=== PATIENT | male | born 1955 | race Hispanic/Latino ===

== ENCOUNTER 2018-09-21 14:53 | Inpatient (IN) | payer OTHER ==
[~2018-09-21] VITALS: Ht 162.6 cm; Wt 63.7 kg
--- OUTSIDE RECORDS SUMMARY | 2018-09-21 14:56 | XMS REPORT | Clinical Summary ---
Author Author YOLANDA [facility] Organization [facility] Address Unknown Phone Unavailable Care Team Providers Care Privacy Analyst Name Role Phone Yuri Olvera Unavailable Unavailable Magnus Devorah Unavailable ShwethaEdwin PCP Allergies Not on File Medications Not on file Active Problems Not on file Encounters Care Team Description Date Type Specialty Khushbu Perez Appointment (Called patient's to leave message regarding scheduling 's day one renal txp eval appt. Gave her available Burmese days in September and October. She stated she will talk to her and call back tomorrow to schedule.) 09/03/2018 Telephone Transplant Khushbu Perez Appointment (Called patient ot schedule day one renal txp eval appt. No answer. Left detailed voicemail message and call back number in Burmese. ) 09/03/2018 Telephone Transplant Khushbu Perez 09/03/2018 Abstract Transplant after 09/20/2017 Social History Date Tobacco Use Types Packs/Day Years Used Never Smoker Sex Assigned at Date Recorded Not on file Industry Job Start Date Occupation Not on file Not on file Not on file Travel End Travel History Travel Start No recent travel history available. Last Filed Vital Signs Time Taken Vital Sign Reading - Blood Pressure - - Pulse - - Temperature - - Respiratory Rate - - Oxygen Saturation - - Inhaled Oxygen - Concentration 09/03/2018 11:38 AM CDT Weight 64.9 kg (143 lb) 09/03/2018 11:38 AM CDT Height 165.1 cm (5' 5") 09/03/2018 11:38 AM CDT Body Mass Index 23.8 Plan of Treatment Care Team Description Date Type Specialty Anemia of renal disease (Primary Dx); Pre-transplant evaluation for chronic kidney disease; Hypertensive renal disease; Nonspecific findings on examination of urine 09/30/2018 Office Visit Transplant 09/30/2018 Orders Only Transplant Hepatology Results Not on fileafter 09/20/2017 Insurance Payer Benefit Subscriber ID Type Phone Address Plan / Group [facility] xxxxxxxxx HMO/POS CARE POS SELECT CHOICE
--- OUTSIDE RECORDS SUMMARY | 2018-09-21 14:57 | XMS REPORT | Continuity of Care Document ---
Author Author [employer] Address Unknown Phone Unavailable Care Team Providers Care Permastone Installer Name Role Phone [employer] Information [place] Unavailable Unavailable Problems Problem Status Onset Date Classification Date Reported Comments Source Sepsis, unspecified organism 03/22/2018 09/14/2018 [facility] Acute dyspnea 02/08/2018 09/14/2018 [facility] COUGH AND CHEST PAIN Active 02/08/2018 [facility] ACUTE DYSPNEA Active 02/08/2018 [facility] CHEST PAIN Active 03/20/2017 [facility] SYNCOPE Active 11/22/2015 [facility] SYNCOPE, BRADYCARDIA, CHF Active 11/22/2015 [facility] Diabetes Active Problem 09/14/2018 [facility] Hyperlipemia Resolved Problem 09/14/2018 [facility] Hypertension Resolved Problem 09/14/2018 [facility] Acute respiratory failure with hypoxia 09/14/2018 [facility] Acute kidney failure with tubular necrosis 09/14/2018 [facility] Acute respiratory failure with hypercapnia 09/14/2018 [facility] Pneumonia due to Methicillin susceptible Staphylococcus aureus 09/14/2018 [facility] Myocardial infarction type 2 09/14/2018 [facility] Chronic kidney disease, stage 4 09/14/2018 [facility] Hyperosmolality and hypernatremia 09/14/2018 [facility] Chronic obstructive pulmonary disease with exacerbation 09/14/2018 [facility] Chronic obstructive pulmonary disease with acute lower respiratory infection 09/14/2018 [facility] Hypo-osmolality and hyponatremia 09/14/2018 [facility] Chronic pulmonary edema 09/14/2018 [facility] Shock, unspecified 09/14/2018 [facility] Hyperkalemia 09/14/2018 [facility] Hypertensive chronic kidney disease with stage 1 through stage 4 chronic kidney disease, or unspecified chronic kidney disease 09/14/2018 [facility] Atherosclerotic heart disease of [place] coronary artery without angina pectoris 09/14/2018 [facility] Hyperlipidemia, unspecified 09/14/2018 [facility] Type 2 diabetes mellitus with diabetic chronic kidney disease 09/14/2018 [facility] Nutritional anemia, unspecified 09/14/2018 [facility] shelter use of insulin 09/14/2018 [facility] Type 2 diabetes mellitus with hyperglycemia 09/14/2018 [facility] Hypermagnesemia 09/14/2018 [facility] Obesity, unspecified 09/14/2018 [facility] Body mass index 27.0-27.9, adult 09/14/2018 [facility] Ventricular premature depolarization 09/14/2018 [facility] Cyst of kidney, acquired 09/14/2018 [facility] Dysphagia, unspecified 09/14/2018 [facility] Procedure and treatment not carried out, unspecified reason 09/14/2018 [facility] intermodal dispatcher use of antithrombotics/antiplatelets 09/14/2018 [facility] shelter use of aspirin 09/14/2018 [facility] SYNCOPE AND COLLAPSE Active [facility] DYSPNEA, UNSPECIFIED Active [facility] CHEST PAIN, UNSPECIFIED Active [facility] Medications Medication Details Route Status Patient Instructions Ordering Provider Order Date Source Blood Glucose Test Strips 1 box, TOP, Before Breakfast, # 60 box, 0 Refill(s) Inactive 02/25/2018 [facility] Blood Glucose Test Strips 1 box, TOP, Before Breakfast, # 60 box, 0 Refill(s) Inactive 02/25/2018 [facility] [employer] Blood Glucose Meter 1 ea, MISC, ONCE, Last HBA1c: Insulin Dep:Y High freq tests for: Poor control Certified Medically Necessary:, # 1 ea, Insulin dependent, Does not use insulin pump, Last DM eval date 02/25/18, 0 Refill(s) Inactive 02/25/2018 [facility] [employer] Blood Glucose Meter 1 ea, MISC, ONCE, Last HBA1c: Insulin Dep:Y High freq tests for: Poor control Certified Medically Necessary:, # 1 ea, Insulin dependent, Does not use insulin pump, Last DM eval date 02/25/18, 0 Refill(s) Inactive 02/25/2018 [facility] Insulin Syringes U 30 31 ga (ultra fine) 1 syr, INJ, Daily, # 60 syr, 1 Refill(s) No Longer Active 02/25/2018 [facility] [employer] Blood Glucose Meter 1 ea, MISC, ONCE, Last HBA1c: Insulin Dep:Y High freq tests for: Poor control Certified Medically Necessary:, # 1 ea, Insulin dependent, Does not use insulin pump, Last DM eval date 02/25/18, 0 Refill(s) Inactive 02/25/2018 [facility] [employer] Blood Glucose Meter 1 ea, MISC, ONCE, Last HBA1c: Insulin Dep:Y High freq tests for: Poor control Certified Medically Necessary:, # 1 ea, Insulin dependent, Does not use insulin pump, Last DM eval date 02/25/18, 0 Refill(s) Inactive 02/25/2018 [facility] Insulin Syringes U 30 31 ga (ultra fine) 1 syr, INJ, Daily, # 60 syr, 1 Refill(s) Inactive 02/25/2018 [facility] [employer] Blood Glucose Meter 1 ea, MISC, ONCE, Last HBA1c: Insulin Dep:Y High freq tests for: Poor control Certified Medically Necessary:, # 1 ea, Insulin dependent, Does not use insulin pump, Last DM eval date 02/25/18, 0 Refill(s), other Inactive 02/25/2018 [facility] Insulin Syringes U 30 31 ga (ultra fine) 1 syr, INJ, Daily, # 60 syr, 1 Refill(s), other Inactive 02/25/2018 [facility] atorvastatin 40 mg oral tablet 20 mg=0.5 tab, PO, Bedtime, # 60 tab, 3 Refill(s) No Longer Active 02/25/2018 [facility] Aspirin 81 MG Enteric Coated Tablet 81 mg=1 tab, PO, Daily, # 60 tab, 3 Refill(s) No Longer Active 02/25/2018 [facility] NIFEdipine 60 mg oral tablet, extended release 60 mg=1 tab, PO, Daily, # 90 tab, 3 Refill(s) No Longer Active 02/25/2018 [facility] Insulin Glargine 100 UNT/ML Injectable Solution 26 unit, SUB-Q, Daily, # 10 mL, 0 Refill(s) No Longer Active 02/25/2018 [facility] melatonin 3 mg oral tablet 6 mg=2 tab, PO, Bedtime, X 14 day, # 28 tab, 0 Refill(s) No Longer Active 02/25/2018 [facility] clopidogrel 75 mg oral tablet 75 mg=1 tab, PO, Daily, # 30 tab, 0 Refill(s) No Longer Active 02/25/2018 [facility] carvedilol 6.25 mg oral tablet 6.25 mg=1 tab, PO, Q12H, # 60 tab, 0 Refill(s) No Longer Active 02/25/2018 [facility] Sodium Chloride 0.9% (titrate) 250 mL 250 mL, Rate: To prime line and flush remaining blood products., Dosing Weight 74.6, kg, Route: IV, Total Volume: 250, Priority: Routine, Start Date: 02/25/18 4:38:00 [employer] OWNED SALES MANAGER, Duration: 30 day, Stop date: 03/27/18 4:37:00 [employer] OWNED SALES MANAGER, Replace Every: 24 hr Inactive 02/25/2018 [facility] Insulin Lispro 6 unit, 0.06 mL, Route: SUB-Q, Drug form: SOLN, TID-Before Meals, Dosing Weight 74.6, kg, PRN Blood Glucose Results, Start date: 02/25/18 2:10:00 [employer] OWNED SALES MANAGER, Duration: 30 day, Stop date: 03/27/18 2:09:00 CSTNotes: (Same as: Humalog ) Roll in palms of hands gently; Do not shake `vigorously. "Single Patient Use Only " WASTE: F/P - Black; E - Municipal Trash Bin Stable for 28 days at room temperature. Expires in days from Date Inactive 02/25/2018 [facility] Glucagon 1 mg, Route: IM, Drug form: PDR/INJ, PRN, Dosing Weight 74.6, kg, PRN Blood Glucose Results, Start date: 02/25/18 2:10:00 [employer] OWNED SALES MANAGER, Duration: 30 day, Stop date: 03/27/18 2:09:00 [employer] OWNED SALES MANAGER Inactive 02/25/2018 [facility] Dextrose 50% Syringe 12.5 gm, 25 mL, Route: IVP, Drug Form: INJ, Dosing Weight 74.6, kg, PRN, PRN Blood Glucose Results, Start date: 02/25/18 2:10:00 [employer] OWNED SALES MANAGER, Duration: 30 day, Stop date: 03/27/18 2:09:00 PRE OWNED SALES MANAGER Inactive 02/25/2018 [facility] insulin glargine 26 unit, 0.26 mL, Route: SUB-Q, Drug form: SOLN, Daily, Start date: 02/24/18 8:00:00 [employer] OWNED SALES MANAGER, Duration: 30 day, Stop date: 03/25/18 8:00:00 CSTNotes: Same as: Lantus) Do not hold insulin without contacti ng prescriber WASTE: F/P - Black; E - Municipal Trash Bin No Longer Active 02/24/2018 [facility] Potassium Chloride 1.33 MEQ/ML Oral Solution 40 mEq, 30 mL, Route: PO, Drug form: LIQ, ONCE, Dosing Weight 74.6, kg, Start date: 02/23/18 15:16:00 PRE OWNED SALES MANAGER, Stop date: 02/23/18 15:16:00 CSTNotes: (Same as: Potassium Chloride) Inactive 02/23/2018 [facility] Amlodipine 5 mg, Route: PO, Drug form: TAB, Daily, Dosing Weight 74.6, kg, Start date: 02/23/18 9:00:00 PRE OWNED SALES MANAGER, Duration: 30 day, Stop date: 03/24/18 9:00:00 PRE OWNED SALES MANAGER No Longer Active 02/23/2018 [facility] insulin glargine 26 unit, 0.26 mL, Route: SUB-Q, Drug form: SOLN, Q12H, Start date: 02/23/18 0:00:00 PRE OWNED SALES MANAGER, Duration: 30 day, Stop date: 03/24/18 12:00:00 CSTNotes: Same as: Lantus) Do not hold insulin without contacting prescriber WASTE: F/P - Black; E - Municipal Trash Bin Inactive 02/23/2018 [facility] Insulin Glargine 100 UNT/ML Injectable Solution 10 unit, Route: SUB-Q, Bedtime, Dosing Weight 74.6, kg, Start date: 02/22/18 21:00:00 PRE OWNED SALES MANAGER, Duration: 30 day, Stop date: 03/23/18 21:00:00 PRE OWNED SALES MANAGER Inactive 02/23/2018 [facility] Glycopyrrolate 1 mg, 5 mL, Route: NG, Drug form: SOLN, BID, Dosing Weight 74.6, kg, Start date: 02/22/18 13:00:00 PRE OWNED SALES MANAGER, Duration: 30 day, Stop date: 03/24/18 9:00:00 CSTNotes: (Same as: Cuvposa) No Longer Active 02/22/2018 [facility] Amlodipine 10 mg, 1 tab, Route: NG, Drug form: TAB, Daily, Dosing Weight 74.6, kg, Start date: 02/22/18 10:50:00 PRE OWNED SALES MANAGER, Duration: 30 day, Stop date: 03/24/18 9:00:00 CSTNotes: (Same as: Norvasc) No Longer Active 02/22/2018 [facility] Glycopyrrolate 1 mg, 5 mL, Route: NG, Drug form: SOLN, BID, Dosing Weight 74.6, kg, Start date: 02/22/18 10:48:00 PRE OWNED SALES MANAGER, Duration: 30 day, Stop date: 03/24/18 9:00:00 CSTNotes: (Same as: Cuvposa) Inactive 02/22/2018 [facility] Lasix 20 mg, 1 tab, Route: PO, Drug form: TAB, Daily, Dosing Weight 74.6, kg, Start date: 02/22/18 9:00:00 [employer] OWNED SALES MANAGER, Duration: 30 day, Stop date: 03/23/18 9:00:00 CSTNotes: (Same as: Lasix) May cause GI upset. Give with food or milk. No Longer Active 02/22/2018 [facility] heparin sodium, porcine 2500 UNT/ML Injectable Solution 5,000 unit, 1 mL, Route: SUB-Q, Drug form: INJ, Q8H, Dosing Weight 74.6, kg, Start date: 02/21/18 16:00:00 PRE OWNED SALES MANAGER, Duration: 30 day, Stop date: 03/23/18 8:00:00 CSTNotes: porcine heparin No Longer Active 02/21/2018 [facility] Reglan 10 mg, 2 mL, Route: IVP, Drug form: INJ, ONCE, Dosing Weight 74.6, kg, Start date: 02/21/18 11:43:00 PRE OWNED SALES MANAGER, Stop date: 02/21/18 11:43:00 CSTNotes: (Same as: Reglan) Inactive 02/21/2018 [facility] NIFEdipine 60 mg oral tablet, extended release 60 mg, 1 tab, Route: PO, Drug form: ERTAB, Daily, Dosing Weight 74.6, kg, Start date: 02/21/18 9:00:00 PRE OWNED SALES MANAGER, Duration: 30 day, Stop date: 03/22/18 9:00:00 PRE OWNED SALES MANAGER, ..Notes: (Same as: Adalat CC, Procardia XL) Give on empty stomach. Take 1 hour before or 2 hours after meal; "Avoid grapefruit and grapefruit juice". Do not crush No Longer Active 02/21/2018 [facility] Coreg 6.25 mg, 1 tab, Route: PO, Drug form: TAB, Q12H, Dosing Weight 74.6, kg, Start date: 02/20/18 9:00:00 PRE OWNED SALES MANAGER, Duration: 30 day, Stop date: 03/21/18 21:00:00 CSTNotes: Give with food. (Same As: Coreg) No Longer Active 02/20/2018 [facility] Melatonin 6 mg, 2 tab, Route: PO, Drug form: TAB, Bedtime, Dosing Weight 74.6, kg, Start date: 02/19/18 21:00:00 PRE OWNED SALES MANAGER, Duration: 30 day, Stop date: 03/20/18 21:00:00 CSTNotes: (Same as: Melatonin) No Longer Active 02/20/2018 [facility] insulin, isophane 22 unit, 0.22 mL, Route: SUB-Q, Drug form: INJ, Q8H, Dosing Weight 74.6, kg, Start date: 02/19/18 16:00:00 PRE OWNED SALES MANAGER, Stop date: 02/22/18 18:00:00 CSTNotes: Roll in palms of hands gently; Do not shake vigorously. (Same as: Humulin N) Do not hold insulin without contacting prescriber WASTE: F/P - Black; E - Municipal Trash Bin Stable for 28 days at room temperature Expires in days from Date No Longer Active 02/19/2018 [facility] Reglan 10 mg, Route: IV, ONCE, Dosing Weight 74.6, kg, Start date: 02/19/18 13:39:00 PRE OWNED SALES MANAGER, Stop date: 02/19/18 13:39:00 PRE OWNED SALES MANAGER Inactive 02/19/2018 [facility] Furosemide 40 MG Oral Tablet [Lasix] 40 mg, 1 tab, Route: PO, Drug form: TAB, BID Diuretic, Dosing Weight 74.6, kg, Start date: 02/19/18 9:00:00 PRE OWNED SALES MANAGER, Duration: 30 day, Stop date: 03/21/18 6:00:00 PRE OWNED SALES MANAGER No Longer Active 02/19/2018 [facility] Potassium Chloride 1.33 MEQ/ML Oral Solution 20 mEq, 15 mL, Route: NG, Drug form: LIQ, ONCE, Dosing Weight 74.6, kg, Start date: 02/18/18 18:00:00 PRE OWNED SALES MANAGER, Stop date: 02/18/18 18:00:00 CSTNotes: (Same as: Potassium Chloride) Inactive 02/19/2018 [facility] Potassium Chloride 1.33 MEQ/ML Oral Solution 40 mEq, 30 mL, Route: PO, Drug form: LIQ, ONCE, Dosing Weight 74.6, kg, Start date: 02/18/18 11:02:00 PRE OWNED SALES MANAGER, Stop date: 02/18/18 11:02:00 CSTNotes: (Same as: Potassium Chloride) Inactive 02/18/2018 [facility] Lasix 40 mg, Route: IV, Daily, Dosing Weight 74.6, kg, Start date: 02/18/18 9:00:00 PRE OWNED SALES MANAGER, Duration: 30 day, Stop date: 03/19/18 9:00:00 PRE OWNED SALES MANAGER Inactive 02/18/2018 [facility] Lasix 40 mg, 4 mL, Route: IV, Drug form: INJ, ONCE, Dosing Weight 74.6, kg, Start date: 02/18/18 8:53:00 PRE OWNED SALES MANAGER, Stop date: 02/18/18 8:53:00 CSTNotes: (Same as: Lasix) MEDICATION WASTE Product Size: 40 mg Product Wasted: _0__ mg Inactive 02/18/2018 [facility] Potassium Chloride 40 mEq, 30 mL, Route: NJ, Drug form: LIQ, ONCE, Dosing Weight 74.6, kg, PRN Abnormal Lab Result, Electrolyte replacement, Start date: 02/18/18 1:20:00 CSTNotes: (Same as: Potassium Chloride) Inactive 02/18/2018 [facility] pantoprazole 40 mg, 1 pkt, Route: PO, Drug form: GRAN/REC, Daily, Dosing Weight 74.6, kg, PRN Hiccups, Start date: 02/17/18 21:35:00 PRE OWNED SALES MANAGER, Duration: 30 day, Stop date: 03/19/18 21:34:00 CSTNotes: Same as: Protonix Mix in 5 mL apple juice or applesauce for oral & 10mL apple juice for NG tube No Longer Active 02/18/2018 [facility] insulin, isophane 20 unit, 0.2 mL, Route: SUB-Q, Drug form: INJ, Q12H, Dosing Weight 74.6, kg, Start date: 02/17/18 21:00:00 PRE OWNED SALES MANAGER, Duration: 30 day, Stop date: 03/19/18 9:00:00 CSTNotes: Roll in palms of hands gently; Do not shake vigorously. (Same as: Humulin N) Do not hold insulin without contacting prescriber WASTE: F/P - Black; E - Municipal Trash Bin Stable for 28 days at room temperature Expires in days from Date No Longer Active 02/18/2018 [facility] Lasix 20 mg, 2 mL, Route: IVP, Drug form: INJ, ONCE, Dosing Weight 74.6, kg, Start date: 02/17/18 18:30:00 PRE OWNED SALES MANAGER, Stop date: 02/17/18 18:30:00 PRE OWNED SALES MANAGER Inactive 02/18/2018 [facility] Lasix 40 mg, 4 mL, Route: IVP, Drug form: INJ, ONCE, Dosing Weight 74.6, kg, Start date: 02/17/18 9:07:00 PRE OWNED SALES MANAGER, Stop date: 02/17/18 9:07:00 CSTNotes: (Same as: Lasix) MEDICATION WASTE Product Size: 40 mg Product Wasted: ___ mg Inactive 02/17/2018 [facility] Lasix 40 mg, 4 mL, Route: IVP, Drug form: INJ, ONCE, Dosing Weight 74.6, kg, Start date: 02/16/18 12:15:00 PRE OWNED SALES MANAGER, Stop date: 02/16/18 12:15:00 CSTNotes: (Same as: Lasix) MEDICATION WASTE Product Size: 40 mg Product Wasted: ___ mg Inactive 02/16/2018 [facility] D5W 1,000 mL 1,000 mL, Rate: 125 ml/hr, Infuse over: 8 hr, Route: IV, Dosing Weight 74.6 kg, Total Volume: 1,000, Start date: 02/15/18 15:24:00 PRE OWNED SALES MANAGER, Duration: 30 day, Stop date: 03/17/18 15:23:00 PRE OWNED SALES MANAGER, 1.87, m2 No Longer Active 02/15/2018 [facility] Calcium Carbonate 500 MG Chewable Tablet 1,000 mg, Route: PO, PRN, Dosing Weight 74.6, kg, PRN Abnormal Lab Result, FOR ICU USE ONLY, Start date: 02/15/18 5:24:00 PRE OWNED SALES MANAGER, Duration: 30 day, Stop date: 03/17/18 5:23:00 PRE OWNED SALES MANAGER Inactive 02/15/2018 [facility] potassium phosphate-sodium phosphate 250 mg-280 mg-160 mg oral powder for reconstitution 2 pkt, Route: PO, Dosing Weight 74.6, kg, PRN, PRN Abnormal Lab Result, FOR ICU USE ONLY, Start date: 02/15/18 5:24:00 PRE OWNED SALES MANAGER, Duration: 30 day, Stop date: 03/17/18 5:23:00 PRE OWNED SALES MANAGER Inactive 02/15/2018 [facility] Magnesium Oxide 800 mg, Route: PO, PRN, Dosing Weight 74.6, kg, PRN Abnormal Lab Result, FOR ICU USE ONLY, Start date: 02/15/18 5:24:00 PRE OWNED SALES MANAGER, Duration: 30 day, Stop date: 03/17/18 5:23:00 PRE OWNED SALES MANAGER Inactive 02/15/2018 [facility] Magnesium Sulfate 2 gm, Route: IVPB, PRN, Dosing Weight 74.6, kg, PRN Abnormal Lab Result, Start date: 02/15/18 5:24:00 PRE OWNED SALES MANAGER, Duration: 30 day, Stop date: 03/17/18 5:23:00 PRE OWNED SALES MANAGER, FOR ICU USE ONLY Inactive 02/15/2018 [facility] Calcium Gluconate 1 gm, Route: IVPB, PRN, Dosing Weight 74.6, kg, PRN Abnormal Lab Result, Start date: 02/15/18 5:24:00 PRE OWNED SALES MANAGER, Duration: 30 day, Stop date: 03/17/18 5:23:00 PRE OWNED SALES MANAGER, FOR ICU USE ONLY Inactive 02/15/2018 [facility] Potassium Chloride 20 mEq, Route: IVPB, PRN, Dosing Weight 74.6, kg, PRN Abnormal Lab Result, Via central line, Start date: 02/15/18 5:24:00 PRE OWNED SALES MANAGER, Duration: 30 day, Stop date: 03/17/18 5:23:00 PRE OWNED SALES MANAGER, FOR ICU USE ONLY Inactive 02/15/2018 [facility] sodium phosphate 15 mmol, Route: IVPB, PRN, Dosing Weight 74.6, kg, PRN Abnormal Lab Result, Start date: 02/15/18 5:24:00 PRE OWNED SALES MANAGER, Duration: 30 day, Stop date: 03/17/18 5:23:00 PRE OWNED SALES MANAGER, FOR ICU USE ONLY Inactive 02/15/2018 [facility] potassium phosphate 15 mmol, Route: IVPB, PRN, Dosing Weight 74.6, kg, PRN Abnormal Lab Result, Start date: 02/15/18 5:24:00 PRE OWNED SALES MANAGER, Duration: 30 day, Stop date: 03/17/18 5:23:00 PRE OWNED SALES MANAGER, FOR ICU USE ONLY Inactive 02/15/2018 [facility] Potassium Chloride 40 mEq, 30 mL, Route: NG, Drug form: LIQ, ONCE, Dosing Weight 74.6, kg, Start date: 02/14/18 22:52:00 PRE OWNED SALES MANAGER, Stop date: 02/14/18 22:52:00 CSTNotes: (Same as: Potassium Chloride) No Longer Active 02/15/2018 [facility] insulin, isophane 10 unit, 0.1 mL, Route: SUB-Q, Drug form: INJ, Q12H, Dosing Weight 74.6, kg, Start date: 02/14/18 21:00:00 PRE OWNED SALES MANAGER, Duration: 30 day, Stop date: 03/16/18 9:00:00 CSTNotes: Roll in palms of hands gently; Do not shake vigorously. (Same as: Humulin N) Do not hold insulin without contacting prescriber WASTE: F/P - Black; E - Municipal Trash Bin Stable for 28 days at room temperature Expires in days from Date No Longer Active 02/15/2018 [facility] Atropine 0.5 mg, Route: IVP, ONCE, Dosing Weight 74.6, kg, Start date: 02/14/18 15:00:00 PRE OWNED SALES MANAGER, Stop date: 02/14/18 15:00:00 PRE OWNED SALES MANAGER Inactive 02/14/2018 [facility] Aminophylline 75 mg, Route: IV, ONCE, Dosing Weight 74.6, kg, Start date: 02/14/18 15:00:00 PRE OWNED SALES MANAGER, Stop date: 02/14/18 15:00:00 PRE OWNED SALES MANAGER Inactive 02/14/2018 [facility] Lasix 40 mg, 4 mL, Route: IV, Drug form: INJ, ONCE, Dosing Weight 74.6, kg, Priority: NOW, Start date: 02/14/18 10:06:00 PRE OWNED SALES MANAGER, Stop date: 02/14/18 10:06:00 CSTNotes: (Same as: Lasix) MEDICATION WASTE Product Size: 40 mg Product Wasted: __0_ mg Inactive 02/14/2018 [facility] insulin, isophane 10 unit, 0.1 mL, Route: SUB-Q, Drug form: INJ, BID, Dosing Weight 74.6, kg, Start date: 02/14/18 9:00:00 PRE OWNED SALES MANAGER, Duration: 30 day, Stop date: 03/15/18 17:00:00 CSTNotes: Roll in palms of hands gently; Do not shake vigorously. (Same as: Humulin N) Do not hold insulin without contacting prescriber WASTE: F/P - Black; E - Municipal Trash Bin Stable for 28 days at room temperature Expires in days from Date Inactive 02/14/2018 [facility] Insulin regular 6 unit, 0.06 mL, Route: SUB-Q, Drug form: SOLN, Sliding Scale, Dosing Weight 74.6, kg, PRN Blood Glucose Results, Start date: 02/14/18 6:38:00 PRE OWNED SALES MANAGER, Duration: 30 day, Stop date: 03/16/18 6:37:00 CSTNo alex: (Same as: Humulin R) Roll in palms of hands gently; Do not shake vigorously. "single patient use only" (Restricted to patients requiring a dose > 60 units) WASTE: F/P - Black; E - Municipal Trash Bin Stable for 28 days at room temperature Expires in days from Date No Longer Active 02/14/2018 [facility] Glucagon 1 mg, Route: IM, Drug form: PDR/INJ, PRN, Dosing Weight 74.6, kg, PRN Blood Glucose Results, Start date: 02/14/18 6:38:00 [employer] OWNED SALES MANAGER, Duration: 30 day, Stop date: 03/16/18 6:37:00 PRE OWNED SALES MANAGER No Longer Active 02/14/2018 [facility] Dextrose 50% Syringe 25 gm, 50 mL, Route: IVP, Drug Form: INJ, Dosing Weight 74.6, kg, PRN, PRN Blood Glucose Results, Start date: 02/14/18 6:38:00 PRE OWNED SALES MANAGER, Duration: 30 day, Stop date: 03/16/18 6:37:00 PRE OWNED SALES MANAGER No Longer Active 02/14/2018 [facility] Dextrose 5% in Water IV 500 mL 500 mL, Rate: 250 ml/hr, Infuse over: 2 hr, Route: IV, Dosing Weight 74.6 kg, Total Volume: 500, Start date: 02/14/18 6:34:00 [employer] OWNED SALES MANAGER, Duration: 1 doses or times, Stop date: 02/14/18 8:33:00 [employer] OWNED SALES MANAGER, 1.87, m2 Inactive 02/14/2018 [facility] Potassium Chloride 1.33 MEQ/ML Oral Solution 40 mEq, 30 mL, Route: PO, Drug form: LIQ, ONCE, Dosing Weight 74.6, kg, Start date: 02/14/18 6:33:00 PRE OWNED SALES MANAGER, Stop date: 02/14/18 6:33:00 CSTNotes: (Same as: Potassium Chloride) Inactive 02/14/2018 [facility] carvedilol 12.5 mg, 1 tab, Route: PO, Drug form: TAB, ONCE, Dosing Weight 74.6, kg, Start date: 02/13/18 21:44:00 PRE OWNED SALES MANAGER, Stop date: 02/13/18 21:44:00 CSTNotes: Give with food. (Same As: Coreg) Inactive 02/14/2018 [facility] Coreg 25 mg, 1 tab, Route: PO, Drug form: TAB, Q12H, Dosing Weight 74.6, kg, Start date: 02/13/18 21:00:00 PRE OWNED SALES MANAGER, Stop date: 03/13/18 9:00:00 CSTNotes: Give with food. (Same As: Coreg) No Longer Active 02/14/2018 [facility] insulin, isophane 20 unit, 0.2 mL, Route: SUB-Q, Drug form: INJ, Q8H, Dosing Weight 74.6, kg, Start date: 02/13/18 16:00:00 PRE OWNED SALES MANAGER, Duration: 30 day, Stop date: 03/15/18 8:00:00 CSTNotes: Roll in palms of hands gently; Do not shake vigorously. (Same as: Humulin N) Do not hold insulin without contacting prescriber WASTE: F/P - Black; E - Municipal Trash Bin Stable for 28 days at room temperature Expires in days from Date No Longer Active 02/13/2018 [facility] heparin 5,000 unit, 1 mL, Route: SUB-Q, Drug form: INJ, Q8H, Dosing Weight 74.6, kg, Start date: 02/13/18 16:00:00 PRE OWNED SALES MANAGER, Duration: 7 day, Stop date: 02/20/18 8:00:00 CSTNotes: porcine heparin No Longer Active 02/13/2018 [facility] Insulin regular 3 unit, 0.03 mL, Route: SUB-Q, Drug form: SOLN, Sliding Scale, Dosing Weight 74.6, kg, PRN Blood Glucose Results, Start date: 02/13/18 15:16:00 PRE OWNED SALES MANAGER, Duration: 30 day, Stop date: 03/15/18 15:15:00 PRE OWNED SALES MANAGER Notes: (Same as: Humulin R) Roll in palms of hands gently; Do not shake vigorously. "single patient use only" (Restricted to patients requiring a dose > 60 units) WASTE: F/P - Black; E - Municipal Trash Bin Stable for 28 days at room temperature Expires in days from Date No Longer Active 02/13/2018 [facility] Dextrose 50% Syringe 12.5 gm, 25 mL, Route: IVP, Drug Form: INJ, Dosing Weight 74.6, kg, PRN, PRN Blood Glucose Results, Start date: 02/13/18 15:16:00 PRE OWNED SALES MANAGER, Duration: 30 day, Stop date: 03/15/18 15:15:00 PRE OWNED SALES MANAGER No Longer Active 02/13/2018 [facility] Glucagon 1 mg, Route: IM, Drug form: PDR/INJ, PRN, Dosing Weight 74.6, kg, PRN Blood Glucose Results, Start date: 02/13/18 15:16:00 PRE OWNED SALES MANAGER, Duration: 30 day, Stop date: 03/15/18 15:15:00 PRE OWNED SALES MANAGER No Longer Active 02/13/2018 [facility] Insulin regular 2 unit, Route: SUB-Q, Sliding Scale, Dosing Weight 74.6, kg, PRN Blood Glucose Results, Start date: 02/13/18 15:15:00 PRE OWNED SALES MANAGER, Duration: 30 day, Stop date: 03/15/18 15:14:00 PRE OWNED SALES MANAGER Inactive 02/13/2018 [facility] Dextrose 50% Syringe 25 mL, Route: IVP, Dosing Weight 74.6, kg, PRN, PRN Blood Glucose Results, Start date: 02/13/18 15:15:00 PRE OWNED SALES MANAGER, Duration: 30 day, Stop date: 03/15/18 15:14:00 PRE OWNED SALES MANAGER Inactive 02/13/2018 [facility] Glucagon 1 mg, Route: IM, PRN, Dosing Weight 74.6, kg, PRN Blood Glucose Results, Start date: 02/13/18 15:15:00 PRE OWNED SALES MANAGER, Duration: 30 day, Stop date: 03/15/18 15:14:00 PRE OWNED SALES MANAGER Inactive 02/13/2018 [facility] Insulin regular 4 unit, 0.04 mL, Route: SUB-Q, Drug form: SOLN, TID-Before Meals, Dosing Weight 74.6, kg, PRN Blood Glucose Results, Start date: 02/13/18 14:01:00 PRE OWNED SALES MANAGER, Duration: 30 day, Stop date: 03/15/18 14:00:00 CSTNotes: (Same as: Humulin R) Roll in palms of hands gently; Do not shake vigorously. "single patient use only" (Restricted to patients requiring a dose > 60 units) WASTE: F/P - Black; E - Municipal Trash Bin Stable for 28 days at room temperature Expires in days from Date Inactive 02/13/2018 [facility] Glucagon 1 mg, Route: IM, Drug form: PDR/INJ, PRN, Dosing Weight 74.6, kg, PRN Blood Glucose Results, Start date: 02/13/18 14:01:00 PRE OWNED SALES MANAGER, Duration: 30 day, Stop date: 03/15/18 14:00:00 PRE OWNED SALES MANAGER Inactive 02/13/2018 [facility] Dextrose 50% Syringe 25 gm, 50 mL, Route: IVP, Drug Form: INJ, Dosing Weight 74.6, kg, PRN, PRN Blood Glucose Results, Start date: 02/13/18 14:01:00 PRE OWNED SALES MANAGER, Duration: 30 day, Stop date: 03/15/18 14:00:00 PRE OWNED SALES MANAGER Inactive 02/13/2018 [facility] ceFAZolin 1 gm, Route: IVP, Drug form: PDR/INJ, [id number], Dosing Weight 74.6, kg, Start date: 02/13/18 13:24:00 PRE OWNED SALES MANAGER, Duration: 3 doses or times, Stop date: 02/14/18 13:24:00 PRE OWNED SALES MANAGER, ABX Indication: PneumoniaNotes: (Same As: Jordi Perry) MEDICATION WASTE Product Size: 1000 mg Product Wasted: _0__ mg No Longer Active 02/13/2018 [facility] Coreg 12.5 mg, 1 tab, Route: PO, Drug form: TAB, ONCE, Dosing Weight 74.6, kg, Start date: 02/13/18 9:44:00 PRE OWNED SALES MANAGER, Stop date: 02/13/18 9:44:00 PRE OWNED SALES MANAGER Inactive 02/13/2018 [facility] Coreg 12.5 mg, Route: PO, Drug form: TAB, ONCE, Dosing Weight 74.6, kg, Start date: 02/13/18 9:42:00 PRE OWNED SALES MANAGER, Stop date: 02/13/18 9:42:00 PRE OWNED SALES MANAGER Inactive 02/13/2018 [facility] Coreg 25 mg, Route: PO, Drug form: TAB, Q12H, Dosing Weight 74.6, kg, Start date: 02/13/18 9:00:00 PRE OWNED SALES MANAGER, Stop date: 03/13/18 9:00:00 PRE OWNED SALES MANAGER Inactive 02/13/2018 [facility] Potassium Chloride 1.33 MEQ/ML Oral Solution 10 mEq, 7.5 mL, Route: PO, Drug form: LIQ, ONCE, Dosing Weight 74.6, kg, Start date: 02/13/18 6:27:00 PRE OWNED SALES MANAGER, Stop date: 02/13/18 6:27:00 CSTNotes: (Same as: Potassium Chloride) Inactive 02/13/2018 [facility] Potassium Chloride 20 mEq, 1 tab, Route: PO, Drug form: ERTAB, ONCE, Dosing Weight 74.6, kg, Start date: 02/13/18 6:16:00 PRE OWNED SALES MANAGER, Stop date: 02/13/18 6:16:00 CSTNotes: (Same as: K-Dur 20) "Do Not Crush" For patients unable to swallow tablet, dissolve in one half glass of water. Allow about 2 minutes for the tablets to disintegrate. Stir before giving to prepare slurry and administer. Please exclude Patients with feeding tube less than 14 U[place] (Dobhoff, J-tube etc) and pediatric and patients. With food and full glass of water Inactive 02/13/2018 [facility] insulin, isophane 30 unit, 0.3 mL, Route: SUB-Q, Drug form: INJ, Q8H, Dosing Weight 74.6, kg, Start date: 02/12/18 16:00:00 PRE OWNED SALES MANAGER, Duration: 30 day, Stop date: 03/14/18 8:00:00 CSTNotes: Roll in palms of hands gently; Do not shake vigorously. (Same as: Humulin N) Do not hold insulin without contacting prescriber WASTE: F/P - Black; E - Municipal Trash Bin Stable for 28 days at room temperature Expires in days from Date No Longer Active 02/12/2018 [facility] Bisacodyl 10 mg, 1 supp, Route: MO, Drug form: SUPP, Daily, Dosing Weight 74.6, kg, PRN Constipation, Start date: 02/12/18 15:28:00 PRE OWNED SALES MANAGER, Duration: 30 day, Stop date: 03/14/18 15:27:00 CSTNotes: (Same As: Dulcolax, Bisco-Lax) No Longer Active 02/12/2018 [facility] clopidogrel 75 mg, 1 tab, Route: PO, Drug form: TAB, Daily, Dosing Weight 74.6, kg, Start date: 02/12/18 12:00:00 PRE OWNED SALES MANAGER, Duration: 30 day, Stop date: 03/14/18 9:00:00 CSTNotes: (Same As: Plavix) No Longer Active 02/12/2018 [facility] Bisacodyl 10 mg, 1 supp, Route: MO, Drug form: SUPP, ONCE, Dosing Weight 74.6, kg, Start date: 02/12/18 11:35:00 PRE OWNED SALES MANAGER, Stop date: 02/12/18 11:35:00 CSTNotes: (Same As: Dulcolax, Bisco-Lax) Inactive 02/12/2018 [facility] Coreg 6.25 mg, 1 tab, Route: PO, Drug form: TAB, Q12H, Dosing Weight 74.6, kg, Start date: 02/12/18 10:59:00 PRE OWNED SALES MANAGER, Stop date: 03/13/18 10:49:00 CSTNotes: Give with food. (Same As: Coreg) No Longer Active 02/12/2018 [facility] Amlodipine 10 mg, 1 tab, Route: PO, Drug form: TAB, Daily, Dosing Weight 74.6, kg, Start date: 02/12/18 9:00:00 PRE OWNED SALES MANAGER, Duration: 30 day, Stop date: 03/13/18 9:00:00 CSTNotes: (Same as: Norvasc) No Longer Active 02/12/2018 [facility] Hydralazine Hydrochloride 50 MG Oral Tablet 100 mg, 2 tab, Route: PO, Drug form: TAB, Q8H, Dosing Weight 74.6, kg, Priority: Routine, Start date: 02/12/18 8:00:00 PRE OWNED SALES MANAGER, Duration: 30 day, Stop date: 03/14/18 0:00:00 CSTNotes: (Same as: Apresoline) May interfere w/enteral feedings Take With Food No Longer Active 02/12/2018 [facility] Hydralazine Hydrochloride 50 MG Oral Tablet 50 mg, 1 tab, Route: PO, Drug form: TAB, Q6H, Dosing Weight 74.6, kg, Priority: Routine, Start date: 02/12/18 0:00:00 PRE OWNED SALES MANAGER, Duration: 30 day, Stop date: 03/13/18 18:00:00 CSTNotes: (Same as: Apresoline) May interfere with enteral feedings. Take with food. Inactive 02/12/2018 [facility] Hydralazine 10 mg, 0.5 mL, Route: IV, Drug form: INJ, ONCE, Dosing Weight 74.6, kg, PRN Elevated BP, Start date: 02/11/18 23:51:00 PRE OWNED SALES MANAGER, If systolic BP >180 or diastolic blood pressure >110Notes: (Same as: Apresoline) Push over 5 minutes No Longer Active 02/12/2018 [facility] Labetalol 10 mg, 2 mL, Route: IV, Drug form: INJ, ONCE, Dosing Weight 74.6, kg, Start date: 02/11/18 23:47:00 PRE OWNED SALES MANAGER, Stop date: 02/11/18 23:47:00 PRE OWNED SALES MANAGER No Longer Active 02/12/2018 [facility] Hydralazine 10 mg, 0.5 mL, Route: IV, Drug form: INJ, ONCE, Dosing Weight 74.6, kg, Start date: 02/11/18 21:09:00 PRE OWNED SALES MANAGER, Stop date: 02/11/18 21:09:00 CSTNotes: (Same as: Apresoline) Push over 5 minutes. Inactive 02/12/2018 [facility] Amlodipine 5 mg, 1 tab, Route: PO, Drug form: TAB, ONCE, Dosing Weight 74.6, kg, Priority: STAT, Start date: 02/11/18 20:53:00 PRE OWNED SALES MANAGER, Stop date: 02/11/18 20:53:00 CSTNotes: (Same as: Norvasc) Inactive 02/12/2018 [facility] Hydralazine 50 mg, Route: IV, ONCE, Dosing Weight 74.6, kg, Start date: 02/11/18 20:48:00 PRE OWNED SALES MANAGER, Stop date: 02/11/18 20:48:00 PRE OWNED SALES MANAGER Inactive 02/12/2018 [facility] Hydralazine 25 mg, 1 tab, Route: PO, Drug form: TAB, ONCE, Dosing Weight 74.6, kg, Start date: 02/11/18 17:00:00 PRE OWNED SALES MANAGER, Stop date: 02/11/18 17:00:00 PRE OWNED SALES MANAGER Inactive 02/11/2018 [facility] Cefazolin 1 gm, Route: IVP, Drug form: PDR/INJ, [id number], Dosing Weight 74.6, kg, Start date: 02/11/18 13:00:00 PRE OWNED SALES MANAGER, Duration: 3 doses or times, Stop date: 02/14/18 13:00:00 PRE OWNED SALES MANAGER, ABX Indication: PneumoniaNotes: (Same As: Jordi Perry) MEDICATION WASTE Product Size: 1000 mg Product Wasted: _0__ mg No Longer Active 02/11/2018 [facility] insulin, isophane 24 unit, 0.24 mL, Route: SUB-Q, Drug form: INJ, Q8Hnow, Dosing Weight 74.6, kg, Start date: 02/11/18 5:00:00 PRE OWNED SALES MANAGER, Duration: 30 day, Stop date: 03/12/18 21:00:00 CSTNotes: Roll in palms of hands gently; Do not shake vigorously. (Same as: Humulin N) Do not hold insulin without contacting prescriber WASTE: F/P - Black; E - Municipal Trash Bin Stable for 28 days at room temperature Expires in days from Date No Longer Active 02/11/2018 [facility] Insulin Glargine 100 UNT/ML Injectable Solution 7 unit, Route: SUB-Q, Bedtime, Dosing Weight 74.6, kg, Start date: 02/10/18 21:00:00 PRE OWNED SALES MANAGER, Duration: 30 day, Stop date: 03/11/18 21:00:00 PRE OWNED SALES MANAGER No Longer Active 02/11/2018 [facility] Tamiflu 75 mg, 1 cap, Route: PO, Drug form: CAP, [id number], Dosing Weight 75, kg, CrCl > 60 ml/min, Start date: 02/10/18 21:00:00 PRE OWNED SALES MANAGER, Duration: 5 day, Stop date: 02/14/18 21:00:00 CSTNotes: Take with food. Same as: Tamiflu) Inactive 02/11/2018 [facility] Famotidine 20 MG Oral Tablet [Pepcid] 20 mg, 1 tab, Route: PO, Drug form: TAB, Q12H, Dosing Weight 74.6, kg, Start date: 02/10/18 21:00:00 PRE OWNED SALES MANAGER, Duration: 30 day, Stop date: 03/12/18 9:00:00 CSTNotes: (Same as: Pepcid) No Longer Active 02/11/2018 [facility] sennosides, FPC 17.6 mg, 10 mL, Route: NG, Drug Form: SYRP, Dosing Weight 74.6, kg, Q12H, Start date: 02/10/18 21:00:00 PRE OWNED SALES MANAGER, Duration: 30 day, Stop date: 03/12/18 9:00:00 CSTNotes: (Same as: Senokot) No Longer Active 02/11/2018 [facility] Docusate 100 mg, 10 mL, Route: NG, Drug form: LIQ, Q12H, Dosing Weight 74.6, kg, Start date: 02/10/18 21:00:00 PRE OWNED SALES MANAGER, Duration: 30 day, Stop date: 03/12/18 9:00:00 CSTNotes: (Same as: Colace) No Longer Active 02/11/2018 [facility] heparin additive 25,000 unit [12 unit/kg/hr] + Premix Diluent Sodium Chloride 0.45% 500 mL 500 mL, Rate: 16.02 ml/hr, Infuse over: 31.2 hr, Route: IV, Dosing Weight 66.74 kg, Total Volume: 500 mL, Start date: 02/10/18 16:57:00 PRE OWNED SALES MANAGER, Duration: 30 day, Stop date: 03/12/18 16:56:00 PRE OWNED SALES MANAGER, 1.76, [id number]: Total Concentration=50 unit/ ml Total ntgqqb=786 ml Send Med Request 2 hours prior to next bag No Longer Active 02/10/2018 [facility] Heparin 60 unit/kg Bolus (Heparin Dosing Weight) Route: IVP, PRN, 4,000 unit, 4 mL, Drug form: INJ, PRN, Heparin Protocol, Start date: 02/10/18 16:57:00 PRE OWNED SALES MANAGER Stop date: 03/12/18 16:56:00 PRE OWNED SALES MANAGER, 30 day No Longer Active 02/10/2018 [facility] Heparin 30 unit/kg Bolus (Heparin Dosing Weight) Route: IVP, PRN, 2,000 unit, 2 mL, Drug form: INJ, PRN, Heparin Protocol, Start date: 02/10/18 16:57:00 PRE OWNED SALES MANAGER Stop date: 03/12/18 16:56:00 PRE OWNED SALES MANAGER, 30 day No Longer Active 02/10/2018 [facility] Heparin - one time bolus for ACS 4,000 unit, 4 mL, Route: IVP, Drug form: INJ, ONCE, Dosing Weight 74.6, kg, Priority: STAT, Start date: 02/10/18 16:56:00 PRE OWNED SALES MANAGER, Stop date: 02/10/18 16:56:00 PRE OWNED SALES MANAGER Inactive 02/10/2018 [facility] insulin, isophane 20 unit, 0.2 mL, Route: SUB-Q, Drug form: INJ, Q8Hnow, Dosing Weight 74.6, kg, Start date: 02/10/18 13:00:00 PRE OWNED SALES MANAGER, Duration: 30 day, Stop date: 03/12/18 5:00:00 CSTNotes: Roll in palms of hands gently; Do not shake vigorously. (Same as: Humulin N) Do not hold insulin without contacting prescriber WASTE: F/P - Black; E - Municipal Trash Bin Stable for 28 days at room temperature Expires in days from Date No Longer Active 02/10/2018 [facility] Insulin regular 12 unit, 0.12 mL, Route: SUB-Q, Drug form: SOLN, PRN, Dosing Weight 74.6, kg, PRN Abnormal Lab Result, Start date: 02/10/18 12:52:00 PRE OWNED SALES MANAGER, Duration: 30 day, Stop date: 03/12/18 12:51:00 PRE OWNED SALES MANAGER, For FSBG >=200 mg/dLNotes: (Same as: Humulin R) Roll in palms of hands gently; Do not shake vigorously. "single patient use only" (Restricted to patients requiring a dose > 60 units) WASTE: F/P - Black; E - Municipal Trash Bin Stable for 28 days at room temperature Expires in days from Date No Longer Active 02/10/2018 [facility] Dextrose 50% Syringe 12.5 gm, 25 mL, Route: IVP, Drug Form: INJ, Dosing Weight 74.6, kg, PRN, PRN Abnormal Lab Result, Start date: 02/10/18 12:52:00 PRE OWNED SALES MANAGER, Duration: 30 day, Stop date: 03/12/18 12:51:00 PRE OWNED SALES MANAGER, For FSBG 40 mg /dL - 60 mg/dL No Longer Active 02/10/2018 [facility] Dexmedetomidine 400 microgram, Rate: Titrate, Start Dose: 0.2 microgram/kg/hr, Titration: 0.1 microgram/kg/hr every 30 min, Goal(s): RASS -1, Max Dose: 1.5 microgram/kg/hr, Route: IV, Dosing Weight 74.6 kg, Total Volum e: 100, Start date: 02/10/18 5:39:00 PRE OWNED SALES MANAGER, Duratio...Notes: Use the following cdm for [id number]. No Longer Active 02/10/2018 [facility] propofol 10 mg/mL (Titrate.) IV 1,000 mg 1,000 mg, 100 mL, Rate: Titrate, Start Dose: 5 microgram/kg/min, Titration: 5 microgram/kg/min every 15 min, Goal(s): RASS -2, Max Dose: 50 microgram/kg/min, Route: IV, Dosing Weight 74.6 kg, Total Volume: 100, Start date: 02/10/18 5:34:00 PRE OWNED SALES MANAGER, Durati...Notes: If Diprivan - change bottle & tubing every 12 hr Per state nursing law propofol can only be given by a nurse if patient is intubated or pam ng intubated (unless the nurse is a PROCESS LEAD). Same as: Dawsonriankit Inactive 02/10/2018 [facility] Insulin regular 100 unit + 99 mL, Rate: Start Insulin Drip, Dosing Weight 74.6, kg, Route: IVPB, Total Volume: 100, Start Date: 02/10/18 4:34:00 PRE OWNED SALES MANAGER, Duration: 30 day, Stop date: 03/12/18 4:33:00 PRE OWNED SALES MANAGER, Replace Every: 24 hrNotes: Final Concentration 1unit/1ml WASTE: F/P - Black; E - Municipal Trash Bin Inactive 02/10/2018 [facility] Dextrose 50% Syringe 12.5 gm, 25 mL, Route: IVP, Drug Form: INJ, Dosing Weight 74.6, kg, PRN, PRN Blood Glucose Results, Start date: 02/10/18 4:34:00 PRE OWNED SALES MANAGER, Duration: 30 day, Stop date: 03/12/18 4:33:00 PRE OWNED SALES MANAGER Inactive 02/10/2018 [facility] Insulin Glargine 100 UNT/ML Injectable Solution 7 unit, 0.07 mL, Route: SUB-Q, Drug form: SOLN, Bedtime, Dosing Weight 74.6, kg, Priority: NOW, Start date: 02/10/18 3:15:00 PRE OWNED SALES MANAGER, Duration: 30 day, Stop date: 03/11/18 21:00:00 CSTNotes: (Same as: Lantus) Do not hold insulin without contacting prescriber WASTE: F/P - Black; E - Municipal Trash Bin "single patient use only" Inactive 02/10/2018 [facility] Insulin regular 4 unit, 0.04 mL, Route: SUB-Q, Drug form: SOLN, ONCE, Dosing Weight 74.6, kg, Start date: 02/10/18 1:57:00 PRE OWNED SALES MANAGER, Stop date: 02/10/18 1:57:00 CSTNotes: (Same as: Humulin R) Roll in palms of hands gently; Do not shake vigorously. "single patient use only" (Restricted to patients requiring a dose > 60 units) WASTE: F/P - Black; E - Municipal Trash Bin Stable for 28 days at room temperature Expires in days from Date Inactive 02/10/2018 [facility] Insulin regular 6 unit, 0.06 mL, Route: SUB-Q, Drug form: SOLN, Sliding Scale, Dosing Weight 74.6, kg, PRN Blood Glucose Results, Start date: 02/10/18 1:49:00 PRE OWNED SALES MANAGER, Duration: 30 day, Stop date: 03/12/18 1:48:00 CSTNo alex: (Same as: Humulin R) Roll in palms of hands gently; Do not shake vigorously. "single patient use only" (Restricted to patients requiring a dose > 60 units) WASTE: F/P - Black; E - Municipal Trash Bin Stable for 28 days at room temperature Expires in days from Date Inactive 02/10/2018 [facility] Dextrose 50% Syringe 12.5 gm, 25 mL, Route: IVP, Drug Form: INJ, Dosing Weight 74.6, kg, PRN, PRN Blood Glucose Results, Start date: 02/10/18 1:49:00 PRE OWNED SALES MANAGER, Duration: 30 day, Stop date: 03/12/18 1:48:00 PRE OWNED SALES MANAGER Inactive 02/10/2018 [facility] Glucagon 1 mg, Route: IM, Drug form: PDR/INJ, PRN, Dosing Weight 74.6, kg, PRN Blood Glucose Results, Start date: 02/10/18 1:49:00 PRE OWNED SALES MANAGER, Duration: 30 day, Stop date: 03/12/18 1:48:00 PRE OWNED SALES MANAGER Inactive 02/10/2018 [facility] Melatonin 6 mg, 2 tab, Route: PO, Drug form: TAB, Bedtime, Dosing Weight 74.6, kg, Start date: 02/09/18 21:00:00 PRE OWNED SALES MANAGER, Duration: 30 day, Stop date: 03/10/18 21:00:00 CSTNotes: (Same as: Melatonin) No Longer Active 02/10/2018 [facility] Hydralazine 20 mg, 1 mL, Route: IVP, Drug form: INJ, Q48H, Dosing Weight 74.6, kg, Start date: 02/09/18 19:00:00 PRE OWNED SALES MANAGER, Duration: 1 day, Stop date: 02/09/18 19:00:00 CSTNotes: (Same as: Apresoline) Push over 5 minutes Inactive 02/10/2018 [facility] Vancomycin 1,000 mg, Route: IVPB, Drug form: INJ, [id number], Dosing Weight 74.6, kg, Start date: 02/09/18 19:00:00 PRE OWNED SALES MANAGER, Duration: 7 day, Stop date: 02/15/18 19:00:00 PRE OWNED SALES MANAGER, ABX Indication: PneumoniaNotes: TIME CRITICAL MEDICATION (Same As: Vancocin) Infusion rate 2001 mg: infuse over 2.5 hours For adult patients only: Round to nearest 250 mg per Medical Staff approval MEDICATION WASTE Product Size: 1000 mg Product Wasted: 0 mg No Longer Active 02/10/2018 [facility] Hydralazine 75 mg, 3 tab, Route: PO, Drug form: TAB, Q6H, Dosing Weight 74.6, kg, Start date: 02/09/18 18:00:00 PRE OWNED SALES MANAGER, Duration: 30 day, Stop date: 03/11/18 12:00:00 PRE OWNED SALES MANAGER No Longer Active 02/10/2018 [facility] Insulin regular 10 unit, 0.1 mL, Route: SUB-Q, Drug form: SOLN, Sliding Scale, Dosing Weight 74.6, kg, PRN Blood Glucose Results, Start date: 02/09/18 16:01:00 PRE OWNED SALES MANAGER, Duration: 30 day, Stop date: 03/11/18 16:00:00 PRE OWNED SALES MANAGER Notes: (Same as: Humulin R) Roll in palms of hands gently; Do not shake vigorously. "single patient use only" (Restricted to patients requiring a dose > 60 units) WASTE: F/P - Black; E - Municipal Trash Bin Stable for 28 days at room temperature Expires in days from Date No Longer Active 02/09/2018 [facility] [place] Dextrose 50% Syringe 25 gm, 50 mL, Route: IVP, Drug Form: INJ, Dosing Weight 74.6, kg, PRN, PRN Blood Glucose Results, Start date: 02/09/18 16:01:00 [employer] OWNED SALES MANAGER, Duration: 30 day, Stop date: 03/11/18 16:00:00 PRE OWNED SALES MANAGER No Longer Active 02/09/2018 [facility] Glucagon 1 mg, Route: IM, Drug form: PDR/INJ, PRN, Dosing Weight 74.6, kg, PRN Blood Glucose Results, Start date: 02/09/18 16:01:00 PRE OWNED SALES MANAGER, Duration: 30 day, Stop date: 03/11/18 16:00:00 PRE OWNED SALES MANAGER No Longer Active 02/09/2018 [facility] heparin sodium, porcine 2500 UNT/ML Injectable Solution 5,000 unit, 1 mL, Route: SUB-Q, Drug form: INJ, Q8H, Dosing Weight 74.6, kg, Start date: 02/09/18 16:00:00 PRE OWNED SALES MANAGER, Duration: 30 day, Stop date: 03/11/18 8:00:00 CSTNotes: porcine heparin No Longer Active 02/09/2018 [facility] Amlodipine 5 mg, 1 tab, Route: PO, Drug form: TAB, Daily, Dosing Weight 74.6, kg, Priority: NOW, Start date: 02/09/18 13:49:00 PRE OWNED SALES MANAGER, Duration: 30 day, Stop date: 03/11/18 9:00:00 CSTNotes: (Same as: Norvasc) No Longer Active 02/09/2018 [facility] Tylenol 650 mg, 2 tab, Route: PO, Drug form: TAB, Q6H, Dosing Weight 74.6, kg, PRN For Temp > 100.4 F, Start date: 02/09/18 12:23:00 PRE OWNED SALES MANAGER, Duration: 30 day, Stop date: 03/11/18 12:22:00 CSTNotes: Do not exceed 4 gm/day. (Same as: Tylenol) No Longer Active 02/09/2018 [facility] pantoprazole 40 mg, Route: IVP, Drug form: INJ, Daily, Dosing Weight 75, kg, Start date: 02/09/18 9:00:00 PRE OWNED SALES MANAGER, Duration: 30 day, Stop date: 03/10/18 9:00:00 CSTNotes: For IV push reconstitute with 10 ml 0.9% sodium chloride and push over 2 minutes. (Same as: Protonix) No Longer Active 02/09/2018 [facility] Docusate Sodium 50 MG / sennosides, FPC 8.6 MG Oral Tablet 1 tab, Route: PO, Drug Form: TAB, Dosing Weight 74.6, kg, BID, Start date: 02/09/18 9:00:00 PRE OWNED SALES MANAGER, Duration: 30 day, Stop date: 03/10/18 17:00:00 CSTNotes: (Same as Senokot-S) Equiv. to Lisa-Colace. No Longer Active 02/09/2018 [facility] Aspirin 81 mg, 1 tab, Route: NG, Drug form: CHEWTAB, Daily, Dosing Weight 74.6, kg, Start date: 02/09/18 9:00:00 PRE OWNED SALES MANAGER, Duration: 30 day, Stop date: 03/10/18 9:00:00 CSTNotes: Take with food. No Longer Active 02/09/2018 [facility] Aspirin 81 MG Enteric Coated Tablet 81 mg, 1 tab, Route: PO, Drug form: ECTAB, Daily, Dosing Weight 74.6, kg, Start date: 02/09/18 9:00:00 PRE OWNED SALES MANAGER, Duration: 30 day, Stop date: 03/10/18 9:00:00 CSTNotes: Do not crush or chew. (Same As: Ecotrin) Inactive 02/09/2018 [facility] Calcium Chloride 0.0014 MEQ/ML / Potassium Chloride 0.004 MEQ/ML / Sodium Chloride 0.103 MEQ/ML / Sodium Lactate 0.028 MEQ/ML Injectable Solution 2,000 mL, 1,000 ml/hr, Infuse Over: 2 hr, Route: IV, 2,000, Drug form: INJ, ONCE, Priority: STAT, Dosing Weight 74.6 kg, Start date: 02/09/18 8:00:00 PRE OWNED SALES MANAGER, Stop date: 02/09/18 8:00:00 PRE OWNED SALES MANAGER Inactive 02/09/2018 [facility] Calcium Gluconate 1,000 mg, 10 mL, Route: IVPB, ONCE, Dosing Weight 74.6, kg, Start date: 02/09/18 1:57:00 PRE OWNED SALES MANAGER, Stop date: 02/09/18 1:57:00 CSTNotes: WASTE: F/P - Sink; E - Municipal Trash Bin Inactive 02/09/2018 [facility] Dextrose 50% Syringe 25 gm, 50 mL, Route: IVP, Drug Form: INJ, Dosing Weight 74.6, kg, ONCE, Start date: 02/09/18 1:51:00 PRE OWNED SALES MANAGER, Stop date: 02/09/18 1:51:00 PRE OWNED SALES MANAGER Inactive 02/09/2018 [facility] Insulin regular 10 unit, 0.1 mL, Route: IV, Drug form: SOLN, ONCE, Dosing Weight 74.6, kg, Start date: 02/09/18 1:51:00 PRE OWNED SALES MANAGER, Stop date: 02/09/18 1:51:00 CSTNotes: (Same as: Humulin R) Roll in palms of hands gently; Do not shake vigorously. "single patient use only" (Restricted to patients requiring a dose > 60 units) WASTE: F/P - Black; E - Municipal Trash Bin Stable for 28 days at room temperature Expires in days from Date Inactive 02/09/2018 [facility] Lasix 60 mg, 6 mL, Route: IV, Drug form: INJ, ONCE, Dosing Weight 74.6, kg, Start date: 02/09/18 1:24:00 PRE OWNED SALES MANAGER, Stop date: 02/09/18 1:24:00 CSTNotes: (Same as: Lasix) MEDICATION WASTE Product Size: 40 mg Product Wasted: ___ mg Inactive 02/09/2018 [facility] Lasix 20 mg, 2 mL, Route: IVP, Drug form: INJ, ONCE, Dosing Weight 74.6, kg, Start date: 02/09/18 0:15:00 PRE OWNED SALES MANAGER, Stop date: 02/09/18 0:15:00 CSTNotes: (Same as: Lasix) Inactive 02/09/2018 [facility] Versed 1 mg, 1 mL, Route: IV, Drug form: INJ, ONCE, Dosing Weight 74.6, kg, Start date: 02/09/18 0:13:00 PRE OWNED SALES MANAGER, Stop date: 02/09/18 0:13:00 CSTNotes: (Same as: Versed) MEDICATION WASTE Product Size: 2 mg Product Wasted: ___ mg Inactive 02/09/2018 [facility] ocular lubricant 1 appl, Route: BOTH EYES, Q6H, Drug form: OINT, Start date: 02/09/18 0:00:00 PRE OWNED SALES MANAGER, Duration: 30 day, Stop date: 03/10/18 18:00:00 CSTNotes: (Same as: Lacri-Lube, Puralube, Duratears Naturale, Artifici al Tears, and Tears Again ) No Longer Active 02/09/2018 [facility] Ketamine 100 mg, 100 mL, Rate: Titrate, Start Dose: 0.2 mg/kg/hr, Titration: DO NOT TITRATE, Goal(s): Rass -1, Max Dose: 0.25 mg/kg/hr, Route: IV, Dosing Weight 74.6 kg, Total Volume: 100 For Analgesia, Start date: 02/08/18 23:38:00 PRE OWNED SALES MANAGER, Duration: 30 day, Stop...Notes: Total Concentration=1mg/ml Total [id number] Infusion Rate=Begin Infusion at an initial rate of 0.1mg/kg/hr to a Maximum Rate of 0.25mg/kg/hr Please place a Med Request 2 hours before the next dose is needed. No Longer Active 02/09/2018 [facility] Insulin regular 1 unit, 0.01 mL, Route: SUB-Q, Drug form: SOLN, Sliding Scale, Dosing Weight 74.6, kg, PRN Blood Glucose Results, Start date: 02/08/18 21:34:00 PRE OWNED SALES MANAGER, Duration: 30 day, Stop date: 03/10/18 21:33:00 PRE OWNED SALES MANAGER Notes: (Same as: Humulin R) Roll in palms of hands gently; Do not shake vigorously. "single patient use only" (Restricted to patients requiring a dose > 60 units) WASTE: F/P - Black; E - Municipal Trash Bin Stable for 28 days at room temperature Expires in days from Date No Longer Active 02/09/2018 [facility] Glucagon 1 mg, Route: IM, Drug form: PDR/INJ, PRN, Dosing Weight 74.6, kg, PRN Blood Glucose Results, Start date: 02/08/18 21:34:00 PRE OWNED SALES MANAGER, Duration: 30 day, Stop date: 03/10/18 21:33:00 PRE OWNED SALES MANAGER No Longer Active 02/09/2018 [facility] Dextrose 50% Syringe 25 gm, 50 mL, Route: IVP, Drug Form: INJ, Dosing Weight 74.6, kg, PRN, PRN Blood Glucose Results, Start date: 02/08/18 21:34:00 PRE OWNED SALES MANAGER, Duration: 30 day, Stop date: 03/10/18 21:33:00 PRE OWNED SALES MANAGER No Longer Active 02/09/2018 [facility] Saline Flush 0.9% 10 ml, Route: IVP, Drug Form: INJ, Dosing Weight 75, kg, Q12H, Start date: 02/08/18 21:00:00 PRE OWNED SALES MANAGER, Duration: 30 day, Stop date: 03/10/18 9:00:00 CSTNotes: (Same as: BD Posiflush) No Longer Active 02/09/2018 [facility] chlorhexidine gluconate 1.2 MG/ML Mouthwash 15 mL, Route: Swab Mouth, Q12H, Drug form: LIQ, Start date: 02/08/18 21:00:00 PRE OWNED SALES MANAGER, Duration: 30 day, Stop date: 03/10/18 9:00:00 CSTNotes: (Same As: Peridex) No Longer Active 02/09/2018 [facility] atorvastatin 20 mg, 1 tab, Route: PO, Drug form: TAB, Bedtime, Dosing Weight 74.6, kg, Start date: 02/08/18 21:00:00 PRE OWNED SALES MANAGER, Duration: 30 day, Stop date: 03/09/18 21:00:00 CSTNotes: (Same As: Lipitor) No Longer Active 02/09/2018 [facility] Glipizide 5 MG Oral Tablet 5 mg=1 tab, PO, Daily, 0 Refill(s) No Longer Active 02/09/2018 [facility] Tylenol PO, PRN, 0 Refill(s) No Longer Active 02/09/2018 [facility] Naproxen PO, PRN, 0 Refill(s) No Longer Active 02/09/2018 [facility] Insulin Glargine 100 UNT/ML Injectable Solution SUB-Q, PRN, 0 Refill(s) No Longer Active 02/09/2018 [facility] losartan 25 mg oral tablet 25 mg=1 tab, PO, Daily, 0 Refill(s) No Longer Active 02/09/2018 [facility] propofol 10 mg/mL (Titrate.) IV 1,000 mg 1,000 mg, 100 mL, Rate: Titrate, Start Dose: 5 microgram/kg/min, Titration: 5 microgram/kg/min every 15 min, Goal(s): RASS -1, Max Dose: 50 microgram/kg/min, Route: IV, Dosing Weight 75 kg, Total Volume: 100, Start date: 02/08/18 20:25:00 PRE OWNED SALES MANAGER, Duratio...Notes: If Diprivan - change bottle & tubing every 12 hr Per state nursing law propofol can only be given by a nurse if patient is intubated or pam ng intubated (unless the nurse is a PROCESS LEAD). Same as: Diprivan No Longer Active 02/09/2018 [facility] Vancomycin 1 gm, Route: IV, Drug form: INJ, [id number], Dosing Weight 75, kg, Start date: 02/08/18 20:00:00 PRE OWNED SALES MANAGER, Duration: 30 day, Stop date: 03/09/18 20:00:00 PRE OWNED SALES MANAGER, ABX Indication: PneumoniaNotes: TIME CRITICAL MEDICATION (Same As: Vancocin) Infusion rate 2001 mg: infuse over 2.5 hours For adult patients only: Round to nearest 250 mg per Medical Staff approval MEDICATION WASTE Product Size: 1000 mg Product Wasted: 0 mg No Longer Active 02/09/2018 [facility] Azithromycin 500 mg, Route: IVPB, [id number], Dosing Weight 75, kg, Start date: 02/08/18 19:00:00 PRE OWNED SALES MANAGER, Duration: 5 day, Stop date: 02/12/18 5:00:00 PRE OWNED SALES MANAGER, ABX Indication: PneumoniaNotes: (Same As: Zithromax IV) No Longer Active 02/09/2018 [facility] cefepime 1 gm, Route: IVPB, [id number], Dosing Weight 75, kg, (CrCl 10 - 29 ml/min), Start date: 02/08/18 19:00:00 PRE OWNED SALES MANAGER, Duration: 5 day, Stop date: 02/12/18 22:00:00 PRE OWNED SALES MANAGER, ABX Indication: PneumoniaNotes: (Same As: M axipime) MEDICATION WASTE Product Size: 1000 mg Product Wasted: 0 mg No Longer Active 02/09/2018 [facility] chlorhexidine gluconate 1.2 MG/ML Mouthwash 15 mL, Route: Swab Mouth, PRN, Drug form: LIQ, PRN Other -See Comment, Start date: 02/08/18 18:41:00 PRE OWNED SALES MANAGER, Duration: 30 day, Stop date: 03/10/18 18:40:00 CSTNotes: (Same As: Peridex) No Longer Active 02/09/2018 [facility] Saline Flush 0.9% 10 ml, Route: IVP, Drug Form: INJ, Dosing Weight 75, kg, PRN, PRN Line Flush, Start date: 02/08/18 18:39:00 PRE OWNED SALES MANAGER, Duration: 30 day, Stop date: 03/10/18 18:38:00 CSTNotes: (Same as: BD Posiflush) No Longer Active 02/09/2018 [facility] Albuterol 0.833 MG/ML / Ipratropium Hector 0.167 MG/ML Inhalant Solution 3 ml, Route: NEB, Drug Form: SOLN, Dosing Weight 75, kg, PRN, PRN Respiratory Pathway, Start date: 02/08/18 18:39:00 PRE OWNED SALES MANAGER, Duration: 30 day, Stop date: 03/10/18 18:38:00 CSTNotes: (Same as: Duoneb) No Longer Active 02/09/2018 [facility] Nystatin 100 UNT/MG Topical Powder 1 appl, Route: TOP, PRN, Drug form: PWDR, PRN For Fungal Prophylaxis, Start date: 02/08/18 18:39:00 PRE OWNED SALES MANAGER, Duration: 30 day, Stop date: 03/10/18 18:38:00 CSTNotes: (Same as:Mycostatin, Nilstat) For external use only. No Longer Active 02/09/2018 [facility] Tamiflu 75 mg, 1 cap, Route: PO, Drug form: CAP, [id number], Dosing Weight 75, kg, CrCl > 60 ml/min, Start date: 02/08/18 16:00:00 PRE OWNED SALES MANAGER, Duration: 5 day, Stop date: 02/12/18 21:00:00 CSTNotes: Take with food. Same as: Tamiflu) No Longer Active 02/08/2018 [facility] Vecuronium 50 mg, Rate: Titrate, Start Dose: 1 mg/hr, Titration: 0.5 mg/hr every 15 minutes, Goal(s): TOF=2 twitches, Max Dose: 5 mg/hr, Route: IV, Dosing Weight 75 kg, Total Volume: 50, Start date: 02/08/18 15:55:00 PRE OWNED SALES MANAGER, Duration: 30 day, Stop date: 03/10/18...Notes: (Same As: Norcuron) No Longer Active 02/08/2018 [facility] Rocuronium 100 mg, Route: IV, ONCE, Dosing Weight 75, kg, Priority: STAT, Start date: 02/08/18 14:57:00 PRE OWNED SALES MANAGER, Stop date: 02/08/18 14:57:00 PRE OWNED SALES MANAGER Inactive 02/08/2018 [facility] Fentanyl 1,000 microgram, 20 mL, Rate: Titrate, Start Dose: 50 microgram/hr, Titration: 25 microgram/hour every 15 minutes, Goal(s): sbp 130, Max Dose: 300 microgram/hr, Route: IV, Dosing Weight 75 kg, Total Volume: 20, Start date: 02/08/18 11:20:00 PRE OWNED SALES MANAGER, Durat... No Longer Active 02/08/2018 [facility] Etomidate 20 mg, Route: IVP, ONCE, Dosing Weight 75, kg, Priority: STAT, Start date: 02/08/18 11:19:00 PRE OWNED SALES MANAGER, Stop date: 02/08/18 11:19:00 PRE OWNED SALES MANAGER Inactive 02/08/2018 [facility] Rocuronium 100 mg, Route: IV, ONCE, Dosing Weight 75, kg, Start date: 02/08/18 11:19:00 PRE OWNED SALES MANAGER, Stop date: 02/08/18 11:19:00 PRE OWNED SALES MANAGER Inactive 02/08/2018 [facility] propofol 10 mg/mL (Titrate.) IV 500 mg 500 mg, 50 mL, Rate: Titrate, Start Dose: 5 microgram/kg/min, Titration: 5 microgram/kg/min every 15 min, Goal(s): 130 sbp, Max Dose: 50 microgram/kg/min, Route: IV, Dosing Weight 75 kg, Total Volume: 50, Start date: 02/08/18 11:18:00 PRE OWNED SALES MANAGER, Duration: 3...Notes: If Diprivan - change bottle & tubing every 12 hr Per state nursing law propofol can only be given by a nurse if patient is intubated or being intubated (unless the nurse is a PROCESS LEAD). Same as: Diprivan Inactive 02/08/2018 [facility] Vancomycin 1,000 mg, Route: IVPB, Drug form: INJ, ONCE, Dosing Weight 75, kg, Priority: STAT, Start date: 02/08/18 8:34:00 PRE OWNED SALES MANAGER, Stop date: 02/08/18 8:34:00 PRE OWNED SALES MANAGER, ABX Indication: PneumoniaNotes: TIME CRITICAL MEDICA TION (Same As: Vancocin) Infusion rate 2001 mg: infuse over 2.5 hours For adult patients only: Round to nearest 250 mg per Medical Staff approval MEDICATION WASTE Product Size: 1000 mg Product Wasted: ___ mg Inactive 02/08/2018 [facility] cefepime 1 gm, Route: IVP, Drug form: INJ, ONCE, Dosing Weight 75, kg, Priority: STAT, Start date: 02/08/18 8:34:00 PRE OWNED SALES MANAGER, Stop date: 02/08/18 8:34:00 PRE OWNED SALES MANAGER, ABX Indication: PneumoniaNotes: (Same As: Maxipime) MEDICATION WASTE Product Size: 1000 mg Product Wasted: ___ mg Inactive 02/08/2018 [facility] iodixanol 79 mL, Route: IVP, Drug Form: SOLN, Dosing Weight 75, kg, ONCALL, STAT, Start date: 02/08/18 8:26:00 PRE OWNED SALES MANAGER, Duration: 1 doses or times, Dose=2.2ml/kg, Max [id number] -- "To be infused by Radiology Staff ONLY" Inactive 02/08/2018 [facility] Azithromycin 500 mg, Route: IV, Drug form: PDR/INJ, ONCE, Dosing Weight 75, kg, Start date: 02/08/18 5:15:00 PRE OWNED SALES MANAGER, Stop date: 02/08/18 5:15:00 PRE OWNED SALES MANAGER, ABX Indication: PneumoniaNotes: (Same As: Zithromax IV) Inactive 02/08/2018 [facility] Ceftriaxone 1 gm, Route: IVP, Drug form: PDR/INJ, ONCE, Dosing Weight 75, kg, Priority: STAT, Start date: 02/08/18 5:15:00 PRE OWNED SALES MANAGER, Stop date: 02/08/18 5:15:00 PRE OWNED SALES MANAGER, ABX Indication: PneumoniaNotes: (Same As: Rocephin). Use with 100 mL NS and infuse over 30 min MEDICATION WASTE Product Size: 1000 mg Product Wasted: ___ mg Inactive 02/08/2018 [facility] Saline Flush 0.9% 10 mL, Route: IVP, Drug Form: INJ, Dosing Weight 75, kg, PRN, PRN Line Flush, Start date: 02/08/18 5:04:00 PRE OWNED SALES MANAGER, Duration: 30 day, Stop date: 03/10/18 5:03:00 CSTNotes: (Same as: BD Posiflush) No Longer Active 02/08/2018 [facility] Calcium Chloride 0.0014 MEQ/ML / Potassium Chloride 0.004 MEQ/ML / Sodium Chloride 0.103 MEQ/ML / Sodium Lactate 0.028 MEQ/ML Injectable Solution 2,200 mL, 2200 ml/hr, Infuse Over: 1 hr, Route: IV, 2,200, Drug form: INJ, ONCE, Priority: STAT, Dosing Weight 75 kg, Start date: 02/08/18 5:04:00 PRE OWNED SALES MANAGER, Stop date: 02/08/18 5:04:00 PRE OWNED SALES MANAGER Inactive 02/08/2018 [facility] Aspirin 81 MG Enteric Coated Tablet 81 mg=1 tab, PO, Daily, # 60 tab, 3 Refill(s) Active 11/25/2015 [facility] atorvastatin 40 mg oral tablet 40 mg=1 tab, PO, Bedtime, # 60 tab, 3 Refill(s) Active 11/25/2015 [facility] 24 HR Nifedipine 60 MG Extended Release Tablet 60 mg=1 tab, PO, Daily, # 90 tab, 3 Refill(s) Active 11/25/2015 [facility] Aspirin 81 MG Enteric Coated Tablet 81 mg, 1 tab, Route: PO, Drug form: ECTAB, Daily, Dosing Weight 75, kg, Start date: 11/25/15 9:00:00 CDT, Duration: 30 day, Stop date: 12/24/15 9:00:00 CDTNotes: Do not crush or chew. (Same As: Ecotrin) Inactive 11/25/2015 [facility] Calcium Gluconate 3 gm, 30 mL, Route: IVPB, PRN, Dosing Weight 75, kg, PRN Abnormal Lab Result, For NON-ICU Patients Only., Start date: 11/25/15 5:25:00 CDT, Duration: 30 day, Stop date: 12/25/15 5:24:00 CDTNotes: WASTE: F/P - Sink; E - Municipal Trash Bin Inactive 11/25/2015 [facility] potassium phosphate + sodium chloride 0.9% INJ 250 mL 30 mmol, 10 mL, Route: IVPB, PRN, Dosing Weight 75, kg, PRN Abnormal Lab Result, For NON-ICU Patients Only., Start date: 11/25/15 5:25:00 CDT, Duration: 30 day, Stop date: 12/25/15 5:24:00 CDTNotes: (Same as: K Phosphate.) 1 mMol phoshate has 1.47 mEq potassium Infuse over 4 hours Inactive 11/25/2015 [facility] sodium phosphate + sodium chloride 0.9% INJ 250 mL 30 mmol, 10 mL, Route: IVPB, PRN, Dosing Weight 75, kg, PRN Abnormal Lab Result, For NON-ICU Patients Only., Start date: 11/25/15 5:25:00 CDT, Duration: 30 day, Stop date: 12/25/15 5:24:00 CDT Inactive 11/25/2015 [facility] Magnesium Sulfate 2 gm, 50 mL, Route: IVPB, Drug form: INJ, PRN, Dosing Weight 75, kg, PRN Abnormal Lab Result, For NON-ICU Patients Only., Start date: 11/25/15 5:25:00 CDT, Duration: 30 day, Stop date: 12/25/15 5:24:00 CDTNotes: WASTE: F/P - Sink; E - Municipal Trash Bin Inactive 11/25/2015 [facility] Magnesium Oxide 800 mg, 2 tab, Route: PO, Drug form: TAB, PRN, Dosing Weight 75, kg, PRN Abnormal Lab Result, For NON-ICU Patients Only., Start date: 11/25/15 5:25:00 CDT, Duration: 30 day, Stop date: 12/25/15 5:24:00 CDTNotes: (Same as: Mag-Ox 400) Magnesium oxide [id number] elemental magnesium Dose=____mg magnesium oxide (___mg elemental magnesium) Inactive 11/25/2015 [facility] potassium chloride 20 mEq, 1 tab, Route: PO, Drug form: ERTAB, PRN, Dosing Weight 75, kg, PRN Abnormal Lab Result, For NON-ICU Patients Only, Start date: 11/25/15 5:25:00 CDT, Duration: 30 day, Stop date: 12/25/15 5:24:00 CDTNotes: (Same as: K-Dur 20) "Do Not Crush" With food and full glass of water Inactive 11/25/2015 [facility] potassium phosphate-sodium phosphate 250 mg-278 mg-164 mg oral powder 2 pkt, Route: PO, Drug Form: PDR/REC, Dosing Weight 75, kg, PRN, PRN Abnormal Lab Result, For NON-ICU Patients Only, Start date: 11/25/15 5:25:00 CDT, Duration: 30 day, Stop date: 12/25/15 5:24:00 CDTNotes: (Same as: Neutra- Phos) Each 1.25 gm pkt has 250mg phosphorous. Mix w/2.5oz water and stir. Inactive 11/25/2015 [facility] Robitussin 100 mg, 5 mL, Route: PO, Drug Form: LIQ, Dosing Weight 75, kg, Q4H, Start date: 11/24/15 20:00:00 CDT, Duration: 30 day, Stop date: 12/24/15 16:00:00 CDTNotes: (Same as: Robitussin) No Longer Active 11/25/2015 [facility] Albuterol 0.833 MG/ML / Ipratropium Hector 0.167 MG/ML Inhalant Solution 3 mL, Route: NEB, Drug Form: SOLN, Dosing Weight 75, kg, ONCE, Start date: 11/24/15 13:39:00 CDT, Stop date: 11/24/15 13:39:00 CDTNotes: (Same as: Duoneb) Inactive 11/24/2015 [facility] Insulin regular 8 unit, 0.08 mL, Route: SUB-Q, Drug form: SOLN, TID-Before Meals, Dosing Weight 75, kg, PRN Blood Glucose Results, Start date: 11/24/15 11:53:00 CDT, Duration: 30 day, Stop date: 12/24/15 11:52:00 CD TNotes: (Same as: Humulin R) Roll in palms of hands gently; Do not shake vigorously. "single patient use only" (Restricted to patients requiring a dose > 60 units) WASTE: F/P - Black; E - Municipal Trash Bin Stable for 28 days at room temperature Expires in days from Date No Longer Active 11/24/2015 [facility] Dextrose 50% Syringe 25 gm, 50 mL, Route: IVP, Drug Form: INJ, Dosing Weight 75, kg, PRN, PRN Blood Glucose Results, Start date: 11/24/15 11:53:00 CDT, Duration: 30 day, Stop date: 12/24/15 11:52:00 CDT No Longer Active 11/24/2015 [facility] Glucagon 1 mg, Route: IM, Drug form: PDR/INJ, PRN, Dosing Weight 75, kg, PRN Blood Glucose Results, Start date: 11/24/15 11:53:00 CDT, Duration: 30 day, Stop date: 12/24/15 11:52:00 CDT No Longer Active 11/24/2015 [facility] Amlodipine 10 mg, 1 tab, Route: PO, Drug form: TAB, Daily, Dosing Weight 75, kg, Start date: 11/24/15 9:00:00 CDT, Duration: 30 day, Stop date: 12/23/15 9:00:00 CDTNotes: (Same as: Norvasc) Inactive 11/24/2015 [facility] sodium phosphate + sodium chloride 0.9% INJ 250 mL 30 mmol, 10 mL, Route: IVPB, ONCE, Dosing Weight 75, kg, Start date: 11/24/15 7:48:00 CDT, Stop date: 11/24/15 7:48:00 CDT Inactive 11/24/2015 [facility] potassium phosphate + sodium chloride 0.9% INJ 250 mL 30 mmol, 10 mL, Route: IVPB, Drug form: INJ, ONCE, Dosing Weight 75, kg, Start date: 11/24/15 5:52:00 CDT, Stop date: 11/24/15 5:52:00 CDTNotes: (Same as: K Phosphate.) 1 mMol phoshate has 1.47 mEq potassium Infuse over 4 hours Inactive 11/24/2015 [facility] Magnesium Oxide 800 mg, 2 tab, Route: PO, Drug form: TAB, ONCE, Dosing Weight 75, kg, Start date: 11/24/15 5:51:00 CDT, Stop date: 11/24/15 5:51:00 CDTNotes: (Same as: Mag-Ox 400) Magnesium oxide [id number] elemental magnesium Dose=____mg magnesium oxide (___mg elemental magnesium) Inactive 11/24/2015 [facility] [place] Tessalon Perles 100 mg, 1 cap, Route: PO, Drug form: CAP, TID, Dosing Weight 75, kg, PRN Cough, Start date: 11/24/15 3:15:00 CDT, Duration: 30 day, Stop date: 12/24/15 3:14:00 CDTNotes: (Same As: Tessalon Perles) "Do Not Crush" No Longer Active 11/24/2015 [facility] [place] heparin 5,000 unit, 1 mL, Route: SUB-Q, Drug form: INJ, Q8H, Dosing Weight 75, kg, Start date: 11/24/15 0:00:00 CDT, Duration: 30 day, Stop date: 12/23/15 16:00:00 CDTNotes: porcine heparin No Longer Active 11/24/2015 [facility] 24 HR Nifedipine 30 MG Extended Release Tablet 30 mg, 1 tab, Route: PO, Drug form: ERTAB, Daily, Dosing Weight 75, kg, SBP goals 140- 150, Start date: 11/23/15 17:15:00 CDT, Duration: 30 day, Stop date: 12/23/15 9:00:00 CDTNotes: (Same as: Adalat CC, Procardia XL) Give on empty stomach. Take 1 hour before or 2 hours after meal; "Avoid grapefruit and grapefruit juice". Do not crush No Longer Active 11/23/2015 [facility] Vancomycin 500 mg, Route: IV, Drug form: PDR/INJ, ONCE, Dosing Weight 75, kg, Start date: 11/23/15 13:36:00 CDT, Stop date: 11/23/15 13:36:00 CDTNotes: TIME CRITICAL MEDICATION (Same As: Vancocin) Inactive 11/23/2015 [facility] Insulin regular 4 unit, 0.04 mL, Route: SUB-Q, Drug form: SOLN, TID-Before Meals, Dosing Weight 75, kg, PRN Blood Glucose Results, Start date: 11/23/15 12:13:00 CDT, Duration: 30 day, Stop date: 12/23/15 12:12:00 CD TNotes: (Same as: Humulin R) Roll in palms of hands gently; Do not shake vigorously. "single patient use only" (Restricted to patients requiring a dose > 60 units) WASTE: F/P - Black; E - Municipal Trash Bin Stable for 28 days at room temperature Expires in days from Date No Longer Active 11/23/2015 [facility] Dextrose 50% Syringe 25 gm, 50 mL, Route: IVP, Drug Form: INJ, Dosing Weight 75, kg, PRN, PRN Blood Glucose Results, Start date: 11/23/15 12:13:00 CDT, Duration: 30 day, Stop date: 12/23/15 12:12:00 CDT No Longer Active 11/23/2015 [facility] Glucagon 1 mg, Route: IM, Drug form: PDR/INJ, PRN, Dosing Weight 75, kg, PRN Blood Glucose Results, Start date: 11/23/15 12:13:00 CDT, Duration: 30 day, Stop date: 12/23/15 12:12:00 CDT No Longer Active 11/23/2015 [facility] Saline Flush 0.9% 10 ml, Route: IVP, Drug Form: INJ, Dosing Weight 68.182, kg, Q12H, Start date: 11/23/15 9:00:00 CDT, Duration: 30 day, Stop date: 12/22/15 21:00:00 CDTNotes: (Same as: BD Posiflush) No Longer Active 11/23/2015 [facility] Aspirin 325 MG Enteric Coated Tablet 325 mg, 1 tab, Route: PO, Drug form: ECTAB, Daily, Dosing Weight 68.182, kg, Start date: 11/23/15 9:00:00 CDT, Duration: 30 day, Stop date: 12/22/15 9:00:00 CDTNotes: (Do Not Crush) Do not crush or chew. No Longer Active 11/23/2015 [facility] atorvastatin 40 mg, 1 tab, Route: PO, Drug form: TAB, Daily, Dosing Weight 68.182, kg, Start date: 11/23/15 9:00:00 CDT, Duration: 30 day, Stop date: 12/22/15 21:00:00 CDTNotes: (Same as: Lipitor) No Longer Active 11/23/2015 [facility] Fenofibrate 48 MG Oral Tablet 48 mg, 1 tab, Route: PO, Drug form: TAB, Daily, Dosing Weight 68.182, kg, Start date: 11/23/15 9:00:00 CDT, Duration: 30 day, Stop date: 12/22/15 9:00:00 CDTNotes: (Same as: Tricor) No Longer Active 11/23/2015 [facility] Metformin 1,000 mg, Route: PO, BID, Dosing Weight 68.182, kg, Start date: 11/23/15 9:00:00 CDT, Duration: 30 day, Stop date: 12/22/15 17:00:00 CDT Inactive 11/23/2015 [facility] amLODIPine 10 mg oral tablet 10 mg=1 tab, PO, Daily, # 30 tab, 0 Refill(s) No Longer Active 11/23/2015 [facility] Furosemide 20 MG Oral Tablet 20 mg=1 tab, PO, Daily, # 30 tab, 0 Refill(s) No Longer Active 11/23/2015 [facility] lisinopril 40 mg oral tablet 40 mg=1 tab, PO, Daily, # 30 tab, 0 Refill(s) No Longer Active 11/23/2015 [facility] atorvastatin 40 mg oral tablet 40 mg=1 tab, PO, Bedtime, # 30 tab, 0 Refill(s) No Longer Active 11/23/2015 [facility] Fenofibrate 48 MG Oral Tablet =1 cap, PO, Daily, # 30 cap, 0 Refill(s) No Longer Active 11/23/2015 [facility] metoprolol 100 mg oral tablet, extended release 100 mg=1 tab, PO, Daily, # 30 tab, 0 Refill(s) No Longer Active 11/23/2015 [facility] glyBURIDE micronized 3 mg oral tablet 3 mg=1 tab, PO, Daily, # 30 tab, 0 Refill(s) Active 11/23/2015 [facility] Metformin hydrochloride 1000 MG Oral Tablet 1,000 mg=1 tab, PO, BID-Meals, # 180 tab, 1 Refill(s) Active 11/23/2015 [facility] Glyburide 5 mg, 1 tab, Route: PO, Drug form: TAB, Breakfast, Dosing Weight 68.182, kg, Start date: 11/23/15 8:00:00 CDT, Duration: 30 day, Stop date: 12/22/15 8:00:00 CDTNotes: (Same as: Micronase, Diabeta) Take with meals. Inactive 11/23/2015 [facility] Lasix 60 mg, Route: IVP, Drug form: INJ, ONCE, Dosing Weight 75, kg, Start date: 11/23/15 6:21:00 CDT, Stop date: 11/23/15 6:21:00 CDT Inactive 11/23/2015 [facility] Dopamine 800 mg, 250 mL, Rate: Titrate, Start Dose: 5 microgram/kg/min, Titration: 2.5 microgram/kg/min every 15 minutes, Goal(s): MAP >=65 mmHg, Max Dose: 20 microgram/kg/min, Route: IV, Dosing Weight 75 kg, Total Volume: 250, Start date: 11/23/15 5:37:00 CD...Notes: (Same as: Intropin) Administer by either central venous catheter or peripherally-inserted central catheter (PICC) line. Final conc=3.2 mg/ml. Premix solution. No Longer Active 11/23/2015 [facility] Dopamine 400 mg, 250 mL, Rate: Titrate, Start Dose: 5 microgram/kg/min, Titration: 2.5 microgram/kg/min every 15 minutes, Goal(s): MAP >=65 mmHg, Max Dose: 20 microgram/kg/min, Route: IV, Dosing Weight 75 kg, Total Volume: 250, Start date: 11/23/15 4:20:00 CD...Notes: (Same as: Intropin) Administer by either central venous catheter or peripherally-inserted central catheter (PICC) line. Final conc=1.6 mg/ml. Premix solution. Inactive 11/23/2015 [facility] Saline Flush 0.9% 10 ml, Route: IVP, Drug Form: INJ, Dosing Weight 68.182, kg, PRN, PRN Line Flush, Start date: 11/23/15 2:37:00 CDT, Duration: 30 day, Stop date: 12/23/15 2:36:00 CDTNotes: (Same as: BD Posiflush) No Longer Active 11/23/2015 [facility] Sodium Chloride 0.154 MEQ/ML Injectable Solution 1,000 mL, 2,000 ml/hr, Infuse Over: 30 minutes, Route: IV, 1,000, Drug form: INJ, ONCE, Priority: STAT, Dosing Weight 68.182 kg, Start date: 11/23/15 1:18:00 CDT, Duration: 1 doses or times, Stop date: 11/23/15 1:18:00 CDT Inactive 11/23/2015 [facility] Kayexalate 15 gm, 60 mL, Route: PO, Drug form: SUSP, ONCE, Dosing Weight 68.182, kg, Priority: STAT, Start date: 11/23/15 0:46:00 CDT, Stop date: 11/23/15 0:46:00 CDTNotes: (sodium polystyrene sulfonate 15 gm/60 ml RAZA) Shake well before use. (Same as: Kayexalate, SPS) Inactive 11/23/2015 [facility] Magnesium Sulfate 2 gm, 50 mL, Route: IV, Drug form: INJ, ONCE, Dosing Weight 68.182, kg, Priority: STAT, Start date: 11/23/15 0:46:00 CDT, Stop date: 11/23/15 0:46:00 CDTNotes: WASTE: F/P - Sink; E - Municipal Trash Bin Inactive 11/23/2015 [facility] Famotidine 20 MG Oral Tablet [Pepcid] 20 mg, 1 tab, Route: PO, ONCE, Dosing Weight 68.182, kg, Start date: 11/23/15 0:41:00 CDT, Stop date: 11/23/15 0:41:00 CDT Inactive 11/23/2015 [facility] Calcium Gluconate 2,000 mg, Route: IVPB, Drug form: INJ, ONCE, Dosing Weight 68.182, kg, Start date: 11/23/15 0:40:00 CDT, Stop date: 11/23/15 0:40:00 CDT Inactive 11/23/2015 [facility] Insulin regular 5 unit, Route: IV, ONCE, Dosing Weight 68.182, kg, Start date: 11/23/15 0:38:00 CDT, Stop date: 11/23/15 0:38:00 CDT Inactive 11/23/2015 [facility] Albuterol 0.83 MG/ML Inhalant Solution 10 mg, Route: INHALATION, ONCE, Dosing Weight 68.182, kg, Start date: 11/23/15 0:38:00 CDT, Stop date: 11/23/15 0:38:00 CDT Inactive 11/23/2015 [facility] Dextrose 50% Syringe 25 gm, Route: IVP, Dosing Weight 68.182, kg, ONCE, STAT, Start date: 11/23/15 0:37:00 CDT, Stop date: 11/23/15 0:37:00 CDT Inactive 11/23/2015 [facility] Saline Flush 0.9% 10 mL, Route: IVP, Drug Form: INJ, Dosing Weight 68.182, kg, PRN, PRN Line Flush, Start date: 11/22/15 22:56:00 CDT, Duration: 30 day, Stop date: 12/22/15 22:55:00 CDTNotes: Same as: BD Posiflush Sterile No Longer Active 11/23/2015 [facility] Allergies, Adverse Reactions, Alerts Substance Category Reaction Severity Reaction type Status Date Reported Comments Source No Known Medication Allergies Assertion Drug allergy [facility] Immunizations Immunization Date Given Site Status Last Updated Comments Source pneumococcal 23-valent vaccine 03/22/2018 Not Given [facility] Results Order Name Results Value Reference Range Date Interpretation Comments Source BLOOD BANK RESULTS Antibody Scrn Negative (02/25/18 5:58 AM) 02/25/2018 [facility] BLOOD BANK RESULTS ABO/Rh O POS 02/25/2018 [facility] BLOOD BANK RESULTS RBC product Product available (02/25/18 4:38 AM) 02/25/2018 [facility] CHEM PANEL eGFR 28 02/25/2018 Result Comment: The eGFR is calculated using the CKD-EPI formula. In most young, healthy individuals the eGFR will be >90 mL/min/1.73m2. The eGFR declines with age. An eGFR of 60-89 may be normal in some populations, particularly the elderly, for whom the CKD-EPI formula has not been extensively validated. Use of the eGFR is not recommended in the following populations:

Individuals with unstable creatinine concentrations, including patients and those with serious co-morbid conditions.

Patients with extremes in muscle mass or diet.

The data above are obtained from the National Kidney Disease Education Program (NKDEP) which additionally recommends that when the eGFR is used in patients with extremes of body mass index for purposes of drug dosing, the eGFR should be multiplied by the estimated BMI. [facility] CHEM PANEL Sodium Lvl 148 135 - 145 02/25/2018 [facility] CHEM PANEL Potassium Lvl 3.9 3.5 - 5.1 02/25/2018 [facility] CHEM PANEL Calcium Lvl 8.2 8.5 - 10.5 02/25/2018 [facility] CHEM PANEL Chloride Lvl 111 95 - 109 02/25/2018 [facility] CHEM PANEL CO2 30 24 - 32 02/25/2018 [facility] CHEM PANEL AGAP 10.9 10.0 - 20.0 02/25/2018 [facility] CHEM PANEL Creatinine Lvl 2.43 0.50 - 1.40 02/25/2018 [facility] CHEM PANEL Glucose Lvl 236 70 - 99 02/25/2018 [facility] CHEM PANEL BUN 100 7 - 22 02/25/2018 [facility] CHEM PANEL Magnesium Lvl 3.0 1.8 - 2.4 02/25/2018 [facility] CHEM PANEL Phosphorus 3.7 2.5 - 4.5 02/25/2018 [facility] HEMATOLOGY Lymphocytes # 1.3 1.0 - 5.5 02/25/2018 [facility] HEMATOLOGY Neutrophils # 10.1 1.5 - 8.1 02/25/2018 [facility] HEMATOLOGY Monocytes 8.4 2.0 - 12.0 02/25/2018 [facility] HEMATOLOGY Eosinophils 1.5 0.0 - 4.0 02/25/2018 [facility] HEMATOLOGY Basophils 0.7 0.0 - 1.0 02/25/2018 [facility] HEMATOLOGY Segs 79.5 45.0 - 75.0 02/25/2018 [facility] HEMATOLOGY Basophils # 0.1 0.0 - 0.2 02/25/2018 [facility] HEMATOLOGY Monocytes # 1.1 0.0 - 0.8 02/25/2018 [facility] HEMATOLOGY Eosinophils # 0.2 0.0 - 0.5 02/25/2018 [facility] HEMATOLOGY Lymphocytes 9.9 20.0 - 40.0 02/25/2018 [facility] HEMATOLOGY Hct 20.5 42.0 - 54.0 02/25/2018 [facility] HEMATOLOGY MCV 95.2 80.0 - 94.0 02/25/2018 [facility] HEMATOLOGY RBC 2.15 4.70 - 6.10 02/25/2018 [facility] HEMATOLOGY MCH 31.7 27.0 - 31.0 02/25/2018 [facility] HEMATOLOGY Hgb 6.8 14.0 - 18.0 02/25/2018 Result Comment: Critical Result(s) called to Iraj bobo 02/25/2018 04:11 by RM. Read back OK. [facility] HEMATOLOGY WBC 12.6 3.7 - 10.4 02/25/2018 [facility] HEMATOLOGY MPV 11.0 7.4 - 10.4 02/25/2018 [facility] HEMATOLOGY RDW 13.3 11.5 - 14.5 02/25/2018 [facility] HEMATOLOGY Platelet 220 133 - 450 02/25/2018 [facility] HEMATOLOGY MCHC 33.3 32.0 - 36.0 02/25/2018 [facility] PARATHYROID PROFILE Ca Norm WB 1.08 1.05 - 1.25 02/25/2018 [facility] PARATHYROID PROFILE Ca Ion WB 1.08 1.05 - 1.25 02/25/2018 [facility] CHEM PANEL Magnesium Lvl 2.9 1.8 - 2.4 02/24/2018 [facility] CHEM PANEL Phosphorus 4.2 2.5 - 4.5 02/24/2018 [facility] CHEM PANEL eGFR 28 02/24/2018 Result Comment: The eGFR is calculated using the CKD-EPI formula. In most young, healthy individuals the eGFR will be >90 mL/min/1.73m2. The eGFR declines with age. An eGFR of 60-89 may be normal in some populations, particularly the elderly, for whom the CKD-EPI formula has not been extensively validated. Use of the eGFR is not recommended in the following populations:

Individuals with unstable creatinine concentrations, including patients and those with serious co-morbid conditions.

Patients with extremes in muscle mass or diet.

The data above are obtained from the National Kidney Disease Education Program (NKDEP) which additionally recommends that when the eGFR is used in patients with extremes of body mass index for purposes of drug dosing, the eGFR should be multiplied by the estimated BMI. [facility] CHEM PANEL Glucose Lvl 95 70 - 99 02/24/2018 [facility] CHEM PANEL Creatinine Lvl 2.41 0.50 - 1.40 02/24/2018 [facility] CHEM PANEL BUN 102 7 - 22 02/24/2018 [facility] CHEM PANEL Sodium Lvl 149 135 - 145 02/24/2018 [facility] CHEM PANEL Chloride Lvl 110 95 - 109 02/24/2018 [facility] CHEM PANEL Potassium Lvl 3.6 3.5 - 5.1 02/24/2018 [facility] CHEM PANEL CO2 32 24 - 32 02/24/2018 [facility] CHEM PANEL Calcium Lvl 8.1 8.5 - 10.5 02/24/2018 [facility] CHEM PANEL AGAP 10.6 10.0 - 20.0 02/24/2018 [facility] HEMATOLOGY WBC 14.5 3.7 - 10.4 02/24/2018 [facility] HEMATOLOGY RBC 2.22 4.70 - 6.10 02/24/2018 [facility] HEMATOLOGY MCH 31.3 27.0 - 31.0 02/24/2018 [facility] HEMATOLOGY MCV 93.9 80.0 - 94.0 02/24/2018 [facility] HEMATOLOGY Hct 20.9 42.0 - 54.0 02/24/2018 [facility] HEMATOLOGY Hgb 7.0 14.0 - 18.0 02/24/2018 Result Comment: Critical Result(s) called to Mable Juarez_ at 02/24/2018 04:41 by RM. Read back OK. [facility] HEMATOLOGY RDW 13.0 11.5 - 14.5 02/24/2018 [facility] HEMATOLOGY MCHC 33.3 32.0 - 36.0 02/24/2018 [facility] HEMATOLOGY MPV 10.4 7.4 - 10.4 02/24/2018 [facility] HEMATOLOGY Platelet 218 133 - 450 02/24/2018 [facility] HEMATOLOGY Lymphocytes # 1.0 1.0 - 5.5 02/24/2018 [facility] HEMATOLOGY Basophils # 0.1 0.0 - 0.2 02/24/2018 [facility] HEMATOLOGY Eosinophils # 0.2 0.0 - 0.5 02/24/2018 [facility] HEMATOLOGY Monocytes # 1.1 0.0 - 0.8 02/24/2018 [facility] HEMATOLOGY Segs 83.4 45.0 - 75.0 02/24/2018 [facility] HEMATOLOGY Lymphocytes 6.8 20.0 - 40.0 02/24/2018 [facility] HEMATOLOGY Monocytes 7.8 2.0 - 12.0 02/24/2018 [facility] HEMATOLOGY Basophils 0.4 0.0 - 1.0 02/24/2018 [facility] HEMATOLOGY Eosinophils 1.6 0.0 - 4.0 02/24/2018 [facility] HEMATOLOGY Neutrophils # 12.1 1.5 - 8.1 02/24/2018 [facility] PARATHYROID PROFILE Ca Norm WB 1.14 1.05 - 1.25 02/24/2018 [facility] PARATHYROID PROFILE Ca Ion WB 1.08 1.05 - 1.25 02/24/2018 [facility] BLOOD BANK RESULTS RBC product Product available (02/23/18 6:45 AM) 02/23/2018 [facility] CHEM PANEL eGFR 27 02/23/2018 Result Comment: The eGFR is calculated using the CKD-EPI formula. In most young, healthy individuals the eGFR will be >90 mL/min/1.73m2. The eGFR declines with age. An eGFR of 60-89 may be normal in some populations, particularly the elderly, for whom the CKD-EPI formula has not been extensively validated. Use of the eGFR is not recommended in the following populations:

Individuals with unstable creatinine concentrations, including patients and those with serious co-morbid conditions.

Patients with extremes in muscle mass or diet.

The data above are obtained from the National Kidney Disease Education Program (NKDEP) which additionally recommends that when the eGFR is used in patients with extremes of body mass index for purposes of drug dosing, the eGFR should be multiplied by the estimated BMI. [facility] CHEM PANEL Chloride Lvl 107 95 - 109 02/23/2018 [facility] CHEM PANEL Potassium Lvl 3.2 3.5 - 5.1 02/23/2018 [facility] CHEM PANEL Glucose Lvl 89 70 - 99 02/23/2018 [facility] CHEM PANEL BUN 102 7 - 22 02/23/2018 [facility] CHEM PANEL Creatinine Lvl 2.50 0.50 - 1.40 02/23/2018 [facility] CHEM PANEL CO2 31 24 - 32 02/23/2018 [facility] CHEM PANEL Sodium Lvl 146 135 - 145 02/23/2018 [facility] CHEM PANEL AGAP 11.2 10.0 - 20.0 02/23/2018 [facility] CHEM PANEL Calcium Lvl 8.1 8.5 - 10.5 02/23/2018 [facility] CHEM PANEL Magnesium Lvl 2.6 1.8 - 2.4 02/23/2018 [facility] CHEM PANEL Phosphorus 3.7 2.5 - 4.5 02/23/2018 [facility] HEMATOLOGY Eosinophils # 0.3 0.0 - 0.5 02/23/2018 [facility] HEMATOLOGY Basophils # 0.1 0.0 - 0.2 02/23/2018 [facility] HEMATOLOGY Neutrophils # 10.7 1.5 - 8.1 02/23/2018 [facility] HEMATOLOGY Eosinophils 2.4 0.0 - 4.0 02/23/2018 [facility] HEMATOLOGY Basophils 0.7 0.0 - 1.0 02/23/2018 [facility] HEMATOLOGY Lymphocytes # 1.4 1.0 - 5.5 02/23/2018 [facility] HEMATOLOGY Monocytes # 1.0 0.0 - 0.8 02/23/2018 [facility] HEMATOLOGY Lymphocytes 10.2 20.0 - 40.0 02/23/2018 [facility] HEMATOLOGY Monocytes 7.2 2.0 - 12.0 02/23/2018 [facility] HEMATOLOGY Segs 79.5 45.0 - 75.0 02/23/2018 [facility] HEMATOLOGY MPV 10.2 7.4 - 10.4 02/23/2018 [facility] HEMATOLOGY MCHC 33.3 32.0 - 36.0 02/23/2018 [facility] HEMATOLOGY MCH 31.0 27.0 - 31.0 02/23/2018 [facility] HEMATOLOGY Platelet 233 133 - 450 02/23/2018 [facility] HEMATOLOGY RDW 12.8 11.5 - 14.5 02/23/2018 [facility] HEMATOLOGY WBC 13.5 3.7 - 10.4 02/23/2018 [facility] HEMATOLOGY Hgb 6.8 14.0 - 18.0 02/23/2018 Result Comment: Critical Result(s) called to Mable Juarez_ jihan 02/23/2018 03:25 by RM. Read back OK. [facility] HEMATOLOGY RBC 2.21 4.70 - 6.10 02/23/2018 [facility] HEMATOLOGY Hct 20.6 42.0 - 54.0 02/23/2018 [facility] HEMATOLOGY MCV 93.2 80.0 - 94.0 02/23/2018 [facility] HEMATOLOGY INR 1.12 0.85 - 1.17 02/23/2018 [facility] HEMATOLOGY PT 14.2 12.0 - 14.7 02/23/2018 [facility] HEMATOLOGY PTT 30.6 22.9 - 35.8 02/23/2018 [facility] PARATHYROID PROFILE Ca Norm WB 1.12 1.05 - 1.25 02/23/2018 [facility] PARATHYROID PROFILE Ca Ion WB 1.10 1.05 - 1.25 02/23/2018 [facility] BLOOD BANK RESULTS ABO/Rh O POS 02/22/2018 [facility] BLOOD BANK RESULTS Antibody Scrn Negative (02/22/18 5:08 AM) 02/22/2018 [facility] CARDIAC ENZYMES Troponin-I 0.11 0.00 - 0.40 02/19/2018 [facility] CARDIAC ENZYMES Troponin-I 0.19 0.00 - 0.40 02/18/2018 [facility] CARDIAC ENZYMES Troponin-I 0.22 0.00 - 0.40 02/17/2018 [facility] URINE CHEM U Chloride 40 02/13/2018 [facility] URINE CHEM U Potassium 24.9 02/13/2018 [facility] URINE CHEM U Osmolality 371 300 - 800 02/13/2018 [facility] URINE CHEM U Sodium 32 02/13/2018 [facility] HEMATOLOGY PTT 55.8 22.9 - 35.8 02/12/2018 [facility] HEMATOLOGY PTT 64.3 22.9 - 35.8 02/12/2018 [facility] TOXICOLOGY Vanco Lvl 25.2 02/11/2018 [facility] HEMATOLOGY PT 17.0 12.0 - 14.7 02/10/2018 [facility] [facility] HEMATOLOGY INR 1.38 0.85 - 1.17 02/10/2018 [facility] TOXICOLOGY Vanco Lvl 31.7 02/10/2018 [facility] TOXICOLOGY Vanco Lvl 21.7 02/09/2018 [facility] URINE CHEM U Protein 107.4 02/09/2018 [facility] URINE CHEM U Prot/Creat 2.67 02/09/2018 [facility] URINE CHEM U Creatinine 40.30 02/09/2018 [facility] OXACILLIN:SUSC:PT:ISOLATE:ORDQN:ROXY Gram Stain Report Gram Stain Performed By: [facility] 02/09/2018 [facility] OXACILLIN:SUSC:PT:ISOLATE:ORDQN:ROXY Culture: Respiratory w/Gram Stain Few Staphylococcus aureus Normal Respiratory Kailyn Isolated 02/09/2018 [facility] OXACILLIN:SUSC:PT:ISOLATE:ORDQN:ROXY Staphylococcus aureus Staphylococcus aureus 02/09/2018 [facility] CARDIAC ENZYMES proBNP 8089 0 - 125 02/09/2018 [facility] CARDIAC ENZYMES BNP 558 <=100 pg/mL 02/09/2018 [facility] DRUG SCREEN U Amph Scr Negative *NA* (02/08/18 9:48 PM) Negative 02/09/2018 [facility] DRUG SCREEN U Cannab Scr Negative *NA* (02/08/18 9:48 PM) Negative 02/09/2018 [facility] DRUG SCREEN U Cocaine Scr Negative *NA* (02/08/18 9:48 PM) Negative 02/09/2018 [facility] DRUG SCREEN U Benzodiaz Scr Negative *NA* (02/08/18 9:48 PM) Negative 02/09/2018 [facility] DRUG SCREEN U Gricel Scr Negative *NA* (02/08/18 9:48 PM) Negative 02/09/2018 [facility] DRUG SCREEN U Opiate Scr Negative *NA* (02/08/18 9:48 PM) Negative 02/09/2018 [facility] DRUG SCREEN U Phencyclidine Scr Negative *NA* (02/08/18 9:48 PM) Negative 02/09/2018 [facility] DRUG SCREEN UDS Note See Note *NA* (02/08/18 9:48 PM) 02/09/2018 [facility] BACTERIAL - SEROLOGY MRSA by PCR Negative (02/08/18 7:04 PM) 02/09/2018 [facility] CARDIAC ENZYMES proBNP 7682 0 - 125 02/09/2018 [facility] CHEM PANEL Bili Direct 0.1 0.0 - 0.3 02/09/2018 [facility] CHEM PANEL Lipase Lvl 74 73 - 393 02/09/2018 [facility] CHEM PANEL Procalcitonin Lvl 0.98 0.00 - 0.10 02/09/2018 [facility] CHEM PANEL Lactic Acid Lvl 1.7 0.5 - 2.2 02/09/2018 [facility] CHEM PANEL Albumin Lvl 2.2 3.5 - 5.0 02/09/2018 [facility] CHEM PANEL Total Protein 6.4 6.4 - 8.4 02/09/2018 [facility] CHEM PANEL ALT 16 0 - 65 02/09/2018 [facility] CHEM PANEL Bili Total 0.4 0.2 - 1.3 02/09/2018 [facility] CHEM PANEL Alk Phos 125 39 - 136 02/09/2018 [facility] CHEM PANEL AST 21 0 - 37 02/09/2018 [facility] CHEM PANEL A/G Ratio 0.5 0.7 - 1.6 02/09/2018 [facility] CHEM PANEL Globulin 4.2 2.7 - 4.2 02/09/2018 [facility] CHEM PANEL B/C Ratio 16 6 - 25 02/09/2018 [facility] HEMATOLOGY INR 1.29 0.85 - 1.17 02/09/2018 [facility] HEMATOLOGY PT 16.2 12.0 - 14.7 02/09/2018 [facility] SPECIAL CHEMISTRY Hgb A1C 6.6 <=5.6 % 02/09/2018 [facility] BACTERIAL - SEROLOGY Source Strep Urine *NA* (02/08/18 5:38 PM) 02/08/2018 [facility] BACTERIAL - SEROLOGY Strep pneumoniae Ag Negative (02/08/18 5:38 PM) Negative 02/08/2018 [facility] MOLECULAR DIAGNOSTIC Influenza A PCR Negative (02/08/18 4:30 PM) Negative 02/08/2018 [facility] MOLECULAR DIAGNOSTIC Influenza B PCR Negative (02/08/18 4:30 PM) Negative 02/08/2018 [facility] MOLECULAR DIAGNOSTIC RSV PCR Negative (02/08/18 4:30 PM) Negative 02/08/2018 [facility] MOLECULAR DIAGNOSTIC Source Respiratory Panel PCR Bronchial Washing (02/08/18 4:30 PM) 02/08/2018 [facility] Gram Stain Report Testing Performed At: [facility] 02/08/2018 [facility] Culture: Respiratory w/Gram Stain No Growth 02/08/2018 [facility] URINE AND STOOL UA RBC 0-2 /HPF 0 - 2 02/08/2018 [facility] URINE AND STOOL UA Bacteria Few /HPF None Seen /HPF 02/08/2018 [facility] URINE AND STOOL UA WBC 0-2 /HPF None Seen /HPF 02/08/2018 [facility] URINE AND STOOL UA Sq Epi None Seen (02/08/18 12:16 PM) Few 02/08/2018 [facility] URINE AND STOOL UA Amorph Jesenia Moderate /HPF None Seen /HPF 02/08/2018 [facility] URINE AND STOOL UA Mucus None Seen (02/08/18 12:16 PM) None Seen 02/08/2018 [facility] URINE AND STOOL UA Bili Negative *NA* (02/08/18 12:16 PM) Negative 02/08/2018 [facility] URINE AND STOOL UA Blood Small *ABN* (02/08/18 12:16 PM) Negative 02/08/2018 [facility] URINE AND STOOL UA Turbidity Cloudy *ABN* (02/08/18 12:16 PM) Clear 02/08/2018 [facility] URINE AND STOOL UA Color Yellow *NA* (02/08/18 12:16 PM) Yellow 02/08/2018 [facility] URINE AND STOOL UA Glucose Negative (02/08/18 12:16 PM) Negative 02/08/2018 [facility] URINE AND STOOL UA Ketones Negative *NA* (02/08/18 12:16 PM) Negative 02/08/2018 [facility] URINE AND STOOL UA pH 5.5 5.0 - 8.0 02/08/2018 [facility] URINE AND STOOL UA Protein 100 mg/dL Negative mg/dL 02/08/2018 [facility] URINE AND STOOL UA Spec Grav 1.015 <=1.030 02/08/2018 [facility] URINE AND STOOL UA Nitrite Negative (02/08/18 12:16 PM) Negative 02/08/2018 [facility] URINE AND STOOL UA Leuk Est Negative (02/08/18 12:16 PM) Negative 02/08/2018 [facility] URINE AND STOOL UA Urobilinogen 0.2 0.1 - 1.0 02/08/2018 [facility] CARDIAC ENZYMES Total CK 86 12 - 191 02/08/2018 [facility] CHEM PANEL Procalcitonin Lvl 0.86 0.00 - 0.10 02/08/2018 [facility] CHEM PANEL Lactic Acid Lvl 1.8 0.5 - 2.2 02/08/2018 [facility] CHEM PANEL Globulin 5.2 2.7 - 4.2 02/08/2018 [facility] CHEM PANEL A/G Ratio 0.5 0.7 - 1.6 02/08/2018 [facility] CHEM PANEL B/C Ratio 16 6 - 25 02/08/2018 [facility] CHEM PANEL Albumin Lvl 2.6 3.5 - 5.0 02/08/2018 [facility] CHEM PANEL Alk Phos 140 39 - 136 02/08/2018 [facility] CHEM PANEL AST 17 0 - 37 02/08/2018 [facility] CHEM PANEL Bili Total 0.6 0.2 - 1.3 02/08/2018 [facility] CHEM PANEL ALT 20 0 - 65 02/08/2018 [facility] CHEM PANEL Total Protein 7.8 6.4 - 8.4 02/08/2018 [facility] CHEM PANEL Phosphorus 3.2 2.5 - 4.5 11/25/2015 [facility] CHEM PANEL Magnesium Lvl 1.7 1.8 - 2.4 11/25/2015 [facility] ELECTROLYTES AGAP 12.2 10.0 - 20.0 11/25/2015 [facility] ELECTROLYTES eGFR 53 11/25/2015 Result Comment: The eGFR is calculated using the CKD-EPI formula. In most young, healthy individuals the eGFR will be >90 mL/min/1.73m2. The eGFR declines with age. An eGFR of 60-89 may be normal in some populations, particularly the elderly, for whom the CKD-EPI formula has not been extensively validated. Use of the eGFR is not recommended in the following populations:

Individuals with unstable creatinine concentrations, including patients and those with serious co-morbid conditions.

Patients with extremes in muscle mass or diet.

The data above are obtained from the National Kidney Disease Education Program (NKDEP) which additionally recommends that when the eGFR is used in patients with extremes of body mass index for purposes of drug dosing, the eGFR should be multiplied by the estimated BMI. [facility] ELECTROLYTES CO2 26 24 - 32 11/25/2015 [facility] ELECTROLYTES Calcium Lvl 8.9 8.5 - 10.5 11/25/2015 [facility] ELECTROLYTES Chloride Lvl 101 95 - 109 11/25/2015 [facility] ELECTROLYTES Potassium Lvl 4.2 3.5 - 5.1 11/25/2015 [facility] ELECTROLYTES Sodium Lvl 135 135 - 145 11/25/2015 [facility] ELECTROLYTES Creatinine Lvl 1.45 0.50 - 1.40 11/25/2015 [facility] ELECTROLYTES BUN 21 7 - 22 11/25/2015 [facility] ELECTROLYTES Glucose Lvl 139 70 - 99 11/25/2015 [facility] HEMATOLOGY Monocytes # 0.8 0.0 - 0.8 11/25/2015 [facility] HEMATOLOGY Basophils # 0.1 0.0 - 0.2 11/25/2015 [facility] HEMATOLOGY Eosinophils # 0.2 0.0 - 0.5 11/25/2015 [facility] HEMATOLOGY Lymphocytes 16.5 20.0 - 40.0 11/25/2015 [facility] HEMATOLOGY Segs 70.6 45.0 - 75.0 11/25/2015 [facility] HEMATOLOGY Monocytes 9.3 2.0 - 12.0 11/25/2015 [facility] HEMATOLOGY Lymphocytes # 1.4 1.0 - 5.5 11/25/2015 [facility] HEMATOLOGY Segs-Bands # 5.9 1.5 - 8.1 11/25/2015 [facility] HEMATOLOGY Basophils 1.0 0.0 - 1.0 11/25/2015 [facility] HEMATOLOGY Eosinophils 2.6 0.0 - 4.0 11/25/2015 [facility] HEMATOLOGY RBC 3.78 4.70 - 6.10 11/25/2015 [facility] HEMATOLOGY WBC 8.3 3.7 - 10.4 11/25/2015 [facility] HEMATOLOGY Hct 34.6 42.0 - 54.0 11/25/2015 [facility] HEMATOLOGY Hgb 11.8 14.0 - 18.0 11/25/2015 [facility] HEMATOLOGY MCH 31.3 27.0 - 31.0 11/25/2015 [facility] HEMATOLOGY MCV 91.7 80.0 - 94.0 11/25/2015 [facility] HEMATOLOGY Platelet 184 133 - 450 11/25/2015 [facility] HEMATOLOGY RDW 12.7 11.5 - 14.5 11/25/2015 [facility] HEMATOLOGY MCHC 34.2 32.0 - 36.0 11/25/2015 [facility] HEMATOLOGY MPV 9.3 7.4 - 10.4 11/25/2015 [facility] PARATHYROID PROFILE Ca Norm WB 1.06 1.05 - 1.25 11/25/2015 [facility] PARATHYROID PROFILE Ca Ion WB 1.03 1.05 - 1.25 11/25/2015 [facility] CARDIAC ENZYMES Troponin-T 0.120 0.000 - 0.100 11/24/2015 Result Comment: Critical Result(s) called to Neptali Shaw at 11/24/2015 05:42 by DH. Read back OK. [facility] CARDIAC ENZYMES Troponin-I 0.54 0.00 - 0.40 11/24/2015 Result Comment: Critical Result(s) called to Yanira Izaguirre at 11/24/2015 05:41 by ET. Read back OK. [facility] CARDIAC ENZYMES Total CK 90 12 - 191 11/24/2015 [facility] CARDIAC ENZYMES CK MB 1.2 0.5 - 3.6 11/24/2015 [facility] CARDIAC ENZYMES CK-MB INDEX 1.3 0.0 - 2.5 11/24/2015 [facility] CHEM PANEL Phosphorus 2.0 2.5 - 4.5 11/24/2015 [facility] CHEM PANEL Magnesium Lvl 1.6 1.8 - 2.4 11/24/2015 [facility] CHEM PANEL BUN 28 7 - 22 11/24/2015 [facility] CHEM PANEL Sodium Lvl 136 135 - 145 11/24/2015 [facility] CHEM PANEL Creatinine Lvl 1.67 0.50 - 1.40 11/24/2015 [facility] CHEM PANEL Potassium Lvl 4.3 3.5 - 5.1 11/24/2015 [facility] CHEM PANEL CO2 28 24 - 32 11/24/2015 [facility] CHEM PANEL Chloride Lvl 101 95 - 109 11/24/2015 [facility] CHEM PANEL Glucose Lvl 187 70 - 99 11/24/2015 [facility] CHEM PANEL AGAP 11.3 10.0 - 20.0 11/24/2015 [facility] CHEM PANEL Calcium Lvl 8.7 8.5 - 10.5 11/24/2015 [facility] CHEM PANEL eGFR 44 11/24/2015 Result Comment: The eGFR is calculated using the CKD-EPI formula. In most young, healthy individuals the eGFR will be >90 mL/min/1.73m2. The eGFR declines with age. An eGFR of 60-89 may be normal in some populations, particularly the elderly, for whom the CKD-EPI formula has not been extensively validated. Use of the eGFR is not recommended in the following populations:

Individuals with unstable creatinine concentrations, including patients and those with serious co-morbid conditions.

Patients with extremes in muscle mass or diet.

The data above are obtained from the National Kidney Disease Education Program (NKDEP) which additionally recommends that when the eGFR is used in patients with extremes of body mass index for purposes of drug dosing, the eGFR should be multiplied by the estimated BMI. [facility] HEMATOLOGY Lymphocytes # 0.9 1.0 - 5.5 11/24/2015 [facility] HEMATOLOGY Monocytes # 0.8 0.0 - 0.8 11/24/2015 [facility] HEMATOLOGY Eosinophils # 0.1 0.0 - 0.5 11/24/2015 [facility] HEMATOLOGY Basophils 0.3 0.0 - 1.0 11/24/2015 [facility] HEMATOLOGY Segs-Bands # 8.4 1.5 - 8.1 11/24/2015 [facility] HEMATOLOGY Monocytes 8.1 2.0 - 12.0 11/24/2015 [facility] HEMATOLOGY Eosinophils 1.2 0.0 - 4.0 11/24/2015 [facility] HEMATOLOGY Lymphocytes 8.5 20.0 - 40.0 11/24/2015 [facility] HEMATOLOGY Segs 81.9 45.0 - 75.0 11/24/2015 [facility] HEMATOLOGY MPV 9.5 7.4 - 10.4 11/24/2015 [facility] HEMATOLOGY Platelet 177 133 - 450 11/24/2015 [facility] HEMATOLOGY RDW 12.9 11.5 - 14.5 11/24/2015 [facility] HEMATOLOGY MCH 32.0 27.0 - 31.0 11/24/2015 [facility] HEMATOLOGY MCHC 35.6 32.0 - 36.0 11/24/2015 [facility] HEMATOLOGY Hct 35.0 42.0 - 54.0 11/24/2015 [facility] HEMATOLOGY Hgb 12.4 14.0 - 18.0 11/24/2015 [facility] HEMATOLOGY RBC 3.89 4.70 - 6.10 11/24/2015 [facility] HEMATOLOGY MCV 89.8 80.0 - 94.0 11/24/2015 [facility] HEMATOLOGY WBC 10.3 3.7 - 10.4 11/24/2015 [facility] LIPIDS CHD Risk 3.02 4.00 - 7.30 11/24/2015 [facility] LIPIDS VLDL 36 11/24/2015 [facility] LIPIDS Trig 178 <=149 mg/dL 11/24/2015 [facility] LIPIDS Chol 139 <=199 mg/dL 11/24/2015 [facility] LIPIDS LDL (Calculated) 57 <=99 mg/dL 11/24/2015 [facility] LIPIDS HDL 46 >=61 mg/dL 11/24/2015 [facility] PARATHYROID PROFILE Ca Norm WB 1.13 1.05 - 1.25 11/24/2015 [facility] PARATHYROID PROFILE Ca Ion WB 1.12 1.05 - 1.25 11/24/2015 [facility] CARDIAC ENZYMES Troponin-T 0.135 0.000 - 0.100 11/23/2015 Result Comment: Critical Result(s) called to Aubrey Gill at 11/23/2015 19:21 by . Read back OK. [facility] CARDIAC ENZYMES Troponin-I 0.74 0.00 - 0.40 11/23/2015 Result Comment: Critical Result(s) called to Aubrey Gill at 11/23/2015 19:22 by . Read back OK. [facility] CARDIAC ENZYMES Total CK 99 12 - 191 11/23/2015 [facility] CARDIAC ENZYMES CK MB Index 2.4 0.0 - 2.5 11/23/2015 [facility] CARDIAC ENZYMES CK MB 2.4 0.5 - 3.6 11/23/2015 [facility] CHEM PANEL Lactic Acid Lvl 2.0 0.5 - 2.2 11/23/2015 [facility] CHEM PANEL Vitamin D 1,25 (OH)2 Total 56 18 - 72 11/23/2015 [facility] CHEM PANEL Vitamin D2 1,25 (OH)2 <8 11/23/2015 Result Comment:
Vitamin D2, 1,25 (OH)2: Reference ranges are
established for total 1,25-dihydroxy vitamin D.
Values for subcomponents D2 (derived from plant or
fungal sources) and D3 (derived from human or
animal sources) are provided for informational
purposes only. This test(s) was developed and its
performance characteristics have been determined
by [employer], [place],
[place]. Performance characteristics refer to the
analytical performance of the test.
Test Performed at:
[employer] [facility], [address] [place] [address]
[place] [address] Cindi Urbina MD, FCAP [facility] CHEM PANEL Vitamin D3 1,25 (OH)2 56 11/23/2015 [facility] PARATHYROID PROFILE PTH Intact 144.3 11.1 - 79.5 11/23/2015 [facility] URINE AND STOOL UA Turbidity Clear (11/23/15 5:25 PM) Clear 11/23/2015 [facility] URINE AND STOOL UA Color Light Yellow *NA* (11/23/15 5:25 PM) Yellow 11/23/2015 [facility] URINE AND STOOL UA Spec Grav 1.006 <=1.030 11/23/2015 [facility] URINE AND STOOL UA Urobilinogen <=1.0 mg/dL 0.1 - 1.0 11/23/2015 [facility] URINE AND STOOL UA WBC 1 0 - 5 11/23/2015 [facility] URINE AND STOOL UA Blood Trace *ABN* (11/23/15 5:25 PM) Negative 11/23/2015 [facility] URINE AND STOOL UA RBC <1 0 - 2 11/23/2015 [facility] URINE AND STOOL UA Bacteria Occasional /HPF None Seen /HPF 11/23/2015 [facility] URINE AND STOOL UA Leuk Est Negative (11/23/15 5:25 PM) Negative 11/23/2015 [facility] URINE AND STOOL UA Nitrite Negative (11/23/15 5:25 PM) Negative 11/23/2015 [facility] URINE AND STOOL UA Glucose Negative mg/dL Negative mg/dL 11/23/2015 [facility] URINE AND STOOL UA Ketones Negative mg/dL Negative mg/dL 11/23/2015 [facility] URINE AND STOOL UA Bili Negative *NA* (11/23/15 5:25 PM) Negative 11/23/2015 [facility] URINE AND STOOL UA pH 5.5 5.0 - 8.0 11/23/2015 [facility] URINE AND STOOL UA Protein 20 mg/dL Negative mg/dL 11/23/2015 [facility] URINE AND STOOL UA Sq Epi None Seen 11/23/2015 [facility] URINE CHEM U Potassium 15.4 11/23/2015 [facility] URINE CHEM U Sodium 69 11/23/2015 [facility] URINE CHEM U Chloride 76 11/23/2015 [facility] URINE CHEM U Protein 25.7 11/23/2015 [facility] URINE CHEM U Prot/Creat 0.6 11/23/2015 [facility] URINE CHEM U Creatinine 42.60 11/23/2015 [facility] LIPIDS CHD Risk 2.96 4.00 - 7.30 11/23/2015 [facility] LIPIDS VLDL 48 11/23/2015 [facility] LIPIDS LDL (Calculated) 44 <=99 mg/dL 11/23/2015 [facility] LIPIDS HDL 47 >=61 mg/dL 11/23/2015 [facility] LIPIDS Trig 242 <=149 mg/dL 11/23/2015 [facility] LIPIDS Chol 139 <=199 mg/dL 11/23/2015 [facility] CHEM PANEL Phosphorus 2.5 2.5 - 4.5 11/23/2015 [facility] CHEM PANEL Magnesium Lvl 2.0 1.8 - 2.4 11/23/2015 [facility] CARDIAC ENZYMES CK MB Index 3.2 0.0 - 2.5 11/23/2015 [facility] CARDIAC ENZYMES CK MB 3.8 0.5 - 3.6 11/23/2015 [facility] CARDIAC ENZYMES Troponin-T 0.125 0.000 - 0.100 11/23/2015 Result Comment: Critical Result(s) called to Melanie Hunter at 11/23/2015 09:55 by RG. Read back OK. [facility] CARDIAC ENZYMES Troponin-I 0.86 0.00 - 0.40 11/23/2015 Result Comment: Critical Result(s) called to Coral Zafar at 11/23/2015 09:59 by ET. Read back OK. [facility] CARDIAC ENZYMES Total CK 118 12 - 191 11/23/2015 [facility] CHEM PANEL eGFR 23 11/23/2015 Result Comment: The eGFR is calculated using the CKD-EPI formula. In most young, healthy individuals the eGFR will be >90 mL/min/1.73m2. The eGFR declines with age. An eGFR of 60-89 may be normal in some populations, particularly the elderly, for whom the CKD-EPI formula has not been extensively validated. Use of the eGFR is not recommended in the following populations:

Individuals with unstable creatinine concentrations, including patients and those with serious co-morbid conditions.

Patients with extremes in muscle mass or diet.

The data above are obtained from the National Kid[employer] Disease Education Program (NKDEP) which additionally recommends that when the eGFR is used in patients with extremes of body mass index for purposes of drug dosing, the eGFR should be multiplied by the estimated BMI. [facility] CHEM PANEL BUN 43 7 - 22 11/23/2015 [facility] CHEM PANEL Glucose Lvl 182 70 - 99 11/23/2015 [facility] CHEM PANEL Sodium Lvl 136 135 - 145 11/23/2015 [facility] CHEM PANEL Creatinine Lvl 2.90 0.50 - 1.40 11/23/2015 [facility] CHEM PANEL Chloride Lvl 101 95 - 109 11/23/2015 [facility] CHEM PANEL Potassium Lvl 5.0 3.5 - 5.1 11/23/2015 [facility] CHEM PANEL CO2 22 24 - 32 11/23/2015 [facility] CHEM PANEL AGAP 18.0 10.0 - 20.0 11/23/2015 [facility] CHEM PANEL Calcium Lvl 8.4 8.5 - 10.5 11/23/2015 [facility] DRUG SCREEN U Phencyc Scr Negative *NA* (11/23/15 4:48 AM) Negative 11/23/2015 [facility] DRUG SCREEN U Opiate Scr Negative *NA* (11/23/15 4:48 AM) Negative 11/23/2015 [facility] DRUG SCREEN U Cannab Scr Negative *NA* (11/23/15 4:48 AM) Negative 11/23/2015 [facility] DRUG SCREEN U Cocaine Scr Negative *NA* (11/23/15 4:48 AM) Negative 11/23/2015 [facility] DRUG SCREEN U Benzodia Scr Negative *NA* (11/23/15 4:48 AM) Negative 11/23/2015 [facility] DRUG SCREEN U Gricel Scr Negative *NA* (11/23/15 4:48 AM) Negative 11/23/2015 [facility] DRUG SCREEN U Amph Scr Negative *NA* (11/23/15 4:48 AM) Negative 11/23/2015 [facility] DRUG SCREEN UDS Note See Note *NA* (11/23/15 4:48 AM) 11/23/2015 [facility] BACTERIAL - SEROLOGY MRSA by PCR Negative (11/23/15 4:41 AM) 11/23/2015 [facility] CARDIAC ENZYMES BNP 667 <=100 pg/mL 11/23/2015 [facility] CARDIAC ENZYMES proBNP 4293 0 - 125 11/23/2015 [facility] CHEM PANEL B/C Ratio 14 6 - 25 11/23/2015 [facility] CHEM PANEL Globulin 3.1 2.7 - 4.2 11/23/2015 [facility] CHEM PANEL AST 25 0 - 37 11/23/2015 [facility] CHEM PANEL Total Protein 6.4 6.4 - 8.4 11/23/2015 [facility] CHEM PANEL Bili Total 0.2 0.2 - 1.3 11/23/2015 [facility] CHEM PANEL A/G Ratio 1.1 0.7 - 1.6 11/23/2015 [facility] CHEM PANEL Alk Phos 62 39 - 136 11/23/2015 [facility] CHEM PANEL Albumin Lvl 3.3 3.5 - 5.0 11/23/2015 [facility] CHEM PANEL ALT 25 0 - 65 11/23/2015 [facility] CHEM PANEL Lactic Acid Lvl 3.0 0.5 - 2.2 11/23/2015 [facility] HEMATOLOGY Basophils # 0.1 0.0 - 0.2 11/23/2015 [facility] HEMATOLOGY Eosinophils # 0.1 0.0 - 0.5 11/23/2015 [facility] HEMATOLOGY Monocytes # 1.2 0.0 - 0.8 11/23/2015 [facility] HEMATOLOGY Segs 74.8 45.0 - 75.0 11/23/2015 [facility] HEMATOLOGY Lymphocytes 14.3 20.0 - 40.0 11/23/2015 [facility] HEMATOLOGY Monocytes 9.9 2.0 - 12.0 11/23/2015 [facility] HEMATOLOGY Basophils 0.5 0.0 - 1.0 11/23/2015 [facility] HEMATOLOGY Eosinophils 0.5 0.0 - 4.0 11/23/2015 [facility] HEMATOLOGY Lymphocytes # 1.7 1.0 - 5.5 11/23/2015 [facility] HEMATOLOGY Segs-Bands # 8.8 1.5 - 8.1 11/23/2015 [facility] HEMATOLOGY INR 1.10 0.85 - 1.17 11/23/2015 [facility] HEMATOLOGY PT 14.5 12.0 - 14.7 11/23/2015 [facility] HEMATOLOGY PTT 28.6 22.9 - 35.8 11/23/2015 [facility] HEMATOLOGY RDW 13.0 11.5 - 14.5 11/23/2015 [facility] HEMATOLOGY Platelet 181 133 - 450 11/23/2015 [facility] HEMATOLOGY MPV 9.9 7.4 - 10.4 11/23/2015 [facility] HEMATOLOGY RBC 3.30 4.70 - 6.10 11/23/2015 [facility] HEMATOLOGY WBC 11.7 3.7 - 10.4 11/23/2015 [facility] HEMATOLOGY MCV 92.1 80.0 - 94.0 11/23/2015 [facility] HEMATOLOGY Hct 30.4 42.0 - 54.0 11/23/2015 [facility] HEMATOLOGY MCHC 33.2 32.0 - 36.0 11/23/2015 [facility] HEMATOLOGY MCH 30.5 27.0 - 31.0 11/23/2015 [facility] HEMATOLOGY Hgb 10.1 14.0 - 18.0 11/23/2015 [facility] PARATHYROID PROFILE Ca Ion WB 1.17 1.05 - 1.25 11/23/2015 [facility] PARATHYROID PROFILE Ca Norm WB 1.13 1.05 - 1.25 11/23/2015 [facility] SPECIAL CHEMISTRY Hgb A1C 8.1 <=5.6 % 11/23/2015 [facility] CHEM PANEL Lactic Acid Lvl 2.7 0.5 - 2.2 11/23/2015 [facility] URINE AND STOOL UA Hyal Cast 11-20 (11/22/15 11:06 PM) 0 - 2 11/23/2015 [facility] URINE AND STOOL UA Amorph Jesenia Few /HPF None Seen /HPF 11/23/2015 [facility] URINE AND STOOL UA RBC 0-2 /HPF 0 - 2 11/23/2015 [facility] URINE AND STOOL UA WBC 0-2 /HPF None Seen /HPF 11/23/2015 [facility] URINE AND STOOL UA Sq Epi None Seen (11/22/15 11:06 PM) Few 11/23/2015 [facility] URINE AND STOOL UA Leuk Est Negative (11/22/15 11:06 PM) Negative 11/23/2015 [facility] URINE AND STOOL UA Bili Negative *NA* (11/22/15 11:06 PM) Negative 11/23/2015 [facility] URINE AND STOOL UA Blood Trace *ABN* (11/22/15 11:06 PM) Negative 11/23/2015 [facility] URINE AND STOOL UA Urobilinogen 0.2 0.1 - 1.0 11/23/2015 [facility] URINE AND STOOL UA Nitrite Negative (11/22/15 11:06 PM) Negative 11/23/2015 [facility] URINE AND STOOL UA Ketones Negative *NA* (11/22/15 11:06 PM) Negative 11/23/2015 [facility] URINE AND STOOL UA Spec Grav 1.020 <=1.030 11/23/2015 [facility] URINE AND STOOL UA pH 5.5 5.0 - 8.0 11/23/2015 [facility] URINE AND STOOL UA Protein 30 mg/dL Negative mg/dL 11/23/2015 [facility] URINE AND STOOL UA Glucose Negative (11/22/15 11:06 PM) Negative 11/23/2015 [facility] URINE AND STOOL UA Turbidity Clear (11/22/15 11:06 PM) Clear 11/23/2015 [facility] URINE AND STOOL UA Color Yellow *NA* (11/22/15 11:06 PM) Yellow 11/23/2015 [facility] CHEM PANEL Lactic Acid WB 2.7 0.5 - 2.2 11/23/2015 [facility] HEMATOLOGY Basophils # 0.1 0.0 - 0.2 11/23/2015 [facility] Pathology Reports No Data Provided for This Section Diagnostic Reports Report Value Date Source Chest 2 views DX EXAM: XR CHEST 2 VIEWS DATE: 03/20/2018 19:05 [employer] OWNED SALES [employer]NAGER INDICATION: Chest pain COMPARISON: Chest x-ray 02/16/2018 TECHNIQUE: PA and lateral chest radiographs. [place] SECTION: ER FINDINGS: Lines, tubes and hardware: None. Lungs and pleura: The lungs are clear. Slight blunting of the left costodiaphragmatic sulcus. No pneumothorax. Heart and mediastinum: Stable size and shape of the cardiomediastinal silhouette. Pulmonary vascularity is normal. Minimal aortic calcifications. Bones: No acute abnormality. IMPRESSION: 1. Trace left pleural effusion. 2. Otherwise, no acute cardiopulmonary abnormality. 03/20/2018 [facility] Retroperitoneal Complete US EXAM: US RETROPERITONEAL COMPLETE DATE: 02/20/2018 7:10 AM PRE OWNED SALES MANAGER INDICATION: - Evaluation of Cystic lesions in setting of NANCY on CKD ADDITIONAL INFORMATION: None. COMPARISON: CT 02/08/2018 TECHNIQUE: Multiplanar grayscale and color Doppler ultrasound of the kidneys and urinary bladder. FINDINGS: Right kidney: Hydronephrosis: None. Size: 11.0 x 4.2 x 5.6 cm. Echogenicity: Increased Calculi: None. Cysts: None. Masses: None. Left kidney: Hydronephrosis: None. Size: 9.9 x 4.7 x 3.1 cm. Echogenicity: Increased Calculi: None. Cysts: None. Masses: None. Bladder: Normal. Abdominal aorta/IVC:Visualized portions are unremarkable. Other:None. IMPRESSION: Echogenic kidneys with cortical thinning in keeping with advanced chronic medical renal disease. Previously seen cystic lesion in the right kidney not visualized on today's study. 02/20/2018 [facility] Abdomen AP DX EXAM: XR ABDOMEN 1 VIEW DATE: 02/16/2018 1308 hours [employer] OWNED SALES MANAGER INDICATION: - confirm NG tube placement ADDITIONAL INFORMATION: None. COMPARISON: Abdominal radiograph 02/13/2018. TECHNIQUE: Limited AP view of the abdomen for tube placement assessment. Number of images: 1 FINDINGS: Transesophageal feeding tube (tip): None present Transesophageal suction tube (sidehole): in the proximal stomach Other tubes, lines and hardware: EKG leads overlying the patient.. Other: Nonobstructive bowel gas pattern. Mild left pleural effusion. No other changes. IMPRESSION: 1. Enteric tube in the proximal stomach. 02/16/2018 [facility] Chest 1view DX EXAM: XR CHEST 1 VIEW DATE: 02/16/2018 5:43 AM PRE OWNED SALES MANAGER INDICATION: - Concern for aspiration COMPARISON: 02/14/2018 TECHNIQUE: AP chest. IMPRESSION: 1. Gastric tube has been removed. 2. Stable cardiomediastinal silhouette and atherosclerotic changes in the aorta. 3. Patchy opacities bilaterally are without changed and may represent edema or multifocal infection. 4. Stable trace right pleural effusion. Small left pleural effusion has increased in the interval. 5. Left retrocardiac opacity is likely left pleural effusion with or without consolidation or atelectasis. 6. No pneumothorax. 7. Stable osseous structures. 02/16/2018 [facility] Chest 1view DX EXAM: XR CHEST 1 VIEW DATE: 02/14/2018 3:00 AM [employer] OWNED SALES MANAGER INDICATION: - hypoxia COMPARISON: 02/13/2018 TECHNIQUE: AP chest. IMPRESSION: 1. ET tube has been removed. Gastric tube remains in position. 2. Stable cardiomediastinal silhouette and atherosclerotic changes in the aorta. 3. Patchy opacities bilaterally are without unchanged and may represent edema or multifocal infection. 4. Stable trace bilateral pleural effusions. 5. No pneumothorax. 6. Stable osseous structures. 02/14/2018 [facility] Abdomen AP DX EXAM: XR ABDOMEN 1 VIEW DATE: 02/13/2018 3:13 PM [employer] OWNED SALES MANAGER INDICATION: NG placement ADDITIONAL INFORMATION: None. COMPARISON: Abdominal radiograph 02/08/2018 TECHNIQUE: AP view of the abdomen. FINDINGS: Lines, tubes and hardware: A nasogastric tube is identified with the tip and sidehole overlying the mid stomach. Lower thorax: A right lung base opacity is partially visualized. Abdomen and bowel: Scattered bowel gas in multiple nondilated bowel loops. There is a moderate to large amount of stool throughout the colon. No pneumatosis is seen. Calcifications: No abnormal calcifications found. Bones and soft tissues: No acute abnormality. IMPRESSION: Nasogastric tube tip and sidehole in the mid gastric body. 02/13/2018 [facility] Chest 1view DX EXAM: XR CHEST 1 VIEW DATE: 02/13/2018 3:00 AM [employer] OWNED SALES MANAGER INDICATION: - interval eval COMPARISON: 02/12/2018 TECHNIQUE: AP chest IMPRESSION: 1. Endotracheal tube advancement is noted with tip currently seen 4 cm above the juliette compared to 6 cm in the previous study. 2. Cardiomediastinal silhouette is normal for technique. Aortic atherosclerotic disease. 3. Prominent lung reticulations again seen with peribronchial cuffing and patchy perihilar opacities suggestive of pulmonary edema. Superimposed infection cannot be excluded. 4. Small bilateral pleural effusions. 5. Osseous structures are stable. 02/13/2018 [facility] Chest 1view DX EXAM: XR CHEST 1 VIEW DATE: 02/12/2018 3:00 AM PRE OWNED SALES MANAGER INDICATION: - hypoxia. FINDINGS: Comparison is made to February 11. Cardiomediastinal silhouette is unchanged. Life support lines and tubes remain in place. There are asymmetric patchy alveolar opacities in the lungs bilaterally which have slightly decreased and could be due to edema, ARDS or pneumonia. There is a small left pleural effusion. IMPRESSION: 1. Asymmetric bilateral airspace disease has slightly decreased. 2. Small left pleural effusion. 02/12/2018 [facility] Chest 1view DX EXAM: XR CHEST 1 VIEW DATE: 02/11/2018 3:00 AM [employer] OWNED SALES MANAGER INDICATION: - hypoxia COMPARISON: 02/10/2018 TECHNIQUE: AP chest. IMPRESSION: 1. Stable cardiomediastinal silhouette. 2. Stable life support lines and tubes. 3. There is no significant change of patchy bilateral airspace opacities through the lungs that may represent edema including ARDS or pneumonia. 4. Stable small bilateral pleural effusions are noted again. 5. Stable osseous structures. 02/11/2018 [facility] Chest 1view DX EXAM: XR CHEST 1 VIEW DATE: 02/10/2018 3:00 AM [employer] OWNED SALES MANAGER INDICATION: - hypoxia. FINDINGS: Comparison is made to yesterday. Cardiomediastinal silhouette is unchanged. Life support lines and tubes remain in place. Patchy bilateral airspace opacities throughout the lungs have increased. This could be due to increasing edema, ARDS or pneumonia. Small bilateral pleural effusions, greater on the left. IMPRESSION: 1. Increasing bilateral airspace opacities. 2. Small bilateral pleural effusions, greater on the left. 02/10/2018 [facility] Chest 1view DX EXAM: XR CHEST 1 VIEW DATE: 02/09/2018 3:00 AM [employer] OWNED SALES MANAGER INDICATION: - intubated pt COMPARISON: 02/08/2018 TECHNIQUE: AP chest FINDINGS: Stable ET and gastric tubes. Stable cardiomediastinal silhouette. Persistent diffuse lung disease which could represent pulmonary edema, ARDS or disseminated infection. Small bilateral pleural effusions. No pneumothorax given the limitation of a semiupright exam. Unchanged skeletal structures. IMPRESSION: No significant changes compared to CTA chest performed yesterday. 02/09/2018 [facility] Abdomen AP DX EXAM: XR ABDOMEN 1 VIEW DATE: 02/08/2018 8:53 PM PRE OWNED SALES MANAGER INDICATION: - Before proning; intubated pt COMPARISON: None. TECHNIQUE: Limited AP view of the abdomen for tube placement assessment. Number of images: 1 FINDINGS: Transesophageal feeding tube: None. Transesophageal suction tube sidehole in the body region of the stomach. Other tubes and lines: None. No other changes. IMPRESSION: Tube positions as above. 02/08/2018 [facility] Chest 1view DX EXAM: XR CHEST 1 VIEW DATE: 02/08/2018 8:53 PM PRE OWNED SALES MANAGER INDICATION: - Shortness of breath COMPARISON: 02/08/2018 TECHNIQUE: AP chest IMPRESSION: Stable ET and gastric tubes. Stable cardiomediastinal silhouette. Persistent diffuse lung disease which could represent pulmonary edema, ARDS or disseminated infection. Small bilateral pleural effusions. No pneumothorax given the limitation of a semiupright exam. Unchanged skeletal structures. 02/08/2018 [facility] Chest 1 v for Placement DX EXAM: XR CHEST 1 VIEW DATE: 02/08/2018 2:57 PM [employer] OWNED SALES MANAGER INDICATION: - Line Placement; pulmonary edema COMPARISON: 02/08/2018 at 1058 hours TECHNIQUE: AP chest FINDINGS: Lines and tubes: Endotracheal tube is 4 cm above the juliette. Nasogastric tube projects in the stomach and sidehole near the gastroesophageal junction. The tip of the tube is not seen. EKG leads and electrodes overlie portions of the chest. Lungs and pleura: Diffuse pulmonary edema is present. An area of segmental atelectasis in the retrocardiac portion left lower lobe is now better aerated. Heart and mediastinum: The heart size is normal for technique. The mediastinal contours are normal. Bones: No acute bony abnormality is identified. IMPRESSION: Pulmonary edema. Endotracheal and nasogastric tubes appear appropriately positioned. 02/08/2018 [facility] Chest 1 v for Placement DX EXAM: XR CHEST AP 1 VIEW DATE: 02/08/2018 1058 hours PRE OWNED SALES MANAGER INDICATION: - Line Placement COMPARISON: 02/08/2018, 0502 hours TECHNIQUE: Chest AP -- 1 View FINDINGS: ET tube tip 4.4 cm above juliette. Gastric tube side port at GE junction. Cardiac silhouette size is unchanged. Mild prominence of the central pulmonary vasculature is identified. Mediastinal and hilar contours are stable. Minimal atherosclerotic disease of the thoracic aorta is present. Interval increased diffuse patchy airspace opacities throughout bilateral lungs noted. Persistent denser consolidation/atelectasis present in the left lower lung zone. Diffuse interstitial and septal thickening present throughout the lungs. Small right and moderate left pleural effusions are unchanged. No pneumothorax identified. Diffuse osteopenia noted. Skeletal structures demonstrate no acute findings. IMPRESSION: Interval increase diffuse interstitial and alveolar pulmonary edema. Superimposed pneumonia not excluded. Small right and moderate left pleural effusions. Gastric tube side port at GE junction, recommend advancement of gastric tube. Satisfactory position of ET tube. 02/08/2018 [facility] Chest Pulmonary Embolism CTA EXAM: CTA CHEST WITH CONTRAST DATE: 02/08/2018 at 8:05 AM PRE OWNED SALES MANAGER INDICATION: - sustained tachypnea and poor oxygenation COMPARISON: Chest x-ray from the same day TECHNIQUE: Volumetric CT acquisition of the chest, during pulmonary arterial phase, after intravenous contrast. Axial, sagittal, coronal, and oblique MIP reconstructions are created at the acquisition workstation. IV Contrast: 79 mL DLP: 589 mGy-cm FINDINGS: Lower Neck: The visible portions or the lower neck and thyroid are unremarkable. Heart, mediastinum and great Vessels: No pulmonary embolism. No right heart strain. Main pulmonary trunk is normal in caliber. The heart is borderline upper limits in size. No pericardial effusion. Left ventricular inferior wall calcifications are present.. Aortic root, thoracic aortic and scattered three- vessel coronary artery calcifications are present. Thoracic aorta is normal in caliber. There is no intrathoracic lymphadenopathy by pathologic CT size criteria. Lungs and Pleura: Heterogenous left greater than right bilateral lower lobe consolidation, in addition to multiple diffuse scattered nodular and patchy airspace opacities seen throughout the lungs. There is mild thickening of the interlobular septae. Small left greater than right pleural effusions which track from base to apex. Bones and Soft Tissues: There are scattered anterior thoracic spine osteophytes. Healed fracture of the right lateral 6th rib. No suspicious lytic or blastic lesions. Upper abdomen: Cystic lesion in the superior pole of the right kidney with a focus of calcification along the inferior aspect. Recommend nonemergent evaluation with renal protocol MRI. Too small to further characterize left renal hypodensity. Mild thickening of the left adrenal gland. Abdominal aortic atherosclerotic calcifications. IMPRESSION: 1. No pulmonary embolism. 2. Findings suggestive of multifocal disseminated pneumonia with or without superimposed edema component. 3. Small left greater than right pleural effusions which track from base to apex. 4. Left ventricular inferior wall calcifications indicative of chronic RCA distribution infarct. There are scattered three-vessel coronary calcifications. 5. Cystic lesion in the superior pole of the right kidney with a focus of calcification along the inferior aspect. Recommend nonemergent evaluation with renal ultrasound versus MRI. Dr. Mcgrath communicated these findings to Dr. Santana at 0837 hrs on 02/08/2018. 02/08/2018 [facility] Chest 1view DX EXAM: XR CHEST 1 VIEW DATE: 02/08/2018 at 0502 hours INDICATION: - SOB COMPARISON: Chest radiograph on 11/25/2015. TECHNIQUE: AP chest. FINDINGS: Lines, tubes and hardware: None. Lungs and pleura: Perihilar haze is present. Central pulmonary vascularity is increased. Scattered peribronchial cuffing is present. Platelike atelectasis is seen in the lung bases. A faint hazy opacity is present at the left lower lobe. There is a small left-sided pleural effusion. The right costophrenic sulcus is sharp without pleural effusion. No pneumothorax is seen. Heart and mediastinum: The heart size is enlarged but unchanged. Vascular calcifications are present at the aorta. Bones: Degenerative changes without acute abnormality. IMPRESSION: 1. Cardiomegaly with mild interstitial edema and small left-sided pleural effusion. 2. Vague alveolar opacity of left lower lobe may be due singly or combination to effusion, asymmetric edema, atelectasis or superimposed early consolidation. 3. Scattered bilateral platelike atelectasis. [place] SECTION: ER 02/08/2018 [facility] Chest 1view DX EXAM: XR CHEST 1 VIEW DATE: 11/25/2015 3:00 AM CDT INDICATION: Shortness of Breath COMPARISON: 11/24/2015 TECHNIQUE: AP chest IMPRESSION: 1. Interval removal of the right IJV pacing lead. 2. Cardiomediastinal silhouette is enlarged, unchanged. Aortic atherosclerotic disease 2. Scattered platelike atelectasis in both lungs. Otherwise, lungs are clear. No significant pleural effusions. 2. No acute osseous abnormalities. 11/25/2015 [facility] Chest 1view DX EXAM: XR CHEST 1 VIEW DATE: 11/24/2015 INDICATION: Chest pain . Comparison is made with yesterday FINDINGS: Abundant lines overlie the thorax and obscure detail visibility especially of underlying lines tubes and catheters. For future reference, prior to obtaining chest radiograph all extraneous lines should be removed from the thorax. Cardiomediastinal silhouette and right jugular single-lead pacemaker in the right ventricle are unchanged. Costophrenic sulci are sharp the lungs are clear IMPRESSION: No significant interval change when compared to prior radiograph. 11/24/2015 [facility] [place] Chest 1view DX EXAM: XR CHEST 1 VIEW DATE: 11/23/2015 11:31 AM CDT INDICATION: Tube placement/removal/reposition COMPARISON: 11/23/2015 at 10:51 AM TECHNIQUE: AP chest IMPRESSION: 1. Again seen is right IJV pacing lead with tip terminates in the right ventricle. 2. Lungs are clear. No significant pleural effusions. 3. Cardiomediastinal silhouette is enlarged, unchanged. 4. No acute osseous abnormalities. 11/23/2015 [facility] [place] Chest 1view DX EXAM: XR CHEST 1 VIEW DATE: 11/23/2015 9:34 AM CDT INDICATION: Abnormal chest sounds COMPARISON: Chest radiograph dated 11/23/2015 at 5:03 AM. TECHNIQUE: AP chest IMPRESSION: 1. Interval placement of right IJV pacing lead with tip terminates in the right ventricle. No complications. 2. Lungs are clear. No significant pleural effusions. 3. Cardiomediastinal silhouette is enlarged, unchanged. 4. No acute osseous abnormalities. 11/23/2015 [facility] [place] Chest 1view DX EXAM: XR CHEST 1 VIEW DATE: 11/23/2015 4:27 AM CDT INDICATION: Chest pain. FINDINGS: Comparison is made to yesterday. The cardiomediastinal silhouette is stable. The lungs are clear. The costophrenic sulci are sharp, without effusions. IMPRESSION: No significant change. 11/23/2015 [facility] [place] Chest 1view DX EXAM: Chest 1view DX DATE: 11/22/2015 2315 hours CDT INDICATION: Chest pain ADDITIONAL HISTORY: None. COMPARISON: None. TECHNIQUE: Portable AP semierect chest with a total of 1 image(s). FINDINGS: Lines, tubes, devices: Numerous cardiac monitoring leads overlie the chest. Lungs: The lungs are normally inflated without consolidation. Pleura: There is no pleural effusion or pneumothorax identified given the technique. Heart and mediastinum: The heart size is mildly enlarged for technique. The pulmonary vasculature is normal. The mediastinal contours are normal. Bones: No acute bony abnormality is identified. Soft Tissue: The soft tissues are unremarkable. IMPRESSION: 1. No acute cardiopulmonary abnormality. 2. Mild cardiomegaly. 11/22/2015 [facility] [place] Consultation Notes No Data Provided for This Section Discharge Summaries No Data Provided for This Section History and Physicals No Data Provided for This Section Vital Signs Vital Sign Value Date Comments Source Systolic (mm Hg) 134 02/25/2018 [facility] [place] Diastolic (mm Hg) 68 02/25/2018 [facility] [place] Respitory Rate 18 02/25/2018 [facility] [place] Heart Rate 60 02/25/2018 [facility] [place] Temperature Oral (F) 97.9 F 02/25/2018 [facility] [place] Temperature Oral (F) 98.3 F 02/25/2018 [facility] [place] Respitory Rate 18 02/25/2018 [facility] [place] Systolic (mm Hg) 146 02/25/2018 [facility] [place] Diastolic (mm Hg) 72 02/25/2018 [facility] [place] Heart Rate 64 02/25/2018 [facility] [place] Systolic (mm Hg) 128 02/25/2018 [facility] [place] Diastolic (mm Hg) 63 02/25/2018 [facility] [place] Heart Rate 65 02/25/2018 [facility] [place] Respitory Rate 20 02/25/2018 [facility] [place] Temperature Oral (F) 98.2 F 02/25/2018 [facility] [place] Height 165.1 cm 02/13/2018 [facility] [place] Height 165.1 cm 02/13/2018 [facility] [place] Height 165.1 cm 02/13/2018 [facility] [place] Weight 74.6 02/09/2018 [facility] [place] BMI Calculated 27.37 02/09/2018 [facility] [place] Systolic (mm Hg) 137 11/25/2015 [facility] [place] Diastolic (mm Hg) 84 11/25/2015 [facility] [place] Systolic (mm Hg) 119 11/25/2015 [facility] [place] Diastolic (mm Hg) 71 11/25/2015 [facility] [place] Systolic (mm Hg) 127 11/25/2015 [facility] [place] Diastolic (mm Hg) 68 11/25/2015 [facility] [place] Temperature Oral (F) 97.6 F 11/25/2015 [facility] [place] Temperature Oral (F) 98.0 F 11/25/2015 [facility] [place] Temperature Oral (F) 97.3 F 11/25/2015 [facility] [place] Respitory Rate 17 11/25/2015 [facility] [place] Respitory Rate 18 11/25/2015 [facility] [place] Respitory Rate 21 11/25/2015 [facility] [place] Weight 75 11/23/2015 [facility] [place] Height 165.1 cm 11/23/2015 [facility] [place] BMI Calculated 27.51 11/23/2015 [facility] [place] Weight 75 11/23/2015 [facility] [place] Heart Rate 68 11/23/2015 [facility] [place] Heart Rate 38 11/23/2015 [facility] [place] Encounters Location Location Details Encounter Type Encounter Number Reason For Visit Attending Provider ADM Date DC Date Status Source [facility] Inpatient [id number] Logan Reyez 11/23/2015 11/25/2015 [facility] Inpatient [id number] Bitashelli Vásquezyan 02/08/2018 02/26/2018 [facility] [place] Procedures No Data Provided for This Section Assessment and Plan Assessment and Plan Date Source Extracted from:Title: Team B Progress Note Author: Lorenzo Gonzalez MD Date: 02/24/18 Mr. Kei Arvizu is a 62year old man with PMH ofHTN, HLD,DM type 2, and CKD who presented with SOB and substernal chest pain at restafter a few days of fever, malaise and productive cough on 02/08 at 5am to ED.He required Bipap and then intubation w/sedation and paralysis. He was admitted directly to the MICU for management of multifocal pneumonia with acute hypoxemic respiratory failure and NANCY on CKD.His respiratory culture grew MSSA, and he completed a 7-day course of cefazolin. He was successfully extubated on 02/13, and transferred to the floor on 02/19. He failed the swallowevaluations multiple timesso hehad tube feeds through NGT throughout this admission until 02/24. After significant dysphagia therapy with [employer] and managing secretions with RT and glycopyrrolate, he successfully passedtheswallow evaluation with FEES on 02/24 and was started on pureed diet with honey thick liquids. His insulin requirements were significantly higher than home during this admission because of continuous tube feeding, so we will finalize his insulin needs prior to discharge with PO diet. Dysphagia Respiratory Secretions - Passed FEES on 02/24, [employer] OPER[employer] recommends pureed diet with honey thick liquids - Glycopyrrolate 1mg PO BID forsecretions - RT consult for management of secretions Normocytic Anemia - Asymptomatic, likely 2/2 chronic kidney disease - No sources of bleeding at this time, and we willavoid unnecessaryblood draws - S/p 1U pRBC on 02/23 for Hb 6.8 - Monitor on CBC, transfuse for Hb<7 Multifocal MSSAPneumonia Acute hypoxemic respiratory failure, resolved - Completed 7-daycourse of Cefazolin, and initial empiric coverage with Vancomycin and Cefepime - Weaned to room air NANCY on CKD - Baseline Cr around 2-2.4 (July 2017 in [facility] [employer]) - Strict I/Os -DiscontinuedLasix because he is now euvolemic and not hypoxic - Monitor creatinine Elevated troponin 2/2 NSTEMI Type II - Peaked at 1.97, now downtrended to 0.11 - TTEon 02/09/2018shows EF 55-60% - Nuclear stress test on 02/14 wasaborted because of hypotension (74/40)and bradycardia - Cardiology recommended outpatient follow-up and consider outpatient [facility] - Patient is already established with Cardiology Dr. Olvera - Continue statin, restarted Coreg at 6.25mg BID Hypernatremia - Stabilized, continue FW flushesat 150mL q2h - Monitor on BMP DM Type 2 - A1c 6.6 on 02/08/2018 - Home meds: glipizide 5mg daily and insulin glargine 5U daily (was taking usually every other day) - Switched NPH 22Uq8h to glargine 26UqAM in order to return towards home regimen - Will adjust glargine dose based on new requirements after returning to PO diet on 02/24 afternoon Hypertension - Amlodipine 10mgNG daily (until able to tolerate PO) -Coreg 6.25mg NGBID - Discontinued Hydralazine 100mgNG q8h - Discontinued Lasix 40mg BID - Home meds: Nifedipine ER 60mg daily, Losartan 25mg daily Hyperlipidemia - Continue atorvastatin 20mg qHS DVT ppx: SQ Heparin GI ppx: Senna/docusate Diet:Dysphagia diet (pureed diet with honey thick liquids) Code Status: FULL Disposition: Discharge to home after optimizing insulin regimen on PO diet Patient seen and staffed by Attending Physician Dr. Rainey. Lorenzo Gonzalez MD PGY-1, Neurology MSO# [id number] [facility] [employer] Addendum by Nicole Rainey MD on 02/24/2018 20:02 PRE OWNED SALES MANAGER I saw and evaluated Kei Arvizu. I reviewed resident's note, relevant laboratory results and imaging. I agree with the findings and plan Nicole Rainey MD Attending Physician Extracted from:Title: Cardiology Consult Note Author: Amber De La Paz MD Date: 02/11/18 62YO male with PMH of HTN, HLD,NIDDM, CKD admitted with acute hypoxic respiratory failure 2/2 multifocal pneumonia and is intubated and on ventilator. He had troponin leak on the 1st 2 days. Cardiology consulted for troponinemia and new wall motion abnormality on the ECHO. ##Troponinemia /NSTEMI vs Type II NE - 0.02 --> 1.10-->1.97-->1.76-->1.6- Currently trended down - EKG - showed some PVCs and old Q waves in II, III, aVF, V5,V6( present in 2016 EKG ). - ECHO done yesterday showed EF - 55-60%and new onset mild hypokinesis of basal to mid inferoseptum( Last ECHO in 01/2018 was normal ). - His last nuclear stress test was in december 2015 which was normal. - Probably due to Type II NE but given his risk factors cannot r/o ACS- Recommend to continue ACS protocol. - Will avoid LHC now as he has NANCY on CKD - Recommend to do Nuclear stress testonce he is afebrile. - Kindly do complete cardiac enzymes panel one time. - will follow up . ##HTN - Continue amlodipine 5mg OD and hydralazine 50 Q6H. Case seen and discussed with Dr Osorio. Call or page with questions. Thank You , Amber De La Paz MD IM PGY2 [facility] Cardiology attending attestation: I have seen and evaluated patient on 02/11. I have independently reviewed the history, imaging/diagnostic testings, lab results and examined the patient. I also seen the patient in collaboration and discussed the management with the housestaff . I agree with findings and plan outlined in the note by the resident/fellow with any exceptions noted in my note. Given his risk factors and wall motion abnormalities cannot r/o ACS- Continue ACS protocol. Given the acute kidney injury on top of CKD would start with noninvasive testing with nuclear stress test Makenzie Osorio MD ,FACP,FACC [employer] Department of Internal Medicine Extracted from:Title: MICU History and Physical Author: Hermilo Banda MD Date: 02/08/18 Acute dyspnea(R06.00) Acute respiratory distress syndrome (ARDS)(J80) 62 yo M pt w/ HTN, HLD,NIDDM, CKD? presenting w/ SoB and substernal chest pain at restafter a few days of fever, malaise and productive cough on 02/08 at 5am to ED. Pt required Bipap and then intubation w/sedation and paralysis. Imaging was concerning for multifocal PNA.Also his BPs have been frail. Labs showed NANCY on CKD. Problem List ARDS Acute Respiratory Failure Multifocal Pneumonia Pulmonary Edema Hypotension NANCY on CKD Hyperkalemia Neuro - Sedated patient, on ketamine and fentanyl - Wean as tolerated CV #Hypotension #Hx of Arrhythmia - Pt has a hx of bradycardia 2 y ago where he was found hyperkalemic and needed transvenous pacing for a day - At MICU pt's BPs were soft and dropped to MAP<60; propofol stopped, fentanyl increased, ketamine started - Central line for pressors if BPs become concerning #Troponinemia - Probably due to demand ischemia; ECGs wnl - Troponins plateuaed at 1.96 Resp #Acute Respiratory Failure #Multifocal Pneumonia #Pulmonary Edema - Pt intubated, settings at 3 am(02/09/18) as Rate:22, Vt:360, FiO2:50%, PEEP:18.0; on NO; ABG 7.37/40/206/23 - Plan to decrease PEEP 1.0 every 4 hours - Duonebs PRN - Vanc/Cefepime/Azithromycin/Oseltamivir (Day 1: 02/08) - Please dose antibiotics renally and please consider timing of possible dialysis when dosing vancomycin - Resp viral panel, U Strep, U Legionella, pancultures pending GI - NPO - On PPI and bowel regimen Renal #NANCY on CKD #Hyperkalemia - Renal on board; will follow recs - K levels high;responded with insulin/dextrose/calcium - No emergent dialysis per renal; renal is monitoring Heme #Anemia - Normocytic anemia, at admission Hgb 10.1, now 7.6(03.00 am 02/09) - Please follow Hgb levels, transfuse if necessary Endo #NIDDM - On low dose sliding scale, well controlled ID #Sepsis #Multifocal Pneumonia #Leukocytosis - Procal 0.98; Lactic Acid wnl - Vanc/Cefepime/Azithromycin/Oseltamivir (Day 1: 02/08) - Please dose antibiotics renally and please consider timing of possible dialysis when dosing vancomycin - Resp viral panel, U Strep, U Legionella, pancultures pending Hermilo Banda MD PGY-1, Prelim Neurology SCDs Pending improvement Addendum by Gisell Maciel MD on 02/09/2018 16:16 PRE OWNED SALES MANAGER MICU Attending I have seen examined and discussed patient with MICU team at bedside and agree with findings and plan as documented in Dr. Mixonidentleidy note of 02/[address] Menjivar 02/09 notes. In addition I have reviewed labs/imaging over the past 24 hours and discussed plan of care with consultants. In addition findings include - 62 yo man with presented with - Acute Respiratory failure ARDS/Pneumonia LLL Placed on BPAP in ED then Intubated, paralyzed and transferred to MICU. Sepsis - Placed on Vancomycin, Cefipime, Azithromycin and tamaflu with procalcitonin 0 .86 with 18.4 WBC with bands Overnight placed on NO, and Peep 20 CT angio was obtained in ED with mild troponin leak and found to be negative for PE but patchy infiltrates bilaterally c/w multifocal pneumonia [facility] Vent: AC 16 360 16 50 ABG 7.37 37 191 - Improved overnight from 20 peep/100 FiO2/ on NO. Weaning off NO and paralysis then will tritrate down FIO2 and Peep if tolerates Will resuscitate with IVF LR with acutepre-renaland ATN on chronic renal disease. 3.64 Creatinine renal consulted. Will hydrate. No indication of acute HD Sedate as needed with benzo, fentanyl, ketamine ECHO ordered with BNP 558. A brief episode of shock. Troponin positive with non significant ECG suspect stress- on daily ASA Start nutrition and titrate to goal Anemia 7.6 with baseline 10-11. Checking serial H/H 6but no evidence of bleeding or hemolysis at present time DVT prophylaxis SCDs/Heparin GI Prophylaxis DM on prn insulin for hyperglycemia Other as above CC time >45 min titrating at bedside Gisell Maciel MD 02/26/2018 [facility] [place] Extracted from:Title: CCU discharge summary Author: Rashaun Arriaga MD Date: 11/25/15 Discharge Summary Name: Kei Arvizu : 1955 Date of Admission: 11/23/2015 Date of Discharge: 11/25/2015 Attending: Dr. Olvera Reason for admission: Syncope, Bradycardia Discharge Diagnosis: Bradycardia Hospital Course: 60 yo with PMH HTN, HLD, NIDDM who presents with a presyncopal episode at home. He was walking toward the bathroom when he became lightheaded, dizzy and started to lose consciousness and was caught in the arms of a family member. Patient denies chest pain (preceeding the episode or current), dyspnea, diaphoresis. Reports nausea, no vomiting. Denies past cardiac history. Denies taking any extra metoprolol. Denies drug use. No recent illness, fevers, chills. Never had any arrhythmias before. No personal cardiac history. Troponin positive x1 to 0.83. Was bradycardic to 30s with EKG showing sinus bradycardia. No renal history but was found to have K 6.1 and Cr. 3.57, lactate 2.7 in ED. Treted medically with calcium, D50, insulin, albuterol, kayexalate. Mg was low at 1.4 given Mg supplementation as well. 1L fluids given in ED. The patient was urgenty sent to the bottle labeler for transvenous pacer. On day 1, he was pacer dependent. Renal was consulted, as he was found to have NANCY (unknown baseline). He also mentioned working outside for a long time, not drinkin much water. He responded to hydration very well, and NANCY was improved. EP was also consulted, and on day 2, he recovered his intrinsic rhythm with resolving renal function. TVP was removed, and he did not have any more bradycardia for 24 hours. His HR on discharge was 60-70 without any syncopal episode or hypostension. His blood pressure medication included lisinopril and metoprolol, which he will stop taking. He also was on lasix, but we told to stop it. His BP meds on discharge is nifedipine, and he will continue atorvastatin, aspirin, metformin and glyburide. His HbA1c was 8 during this admission, and he was instructed to make an early appointment with his PCP for better diabetes control. He said that he already made an appointment with his PCP even before discharge. He will follow up with Dr. Olvera in 2 weeks, for troponemia during this admission, as it was not adressed this time, but given his PMHx, it should be addressed Consultants: Nephrology and EP Procedures: TVP insertion Discharge to: Home Discharge condition: Stable Discharge Medications: Please see medication reconciliation form Discharge diet: Carbohydrate controlled, cardiac diet Follow up: Dr. Olvera in 2 weeks Activity: as tolerated. Limit exposure to heat and sun for a long period of time. Discharge Instructions: Please take all your medications as directed. Rashaun Arriaga MD PGY-2 Resident [place] [facility] Extracted from:Title: [facility] Progress Note Author: Aravind Herrera Date: 11/24/15 Patient: KEI ARVIZU Age: 60 years Sex: Male : 1955 Associated Diagnoses: None Author: Aravind Herrera Basic Information HPI: 60 year old male with a PMH of HTN, HLD, NIDDM, was admitted for s/p syncope and subsequently found to have hyperkalemia, symptomatic bradycardia (30s) for which he received an emergent transvenous pacemaker. Overnight Events: No overnight events, sinus rhythm restored, patient did not require pacing. Review of Systems Constitutional: Negative. Eye: Negative. Ear/Nose/Mouth/Throat: Negative. Respiratory: Cough, Dry, nonproductive cough. Cardiovascular: Negative. Gastrointestinal: Negative. Genitourinary: Negative. Hematology/Lymphatics: Negative. Endocrine: Negative. Immunologic: Negative. Musculoskeletal: Negative. Integumentary: Negative. Neurologic: Negative. Psychiatric: Negative. ROS reviewed as documented in chart Health Status Current medications: (Selected) Inpatient Medications Ordered Dextrose 50% Syringe: 12.5 gm, 25 mL, IVP, PRN, PRN: Blood Glucose Results Dextrose 50% Syringe: 25 gm, 50 mL, IVP, PRN, PRN: Blood Glucose Results Insulin regular: 1 unit, 0.01 mL, SUB-Q, TID-Before Meals, PRN: Blood Glucose Results Insulin regular: 2 unit, 0.02 mL, SUB-Q, TID-Before Meals, PRN: Blood Glucose Results Insulin regular: 3 unit, 0.03 mL, SUB-Q, TID-Before Meals, PRN: Blood Glucose Results Insulin regular: 4 unit, 0.04 mL, SUB-Q, TID-Before Meals, PRN: Blood Glucose Results Insulin regular: 5 unit, 0.05 mL, SUB-Q, TID-Before Meals, PRN: Blood Glucose Results NIFEdipine 30 mg oral tablet, extended release: 30 mg, 1 tab, PO, Daily Saline Flush 0.9%: 10 mL, IVP, PRN, PRN: Line Flush Saline Flush 0.9%: 10 ml, IVP, PRN, PRN: Line Flush Saline Flush 0.9%: 10 ml, IVP, Q12H Tessalon Perles: 100 mg, 1 cap, PO, TID, PRN: Cough aspirin 325 mg tablet, enteric coated: 325 mg, 1 tab, PO, Daily atorvastatin: 40 mg, 1 tab, PO, Daily glucagon: 1 mg, IM, PRN, PRN: Blood Glucose Results heparin: 5,000 unit, 1 mL, SUB-Q, Q8H Documented Medications Documented amLODIPine 10 mg oral tablet: 10 mg, 1 tab, PO, Daily, 30 tab, 0 Refill(s) atorvastatin 40 mg oral tablet: 40 mg, 1 tab, PO, Bedtime, 30 tab, 0 Refill(s) fenofibrate 48 mg oral tablet: 1 cap, PO, Daily, 30 cap, 0 Refill(s) furosemide 20 mg oral tablet: 20 mg, 1 tab, PO, Daily, 30 tab, 0 Refill(s) glyBURIDE micronized 3 mg oral tablet: 3 mg, 1 tab, PO, Daily, 30 tab, 0 Refill(s) lisinopril 40 mg oral tablet: 40 mg, 1 tab, PO, Daily, 30 tab, 0 Refill(s) metFORMIN 1000 mg oral tablet: 1,000 mg, 1 tab, PO, BID-Meals, 180 tab, 1 Refill(s) metoprolol 100 mg oral tablet, extended release: 100 mg, 1 tab, PO, Daily, 30 tab, 0 Refill(s) Problem list: All Problems Diabetes / [id number] / Confirmed Physical Examination VS/Measurements Vital Signs (last 24 hrs) Last Charted Temp Oral 98.2 DegF (NOV 23 07:00) Heart Rate Apical 62 bpm (NOV 23 10:00) Resp Rate 15 BRMIN (NOV 23 10:00) SBP 119 mmHg (NOV 23 10:00) DBP 73 mmHg (NOV 23 10:00) SpO2 94 % (NOV 23 10:52) , Measurements from flowsheet : Measurements 11/23/2015 04:22 Heparin Dosing Weight (kg) 66.90 11/23/2015 04:21 Height 165.1 cm Height Collection Method Stated Weight 75 kg Weight 75 kg Dosing Weight Difference Percent 0 % Dosing Weight Difference Percent 0 % Dosing Weight Collection Method Estimated Dosing Weight Collection Method Estimated Body Surface Area 1.8546 m2 Body Mass Index 27.51 m2 11/23/2015 04:20 Weight 75 kg Weight 75 kg Dosing Weight Difference Percent 0 % Dosing Weight Difference Percent 10 % Dosing Weight Collection Method Estimated Dosing Weight Collection Method Estimated General: Alert and oriented, No acute distress. Eye: Pupils are equal, round and reactive to light. HENT: Normocephalic, Normal hearing, Oral mucosa is moist. Neck: Supple, Non-tender, Right IJ Transvenous pacemaker in place. Respiratory: Lungs are clear to auscultation, Respirations are non-labored, Breath sounds are equal, Symmetrical chest wall expansion, No chest wall tenderness, on oxygen via nasal cannula. Cardiovascular: Normal rate, Regular rhythm, No murmur, No gallop, Good pulses equal in all extremities, Normal peripheral perfusion, No edema. Gastrointestinal: Soft, Non-tender, Non-distended, Normal bowel sounds. Genitourinary: No costovertebral angle tenderness. Lymphatics: No lymphadenopathy neck, axilla, groin. Musculoskeletal Normal range of motion. Normal strength. No tenderness. No swelling. Integumentary: Warm, Dry, [place]. Neurologic: Alert, Oriented, Normal sensory, Normal motor function, No focal deficits. Psychiatric: Cooperative, Appropriate mood and affect, Normal judgment. Lines, Tubes, and Drains: 11/23/2015 20:00 Central Lines: Internal jugular, right Non-tunneled (most common) Single 11/23/2015 03:34 Peripheral Lines: Hand Left 20 gauge Over the needle catheter Review / Management Results review: Labs (Last four charted values) WBC 10.3 (NOV 23) H 11.7 (NOV 22) H 14.4 (NOV 21) Hgb L 12.4 (NOV 23) L 10.1 (NOV 22) L 11.6 (NOV 21) Hct L 35.0 (NOV 23) L 30.4 (NOV 22) L 33.9 (NOV 06) Plt 177 (NOV 23) 181 (NOV 22) 188 (NOV 21) Na 136 (NOV 23) 136 (NOV 22) 135 (NOV 22) L 131 (NOV 22) K 4.3 (NOV 08) 5.0 (NOV 22) 4.8 (NOV 22) 4.8 (NOV 22) CO2 28 (NOV 08) L 22 (NOV 22) L 20 (NOV 22) L 20 (NOV 22) Cl 101 (NOV 08) 101 (NOV 07) 101 (NOV 22) 101 (NOV 22) Cr H 1.67 (NOV 08) H 2.90 (NOV 07) H 3.27 (NOV 22) H 3.34 (NOV 22) BUN H 28 (NOV 08) H 43 (NOV 22) H 45 (NOV 22) H 45 (NOV 22) Glucose Random H 187 (NOV 08) H 182 (NOV 22) H 191 (NOV 22) H 206 (NOV 22) Mg L 1.6 (NOV 08) 2.0 (NOV 22) 2.3 (NOV 22) L 1.4 (NOV 06) Phos L 2.0 (NOV 08) 2.5 (NOV 22) 3.1 (NOV 07) 2.6 (NOV 06) Ca 8.7 (NOV 08) L 8.4 (NOV 22) 8.8 (NOV 22) 8.6 (NOV 22) PT 14.5 (NOV 22) INR 1.10 (NOV 22) PTT 28.6 (NOV 22) Troponin C 0.54 (NOV 23) C 0.74 (NOV 22) C 0.86 (NOV 22) C 0.75 (NOV 22) CK MB 1.2 (NOV 23) 2.4 (NOV 22) H 3.8 (NOV 22) 2.9 (NOV 22) Total CK 90 (NOV 23) 99 (NOV 22) 118 (NOV 22) 116 (NOV 22) . Impression and Plan 1. Symptomatic bradycardia 2. NANCY 3. Hypertension 4. NIDDM 5. HLD Plan Neuro - pt denies pain, no focal deficits. Encourage OOBTC and active ROM. CV - symptomatic bradycardia resolved, no PPM necessary for now per EP, plan is to d/c TVPM. Continue statins. Remains hemodynamically stable, continue to give nifedipine and hold metoprolol. Resp - Weaning supplemental oxygenation, currently at 2LPM NC. Maintain SpO2 >92%. Patient c/o nonproductive cough, ordered one time A/A breathing treatment, continue tessalon pearls. GI - tolerating PO diet. Consider addidng bowel regimen if no BM reported by this afternoon. - urethral catheter removed this morning, DTV. Cr function improved with diuresis. Magnesium replaced this AM. Continue to monitor serum BMP and replete lytes as needed. Heme - hemodynamically stable, no signs of bleeding. Continue DVT prophylaxis of SQ heparin. ID - leukocytosis resolved, afebrile, no s/s of infection. Endocrine - glucose 211, A1C 8.1, consider starting basal insulin. Consult telehealth nurse educator and machine i trimmer. Disposition - okay to transfer out of ICU if hemodynamically stable post TVPM removal. Addendum by Hans Curiel MD on 11/24/2015 18:24 [facility] Pulmonary and Critical Care Medicine Attending Teaching Attestation and Critical Care Progress Note I saw, evaluated, and participated in the care of the patient with the BORIS Aravind Herrera NP on the date of this note. I concur with the assessment and plan in their note dated 11/24/2015. I have extensively reviewed the patient's available history, information, labs and imaging. My appropriate corrections, additions, and emphasized points if appropriate are below. CCT was 30 min excluding procedures Exam Gen : Awake, alert, oriented to person, place, time, situation CVS: S1, S2. HR in 60s, regular rhythm Resp: Absent stridor, absent wheezing, good bilateral air entry, good cough effort GI: Soft abdomen, Distended abdomen positive bowel sounds Neuro: No gross neurologic deficit noted Psych: Pleasant and mood stable. Skin: Good cap refill bilaterally MSK: Moves upper extr 5/5 with appropriate statistics manager strength bilaterally Problem List / Plan 1. Critical care management 2. Sinus bradycardia, symptomatic, s/p TVP with no indication for permanent placement per EP - D/c BB - CCB okay 3. Nonproductive cough - DDx includes vagally mediated cough from RIJ TVP placement, UACS, GERD, atelectasis 4. HTN 5. Elevated blood sugars in uncontrolled NIDDM, unclear if neuropathy hx. A1C 8.2 6. Electrolye distubance 7. Hyperlipidemia Extracted from:Title: EP consultation note Author: Neftali Stern MD Date: 11/23/15 Patient: KEI ARVIZU Age: 60 years Sex: Male : 1955 Associated Diagnoses: None Author: Neftali Stern MD Basic Information Referral source Chief Complaint Dizziness, pre-syncope History of Present Illness 60 yo with PMH HTN, HLD, NIDDM who presents with a presyncopal episode this morning with episodes of dizziness and fatigue since morning. He was walking toward the bathroom when he became lightheaded, dizzy and started to lose consciousness and was caught in the arms of a family member. No syncope. Patient denies chest pain (preceeding the episode or current), dyspnea, diaphoresis. Reports nausea, no vomiting. Denies past cardiac history. Was bradycardic to 30s with EKG showing junctional rhythm and newly discovered renal failure with hyperkalemia. Patient mentions that his last labs 3 months ago were apparently normal. He is treated for HTN by his PCP and is on Toprol XL 100 mg daily with last dose on 11/22/15 evening. Denies overdose and recent dose changes. Renal function responded to good doses of Lasix. Review of Systems Constitutional: Weakness, Fatigue. Ear/Nose/Mouth/Throat: Negative. Respiratory: Negative. Cardiovascular: Bradycardia. Breast: Negative. Gastrointestinal: Negative. Genitourinary: Negative. Hematology/Lymphatics: Negative. Endocrine: Negative. Immunologic: Negative. Musculoskeletal: Negative. Integumentary: Negative. Neurologic: Alert and oriented X4. Psychiatric: Negative. All other systems are negative Health Status Allergies: Allergic Reactions (All) Severity Not Documented NKDA- No reactions were documented., Allergies (1) Active Reaction NKDA None Documented Current medications: Home Medications (8) Active amLODIPine 10 mg oral tablet 10 mg=1 tab, PO, Daily atorvastatin 40 mg oral tablet 40 mg=1 tab, PO, Bedtime fenofibrate 48 mg oral tablet 1 cap, PO, Daily furosemide 20 mg oral tablet 20 mg=1 tab, PO, Daily glyBURIDE micronized 3 mg oral tablet 3 mg=1 tab, PO, Daily lisinopril 40 mg oral tablet 40 mg=1 tab, PO, Daily metFORMIN 1000 mg oral tablet 1,000 mg=1 tab, PO, BID-Meals metoprolol 100 mg oral tablet, extended release 100 mg=1 tab, PO, Daily , Medications (16) Active Scheduled: (5) aspirin 325 mg ECT 325 mg 1 tab, PO, Daily atorvastatin 40mg tab 40 mg 1 tab, PO, Daily fenofibrate 48 mg tab 48 mg 1 tab, PO, Daily sodium chloride 0.9% 10 ml flush syr BD 10 ml, IVP, Q12H vancomycin 500 mg INJ VL 500 mg, IV, ONCE Continuous: (1) DOPamine 800 mg/250ml D5W premix 800 mg 800 mg 250 mL, IV PRN: (10) Dextrose 50% 50 ml INJ syringe 12.5 gm 25 mL, IVP, PRN Dextrose 50% 50 ml INJ syringe 25 gm 50 mL, IVP, PRN glucagon recombinant 1 mg PDR 1 mg, IM, PRN insulin reg human rec 100 unit/ml INJ 3 ml Vial 1 unit 0.01 mL, SUB-Q, TID- Before Meals insulin reg human rec 100 unit/ml INJ 3 ml Vial 2 unit 0.02 mL, SUB-Q, TID- Before Meals insulin reg human rec 100 unit/ml INJ 3 ml Vial 3 unit 0.03 mL, SUB-Q, TID- Before Meals insulin reg human rec 100 unit/ml INJ 3 ml Vial 4 unit 0.04 mL, SUB-Q, TID- Before Meals insulin reg human rec 100 unit/ml INJ 3 ml Vial 5 unit 0.05 mL, SUB-Q, TID- Before Meals sodium chloride 0.9% 10 ml flush syr BD 10 ml, IVP, PRN sodium chloride 0.9% 10ml sterile flush syr BD 10 mL, IVP, PRN Histories Past Medical History: Active Diabetes (399781089) Resolved Hypertension ([id number]): Resolved. Hyperlipemia (52536121): Resolved. Family History: History is unknown. Procedure history (This Hospitalization): No active procedure history items have been selected or recorded. Physical Examination VS/Measurements Measurements from flowsheet : Measurements 11/23/2015 04:22 Heparin Dosing Weight (kg) 66.90 11/23/2015 04:21 Height 165.1 cm Height Collection Method Stated Weight 75 kg Weight 75 kg Dosing Weight Difference Percent 0 % Dosing Weight Difference Percent 0 % Dosing Weight Collection Method Estimated Dosing Weight Collection Method Estimated Body Surface Area 1.8546 m2 Body Mass Index 27.51 m2 11/23/2015 04:20 Weight 75 kg Weight 75 kg Dosing Weight Difference Percent 10 % Dosing Weight Difference Percent 0 % Dosing Weight Collection Method Estimated Dosing Weight Collection Method Estimated 11/22/2015 22:26 Weight 68.182 kg Dosing Weight Collection Method Estimated , Vital Signs (last 24 hrs) Last Charted Temp Oral 98 DegF (NOV 22 03:15) Heart Rate Apical 62 bpm (NOV 22:) Resp Rate 18 BRMIN (NOV 22:) SBP H 141mmHg (NOV 22:) DBP 71 mmHg (NOV 22:) SpO2 100 % (NOV 22:) Weight 75 kg (NOV 22:21) Height 165.1 cm (NOV 22:) BMI 27.51 (NOV 22:21) , Vitals Tmp(F) Pulse BP RR SpO2 FIO2 11/22 13:00 ---- 62 141/71 18 100 --- 11/22 12:30 ---- 58 114/69 25 99 --- 11/22 12:29 ---- --- ----- -- 95 12.0L/m 11/22 12:00 ---- 58 117/73 15 100 --- 11/22 11:30 ---- 58 117/70 20 100 --- 24 Hr Tmax: 98.3F (36.83c) at 11/21 22:26 Vital Signs are the last 5 in the past 48 hours. Intake and Output I/O Intake Output Balance 11/23/2015 7a-3p 267.03 3165.00 -2897.97 3p-11p 0.00 0.00 0.00 As of 16:03 11p-7a 0.00 0.00 0.00 Totals 267.03 3165.00 -2897.97 11/22/2015 7a-3p 0.00 0.00 0.00 3p-11p 0.00 0.00 0.00 11p-7a 1624.61 650.00 974.61 Totals 1624.61 650.00 974.61 11/21/2015 7a-3p 0.00 0.00 0.00 3p-11p 0.00 0.00 0.00 11p-7a 0.00 0.00 0.00 Totals 0.00 0.00 0.00 Objective VS/Measurements Measurements from flowsheet : Measurements 11/23/2015 04:22 Heparin Dosing Weight (kg) 66.90 11/23/2015 04:21 Height 165.1 cm Height Collection Method Stated Weight 75 kg Weight 75 kg Dosing Weight Difference Percent 0 % Dosing Weight Difference Percent 0 % Dosing Weight Collection Method Estimated Dosing Weight Collection Method Estimated Body Surface Area 1.8546 m2 Body Mass Index 27.51 m2 11/23/2015 04:20 Weight 75 kg Weight 75 kg Dosing Weight Difference Percent 10 % Dosing Weight Difference Percent 0 % Dosing Weight Collection Method Estimated Dosing Weight Collection Method Estimated 11/22/2015 22:26 Weight 68.182 kg Dosing Weight Collection Method Estimated , Vital Signs (last 24 hrs) Last Charted Temp Oral 98 DegF (NOV 22 03:15) Heart Rate Apical 62 bpm (NOV 22 13:00) Resp Rate 18 BRMIN (NOV 22:00) SBP H 141mmHg (NOV 22 13:00) DBP 71 mmHg (NOV 22:00) SpO2 100 % (NOV 22:) Weight 75 kg (NOV 22 04:21) Height 165.1 cm (NOV 22 04:21) BMI 27.51 (NOV 22 04:21) Review / Management Results review: Labs (Last four charted values) WBC H 11.7 (NOV 22) H 14.4 (NOV 21) Hgb L 10.1 (NOV 22) L 11.6 (NOV 21) Hct L 30.4 (NOV 22) L 33.9 (NOV 21) Plt 181 (NOV 22) 188 (NOV 21) Na 136 (NOV 22) 135 (NOV 22) L 131 (NOV 22) L 131 (NOV 21) K 5.0 (NOV 22) 4.8 (NOV 22) 4.8 (NOV 22) H 6.1 (NOV 21) CO2 L 22 (NOV 22) L 20 (NOV 22) L 20 (NOV 22) L 21 (NOV 21) Cl 101 (NOV 22) 101 (NOV 22) 101 (NOV 22) 99 (NOV 21) Cr H 2.90 (NOV 22) H 3.27 (NOV 22) H 3.34 (NOV 22) H 3.57 (NOV 21) BUN H 43 (NOV 22) H 45 (NOV 22) H 45 (NOV 22) H 47 (NOV 21) Glucose Random H 182 (NOV 22) H 191 (NOV 22) H 206 (NOV 22) H 242 (NOV 21) Mg 2.0 (NOV 22) 2.3 (NOV 22) L 1.4 (NOV 21) Phos 2.5 (NOV 22) 3.1 (NOV 22) 2.6 (NOV 21) Ca L 8.4 (NOV 22) 8.8 (NOV 22) 8.6 (NOV 22) 8.5 (NOV 21) PT 14.5 (NOV 22) INR 1.10 (NOV 22) PTT 28.6 (NOV 22) Troponin C 0.86 (NOV 22) C 0.75 (NOV 22) C 0.83 (NOV 21) CK MB H 3.8 (NOV 22) 2.9 (NOV 22) H 3.8 (NOV 21) Total CK 118 (NOV 22) 116 (NOV 22) 156 (NOV 21) . Laboratory Results Radiology results Discussed with radiologist Cardiology Results Left ventricular ejection fraction: 11/23/2015 13:00 SpO2 percent 100 11/23/2015 12:29 Oxygen Therapy Mode High flow nasal cannula 11/23/2015 08:37 FIO2 (%) 80 11/23/2015 05:50 Non-Invasive Vent Mode CPAP PEEP/CPAP 12 Ambu Bag Mask to O2 Yes Lines and Tubes: Lines, Tubes, and Drains: 11/23/2015 06:00 Indwelling Urinary Catheter: Urethral 16 Uzbek Indwelling/Continuous 11/23/2015 03:34 Peripheral Lines: Hand Left 20 gauge Over the needle catheter 11/22/2015 22:52 Peripheral Lines: Forearm Right 18 gauge Over the needle catheter . Impression and Plan 60 year old DM, HTN with renal failure on large dose of Toprol XL with decreased renal clearance that caused symptomatic junctional rhythm s/p TPMwith few episodes of oversensing on VVI mode - Patient recovering intrinsic rhythm - Change TPM setting to VVI 40 - STOP All AV nataly blockers -Will observe -Okay to remove TPM tomorrow if not dependant - No indication fro PPM at this time. Patient seen with Dr Marie We thank you for this consult Neftali Stern M.D. wellness trainer, PGY 5 Addendum by Dar Marie MD on 11/27/2015 18:47 The patient was seen and examined at the bedside with Dr Stern on 11-23-2015. I have reviewed thed note and I agree with the assessment and plan. I have also reviewed labs, ECG tracing s and radiology findings. Extracted from:Title: temperature transvenous pacemaker insertion Author: Giuliano Pitt MD PHD Date: 11/23/15 DATE OF PROCEDURE: 11/23/2015 PROCEDURES PERFORMED: Temporary transvenous pacemaker placement INDICATION FOR PROCEDURE: Symptomatic junctional bradycardia OPERATORS: Interventional cardiology attending: Dr. Logan Reyez Interventional weather observer: Giuliano Amaral ACCESS: 6 Uzbek right internal jugular vein Pre-Procedure Diagnosis: Symptomatic junctional bradycardia Post-Procedure Diagnosis: Successful placement of the temporary transvenous pacemaker via the right jugular vein CONCLUSIONS Successful placement of the temporary transvenous pacemaker via the right jugular vein RECOMMENDATIONS 1. IV antibiotics to cover gram-positive organism preferably IV vancomycin while temperature wire is in place (patient received Ancef 1 g IV in the bottle labeler) 2. Electrophysiology service was already consulted and will evaluate the patient DESCRIPTION OF THE PROCEDURE Emergent procedure. Only verbal consent was obtained Lidocaine 1% was used for local anesthesia. Utilizing modified Seldinger technique, 6 Uzbek sheath was placed into the right internal jugular vein utilizing a micropuncture kit. 5 Uzbek balloontipped catheter was advanced into the RV apex and capture was confirmed. Threshold was found to be 0.3 mA. Pacemaker was set at VVI 80, 5mA; sensitivity 0.3. Pacemaker wire and sheath were sutured in place and covered with sterile dressing. Dr. Logan Reyez was present for the entire procedure and performed critical portions of the procedure ATTENDING ADDENDUM I was present for all parts of the procedure, personally supervised all elements of the procedure performed by the fellows, and personally performed all dowd aspects of the procedure. Logan Reyez MD MSO#[id number] Extracted from:Title: CCU H&P Author: Paulette Rosa MD Date: 11/23/15 Impression and Plan 60yo with HTN, DM and HLD with no known cardiac history but mutiple risk factors here with symptomatic bradycardia after syncopal episode at home. Asymptomatic in ED with persistent sinus bradycardia. Also NANCY with new Cr elevation and hyperkalemic to 6.1 in setting of no known renal disease. Given hyperkalemic medications in ED, no emergenct dialysis. Neuro: -At baseline, alert and oriented -will continue to montior closely Cardiac: #Symptomatic bradycardia Etiology unclear, may be secondary to sick sinus syndrome, do not suspect metoprolol OD, possible CAD or PE -Currently asymptomatic -currently sinus bradycardia -Pads on: Transcutaneous pacing if necessary otherwise plan for bottle labeler for transvenous pacing -If becomes acutely symptomatic will consider atropine #H/o Hypertension: -Will hold home meds in setting of labile BP's -continue to monitor #Hyperlipidemia: -Continue home atorvastatin #Cardiomegaly seen on CXR -suspect CHF, also on home lasix but doesnt know what it's for, crackles heard at lung bases after fluids given, trace LE edema -TTE this AM -Diuresis with IV lasix Pulm: Denies dypnea currently, will monitor closely for dyspnea -On 3L O2 in ED, will continue, lungs clear GI: #Nausea -Vomiting in the ED Likely secondary to cardiac cause, will montior No antiemetics at this time 2/2 arrhythmia -got famotidine in ED : #Actue kiney injury -NO contrast -Cr 3.8, baseline unknown, no history of renal failure -urinating normally -received 1L NSS for likely prerenal etiology Heme: DVT ppx after cath, SQ heparin ID: -no active issues -WBC 14.4, afebrile -No infiltrate on CXR, UA pending No antibiotics indicated at this time -will continue to trend WBC, monitor for s/sx infection Code status: FULL CODE 11/25/2015 [facility] Plan of Care No Data Provided for This Section Social History Social History Date Source Social History TypeResponse Alcohol Current, Type Beer. Frequency: 3-5 times per week. Smoking Status Never smoker; Exposure to Tobacco Smoke None; Cigarette Smoking Last 365 Days No; Reg Smoking Cessation Counseling No entered on: 03/20/18 11/23/2015 [facility] Family History No Data Provided for This Section Advance Directives No Data Provided for This Section Functional Status No Data Provided for This Section
--- OUTSIDE RECORDS SUMMARY | 2018-09-21 14:59 | XMS REPORT | Summary of Care ---
Author Author [facility] Organization [facility] Address Unknown Phone Unavailable Encounter CACHORRO Spaulding(DION) [id number] Date(s): 02/08/18 - 02/25/18 [facility] [address] [employer] provided by [facility] [place] [address]- Encounter Diagnosis Acute dyspnea (Discharge Diagnosis) - 02/08/18 Sepsis, unspecified organism (Final) - 03/21/18 Acute respiratory failure with hypoxia (Final) - Acute kidney failure with tubular necrosis (Final) - Acute respiratory failure with hypercapnia (Final) - Pneumonia due to Methicillin susceptible Staphylococcus aureus (Final) - Myocardial infarction type 2 (Final) - Chronic kidney disease, stage 4 (severe) (Final) - Hyperosmolality and hypernatremia (Final) - Chronic obstructive pulmonary disease with (acute) exacerbation (Final) - Chronic obstructive pulmonary disease with acute lower respiratory infection (Final) - Hypo-osmolality and hyponatremia (Final) - Chronic pulmonary edema (Final) - Shock, unspecified (Final) - Hyperkalemia (Final) - Hypertensive chronic kidney disease with stage 1 through stage 4 chronic kidney disease, or unspecified chronic kidney disease (Final) - Atherosclerotic heart disease of [place] coronary artery without angina pectoris (Final) - Hyperlipidemia, unspecified (Final) - Type 2 diabetes mellitus with diabetic chronic kidney disease (Final) - Nutritional anemia, unspecified (Final) - skilled nursing (current) use of insulin (Final) - Type 2 diabetes mellitus with hyperglycemia (Final) - Hypermagnesemia (Final) - Obesity, unspecified (Final) - Body mass index (BMI) 27.0-27.9, adult (Final) - Ventricular premature depolarization (Final) - Cyst of kidney, acquired (Final) - Dysphagia, unspecified (Final) - Procedure and treatment not carried out, unspecified reason (Final) - skilled nursing (current) use of antithrombotics/antiplatelets (Final) - skilled nursing (current) use of aspirin (Final) - Discharge Disposition: Home or Self Care Attending Physician: Nicole Rainey MD Admitting Physician: Bita Pham MD Vital Signs 1 2 3 Most recent to oldest [Reference Range]: 165.1 cm (02/13/18 7:35 AM) 165.1 cm (02/13/18 5:35 AM) 165.1 cm (02/12/18 11:08 PM) Height 64 kg (02/24/18 5:13 AM) 63.909 kg (02/23/18 4:27 AM) 74.006 kg (02/21/18 5:14 AM) Current Weight 97.9 DegF (02/25/18 12:47 PM) 98.3 DegF (02/25/18 7:32 AM) 98.2 DegF (02/25/18 4:51 AM) Temperature Oral [96.4-99.1 DegF] 134/68 mmHg (02/25/18 12:47 PM) 146/72 mmHg *HI* (02/25/18 7:32 AM) 128/63 mmHg (02/25/18 4:51 AM) Blood Pressure [90-140/60-90 mmHg] 18 BRMIN (02/25/18 12:47 PM) 18 BRMIN (02/25/18 7:32 AM) 20 BRMIN (02/25/18 4:51 AM) Respiratory Rate [14-20 BRMIN] 60 bpm (02/25/18 12:47 PM) 64 bpm (02/25/18 7:32 AM) 65 bpm (02/25/18 4:51 AM) Peripheral Pulse Rate [60-100 bpm] 74.6 kg (02/08/18 8:39 PM) Weight 27.37 m2 (02/08/18 8:39 PM) Body Mass Index Problem List Condition Effective Dates Status Health Status Informant Diabetes(Confirmed) Active Hyperlipemia(Confirm Resolved ed) Hypertension(Confirm Resolved ed) Allergies, Adverse Reactions, Alerts No Known Medication Allergies Medications [employer] Blood Glucose Meter 1 ea, MISC, ONCE, Last HBA1c:<> Insulin Dep:Y High freq tests for: Poor control Certified Medically Necessary:<>, # 1 ea, Insulin dependent, Does not use insulin pump, Last DM eval date 02/25/18, 0 Refill(s) Start Date: 02/25/18 Stop Date: 02/25/18 Status: Discontinued [employer] Blood Glucose Meter 1 ea, MISC, ONCE, Last HBA1c:<> Insulin Dep:Y High freq tests for: Poor control Certified Medically Necessary:<>, # 1 ea, Insulin dependent, Does not use insulin pump, Last DM eval date 02/25/18, 0 Refill(s), other Start Date: 02/25/18 Stop Date: 02/25/18 Status: Discontinued [employer] Blood Glucose Meter 1 ea, MISC, ONCE, Last HBA1c:<> Insulin Dep:Y High freq tests for: Poor control Certified Medically Necessary:<>, # 1 ea, Insulin dependent, Does not use insulin pump, Last DM eval date 02/25/18, 0 Refill(s) Start Date: 02/25/18 Stop Date: 02/25/18 Status: Discontinued [employer] Blood Glucose Meter 1 ea, MISC, ONCE, Last HBA1c:<> Insulin Dep:Y High freq tests for: Poor control Certified Medically Necessary:<>, # 1 ea, Insulin dependent, Does not use insulin pump, Last DM eval date 02/25/18, 0 Refill(s) Start Date: 02/25/18 Stop Date: 02/25/18 Status: Discontinued [employer] Blood Glucose Meter 1 ea, MISC, ONCE, Last HBA1c:<> Insulin Dep:Y High freq tests for: Poor control Certified Medically Necessary:<>, # 1 ea, Insulin dependent, Does not use insulin pump, Last DM eval date 02/25/18, 0 Refill(s) Start Date: 02/25/18 Stop Date: 02/25/18 Status: Discontinued albuterol-ipratropium 2.5-0.5 mg inhalation solution 3 ml, Route: NEB, Drug Form: SOLN, Dosing Weight 75, kg, PRN, PRN Respiratory Pa liana, Start date: 02/08/18 18:39:00 [employer], Duration: 30 day, Stop date: 03/10/18 18:38:00 [employer] Notes: (Same as: Amber) Start Date: 02/08/18 Stop Date: 02/25/18 Status: Discontinued aminophylline 75 mg, Route: IV, ONCE, Dosing Weight 74.6, kg, Start date: 02/14/18 15:00:00 CS T, Stop date: 02/14/18 15:00:00 [employer] Start Date: 02/14/18 Stop Date: 02/14/18 Status: Completed amLODIPine 5 mg, 1 tab, Route: PO, Drug form: TAB, ONCE, Dosing Weight 74.6, kg, Priority: STAT, Start date: 02/11/18 20:53:00 [employer], Stop date: 02/11/18 20:53:00 [employer] Notes: (Same as: Kaylee) Start Date: 02/11/18 Stop Date: 02/11/18 Status: Completed amLODIPine 10 mg, 1 tab, Route: PO, Drug form: TAB, Daily, Dosing Weight 74.6, kg, Start da te: 02/12/18 9:00:00 [employer], Duration: 30 day, Stop date: 03/13/18 9:00:00 [employer] Notes: (Same as: Kaylee) Start Date: 02/12/18 Stop Date: 02/21/18 Status: Discontinued amLODIPine 10 mg, 1 tab, Route: NG, Drug form: TAB, Daily, Dosing Weight 74.6, kg, Start da te: 02/22/18 10:50:00 [employer], Duration: 30 day, Stop date: 03/24/18 9:00:00 [employer] Notes: (Same as: Kaylee) Start Date: 02/22/18 Stop Date: 02/25/18 Status: Discontinued amLODIPine 5 mg, 1 tab, Route: PO, Drug form: TAB, Daily, Dosing Weight 74.6, kg, Priority: NOW, Start date: 02/09/18 13:49:00 [employer], Duration: 30 day, Stop date: 03/11/18 9 :00:00 [employer] Notes: (Same as: Kaylee) Start Date: 02/09/18 Stop Date: 02/11/18 Status: Discontinued amLODIPine 5 mg, Route: PO, Drug form: TAB, Daily, Dosing Weight 74.6, kg, Start date: 12/03 9:00:00 [employer], Duration: 30 day, Stop date: 03/24/18 9:00:00 [employer] Start Date: 02/23/18 Stop Date: 02/22/18 Status: Canceled amLODIPine 5 mg, 1 tab, Route: PO, Drug form: TAB, Daily, Dosing Weight 74.6, kg, Start loan e: 02/12/18 9:00:00 [employer], Duration: 30 day, Stop date: 03/13/18 9:00:00 [employer] Notes: (Same as: Norvasc) Start Date: 02/12/18 Stop Date: 02/12/18 Status: Canceled aspirin 81 mg, 1 tab, Route: NG, Drug form: CHEWTAB, Daily, Dosing Weight 74.6, kg, Star t date: 02/09/18 9:00:00 [employer], Duration: 30 day, Stop date: 03/10/18 9:00:00 [employer] Notes: Take with food. Start Date: 02/09/18 Stop Date: 02/25/18 Status: Discontinued aspirin 81 mg tablet, enteric coated 81 mg=1 tab, PO, Daily, # 60 tab, 3 Refill(s) Start Date: 02/25/18 Stop Date: 03/22/18 Status: Discontinued aspirin 81 mg tablet, enteric coated 81 mg, 1 tab, Route: PO, Drug form: ECTAB, Daily, Dosing Weight 74.6, kg, Start date: 02/09/18 9:00:00 [employer], Duration: 30 day, Stop date: 03/10/18 9:00:00 [employer] Notes: Do not crush or chew.(Same As: Ecotrin) Start Date: 02/09/18 Stop Date: 02/09/18 Status: Canceled atorvastatin 20 mg, 1 tab, Route: PO, Drug form: TAB, Bedtime, Dosing Weight 74.6, kg, Start date: 02/08/18 21:00:00 [employer], Duration: 30 day, Stop date: 03/09/18 21:00:00 [employer] Notes: (Same As: Lipitor) Start Date: 02/08/18 Stop Date: 02/25/18 Status: Discontinued atorvastatin 40 mg oral tablet 20 mg=0.5 tab, PO, Bedtime, # 60 tab, 3 Refill(s) Start Date: 02/25/18 Stop Date: 03/22/18 Status: Discontinued atropine 0.5 mg, Route: IVP, ONCE, Dosing Weight 74.6, kg, Start date: 02/14/18 15:00:00 [employer], Stop date: 02/14/18 15:00:00 [employer] Start Date: 02/14/18 Stop Date: 02/14/18 Status: Completed azithromycin 500 mg, Route: IV, Drug form: PDR/INJ, ONCE, Dosing Weight 75, kg, Start date: 04/10/17 5:15:00 [employer], Stop date: 02/08/18 5:15:00 [employer], ABX Indication: Pneumonia Notes: (Same As: Zithromax IV) Start Date: 02/08/18 Stop Date: 02/08/18 Status: Completed azithromycin + Sodium Chloride 0.9% IV 250 mL 500 mg, Route: IVPB, [id number], Dosing Weight 75, kg, Start date: 02/08/18 19:00:0 0 [employer], Duration: 5 day, Stop date: 02/12/18 5:00:00 [employer], ABX Indication: Pneumon ia Notes: (Same As: Zithromax IV) Start Date: 02/08/18 Stop Date: 02/10/18 Status: Discontinued bisacodyl 10 mg, 1 supp, Route: AL, Drug form: SUPP, ONCE, Dosing Weight 74.6, kg, Start d ate: 02/12/18 11:35:00 [employer], Stop date: 02/12/18 11:35:00 [employer] Notes: (Same As: Dulcolax, Bisco-Lax) Start Date: 02/12/18 Stop Date: 02/12/18 Status: Completed bisacodyl 10 mg, 1 supp, Route: AL, Drug form: SUPP, Daily, Dosing Weight 74.6, kg, PRN Co nstipation, Start date: 02/12/18 15:28:00 [employer], Duration: 30 day, Stop date: 02/16 11/02 15:27:00 [employer] Notes: (Same As: Dulcolax, Bisco-Lax) Start Date: 02/12/18 Stop Date: 02/25/18 Status: Discontinued Blood Glucose Test Strips 1 box, TOP, Before Breakfast, # 60 box, 0 Refill(s) Start Date: 02/25/18 Stop Date: 02/25/18 Status: Discontinued Blood Glucose Test Strips 1 box, TOP, Before Breakfast, # 60 box, 0 Refill(s) Start Date: 02/25/18 Stop Date: 02/25/18 Status: Discontinued calcium carbonate 500 mg (200 mg elemental calcium) oral tablet 1,000 mg, Route: PO, PRN, Dosing Weight 74.6, kg, PRN Abnormal Lab Result, FOR I CU USE ONLY, Start date: 02/15/18 5:24:00 [employer], Duration: 30 day, Stop date: 02/17 04/04 5:23:00 [employer] Start Date: 02/15/18 Stop Date: 02/15/18 Status: Discontinued calcium carbonate 500 mg (200 mg elemental calcium) oral tablet 500 mg, Route: PO, PRN, Dosing Weight 74.6, kg, PRN Abnormal Lab Result, FOR ICU USE ONLY, Start date: 02/15/18 5:24:00 [employer], Duration: 30 day, Stop date: 5:23:00 [employer] Start Date: 02/15/18 Stop Date: 02/15/18 Status: Discontinued calcium gluconate 1 gm, Route: IVPB, PRN, Dosing Weight 74.6, kg, PRN Abnormal Lab Result, Start d ate: 02/15/18 5:24:00 [employer], Duration: 30 day, Stop date: 03/17/18 5:23:00 [employer], FO R ICU USE ONLY Start Date: 02/15/18 Stop Date: 02/15/18 Status: Discontinued calcium gluconate + Sodium Chloride 0.9% IV 50 mL 1,000 mg, 10 mL, Route: IVPB, ONCE, Dosing Weight 74.6, kg, Start date: 02/09/18 1:57:00 [employer], Stop date: 02/09/18 1:57:00 [employer] Notes: WASTE: F/P - Sink; E - Municipal Trash Bin Start Date: 02/09/18 Stop Date: 02/09/18 Status: Completed carvedilol 12.5 mg, 1 tab, Route: PO, Drug form: TAB, ONCE, Dosing Weight 74.6, kg, Start d ate: 02/13/18 21:44:00 [employer], Stop date: 02/13/18 21:44:00 [employer] Notes: Give with food. (Same As: Coreg) Start Date: 02/13/18 Stop Date: 02/13/18 Status: Completed carvedilol 6.25 mg oral tablet 6.25 mg=1 tab, PO, Q12H, # 60 tab, 0 Refill(s) Start Date: 02/25/18 Stop Date: 03/21/18 Status: Discontinued ceFAZolin 1 gm, Route: IVP, Drug form: PDR/INJ, [id number], Dosing Weight 74.6, kg, Start loan e: 02/13/18 13:24:00 [employer], Duration: 3 doses or times, Stop date: 02/14/18 13:24: 00 [employer], ABX Indication: Pneumonia Notes: (Same As: Ancef, Kefzol) MEDICATION WASTE Product Size: 1000 mgP roduct Wasted: _0__ mg Start Date: 02/13/18 Stop Date: 02/14/18 Status: Completed ceFAZolin 1 gm, Route: IVP, Drug form: PDR/INJ, [id number], Dosing Weight 74.6, kg, Start loan e: 02/11/18 13:00:00 [employer], Duration: 3 doses or times, Stop date: 02/14/18 13:00: 00 [employer], ABX Indication: Pneumonia Notes: (Same As: Ancef, Kefzol) MEDICATION WASTE Product Size: 1000 mgP roduct Wasted: _0__ mg Start Date: 02/11/18 Stop Date: 02/13/18 Status: Discontinued cefepime 1 gm, Route: IVP, Drug form: INJ, ONCE, Dosing Weight 75, kg, Priority: STAT, St art date: 02/08/18 8:34:00 [employer], Stop date: 02/08/18 8:34:00 [employer], ABX Indication: Pneumonia Notes: (Same As: Maxipime) MEDICATION WASTE Product Size: 1000 mgProduc t Wasted: ___ mg Start Date: 02/08/18 Stop Date: 02/08/18 Status: Completed cefepime 1 gm, Route: IVPB, [id number], Dosing Weight 75, kg, (CrCl 10 - 29 ml/min), Start d ate: 02/08/18 19:00:00 [employer], Duration: 5 day, Stop date: 02/12/18 22:00:00 [employer], A BX Indication: Pneumonia Notes: (Same As: Maxipime) MEDICATION WASTE Product Size: 1000 mgProduc t Wasted: 0 mg Start Date: 02/08/18 Stop Date: 02/11/18 Status: Discontinued cefTRIAXone 1 gm, Route: IVP, Drug form: PDR/INJ, ONCE, Dosing Weight 75, kg, Priority: STAT , Start date: 02/08/18 5:15:00 [employer], Stop date: 02/08/18 5:15:00 [employer], ABX Indicat ion: Pneumonia Notes: (Same As: Rocephin).Use with 100 mL NS and infuse over 30 min MEDICA TION WASTE Product Size: 1000 mgProduct Wasted: ___ mg Start Date: 02/08/18 Stop Date: 02/08/18 Status: Completed chlorhexidine topical 0.12% liquid 15 mL, Route: Swab Mouth, PRN, Drug form: LIQ, PRN Other -See Comment, Start loan e: 02/08/18 18:41:00 [employer], Duration: 30 day, Stop date: 03/10/18 18:40:00 [employer] Notes: (Same As: Peridex) Start Date: 02/08/18 Stop Date: 02/13/18 Status: Discontinued chlorhexidine topical 0.12% liquid 15 mL, Route: Swab Mouth, Q12H, Drug form: LIQ, Start date: 02/08/18 21:00:00 CS T, Duration: 30 day, Stop date: 03/10/18 9:00:00 [employer] Notes: (Same As: Peridex) Start Date: 02/08/18 Stop Date: 02/13/18 Status: Discontinued clopidogrel 75 mg, 1 tab, Route: PO, Drug form: TAB, Daily, Dosing Weight 74.6, kg, Start da te: 02/12/18 12:00:00 [employer], Duration: 30 day, Stop date: 03/14/18 9:00:00 [employer] Notes: (Same As: Plavix) Start Date: 02/12/18 Stop Date: 02/25/18 Status: Discontinued clopidogrel 75 mg oral tablet 75 mg=1 tab, PO, Daily, # 30 tab, 0 Refill(s) Start Date: 02/25/18 Stop Date: 03/22/18 Status: Discontinued Coreg 6.25 mg, 1 tab, Route: PO, Drug form: TAB, Q12H, Dosing Weight 74.6, kg, Start d ate: 02/20/18 9:00:00 [employer], Duration: 30 day, Stop date: 03/21/18 21:00:00 [employer] Notes: Give with food. (Same As: Coreg) Start Date: 02/20/18 Stop Date: 02/25/18 Status: Discontinued Coreg 12.5 mg, 1 tab, Route: PO, Drug form: TAB, ONCE, Dosing Weight 74.6, kg, Start d ate: 02/13/18 9:44:00 [employer], Stop date: 02/13/18 9:44:00 [employer] Start Date: 02/13/18 Stop Date: 02/13/18 Status: Completed Coreg 25 mg, 1 tab, Route: PO, Drug form: TAB, Q12H, Dosing Weight 74.6, kg, Start loan e: 02/13/18 21:00:00 [employer], Stop date: 03/13/18 9:00:00 [employer] Notes: Give with food. (Same As: Coreg) Start Date: 02/13/18 Stop Date: 02/20/18 Status: Discontinued Coreg 6.25 mg, 1 tab, Route: PO, Drug form: TAB, Q12H, Dosing Weight 74.6, kg, Start d ate: 02/12/18 10:59:00 [employer], Stop date: 03/13/18 10:49:00 [employer] Notes: Give with food. (Same As: Coreg) Start Date: 02/12/18 Stop Date: 02/13/18 Status: Discontinued Coreg 25 mg, Route: PO, Drug form: TAB, Q12H, Dosing Weight 74.6, kg, Start date: 01/17 12/03 9:00:00 [employer], Stop date: 03/13/18 9:00:00 [employer] Start Date: 02/13/18 Stop Date: 02/13/18 Status: Discontinued Coreg 12.5 mg, Route: PO, Drug form: TAB, ONCE, Dosing Weight 74.6, kg, Start date: 9:42:00 [employer], Stop date: 02/13/18 9:42:00 [employer] Start Date: 02/13/18 Stop Date: 02/13/18 Status: Discontinued D5W 1,000 mL 1,000 mL, Rate: 125 ml/hr, Infuse over: 8 hr, Route: IV, Dosing Weight 74.6 kg, Total Volume: 1,000, Start date: 02/15/18 15:24:00 [employer], Duration: 30 day, Stop d ate: 03/17/18 15:23:00 [employer], 1.87, m2 Start Date: 02/15/18 Stop Date: 02/16/18 Status: Discontinued Dextrose 5% in Water IV 500 mL 500 mL, Rate: 250 ml/hr, Infuse over: 2 hr, Route: IV, Dosing Weight 74.6 kg, To siva Volume: 500, Start date: 02/14/18 6:34:00 [employer], Duration: 1 doses or times, S top date: 02/14/18 8:33:00 [employer], 1.87, m2 Start Date: 02/14/18 Stop Date: 02/14/18 Status: Completed Dextrose 50% Syringe 12.5 gm, 25 mL, Route: IVP, Drug Form: INJ, Dosing Weight 74.6, kg, PRN, PRN Blo od Glucose Results, Start date: 02/10/18 1:49:00 [employer], Duration: 30 day, Stop loan e: 03/12/18 1:48:00 [employer] Start Date: 02/10/18 Stop Date: 02/10/18 Status: Discontinued Dextrose 50% Syringe 25 gm, 50 mL, Route: IVP, Drug Form: INJ, Dosing Weight 74.6, kg, PRN, PRN Blood Glucose Results, Start date: 02/10/18 1:49:00 [employer], Duration: 30 day, Stop date: 03/12/18 1:48:00 [employer] Start Date: 02/10/18 Stop Date: 02/10/18 Status: Discontinued Dextrose 50% Syringe 25 gm, 50 mL, Route: IVP, Drug Form: INJ, Dosing Weight 74.6, kg, PRN, PRN Blood Glucose Results, Start date: 02/08/18 21:34:00 [employer], Duration: 30 day, Stop date: 03/10/18 21:33:00 [employer] Start Date: 02/08/18 Stop Date: 02/09/18 Status: Discontinued Dextrose 50% Syringe 12.5 gm, 25 mL, Route: IVP, Drug Form: INJ, Dosing Weight 74.6, kg, PRN, PRN Blo od Glucose Results, Start date: 02/08/18 21:34:00 [employer], Duration: 30 day, Stop da te: 03/10/18 21:33:00 [employer] Start Date: 02/08/18 Stop Date: 02/09/18 Status: Discontinued Dextrose 50% Syringe 12.5 gm, 25 mL, Route: IVP, Drug Form: INJ, Dosing Weight 74.6, kg, PRN, PRN Abn ormal Lab Result, Start date: 02/10/18 12:52:00 [employer], Duration: 30 day, Stop date : 03/12/18 12:51:00 [employer], For FSBG 40 mg/dL - 60 mg/dL Start Date: 02/10/18 Stop Date: 02/13/18 Status: Discontinued Dextrose 50% Syringe 25 gm, 50 mL, Route: IVP, Drug Form: INJ, Dosing Weight 74.6, kg, PRN, PRN Abnor mal Lab Result, Start date: 02/10/18 12:52:00 [employer], Duration: 30 day, Stop date: 03/12/18 12:51:00 [employer], For FSBG < 40 mg/dL Start Date: 02/10/18 Stop Date: 02/13/18 Status: Discontinued Dextrose 50% Syringe 25 gm, 50 mL, Route: IVP, Drug Form: INJ, Dosing Weight 74.6, kg, ONCE, Start da te: 02/09/18 1:51:00 [employer], Stop date: 02/09/18 1:51:00 [employer] Start Date: 02/09/18 Stop Date: 02/09/18 Status: Completed Dextrose 50% Syringe 25 gm, 50 mL, Route: IVP, Drug Form: INJ, Dosing Weight 74.6, kg, PRN, PRN Blood Glucose Results, Start date: 02/09/18 16:01:00 [employer], Duration: 30 day, Stop date: 03/11/18 16:00:00 [employer] Start Date: 02/09/18 Stop Date: 02/10/18 Status: Discontinued Dextrose 50% Syringe 12.5 gm, 25 mL, Route: IVP, Drug Form: INJ, Dosing Weight 74.6, kg, PRN, PRN Blo od Glucose Results, Start date: 02/09/18 16:01:00 [employer], Duration: 30 day, Stop da te: 03/11/18 16:00:00 [employer] Start Date: 02/09/18 Stop Date: 02/10/18 Status: Discontinued Dextrose 50% Syringe 25 gm, 50 mL, Route: IVP, Drug Form: INJ, Dosing Weight 74.6, kg, PRN, PRN Blood Glucose Results, Start date: 02/14/18 6:38:00 [employer], Duration: 30 day, Stop date: 03/16/18 6:37:00 [employer] Start Date: 02/14/18 Stop Date: 02/25/18 Status: Discontinued Dextrose 50% Syringe 12.5 gm, 25 mL, Route: IVP, Drug Form: INJ, Dosing Weight 74.6, kg, PRN, PRN Blo od Glucose Results, Start date: 02/14/18 6:38:00 [employer], Duration: 30 day, Stop loan e: 03/16/18 6:37:00 [employer] Start Date: 02/14/18 Stop Date: 02/25/18 Status: Discontinued Dextrose 50% Syringe 12.5 gm, 25 mL, Route: IVP, Drug Form: INJ, Dosing Weight 74.6, kg, PRN, PRN Blo od Glucose Results, Start date: 02/13/18 15:16:00 [employer], Duration: 30 day, Stop da te: 03/15/18 15:15:00 [employer] Start Date: 02/13/18 Stop Date: 02/14/18 Status: Discontinued Dextrose 50% Syringe 25 gm, 50 mL, Route: IVP, Drug Form: INJ, Dosing Weight 74.6, kg, PRN, PRN Blood Glucose Results, Start date: 02/13/18 15:16:00 [employer], Duration: 30 day, Stop date: 03/15/18 15:15:00 [employer] Start Date: 02/13/18 Stop Date: 02/14/18 Status: Discontinued Dextrose 50% Syringe 12.5 gm, 25 mL, Route: IVP, Drug Form: INJ, Dosing Weight 74.6, kg, PRN, PRN Blo od Glucose Results, Start date: 02/10/18 4:34:00 [employer], Duration: 30 day, Stop loan e: 03/12/18 4:33:00 [employer] Start Date: 02/10/18 Stop Date: 02/10/18 Status: Discontinued Dextrose 50% Syringe 25 gm, 50 mL, Route: IVP, Drug Form: INJ, Dosing Weight 74.6, kg, PRN, PRN Blood Glucose Results, Start date: 02/10/18 4:34:00 [employer], Duration: 30 day, Stop date: 03/12/18 4:33:00 [employer] Start Date: 02/10/18 Stop Date: 02/10/18 Status: Discontinued Dextrose 50% Syringe 25 mL, Route: IVP, Dosing Weight 74.6, kg, PRN, PRN Blood Glucose Results, Start date: 02/13/18 15:15:00 [employer], Duration: 30 day, Stop date: 03/15/18 15:14:00 [employer] Start Date: 02/13/18 Stop Date: 02/13/18 Status: Discontinued Dextrose 50% Syringe 50 mL, Route: IVP, Dosing Weight 74.6, kg, PRN, PRN Blood Glucose Results, Start date: 02/13/18 15:15:00 [employer], Duration: 30 day, Stop date: 03/15/18 15:14:00 [employer] Start Date: 02/13/18 Stop Date: 02/13/18 Status: Discontinued Dextrose 50% Syringe 25 gm, 50 mL, Route: IVP, Drug Form: INJ, Dosing Weight 74.6, kg, PRN, PRN Blood Glucose Results, Start date: 02/13/18 14:01:00 [employer], Duration: 30 day, Stop date: 03/15/18 14:00:00 [employer] Start Date: 02/13/18 Stop Date: 02/13/18 Status: Discontinued Dextrose 50% Syringe 12.5 gm, 25 mL, Route: IVP, Drug Form: INJ, Dosing Weight 74.6, kg, PRN, PRN Blo od Glucose Results, Start date: 02/13/18 14:01:00 [employer], Duration: 30 day, Stop da te: 03/15/18 14:00:00 [employer] Start Date: 02/13/18 Stop Date: 02/13/18 Status: Discontinued Dextrose 50% Syringe 12.5 gm, 25 mL, Route: IVP, Drug Form: INJ, Dosing Weight 74.6, kg, PRN, PRN Blo od Glucose Results, Start date: 02/25/18 2:10:00 [employer], Duration: 30 day, Stop loan e: 03/27/18 2:09:00 [employer] Start Date: 02/25/18 Stop Date: 02/25/18 Status: Discontinued Dextrose 50% Syringe 25 gm, 50 mL, Route: IVP, Drug Form: INJ, Dosing Weight 74.6, kg, PRN, PRN Blood Glucose Results, Start date: 02/25/18 2:10:00 [employer], Duration: 30 day, Stop date: 03/27/18 2:09:00 [employer] Start Date: 02/25/18 Stop Date: 02/25/18 Status: Discontinued docusate 100 mg, 10 mL, Route: NG, Drug form: LIQ, Q12H, Dosing Weight 74.6, kg, Start da te: 02/10/18 21:00:00 [employer], Duration: 30 day, Stop date: 03/12/18 9:00:00 [employer] Notes: (Same as: Colace) Start Date: 02/10/18 Stop Date: 02/25/18 Status: Discontinued docusate-senna 50 mg-8.6 mg oral tablet 1 tab, Route: PO, Drug Form: TAB, Dosing Weight 74.6, kg, BID, Start date: 02/09 9:00:00 [employer], Duration: 30 day, Stop date: 03/10/18 17:00:00 [employer] Notes: (Same as Sencherie-S) Equiv. to Lisa-Colace. Start Date: 02/09/18 Stop Date: 02/10/18 Status: Discontinued etomidate 20 mg, Route: IVP, ONCE, Dosing Weight 75, kg, Priority: STAT, Start date: 02/08 11:19:00 [employer], Stop date: 02/08/18 11:19:00 [employer] Start Date: 02/08/18 Stop Date: 02/08/18 Status: Completed fentaNYL 1000 microgram in 20 mL NS (Titrate.) IV 1,000 microgram 1,000 microgram, 20 mL, Rate: Titrate, Start Dose: 50 microgram/hr, Titration: 2 5 microgram/hour every 15 minutes, Goal(s): sbp 130, Max Dose: 300 microgram/hr, Route: IV, Dosing Weight 75 kg, Total Volume: 20, Start date: 02/08/18 11:20:00 [employer], Durat... Start Date: 02/08/18 Stop Date: 02/12/18 Status: Discontinued glipiZIDE 5 mg oral tablet 5 mg=1 tab, PO, Daily, 0 Refill(s) Start Date: 02/08/18 Stop Date: 02/25/18 Status: Discontinued glucagon 1 mg, Route: IM, Drug form: PDR/INJ, PRN, Dosing Weight 74.6, kg, PRN Blood Gluc ose Results, Start date: 02/10/18 1:49:00 [employer], Duration: 30 day, Stop date: 02/16 09/02 1:48:00 [employer] Start Date: 02/10/18 Stop Date: 02/10/18 Status: Discontinued glucagon 1 mg, Route: IM, Drug form: PDR/INJ, PRN, Dosing Weight 74.6, kg, PRN Blood Gluc ose Results, Start date: 02/08/18 21:34:00 [employer], Duration: 30 day, Stop date: 21:33:00 [employer] Start Date: 02/08/18 Stop Date: 02/09/18 Status: Discontinued glucagon 1 mg, Route: IM, Drug form: PDR/INJ, PRN, Dosing Weight 74.6, kg, PRN Blood Gluc ose Results, Start date: 02/09/18 16:01:00 [employer], Duration: 30 day, Stop date: 16:00:00 [employer] Start Date: 02/09/18 Stop Date: 02/10/18 Status: Discontinued glucagon 1 mg, Route: IM, Drug form: PDR/INJ, PRN, Dosing Weight 74.6, kg, PRN Blood Gluc ose Results, Start date: 02/14/18 6:38:00 [employer], Duration: 30 day, Stop date: 02/17 6:37:00 [employer] Start Date: 02/14/18 Stop Date: 02/25/18 Status: Discontinued glucagon 1 mg, Route: IM, Drug form: PDR/INJ, PRN, Dosing Weight 74.6, kg, PRN Blood Gluc ose Results, Start date: 02/13/18 15:16:00 [employer], Duration: 30 day, Stop date: 15:15:00 [employer] Start Date: 02/13/18 Stop Date: 02/14/18 Status: Discontinued glucagon 1 mg, Route: IM, PRN, Dosing Weight 74.6, kg, PRN Blood Glucose Results, Start d ate: 02/13/18 15:15:00 [employer], Duration: 30 day, Stop date: 03/15/18 15:14:00 [employer] Start Date: 02/13/18 Stop Date: 02/13/18 Status: Discontinued glucagon 1 mg, Route: IM, Drug form: PDR/INJ, PRN, Dosing Weight 74.6, kg, PRN Blood Gluc ose Results, Start date: 02/13/18 14:01:00 [employer], Duration: 30 day, Stop date: 14:00:00 [employer] Start Date: 02/13/18 Stop Date: 02/13/18 Status: Discontinued glucagon 1 mg, Route: IM, Drug form: PDR/INJ, PRN, Dosing Weight 74.6, kg, PRN Blood Gluc ose Results, Start date: 02/25/18 2:10:00 [employer], Duration: 30 day, Stop date: 03/18 2:09:00 [employer] Start Date: 02/25/18 Stop Date: 02/25/18 Status: Discontinued glycopyrrolate 1 mg, 5 mL, Route: NG, Drug form: SOLN, BID, Dosing Weight 74.6, kg, Start date: 02/22/18 10:48:00 [employer], Duration: 30 day, Stop date: 03/24/18 9:00:00 [employer] Notes: (Same as: Nannette) Start Date: 02/22/18 Stop Date: 02/22/18 Status: Discontinued glycopyrrolate 1 mg, 5 mL, Route: NG, Drug form: SOLN, BID, Dosing Weight 74.6, kg, Start date: 02/22/18 13:00:00 [employer], Duration: 30 day, Stop date: 03/24/18 9:00:00 [employer] Notes: (Same as: Cuvposa) Start Date: 02/22/18 Stop Date: 02/25/18 Status: Discontinued heparin 5,000 unit, 1 mL, Route: SUB-Q, Drug form: INJ, Q8H, Dosing Weight 74.6, kg, Sta rt date: 02/13/18 16:00:00 [employer], Duration: 7 day, Stop date: 02/20/18 8:00:00 [employer] Notes: porcine heparin Start Date: 02/13/18 Stop Date: 02/20/18 Status: Completed Heparin - one time bolus for ACS 4,000 unit, 4 mL, Route: IVP, Drug form: INJ, ONCE, Dosing Weight 74.6, kg, Prio rity: STAT, Start date: 02/10/18 16:56:00 [employer], Stop date: 02/10/18 16:56:00 [employer] Start Date: 02/10/18 Stop Date: 02/10/18 Status: Completed Heparin 30 unit/kg Bolus (Heparin Dosing Weight) Route: IVP, PRN, 2,000 unit, 2 mL, Drug form: INJ, PRN, Heparin Protocol, Start date: 02/10/18 16:57:00 [employer] Stop date: 03/12/18 16:56:00 [employer], 30 day Start Date: 02/10/18 Stop Date: 02/13/18 Status: Discontinued heparin 5000 units/mL injectable solution 5,000 unit, 1 mL, Route: SUB-Q, Drug form: INJ, Q8H, Dosing Weight 74.6, kg, Sta rt date: 02/09/18 16:00:00 [employer], Duration: 30 day, Stop date: 03/11/18 8:00:00 CS T Notes: porcine heparin Start Date: 02/09/18 Stop Date: 02/10/18 Status: Discontinued heparin 5000 units/mL injectable solution 5,000 unit, 1 mL, Route: SUB-Q, Drug form: INJ, Q8H, Dosing Weight 74.6, kg, Sta rt date: 02/21/18 16:00:00 [employer], Duration: 30 day, Stop date: 03/23/18 8:00:00 CS T Notes: porcine heparin Start Date: 02/21/18 Stop Date: 02/25/18 Status: Discontinued Heparin 60 unit/kg Bolus (Heparin Dosing Weight) Route: IVP, PRN, 4,000 unit, 4 mL, Drug form: INJ, PRN, Heparin Protocol, Start date: 02/10/18 16:57:00 [employer] Stop date: 03/12/18 16:56:00 [employer], 30 day Start Date: 02/10/18 Stop Date: 02/13/18 Status: Discontinued heparin additive 25,000 unit [12 unit/kg/hr] + Premix Diluent Sodium Chloride 0. 45% 500 mL 500 mL, Rate: 16.02 ml/hr, Infuse over: 31.2 hr, Route: IV, Dosing Weight 66.74 kg, Total Volume: 500 mL, Start date: 02/10/18 16:57:00 [employer], Duration: 30 day, S top date: 03/12/18 16:56:00 [employer], 1.76, m2 Notes: Total Concentration=50 unit/ ml Total qxupyh=059 mlSend Med Request 2 ho urs prior to next bag Start Date: 02/10/18 Stop Date: 02/13/18 Status: Discontinued hydrALAZINE 20 mg, 1 mL, Route: IVP, Drug form: INJ, Q48H, Dosing Weight 74.6, kg, Start loan e: 02/09/18 19:00:00 [employer], Duration: 1 day, Stop date: 02/09/18 19:00:00 [employer] Notes: (Same as: Apresoline)Push over 5 minutes Start Date: 02/09/18 Stop Date: 02/09/18 Status: Completed hydrALAZINE 75 mg, 3 tab, Route: PO, Drug form: TAB, Q6H, Dosing Weight 74.6, kg, Start date : 02/09/18 18:00:00 [employer], Duration: 30 day, Stop date: 03/11/18 12:00:00 [employer] Start Date: 02/09/18 Stop Date: 02/11/18 Status: Discontinued hydrALAZINE 25 mg, 1 tab, Route: PO, Drug form: TAB, ONCE, Dosing Weight 74.6, kg, Start loan e: 02/11/18 17:00:00 [employer], Stop date: 02/11/18 17:00:00 [employer] Start Date: 02/11/18 Stop Date: 02/11/18 Status: Completed hydrALAZINE 10 mg, 0.5 mL, Route: IV, Drug form: INJ, ONCE, Dosing Weight 74.6, kg, PRN Elev ated BP, Start date: 02/11/18 23:51:00 [employer], If systolic BP >180 or diastolic blood pressure >110 Notes: (Same as: Apresoline)Push over 5 minutes Start Date: 02/11/18 Stop Date: 02/25/18 Status: Discontinued hydrALAZINE 50 mg, Route: IV, ONCE, Dosing Weight 74.6, kg, Start date: 02/11/18 20:48:00 CS T, Stop date: 02/11/18 20:48:00 [employer] Start Date: 02/11/18 Stop Date: 02/11/18 Status: Discontinued hydrALAZINE 10 mg, 0.5 mL, Route: IV, Drug form: INJ, ONCE, Dosing Weight 74.6, kg, Start da te: 02/11/18 21:09:00 [employer], Stop date: 02/11/18 21:09:00 [employer] Notes: (Same as: Apresoline)Push over 5 minutes. Start Date: 02/11/18 Stop Date: 02/11/18 Status: Completed hydrALAZINE 50 mg oral tablet 100 mg, 2 tab, Route: PO, Drug form: TAB, Q8H, Dosing Weight 74.6, kg, Priority: Routine, Start date: 02/12/18 8:00:00 [employer], Duration: 30 day, Stop date: 03/14/18 0:00:00 [employer] Notes: (Same as: Apresoline) May interfere w/enteral feedings Take With Food Start Date: 02/12/18 Stop Date: 02/23/18 Status: Discontinued hydrALAZINE 50 mg oral tablet 50 mg, 1 tab, Route: PO, Drug form: TAB, Q6H, Dosing Weight 74.6, kg, Priority: Routine, Start date: 02/12/18 0:00:00 [employer], Duration: 30 day, Stop date: 03/13/18 18:00:00 [employer] Notes: (Same as: Apresoline) May interfere with enteral feedings. Take with food . Start Date: 02/12/18 Stop Date: 02/12/18 Status: Discontinued insulin glargine 26 unit, 0.26 mL, Route: SUB-Q, Drug form: SOLN, Daily, Start date: 02/24/18 8:0 0:00 [employer], Duration: 30 day, Stop date: 03/25/18 8:00:00 [employer] Notes: Same as: Lantangus)Do not hold insulin without contacting prescriberWASTE: F /P - Black; E - [facility] Tr[facility] Start Date: 02/24/18 Stop Date: 02/25/18 Status: Discontinued insulin glargine 26 unit, 0.26 mL, Route: SUB-Q, Drug form: SOLN, Q12H, Start date: 02/23/18 0:00 :00 [employer], Duration: 30 day, Stop date: 03/24/18 12:00:00 [employer] Notes: Same as: Lantus)Do not hold insulin without contacting prescriberWASTE: F /P - Black; E - [facility] Start Date: 02/23/18 Stop Date: 02/23/18 Status: Discontinued insulin glargine 100 units/mL subcutaneous solution 7 unit, Route: SUB-Q, Bedtime, Dosing Weight 74.6, kg, Start date: 02/10/18 21:0 0:00 [employer], Duration: 30 day, Stop date: 03/11/18 21:00:00 [employer] Start Date: 02/10/18 Stop Date: 02/09/18 Status: Canceled insulin glargine 100 units/mL subcutaneous solution 10 unit, Route: SUB-Q, Bedtime, Dosing Weight 74.6, kg, Start date: 02/22/18 21: 00:00 [employer], Duration: 30 day, Stop date: 03/23/18 21:00:00 [employer] Start Date: 02/22/18 Stop Date: 02/22/18 Status: Deleted insulin glargine 100 units/mL subcutaneous solution 26 unit, SUB-Q, Daily, # 10 mL, 0 Refill(s) Start Date: 02/25/18 Stop Date: 03/21/18 Status: Discontinued insulin glargine 100 units/mL subcutaneous solution 7 unit, 0.07 mL, Route: SUB-Q, Drug form: SOLN, Bedtime, Dosing Weight 74.6, kg, Priority: NOW, Start date: 02/10/18 3:15:00 [employer], Duration: 30 day, Stop date: 05/12/17 21:00:00 [employer] Notes: (Same as: Lantus)Do not hold insulin without contacting prescriberWASTE: F/P - Black; E - [facility] Trash [facility] "single patient use only" Start Date: 02/10/18 Stop Date: 02/10/18 Status: Discontinued insulin glargine 100 units/mL subcutaneous solution SUB-Q, PRN, 0 Refill(s) Start Date: 02/08/18 Stop Date: 02/25/18 Status: Discontinued insulin isophane-NPH 20 unit, 0.2 mL, Route: SUB-Q, Drug form: INJ, Q8H, Dosing Weight 74.6, kg, Star t date: 02/13/18 16:00:00 [employer], Duration: 30 day, Stop date: 03/15/18 8:00:00 [employer] Notes: Roll in palms of hands gently; Do not shake vigorously. (Same as: Dacia Ocasio)Do not hold insulin without contacting prescriberWASTE: F/P - Black; E - [place] [facility] Stable for 28 days at room temperatureExpires in days f rom Date Start Date: 02/13/18 Stop Date: 02/14/18 Status: Discontinued insulin isophane-NPH 10 unit, 0.1 mL, Route: SUB-Q, Drug form: INJ, Q12H, Dosing Weight 74.6, kg, Sta rt date: 02/14/18 21:00:00 [employer], Duration: 30 day, Stop date: 03/16/18 9:00:00 CS T Notes: Roll in palms of hands gently; Do not shake vigorously. (Same as: Dacia Ocasio)Do not hold insulin without contacting prescriberWASTE: F/P - Black; E - [place] [facility] Stable for 28 days at room temperatureExpires in days f rom Date Start Date: 02/14/18 Stop Date: 02/17/18 Status: Discontinued insulin isophane-NPH 30 unit, 0.3 mL, Route: SUB-Q, Drug form: INJ, Q8H, Dosing Weight 74.6, kg, Star t date: 02/12/18 16:00:00 [employer], Duration: 30 day, Stop date: 03/14/18 8:00:00 [employer] Notes: Roll in palms of hands gently; Do not shake vigorously. (Same as: Dacia ocasio N)Do not hold insulin without contacting prescriberWASTE: F/P - Black; E - [place] [facility] Stable for 28 days at room temperatureExpires in days f rom Date Start Date: 02/12/18 Stop Date: 02/13/18 Status: Discontinued insulin isophane-NPH 24 unit, 0.24 mL, Route: SUB-Q, Drug form: INJ, Q8Hnow, Dosing Weight 74.6, kg, Start date: 02/11/18 5:00:00 [employer], Duration: 30 day, Stop date: 03/12/18 21:00:00 [employer] Notes: Roll in palms of hands gently; Do not shake vigorously. (Same as: Dacia ocasio N)Do not hold insulin without contacting prescriberWASTE: Shanelle Mendieta; E - [place] [facility] Stable for 28 days at room temperatureExpires in days f rom Date Start Date: 02/11/18 Stop Date: 02/12/18 Status: Discontinued insulin isophane-NPH 20 unit, 0.2 mL, Route: SUB-Q, Drug form: INJ, Q8Hnow, Dosing Weight 74.6, kg, S tart date: 02/10/18 13:00:00 [employer], Duration: 30 day, Stop date: 03/12/18 5:00:00 [employer] Notes: Roll in palms of hands gently; Do not shake vigorously. (Same as: Dacia n N)Do not hold insulin without contacting prescriberWASTE: Shanelle Mendieta; E - [place] [facility] Stable for 28 days at room temperatureExpires in days f rom Date Start Date: 02/10/18 Stop Date: 02/11/18 Status: Discontinued insulin isophane-NPH 20 unit, 0.2 mL, Route: SUB-Q, Drug form: INJ, Q12H, Dosing Weight 74.6, kg, Sta rt date: 02/17/18 21:00:00 [employer], Duration: 30 day, Stop date: 03/19/18 9:00:00 CS T Notes: Roll in palms of hands gently; Do not shake vigorously. (Same as: Dacia Ocasio)Do not hold insulin without contacting prescriberWASTE: Shanelle Mendieta; E - [place] [facility] Stable for 28 days at room temperatureExpires in days f rom Date Start Date: 02/17/18 Stop Date: 02/19/18 Status: Discontinued insulin isophane-NPH 10 unit, 0.1 mL, Route: SUB-Q, Drug form: INJ, BID, Dosing Weight 74.6, kg, Star t date: 02/14/18 9:00:00 [employer], Duration: 30 day, Stop date: 03/15/18 17:00:00 [employer] Notes: Roll in palms of hands gently; Do not shake vigorously. (Same as: Dacia Ocasio)Do not hold insulin without contacting prescriberWASTE: Shanelle Mendieta; E - [place] [facility] Stable for 28 days at room temperatureExpires in days f rom Date Start Date: 02/14/18 Stop Date: 02/14/18 Status: Discontinued insulin isophane-NPH 22 unit, 0.22 mL, Route: SUB-Q, Drug form: INJ, Q8H, Dosing Weight 74.6, kg, Sta rt date: 02/19/18 16:00:00 [employer], Stop date: 02/22/18 18:00:00 [employer] Notes: Roll in palms of hands gently; Do not shake vigorously. (Same as: Dacia Ocasio)Do not hold insulin without contacting prescriberWASTE: Shanelle Mendieta; E - [place] [facility] Stable for 28 days at room temperatureExpires in days f rom Date Start Date: 02/19/18 Stop Date: 02/22/18 Status: Completed insulin lispro 6 unit, 0.06 mL, Route: SUB-Q, Drug form: SOLN, TID-Before Meals, Dosing Weight 74.6, kg, PRN Blood Glucose Results, Start date: 02/25/18 2:10:00 [employer], Duration: 30 day, Stop date: 03/27/18 2:09:00 [employer] Notes: (Same as: Humalog ) Roll in palms of hands gently; Do not shake `vigorou sly. "Single Patient Use Only " WASTE: F/P - Black; E - [facility] St able for 28 days at room temperature.Expires in days from Da te Start Date: 02/25/18 Stop Date: 02/25/18 Status: Discontinued insulin lispro 8 unit, 0.08 mL, Route: SUB-Q, Drug form: SOLN, TID-Before Meals, Dosing Weight 74.6, kg, PRN Blood Glucose Results, Start date: 02/25/18 2:10:00 [employer], Duration: 30 day, Stop date: 03/27/18 2:09:00 [employer] Notes: (Same as: Humalog ) Roll in palms of hands gently; Do not shake `vigorou sly. "Single Patient Use Only " WASTE: F/P - Black; E - [facility] St able for 28 days at room temperature.Expires in days from Da te Start Date: 02/25/18 Stop Date: 02/25/18 Status: Discontinued insulin lispro 10 unit, 0.1 mL, Route: SUB-Q, Drug form: SOLN, TID-Before Meals, Dosing Weight 74.6, kg, PRN Blood Glucose Results, Start date: 02/25/18 2:10:00 [employer], Duration: 30 day, Stop date: 03/27/18 2:09:00 [employer] Notes: (Same as: Humalog ) Roll in palms of hands gently; Do not shake `vigorou sly. "Single Patient Use Only " WASTE: F/P - Black; E - [facility] St able for 28 days at room temperature.Expires in days from Da te Start Date: 02/25/18 Stop Date: 02/25/18 Status: Discontinued insulin lispro 4 unit, 0.04 mL, Route: SUB-Q, Drug form: SOLN, TID-Before Meals, Dosing Weight 74.6, kg, PRN Blood Glucose Results, Start date: 02/25/18 2:10:00 [employer], Duration: 30 day, Stop date: 03/27/18 2:09:00 [employer] Notes: (Same as: Humalog ) Roll in palms of hands gently; Do not shake `vigorou sly. "Single Patient Use Only " WASTE: F/P - Black; E - [facility] St able for 28 days at room temperature.Expires in days from Da te Start Date: 02/25/18 Stop Date: 02/25/18 Status: Discontinued insulin lispro 2 unit, 0.02 mL, Route: SUB-Q, Drug form: SOLN, TID-Before Meals, Dosing Weight 74.6, kg, PRN Blood Glucose Results, Start date: 02/25/18 2:10:00 [employer], Duration: 30 day, Stop date: 03/27/18 2:09:00 [employer] Notes: (Same as: Humalog ) Roll in palms of hands gently; Do not shake `vigorou sly. "Single Patient Use Only " WASTE: F/P - Black; E - [facility] St able for 28 days at room temperature.Expires in days from Da te Start Date: 02/25/18 Stop Date: 02/25/18 Status: Discontinued Insulin regular 6 unit, 0.06 mL, Route: SUB-Q, Drug form: SOLN, Sliding Scale, Dosing Weight 74. 6, kg, PRN Blood Glucose Results, Start date: 02/10/18 1:49:00 [employer], Duration: 30 day, Stop date: 03/12/18 1:48:00 [employer] Notes: (Same as: Humulin R) Roll in palms of hands gently; Do not shake vigorou sly. "single patient use only"(Restricted to patients requiring a dose > 60 units)WASTE: F/P - Black; E - [facility] Trash [facility] Stable for 28 days at room temperatureExpires in days from Date Start Date: 02/10/18 Stop Date: 02/10/18 Status: Discontinued Insulin regular 10 unit, 0.1 mL, Route: SUB-Q, Drug form: SOLN, Sliding Scale, Dosing Weight 74. 6, kg, PRN Blood Glucose Results, Start date: 02/10/18 1:49:00 [employer], Duration: 30 day, Stop date: 03/12/18 1:48:00 [employer] Notes: (Same as: Humulin R) Roll in palms of hands gently; Do not shake vigorou sly. "single patient use only"(Restricted to patients requiring a dose > 60 units)WASTE: F/P - Black; E - [facility] Trash [facility] Stable for 28 days at room temperatureExpires in days from Date Start Date: 02/10/18 Stop Date: 02/10/18 Status: Discontinued Insulin regular 8 unit, 0.08 mL, Route: SUB-Q, Drug form: SOLN, Sliding Scale, Dosing Weight 74. 6, kg, PRN Blood Glucose Results, Start date: 02/10/18 1:49:00 [employer], Duration: 30 day, Stop date: 03/12/18 1:48:00 [employer] Notes: (Same as: Humulin R) Roll in palms of hands gently; Do not shake vigorou sly. "single patient use only"(Restricted to patients requiring a dose > 60 units)WASTE: F/P - Black; E - [facility]ash [facility] Stable for 28 days at room temperatureExpires in days from Date Start Date: 02/10/18 Stop Date: 02/10/18 Status: Discontinued Insulin regular 4 unit, 0.04 mL, Route: SUB-Q, Drug form: SOLN, Sliding Scale, Dosing Weight 74. 6, kg, PRN Blood Glucose Results, Start date: 02/10/18 1:49:00 [employer], Duration: 30 day, Stop date: 03/12/18 1:48:00 [employer] Notes: (Same as: Humulin R) Roll in palms of hands gently; Do not shake vigorou sly. "single patient use only"(Restricted to patients requiring a dose > 60 units)WASTE: F/P - Black; E - [facility] Stable for 28 days at room temperatureExpires in days from Date Start Date: 02/10/18 Stop Date: 02/10/18 Status: Discontinued Insulin regular 2 unit, 0.02 mL, Route: SUB-Q, Drug form: SOLN, Sliding Scale, Dosing Weight 74. 6, kg, PRN Blood Glucose Results, Start date: 02/10/18 1:49:00 [employer], Duration: 30 day, Stop date: 03/12/18 1:48:00 [employer] Notes: (Same as: Humulin R) Roll in palms of hands gently; Do not shake vigorou sly. "single patient use only"(Restricted to patients requiring a dose > 60 units)WASTE: F/P - Black; E - [facility]ash [facility] Stable for 28 days at room temperatureExpires in days from Date Start Date: 02/10/18 Stop Date: 02/10/18 Status: Discontinued Insulin regular 1 unit, 0.01 mL, Route: SUB-Q, Drug form: SOLN, Sliding Scale, Dosing Weight 74. 6, kg, PRN Blood Glucose Results, Start date: 02/08/18 21:34:00 [employer], Duration: 3 0 day, Stop date: 03/10/18 21:33:00 [employer] Notes: (Same as: Humulin R) Roll in palms of hands gently; Do not shake vigorou sly. "single patient use only"(Restricted to patients requiring a dose > 60 units)WASTE: F/P - Black; E - [facility] Trash [facility] Stable for 28 days at room temperatureExpires in days from Date Start Date: 02/08/18 Stop Date: 02/09/18 Status: Discontinued Insulin regular 2 unit, 0.02 mL, Route: SUB-Q, Drug form: SOLN, Sliding Scale, Dosing Weight 74. 6, kg, PRN Blood Glucose Results, Start date: 02/08/18 21:34:00 [employer], Duration: 3 0 day, Stop date: 03/10/18 21:33:00 [employer] Notes: (Same as: Humulin R) Roll in palms of hands gently; Do not shake vigorou sly. "single patient use only"(Restricted to patients requiring a dose > 60 units)WASTE: F/P - Black; E - Municipal Trash Bin Stable for 28 days at room temperatureExpires in days from Date Start Date: 02/08/18 Stop Date: 02/09/18 Status: Discontinued Insulin regular 3 unit, 0.03 mL, Route: SUB-Q, Drug form: SOLN, Sliding Scale, Dosing Weight 74. 6, kg, PRN Blood Glucose Results, Start date: 02/08/18 21:34:00 [employer], Duration: 3 0 day, Stop date: 03/10/18 21:33:00 [employer] Notes: (Same as: Humulin R) Roll in palms of hands gently; Do not shake vigorou sly. "single patient use only"(Restricted to patients requiring a dose > 60 units)WASTE: F/P - Black; E - Municipal Trash Bin Stable for 28 days at room temperatureExpires in days from Date Start Date: 02/08/18 Stop Date: 02/09/18 Status: Discontinued Insulin regular 4 unit, 0.04 mL, Route: SUB-Q, Drug form: SOLN, Sliding Scale, Dosing Weight 74. 6, kg, PRN Blood Glucose Results, Start date: 02/08/18 21:34:00 [employer], Duration: 3 0 day, Stop date: 03/10/18 21:33:00 [employer] Notes: (Same as: Humulin R) Roll in palms of hands gently; Do not shake vigorou sly. "single patient use only"(Restricted to patients requiring a dose > 60 units)WASTE: F/P - Black; E - Municipal Trash Bin Stable for 28 days at room temperatureExpires in days from Date Start Date: 02/08/18 Stop Date: 02/09/18 Status: Discontinued Insulin regular 5 unit, 0.05 mL, Route: SUB-Q, Drug form: SOLN, Sliding Scale, Dosing Weight 74. 6, kg, PRN Blood Glucose Results, Start date: 02/08/18 21:34:00 [employer], Duration: 3 0 day, Stop date: 03/10/18 21:33:00 [employer] Notes: (Same as: Humulin R) Roll in palms of hands gently; Do not shake vigorou sly. "single patient use only"(Restricted to patients requiring a dose > 60 units)WASTE: F/P - Black; E - [facility] Trash Bin Stable for 28 days at room temperatureExpires in days from Date Start Date: 02/08/18 Stop Date: 02/09/18 Status: Discontinued Insulin regular 12 unit, 0.12 mL, Route: SUB-Q, Drug form: SOLN, PRN, Dosing Weight 74.6, kg, AL N Abnormal Lab Result, Start date: 02/10/18 12:52:00 [employer], Duration: 30 day, Stop date: 03/12/18 12:51:00 [employer], For FSBG >=200 mg/dL Notes: (Same as: Humulin R) Roll in palms of hands gently; Do not shake vigorou sly. "single patient use only"(Restricted to patients requiring a dose > 60 units)WASTE: F/P - Black; E - [facility] Trash Bin Stable for 28 days at room temperatureExpires in days from Date Start Date: 02/10/18 Stop Date: 02/13/18 Status: Discontinued Insulin regular 5 unit, 0.05 mL, Route: SUB-Q, Drug form: SOLN, PRN, Dosing Weight 74.6, kg, PRN Abnormal Lab Result, Start date: 02/10/18 12:52:00 [employer], Duration: 30 day, Stop date: 03/12/18 12:51:00 [employer], For FSBG 150 mg/dL - 174 mg/dL Notes: (Same as: Humulin R) Roll in palms of hands gently; Do not shake vigorou sly. "single patient use only"(Restricted to patients requiring a dose > 60 units)WASTE: F/P - Black; E - [facility] Trash Bin Stable for 28 days at room temperatureExpires in days from Date Start Date: 02/10/18 Stop Date: 02/13/18 Status: Discontinued Insulin regular 8 unit, 0.08 mL, Route: SUB-Q, Drug form: SOLN, PRN, Dosing Weight 74.6, kg, PRN Abnormal Lab Result, Start date: 02/10/18 12:52:00 [employer], Duration: 30 day, Stop date: 03/12/18 12:51:00 [employer], For FSBG 175 mg/dL - 199 mg/dL Notes: (Same as: Humulin R) Roll in palms of hands gently; Do not shake vigorou sly. "single patient use only"(Restricted to patients requiring a dose > 60 units)WASTE: F/P - Black; E - [facility] Trash Bin Stable for 28 days at room temperatureExpires in days from Date Start Date: 02/10/18 Stop Date: 02/13/18 Status: Discontinued Insulin regular 4 unit, 0.04 mL, Route: SUB-Q, Drug form: SOLN, ONCE, Dosing Weight 74.6, kg, St art date: 02/10/18 1:57:00 [employer], Stop date: 02/10/18 1:57:00 [employer] Notes: (Same as: Humulin R) Roll in palms of hands gently; Do not shake vigorou sly. "single patient use only"(Restricted to patients requiring a dose > 60 units)WASTE: F/P - Black; E - [facility] Trash Bin Stable for 28 days at room temperatureExpires in days from Date Start Date: 02/10/18 Stop Date: 02/10/18 Status: Completed Insulin regular 10 unit, 0.1 mL, Route: IV, Drug form: SOLN, ONCE, Dosing Weight 74.6, kg, Start date: 02/09/18 1:51:00 [employer], Stop date: 02/09/18 1:51:00 [employer] Notes: (Same as: Humulin R) Roll in palms of hands gently; Do not shake vigorou sly. "single patient use only"(Restricted to patients requiring a dose > 60 units)WASTE: F/P - Black; E - Municipal Trash Bin Stable for 28 days at room temperatureExpires in days from Date Start Date: 02/09/18 Stop Date: 02/09/18 Status: Completed Insulin regular 10 unit, 0.1 mL, Route: SUB-Q, Drug form: SOLN, Sliding Scale, Dosing Weight 74. 6, kg, PRN Blood Glucose Results, Start date: 02/09/18 16:01:00 [employer], Duration: 3 0 day, Stop date: 03/11/18 16:00:00 [employer] Notes: (Same as: Humulin R) Roll in palms of hands gently; Do not shake vigorou sly. "single patient use only"(Restricted to patients requiring a dose > 60 units)WASTE: F/P - Black; E - Municipal Trash Bin Stable for 28 days at room temperatureExpires in days from Date Start Date: 02/09/18 Stop Date: 02/10/18 Status: Discontinued Insulin regular 2 unit, 0.02 mL, Route: SUB-Q, Drug form: SOLN, Sliding Scale, Dosing Weight 74. 6, kg, PRN Blood Glucose Results, Start date: 02/09/18 16:01:00 [employer], Duration: 3 0 day, Stop date: 03/11/18 16:00:00 [employer] Notes: (Same as: Humulin R) Roll in palms of hands gently; Do not shake vigorou sly. "single patient use only"(Restricted to patients requiring a dose > 60 units)WASTE: F/P - Black; E - [facility] Trash Bin Stable for 28 days at room temperatureExpires in days from Date Start Date: 02/09/18 Stop Date: 02/10/18 Status: Discontinued Insulin regular 4 unit, 0.04 mL, Route: SUB-Q, Drug form: SOLN, Sliding Scale, Dosing Weight 74. 6, kg, PRN Blood Glucose Results, Start date: 02/09/18 16:01:00 [employer], Duration: 3 0 day, Stop date: 03/11/18 16:00:00 [employer] Notes: (Same as: Humulin R) Roll in palms of hands gently; Do not shake vigorou sly. "single patient use only"(Restricted to patients requiring a dose > 60 units)WASTE: F/P - Black; E - Municipal Trash Bin Stable for 28 days at room temperatureExpires in days from Date Start Date: 02/09/18 Stop Date: 02/10/18 Status: Discontinued Insulin regular 6 unit, 0.06 mL, Route: SUB-Q, Drug form: SOLN, Sliding Scale, Dosing Weight 74. 6, kg, PRN Blood Glucose Results, Start date: 02/09/18 16:01:00 [employer], Duration: 3 0 day, Stop date: 03/11/18 16:00:00 [employer] Notes: (Same as: Humulin R) Roll in palms of hands gently; Do not shake vigorou sly. "single patient use only"(Restricted to patients requiring a dose > 60 units)WASTE: F/P - Black; E - Municipal Trash Bin Stable for 28 days at room temperatureExpires in days from Date Start Date: 02/09/18 Stop Date: 02/10/18 Status: Discontinued Insulin regular 8 unit, 0.08 mL, Route: SUB-Q, Drug form: SOLN, Sliding Scale, Dosing Weight 74. 6, kg, PRN Blood Glucose Results, Start date: 02/09/18 16:01:00 [employer], Duration: 3 0 day, Stop date: 03/11/18 16:00:00 [employer] Notes: (Same as: Humulin R) Roll in palms of hands gently; Do not shake vigorou sly. "single patient use only"(Restricted to patients requiring a dose > 60 units)WASTE: F/P - Black; E - Municipal Trash Bin Stable for 28 days at room temperatureExpires in days from Date Start Date: 02/09/18 Stop Date: 02/10/18 Status: Discontinued Insulin regular 6 unit, 0.06 mL, Route: SUB-Q, Drug form: SOLN, Sliding Scale, Dosing Weight 74. 6, kg, PRN Blood Glucose Results, Start date: 02/14/18 6:38:00 [employer], Duration: 30 day, Stop date: 03/16/18 6:37:00 [employer] Notes: (Same as: Humulin R) Roll in palms of hands gently; Do not shake vigorou sly. "single patient use only"(Restricted to patients requiring a dose > 60 units)WASTE: F/P - Black; E - Municipal Trash Bin Stable for 28 days at room temperatureExpires in days from Date Start Date: 02/14/18 Stop Date: 02/25/18 Status: Discontinued Insulin regular 10 unit, 0.1 mL, Route: SUB-Q, Drug form: SOLN, Sliding Scale, Dosing Weight 74. 6, kg, PRN Blood Glucose Results, Start date: 02/14/18 6:38:00 [employer], Duration: 30 day, Stop date: 03/16/18 6:37:00 [employer] Notes: (Same as: Humulin R) Roll in palms of hands gently; Do not shake vigorou sly. "single patient use only"(Restricted to patients requiring a dose > 60 units)WASTE: F/P - Black; E - Municipal Trash Bin Stable for 28 days at room temperatureExpires in days from Date Start Date: 02/14/18 Stop Date: 02/25/18 Status: Discontinued Insulin regular 8 unit, 0.08 mL, Route: SUB-Q, Drug form: SOLN, Sliding Scale, Dosing Weight 74. 6, kg, PRN Blood Glucose Results, Start date: 02/14/18 6:38:00 [employer], Duration: 30 day, Stop date: 03/16/18 6:37:00 [employer] Notes: (Same as: Humulin R) Roll in palms of hands gently; Do not shake vigorou sly. "single patient use only"(Restricted to patients requiring a dose > 60 units)WASTE: F/P - Black; E - Municipal Trash Bin Stable for 28 days at room temperatureExpires in days from Date Start Date: 02/14/18 Stop Date: 02/25/18 Status: Discontinued Insulin regular 4 unit, 0.04 mL, Route: SUB-Q, Drug form: SOLN, Sliding Scale, Dosing Weight 74. 6, kg, PRN Blood Glucose Results, Start date: 02/14/18 6:38:00 [employer], Duration: 30 day, Stop date: 03/16/18 6:37:00 [employer] Notes: (Same as: Humulin R) Roll in palms of hands gently; Do not shake vigorou sly. "single patient use only"(Restricted to patients requiring a dose > 60 units)WASTE: F/P - Black; E - Municipal Trash Bin Stable for 28 days at room temperatureExpires in days from Date Start Date: 02/14/18 Stop Date: 02/25/18 Status: Discontinued Insulin regular 2 unit, 0.02 mL, Route: SUB-Q, Drug form: SOLN, Sliding Scale, Dosing Weight 74. 6, kg, PRN Blood Glucose Results, Start date: 02/14/18 6:38:00 [employer], Duration: 30 day, Stop date: 03/16/18 6:37:00 [employer] Notes: (Same as: Humulin R) Roll in palms of hands gently; Do not shake vigorou sly. "single patient use only"(Restricted to patients requiring a dose > 60 units)WASTE: F/P - Black; E - Municipal Trash Bin Stable for 28 days at room temperatureExpires in days from Date Start Date: 02/14/18 Stop Date: 02/25/18 Status: Discontinued Insulin regular 3 unit, 0.03 mL, Route: SUB-Q, Drug form: SOLN, Sliding Scale, Dosing Weight 74. 6, kg, PRN Blood Glucose Results, Start date: 02/13/18 15:16:00 [employer], Duration: 3 0 day, Stop date: 03/15/18 15:15:00 [employer] Notes: (Same as: Humulin R) Roll in palms of hands gently; Do not shake vigorou sly. "single patient use only"(Restricted to patients requiring a dose > 60 units)WASTE: F/P - Black; E - Municipal Trash Bin Stable for 28 days at room temperatureExpires in days from Date Start Date: 02/13/18 Stop Date: 02/14/18 Status: Discontinued Insulin regular 9 unit, 0.09 mL, Route: SUB-Q, Drug form: SOLN, Sliding Scale, Dosing Weight 74. 6, kg, PRN Blood Glucose Results, Start date: 02/13/18 15:16:00 [employer], Duration: 3 0 day, Stop date: 03/15/18 15:15:00 [employer] Notes: (Same as: Humulin R) Roll in palms of hands gently; Do not shake vigorou sly. "single patient use only"(Restricted to patients requiring a dose > 60 units)WASTE: F/P - Black; E - Municipal Trash Bin Stable for 28 days at room temperatureExpires in days from Date Start Date: 02/13/18 Stop Date: 02/14/18 Status: Discontinued Insulin regular 6 unit, 0.06 mL, Route: SUB-Q, Drug form: SOLN, Sliding Scale, Dosing Weight 74. 6, kg, PRN Blood Glucose Results, Start date: 02/13/18 15:16:00 [employer], Duration: 3 0 day, Stop date: 03/15/18 15:15:00 [employer] Notes: (Same as: Humulin R) Roll in palms of hands gently; Do not shake vigorou sly. "single patient use only"(Restricted to patients requiring a dose > 60 units)WASTE: F/P - Black; E - Municipal Trash Bin Stable for 28 days at room temperatureExpires in days from Date Start Date: 02/13/18 Stop Date: 02/14/18 Status: Discontinued Insulin regular 15 unit, 0.15 mL, Route: SUB-Q, Drug form: SOLN, Sliding Scale, Dosing Weight 74 .6, kg, PRN Blood Glucose Results, Start date: 02/13/18 15:16:00 [employer], Duration: 30 day, Stop date: 03/15/18 15:15:00 [employer] Notes: (Same as: Humulin R) Roll in palms of hands gently; Do not shake vigorou sly. "single patient use only"(Restricted to patients requiring a dose > 60 units)WASTE: F/P - Black; E - Municipal Trash Bin Stable for 28 days at room temperatureExpires in days from Date Start Date: 02/13/18 Stop Date: 02/14/18 Status: Discontinued Insulin regular 12 unit, 0.12 mL, Route: SUB-Q, Drug form: SOLN, Sliding Scale, Dosing Weight 74 .6, kg, PRN Blood Glucose Results, Start date: 02/13/18 15:16:00 [employer], Duration: 30 day, Stop date: 03/15/18 15:15:00 [employer] Notes: (Same as: Humulin R) Roll in palms of hands gently; Do not shake vigorou sly. "single patient use only"(Restricted to patients requiring a dose > 60 units)WASTE: F/P - Black; E - Municipal Trash Bin Stable for 28 days at room temperatureExpires in days from Date Start Date: 02/13/18 Stop Date: 02/14/18 Status: Discontinued Insulin regular 2 unit, Route: SUB-Q, Sliding Scale, Dosing Weight 74.6, kg, PRN Blood Glucose R esults, Start date: 02/13/18 15:15:00 [employer], Duration: 30 day, Stop date: 03/15/18 15:14:00 [employer] Start Date: 02/13/18 Stop Date: 02/13/18 Status: Discontinued Insulin regular 3 unit, Route: SUB-Q, Sliding Scale, Dosing Weight 74.6, kg, PRN Blood Glucose R esults, Start date: 02/13/18 15:15:00 [employer], Duration: 30 day, Stop date: 03/15/18 15:14:00 [employer] Start Date: 02/13/18 Stop Date: 02/13/18 Status: Discontinued Insulin regular 1 unit, Route: SUB-Q, Sliding Scale, Dosing Weight 74.6, kg, PRN Blood Glucose R esults, Start date: 02/13/18 15:15:00 [employer], Duration: 30 day, Stop date: 03/15/18 15:14:00 [employer] Start Date: 02/13/18 Stop Date: 02/13/18 Status: Discontinued Insulin regular 4 unit, Route: SUB-Q, Sliding Scale, Dosing Weight 74.6, kg, PRN Blood Glucose R esults, Start date: 02/13/18 15:15:00 [employer], Duration: 30 day, Stop date: 03/15/18 15:14:00 [employer] Start Date: 02/13/18 Stop Date: 02/13/18 Status: Discontinued Insulin regular 5 unit, Route: SUB-Q, Sliding Scale, Dosing Weight 74.6, kg, PRN Blood Glucose R esults, Start date: 02/13/18 15:15:00 [employer], Duration: 30 day, Stop date: 03/15/18 15:14:00 [employer] Start Date: 02/13/18 Stop Date: 02/13/18 Status: Discontinued Insulin regular 4 unit, 0.04 mL, Route: SUB-Q, Drug form: SOLN, TID-Before Meals, Dosing Weight 74.6, kg, PRN Blood Glucose Results, Start date: 02/13/18 14:01:00 [employer], Duration : 30 day, Stop date: 03/15/18 14:00:00 [employer] Notes: (Same as: Humulin R) Roll in palms of hands gently; Do not shake vigorou sly. "single patient use only"(Restricted to patients requiring a dose > 60 units)WASTE: F/P - Black; E - Municipal Trash Bin Stable for 28 days at room temperatureExpires in days from Date Start Date: 02/13/18 Stop Date: 02/13/18 Status: Discontinued Insulin regular 10 unit, 0.1 mL, Route: SUB-Q, Drug form: SOLN, TID-Before Meals, Dosing Weight 74.6, kg, PRN Blood Glucose Results, Start date: 02/13/18 14:01:00 [employer], Duration : 30 day, Stop date: 03/15/18 14:00:00 [employer] Notes: (Same as: Humulin R) Roll in palms of hands gently; Do not shake vigorou sly. "single patient use only"(Restricted to patients requiring a dose > 60 units)WASTE: F/P - Black; E - Municipal Trash Bin Stable for 28 days at room temperatureExpires in days from Date Start Date: 02/13/18 Stop Date: 02/13/18 Status: Discontinued Insulin regular 8 unit, 0.08 mL, Route: SUB-Q, Drug form: SOLN, TID-Before Meals, Dosing Weight 74.6, kg, PRN Blood Glucose Results, Start date: 02/13/18 14:01:00 [employer], Duration : 30 day, Stop date: 03/15/18 14:00:00 [employer] Notes: (Same as: Humulin R) Roll in palms of hands gently; Do not shake vigorou sly. "single patient use only"(Restricted to patients requiring a dose > 60 units)WASTE: F/P - Black; E - Municipal Trash Bin Stable for 28 days at room temperatureExpires in days from Date Start Date: 02/13/18 Stop Date: 02/13/18 Status: Discontinued Insulin regular 6 unit, 0.06 mL, Route: SUB-Q, Drug form: SOLN, TID-Before Meals, Dosing Weight 74.6, kg, PRN Blood Glucose Results, Start date: 02/13/18 14:01:00 [employer], Duration : 30 day, Stop date: 03/15/18 14:00:00 [employer] Notes: (Same as: Humulin R) Roll in palms of hands gently; Do not shake vigorou sly. "single patient use only"(Restricted to patients requiring a dose > 60 units)WASTE: F/P - Black; E - Municipal Trash Bin Stable for 28 days at room temperatureExpires in days from Date Start Date: 02/13/18 Stop Date: 02/13/18 Status: Discontinued Insulin regular 2 unit, 0.02 mL, Route: SUB-Q, Drug form: SOLN, TID-Before Meals, Dosing Weight 74.6, kg, PRN Blood Glucose Results, Start date: 02/13/18 14:01:00 [employer], Duration : 30 day, Stop date: 03/15/18 14:00:00 [employer] Notes: (Same as: Humulin R) Roll in palms of hands gently; Do not shake vigorou sly. "single patient use only"(Restricted to patients requiring a dose > 60 units)WASTE: F/P - Black; E - Municipal Trash Bin Stable for 28 days at room temperatureExpires in days from Date Start Date: 02/13/18 Stop Date: 02/13/18 Status: Discontinued Insulin regular 100 unit + 99 mL, Rate: Start Insulin Drip, Dosing Weight 74.6, kg, Route: IVPB, Total Volu me: 100, Start Date: 02/10/18 4:34:00 [employer], Duration: 30 day, Stop date: 03/12/18 4:33:00 [employer], Replace Every: 24 hr Notes: Final Concentration 1unit/1mlWASTE: F/P - Black; E - Municipal Trash Bin Start Date: 02/10/18 Stop Date: 02/10/18 Status: Discontinued Insulin Syringes U 30 31 ga (ultra fine) 1 syr, INJ, Daily, # 60 syr, 1 Refill(s) Start Date: 02/25/18 Stop Date: 03/22/18 Status: Discontinued Insulin Syringes U 30 31 ga (ultra fine) 1 syr, INJ, Daily, # 60 syr, 1 Refill(s), other Start Date: 02/25/18 Stop Date: 02/25/18 Status: Discontinued Insulin Syringes U 30 31 ga (ultra fine) 1 syr, INJ, Daily, # 60 syr, 1 Refill(s) Start Date: 02/25/18 Stop Date: 02/25/18 Status: Discontinued ketAMINE 100 mg in NS 100 mL (Titrate.) IV 100 mg 100 mg, 100 mL, Rate: Titrate, Start Dose: 0.2 mg/kg/hr, Titration: DO NOT TITRA TE, Goal(s): Rass -1, Max Dose: 0.25 mg/kg/hr, Route: IV, Dosing Weight 74.6 kg, Total Volume: 100 For Analgesia, Start date: 02/08/18 23:38:00 [employer], Duration: 30 day, Stop... Notes: Total Concentration=1mg/mlTotal Btatjy=468olHcouvezn Rate=Begin Infusion at an initial rate of 0.1mg/kg/hr to a Maximum Rate of 0.25mg/kg/hrPlease place a Med Request 2 hours before the next dose is needed. Start Date: 02/08/18 Stop Date: 02/10/18 Status: Discontinued labetalol 10 mg, 2 mL, Route: IV, Drug form: INJ, ONCE, Dosing Weight 74.6, kg, Start date : 02/11/18 23:47:00 [employer], Stop date: 02/11/18 23:47:00 [employer] Start Date: 02/11/18 Stop Date: 02/12/18 Status: Completed Lactated Ringers (Bolus) IV 2,200 mL, 2200 ml/hr, Infuse Over: 1 hr, Route: IV, 2,200, Drug form: INJ, ONCE, Priority: STAT, Dosing Weight 75 kg, Start date: 02/08/18 5:04:00 [employer], Stop loan e: 02/08/18 5:04:00 [employer] Start Date: 02/08/18 Stop Date: 02/08/18 Status: Completed Lactated Ringers (Bolus) IV 2,000 mL, 1,000 ml/hr, Infuse Over: 2 hr, Route: IV, 2,000, Drug form: INJ, ONCE , Priority: STAT, Dosing Weight 74.6 kg, Start date: 02/09/18 8:00:00 [employer], Stop date: 02/09/18 8:00:00 [employer] Start Date: 02/09/18 Stop Date: 02/09/18 Status: Completed Lasix 40 mg, 4 mL, Route: IVP, Drug form: INJ, ONCE, Dosing Weight 74.6, kg, Start loan e: 02/16/18 12:15:00 [employer], Stop date: 02/16/18 12:15:00 [employer] Notes: (Same as: Lasix) MEDICATION WASTE Product Size: 40 mgProduct Was pipe: ___ mg Start Date: 02/16/18 Stop Date: 02/16/18 Status: Completed Lasix 20 mg, 2 mL, Route: IVP, Drug form: INJ, ONCE, Dosing Weight 74.6, kg, Start loan e: 02/09/18 0:15:00 [employer], Stop date: 02/09/18 0:15:00 [employer] Notes: (Same as: Lasix) Start Date: 02/09/18 Stop Date: 02/09/18 Status: Completed Lasix 40 mg, 4 mL, Route: IVP, Drug form: INJ, ONCE, Dosing Weight 74.6, kg, Start loan e: 02/17/18 9:07:00 [employer], Stop date: 02/17/18 9:07:00 [employer] Notes: (Same as: Lasix) MEDICATION WASTE Product Size: 40 mgProduct Was pipe: ___ mg Start Date: 02/17/18 Stop Date: 02/17/18 Status: Completed Lasix 40 mg, Route: IV, Daily, Dosing Weight 74.6, kg, Start date: 02/18/18 9:00:00 CS T, Duration: 30 day, Stop date: 03/19/18 9:00:00 [employer] Start Date: 02/18/18 Stop Date: 02/18/18 Status: Canceled Lasix 20 mg, 1 tab, Route: PO, Drug form: TAB, Daily, Dosing Weight 74.6, kg, Start da te: 02/22/18 9:00:00 [employer], Duration: 30 day, Stop date: 03/23/18 9:00:00 [employer] Notes: (Same as: Lasix) May cause GI upset. Give with food or milk. Start Date: 02/22/18 Stop Date: 02/21/18 Status: Canceled Lasix 60 mg, 6 mL, Route: IV, Drug form: INJ, ONCE, Dosing Weight 74.6, kg, Start date : 02/09/18 1:24:00 [employer], Stop date: 02/09/18 1:24:00 [employer] Notes: (Same as: Lasix) MEDICATION WASTE Product Size: 40 mgProduct Was pipe: ___ mg Start Date: 02/09/18 Stop Date: 02/09/18 Status: Completed Lasix 40 mg, 4 mL, Route: IV, Drug form: INJ, ONCE, Dosing Weight 74.6, kg, Priority: NOW, Start date: 02/14/18 10:06:00 [employer], Stop date: 02/14/18 10:06:00 [employer] Notes: (Same as: Lasix) MEDICATION WASTE Product Size: 40 mgProduct Was pipe: __0_ mg Start Date: 02/14/18 Stop Date: 02/14/18 Status: Completed Lasix 40 mg, 4 mL, Route: IV, Drug form: INJ, ONCE, Dosing Weight 74.6, kg, Start date : 02/18/18 8:53:00 [employer], Stop date: 02/18/18 8:53:00 [employer] Notes: (Same as: Lasix) MEDICATION WASTE Product Size: 40 mgProduct Was pipe: _0__ mg Start Date: 02/18/18 Stop Date: 02/18/18 Status: Completed Lasix 20 mg, 2 mL, Route: IVP, Drug form: INJ, ONCE, Dosing Weight 74.6, kg, Start loan e: 02/17/18 18:30:00 [employer], Stop date: 02/17/18 18:30:00 [employer] Start Date: 02/17/18 Stop Date: 02/17/18 Status: Completed Lasix 40 mg oral tablet 40 mg, 1 tab, Route: PO, Drug form: TAB, BID Diuretic, Dosing Weight 74.6, kg, S tart date: 02/19/18 9:00:00 [employer], Duration: 30 day, Stop date: 03/21/18 6:00:[address] Start Date: 02/19/18 Stop Date: 02/21/18 Status: Discontinued Lasix 40 mg oral tablet 40 mg, 1 tab, Route: PO, Drug form: TAB, Daily, Dosing Weight 74.6, kg, Start da te: 02/19/18 9:00:00 [employer], Duration: 30 day, Stop date: 03/20/18 9:00:00 [employer] Start Date: 02/19/18 Stop Date: 02/19/18 Status: Deleted losartan 25 mg oral tablet 25 mg=1 tab, PO, Daily, 0 Refill(s) Start Date: 02/08/18 Stop Date: 02/25/18 Status: Discontinued magnesium oxide 800 mg, Route: PO, PRN, Dosing Weight 74.6, kg, PRN Abnormal Lab Result, FOR ICU USE ONLY, Start date: 02/15/18 5:24:00 [employer], Duration: 30 day, Stop date: 5:23:00 [employer] Start Date: 02/15/18 Stop Date: 02/15/18 Status: Discontinued magnesium sulfate 2 gm, Route: IVPB, PRN, Dosing Weight 74.6, kg, PRN Abnormal Lab Result, Start d ate: 02/15/18 5:24:00 [employer], Duration: 30 day, Stop date: 03/17/18 5:23:00 [employer], FO R ICU USE ONLY Start Date: 02/15/18 Stop Date: 02/15/18 Status: Discontinued melatonin 6 mg, 2 tab, Route: PO, Drug form: TAB, Bedtime, Dosing Weight 74.6, kg, Start d ate: 02/09/18 21:00:00 [employer], Duration: 30 day, Stop date: 03/10/18 21:00:00 [employer] Notes: (Same as: Melatonin) Start Date: 02/09/18 Stop Date: 02/15/18 Status: Discontinued melatonin 6 mg, 2 tab, Route: PO, Drug form: TAB, Bedtime, Dosing Weight 74.6, kg, Start d ate: 02/19/18 21:00:00 [employer], Duration: 30 day, Stop date: 03/20/18 21:00:00 [employer] Notes: (Same as: Melatonin) Start Date: 02/19/18 Stop Date: 02/25/18 Status: Discontinued melatonin 3 mg oral tablet 6 mg=2 tab, PO, Bedtime, X 14 day, # 28 tab, 0 Refill(s) Start Date: 02/25/18 Stop Date: 03/11/18 Status: Completed naproxen PO, PRN, 0 Refill(s) Start Date: 02/08/18 Stop Date: 02/25/18 Status: Discontinued NIFEdipine 60 mg oral tablet, extended release 60 mg, 1 tab, Route: PO, Drug form: ERTAB, Daily, Dosing Weight 74.6, kg, Start date: 02/21/18 9:00:00 [employer], Duration: 30 day, Stop date: 03/22/18 9:00:00 [employer], . . Notes: (Same as: Adalat CC, Procardia XL) Give on empty stomach. Take 1 hour be fore or 2 hours after meal; "Avoid grapefruit and grapefruit juice". Do not cru sh Start Date: 02/21/18 Stop Date: 02/22/18 Status: Discontinued NIFEdipine 60 mg oral tablet, extended release 60 mg=1 tab, PO, Daily, # 90 tab, 3 Refill(s) Start Date: 02/25/18 Stop Date: 03/21/18 Status: Discontinued nystatin topical 100,000 units/g powder 1 appl, Route: TOP, PRN, Drug form: PWDR, PRN For Fungal Prophylaxis, Start date : 02/08/18 18:39:00 [employer], Duration: 30 day, Stop date: 03/10/18 18:38:00 [employer] Notes: (Same as:Mycostatin, Nilstat) For external use only. Start Date: 02/08/18 Stop Date: 02/19/18 Status: Discontinued ocular lubricant 1 appl, Route: BOTH EYES, Q6H, Drug form: OINT, Start date: 02/09/18 0:00:00 [employer] , Duration: 30 day, Stop date: 03/10/18 18:00:00 [employer] Notes: (Same as: Lacri-Lube, Puralube, Duratears Naturale, Artificial Tears, and Tears Again ) Start Date: 02/09/18 Stop Date: 02/13/18 Status: Discontinued pantoprazole 40 mg, Route: IVP, Drug form: INJ, Daily, Dosing Weight 75, kg, Start date: 01/17 08/02 9:00:00 [employer], Duration: 30 day, Stop date: 03/10/18 9:00:00 [employer] Notes: For IV push reconstitute with 10 ml 0.9% sodium chloride and push over 2 minutes. (Same as: Protonix) Start Date: 02/09/18 Stop Date: 02/10/18 Status: Discontinued pantoprazole 40 mg, 1 pkt, Route: PO, Drug form: GRAN/REC, Daily, Dosing Weight 74.6, kg, PRN Hiccups, Start date: 02/17/18 21:35:00 [employer], Duration: 30 day, Stop date: 21:34:00 [employer] Notes: Same as: Protonix Mix in 5 mL apple juice or applesauce for oral & 10mL apple juice for NG tube Start Date: 02/17/18 Stop Date: 02/25/18 Status: Discontinued Pepcid 20 mg oral tablet 20 mg, 1 tab, Route: PO, Drug form: TAB, Q12H, Dosing Weight 74.6, kg, Start loan e: 02/10/18 21:00:00 [employer], Duration: 30 day, Stop date: 03/12/18 9:00:00 [employer] Notes: (Same as: Pepcid) Start Date: 02/10/18 Stop Date: 02/13/18 Status: Discontinued potassium chloride 20 mEq, Route: IVPB, PRN, Dosing Weight 74.6, kg, PRN Abnormal Lab Result, Via c entral line, Start date: 02/15/18 5:24:00 [employer], Duration: 30 day, Stop date: 02/17 04/04 5:23:00 [employer], FOR ICU USE ONLY Start Date: 02/15/18 Stop Date: 02/15/18 Status: Discontinued potassium chloride 10 mEq, Route: IVPB, PRN, Dosing Weight 74.6, kg, PRN Abnormal Lab Result, Via p eripheral line, Start date: 02/15/18 5:24:00 [employer], Duration: 30 day, Stop date: 5:23:00 [employer], FOR ICU USE ONLY Start Date: 02/15/18 Stop Date: 02/15/18 Status: Discontinued potassium chloride 20 mEq, Route: PO, Drug form: ERTAB, PRN, Dosing Weight 74.6, kg, PRN Abnormal L ab Result, Start date: 02/15/18 5:24:00 [employer], Duration: 30 day, Stop date: 5:23:00 [employer], FOR ICU USE ONLY Start Date: 02/15/18 Stop Date: 02/15/18 Status: Discontinued potassium chloride 20 mEq, Route: NJ, Drug form: LIQ, PRN, Dosing Weight 74.6, kg, PRN Abnormal Lab Result, Start date: 02/15/18 5:24:00 [employer], Duration: 30 day, Stop date: 03/17/18 5:23:00 [employer], FOR ICU USE ONLY Start Date: 02/15/18 Stop Date: 02/15/18 Status: Discontinued potassium chloride 20 mEq, 1 tab, Route: PO, Drug form: ERTAB, ONCE, Dosing Weight 74.6, kg, Start date: 02/13/18 6:16:00 [employer], Stop date: 02/13/18 6:16:00 [employer] Notes: (Same as: K-Dur 20)"Do Not Crush"For patients unable to swallow tablet, d issolve in one half glass of water. Allow about 2 minutes for the tablets to dis integrate. Stir before giving to prepare slurry and administer.Please exclude Pa tients with feeding tube less than 14 Turkish (Dobhoff, J-tube etc) and pediat rakesh and patients. With food and full glass of water Start Date: 02/13/18 Stop Date: 02/13/18 Status: Discontinued potassium chloride 40 mEq, 30 mL, Route: NG, Drug form: LIQ, ONCE, Dosing Weight 74.6, kg, Start da te: 02/14/18 22:52:00 [employer], Stop date: 02/14/18 22:52:00 [employer] Notes: (Same as: Potassium Chloride) Start Date: 02/14/18 Stop Date: 02/15/18 Status: Completed potassium chloride 40 mEq, 30 mL, Route: NJ, Drug form: LIQ, ONCE, Dosing Weight 74.6, kg, PRN Abno rmal Lab Result, Electrolyte replacement, Start date: 02/18/18 1:20:00 [employer] Notes: (Same as: Potassium Chloride) Start Date: 02/18/18 Stop Date: 02/18/18 Status: Completed potassium chloride 20 mEq/15 mL oral liquid 40 mEq, 30 mL, Route: PO, Drug form: LIQ, ONCE, Dosing Weight 74.6, kg, Start da te: 02/23/18 15:16:00 [employer], Stop date: 02/23/18 15:16:00 [employer] Notes: (Same as: Potassium Chloride) Start Date: 02/23/18 Stop Date: 02/23/18 Status: Completed potassium chloride 20 mEq/15 mL oral liquid 10 mEq, 7.5 mL, Route: PO, Drug form: LIQ, ONCE, Dosing Weight 74.6, kg, Start d ate: 02/13/18 6:27:00 [employer], Stop date: 02/13/18 6:27:00 [employer] Notes: (Same as: Potassium Chloride) Start Date: 02/13/18 Stop Date: 02/13/18 Status: Completed potassium chloride 20 mEq/15 mL oral liquid 20 mEq, 15 mL, Route: NG, Drug form: LIQ, ONCE, Dosing Weight 74.6, kg, Start da te: 02/18/18 18:00:00 [employer], Stop date: 02/18/18 18:00:00 [employer] Notes: (Same as: Potassium Chloride) Start Date: 02/18/18 Stop Date: 02/18/18 Status: Canceled potassium chloride 20 mEq/15 mL oral liquid 40 mEq, 30 mL, Route: PO, Drug form: LIQ, ONCE, Dosing Weight 74.6, kg, Start da te: 02/18/18 11:02:00 [employer], Stop date: 02/18/18 11:02:00 [employer] Notes: (Same as: Potassium Chloride) Start Date: 02/18/18 Stop Date: 02/18/18 Status: Completed potassium chloride 20 mEq/15 mL oral liquid 40 mEq, 30 mL, Route: PO, Drug form: LIQ, ONCE, Dosing Weight 74.6, kg, Start da te: 02/14/18 6:33:00 [employer], Stop date: 02/14/18 6:33:00 [employer] Notes: (Same as: Potassium Chloride) Start Date: 02/14/18 Stop Date: 02/14/18 Status: Completed potassium phosphate 15 mmol, Route: IVPB, PRN, Dosing Weight 74.6, kg, PRN Abnormal Lab Result, Star t date: 02/15/18 5:24:00 [employer], Duration: 30 day, Stop date: 03/17/18 5:23:00 [employer], FOR ICU USE ONLY Start Date: 02/15/18 Stop Date: 02/15/18 Status: Discontinued potassium phosphate 30 mmol, Route: IVPB, PRN, Dosing Weight 74.6, kg, PRN Abnormal Lab Result, Star t date: 02/15/18 5:24:00 [employer], Duration: 30 day, Stop date: 03/17/18 5:23:00 [employer], FOR ICU USE ONLY Start Date: 02/15/18 Stop Date: 02/15/18 Status: Discontinued potassium phosphate 45 mmol, Route: IVPB, PRN, Dosing Weight 74.6, kg, PRN Abnormal Lab Result, Star t date: 02/15/18 5:24:00 [employer], Duration: 30 day, Stop date: 03/17/18 5:23:00 [employer], FOR ICU USE ONLY Start Date: 02/15/18 Stop Date: 02/15/18 Status: Discontinued potassium phosphate-sodium phosphate 250 mg-280 mg-160 mg oral powder for recons titution 2 pkt, Route: PO, Dosing Weight 74.6, kg, PRN, PRN Abnormal Lab Result, FOR ICU USE ONLY, Start date: 02/15/18 5:24:00 [employer], Duration: 30 day, Stop date: 8 5:23:00 [employer] Start Date: 02/15/18 Stop Date: 02/15/18 Status: Discontinued Precedex 400 microgram in NS 100 mL (Titrate.) IV 400 microgram + Sodium Chlorid e 0.9% IV 100 mL 400 microgram, Rate: Titrate, Start Dose: 0.2 microgram/kg/hr, Titration: 0.1 mi crogram/kg/hr every 30 min, Goal(s): RASS -1, Max Dose: 1.5 microgram/kg/hr, Rou te: IV, Dosing Weight 74.6 kg, Total Volume: 100, Start date: 02/10/18 5:39:[address], Duratio... Notes: Use the following cdm for [id number]. Start Date: 02/10/18 Stop Date: 02/12/18 Status: Discontinued propofol 10 mg/mL (Titrate.) IV 1,000 mg 1,000 mg, 100 mL, Rate: Titrate, Start Dose: 5 microgram/kg/min, Titration: 5 mi crogram/kg/min every 15 min, Goal(s): RASS -2, Max Dose: 50 microgram/kg/min, Ro rincon: IV, Dosing Weight 74.6 kg, Total Volume: 100, Start date: 02/10/18 5:34:00 [employer], Durati... Notes: If Diprivan - change bottle & tubing every 12 hrPer state nursing law propofol can only be given by a nurse if patient is intubated or being intubated (unless the nurse is a MANAGER REVENUE). Same as: [place]rivan Start Date: 02/10/18 Stop Date: 02/10/18 Status: Discontinued propofol 10 mg/mL (Titrate.) IV 1,000 mg 1,000 mg, 100 mL, Rate: Titrate, Start Dose: 5 microgram/kg/min, Titration: 5 mi crogram/kg/min every 15 min, Goal(s): RASS -1, Max Dose: 50 microgram/kg/min, Ro rincon: IV, Dosing Weight 75 kg, Total Volume: 100, Start date: 02/08/18 20:25:00 C Beka... Notes: If Diprivan - change bottle & tubing every 12 [facility] propofol can only be given by a nurse if patient is intubated or being intubated (unless the nurse is a MANAGER REVENUE). Same as: Diprivan Start Date: 02/08/18 Stop Date: 02/09/18 Status: Discontinued propofol 10 mg/mL (Titrate.) IV 500 mg 500 mg, 50 mL, Rate: Titrate, Start Dose: 5 microgram/kg/min, Titration: 5 micro gram/kg/min every 15 min, Goal(s): 130 sbp, Max Dose: 50 microgram/kg/min, Route : IV, Dosing Weight 75 kg, Total Volume: 50, Start date: 02/08/18 11:18:00 [employer], Duration: 3... Notes: If Diprivan - change bottle & tubing every 12 [facility] propofol can only be given by a nurse if patient is intubated or being intubated (unless the nurse is a MANAGER REVENUE). Same as: Diprivan Start Date: 02/08/18 Stop Date: 02/08/18 Status: Discontinued Reglan 10 mg, 2 mL, Route: IVP, Drug form: INJ, ONCE, Dosing Weight 74.6, kg, Start loan e: 02/21/18 11:43:00 [employer], Stop date: 02/21/18 11:43:00 [employer] Notes: (Same as: Reglan) Start Date: 02/21/18 Stop Date: 02/21/18 Status: Completed Reglan 10 mg, Route: IV, ONCE, Dosing Weight 74.6, kg, Start date: 02/19/18 13:39:00 CS T, Stop date: 02/19/18 13:39:00 [employer] Start Date: 02/19/18 Stop Date: 02/19/18 Status: Completed rocuronium 100 mg, Route: IV, ONCE, Dosing Weight 75, kg, Start date: 02/08/18 11:19:00 [employer] , Stop date: 02/08/18 11:19:00 [employer] Start Date: 02/08/18 Stop Date: 02/08/18 Status: Completed rocuronium 100 mg, Route: IV, ONCE, Dosing Weight 75, kg, Priority: STAT, Start date: 02/08 14:57:00 [employer], Stop date: 02/08/18 14:57:00 [employer] Start Date: 02/08/18 Stop Date: 02/08/18 Status: Completed Saline Flush 0.9% 10 mL, Route: IVP, Drug Form: INJ, Dosing Weight 75, kg, PRN, PRN Line Flush, St art date: 02/08/18 5:04:00 [employer], Duration: 30 day, Stop date: 03/10/18 5:03:00 CS T Notes: (Same as: BD Posiflush) Start Date: 02/08/18 Stop Date: 02/25/18 Status: Discontinued Saline Flush 0.9% 10 ml, Route: IVP, Drug Form: INJ, Dosing Weight 75, kg, PRN, PRN Line Flush, St art date: 02/08/18 18:39:00 [employer], Duration: 30 day, Stop date: 03/10/18 18:38:00 [employer] Notes: (Same as: BD Posiflush) Start Date: 02/08/18 Stop Date: 02/19/18 Status: Discontinued Saline Flush 0.9% 10 ml, Route: IVP, Drug Form: INJ, Dosing Weight 75, kg, Q12H, Start date: 02/08 21:00:00 [employer], Duration: 30 day, Stop date: 03/10/18 9:00:00 [employer] Notes: (Same as: BD Posiflush) Start Date: 02/08/18 Stop Date: 02/19/18 Status: Discontinued senna 17.6 mg, 10 mL, Route: NG, Drug Form: SYRP, Dosing Weight 74.6, kg, Q12H, Start date: 02/10/18 21:00:00 [employer], Duration: 30 day, Stop date: 03/12/18 9:00:00 [employer] Notes: (Same as: Jaspreet) Start Date: 02/10/18 Stop Date: 02/25/18 Status: Discontinued Sodium Chloride 0.9% (titrate) 250 mL 250 mL, Rate: To prime line and flush remaining blood products., Dosing Weight 7 4.6, kg, Route: IV, Total Volume: 250, Priority: Routine, Start Date: 02/25/18 4 :38:00 [employer], Duration: 30 day, Stop date: 03/27/18 4:37:00 [employer], Replace Every: 24 hr Start Date: 02/25/18 Stop Date: 02/25/18 Status: Discontinued sodium phosphate 15 mmol, Route: IVPB, PRN, Dosing Weight 74.6, kg, PRN Abnormal Lab Result, Star t date: 02/15/18 5:24:00 [employer], Duration: 30 day, Stop date: 03/17/18 5:23:00 [employer], FOR ICU USE ONLY Start Date: 02/15/18 Stop Date: 02/15/18 Status: Discontinued sodium phosphate 30 mmol, Route: IVPB, PRN, Dosing Weight 74.6, kg, PRN Abnormal Lab Result, Star t date: 02/15/18 5:24:00 [employer], Duration: 30 day, Stop date: 03/17/18 5:23:00 [employer], FOR ICU USE ONLY Start Date: 02/15/18 Stop Date: 02/15/18 Status: Discontinued sodium phosphate 45 mmol, Route: IVPB, PRN, Dosing Weight 74.6, kg, PRN Abnormal Lab Result, Star t date: 02/15/18 5:24:00 [employer], Duration: 30 day, Stop date: 03/17/18 5:23:00 [employer], FOR ICU USE ONLY Start Date: 02/15/18 Stop Date: 02/15/18 Status: Discontinued TamiFLU 75 mg, 1 cap, Route: PO, Drug form: CAP, [id number], Dosing Weight 75, kg, CrCl > 60 ml/min, Start date: 02/08/18 16:00:00 [employer], Duration: 5 day, Stop date: 02/12 21:00:00 [employer] Notes: Take with food.Same as: Tamiflu) Start Date: 02/08/18 Stop Date: 02/09/18 Status: Discontinued TamiFLU 75 mg, 1 cap, Route: PO, Drug form: CAP, [id number], Dosing Weight 75, kg, CrCl > 60 ml/min, Start date: 02/10/18 21:00:00 [employer], Duration: 5 day, Stop date: 02/14 21:00:00 [employer] Notes: Take with food.Same as: Tamiflu) Start Date: 02/10/18 Stop Date: 02/10/18 Status: Canceled Tylenol 650 mg, 2 tab, Route: PO, Drug form: TAB, Q6H, Dosing Weight 74.6, kg, PRN For T emp > 100.4 F, Start date: 02/09/18 12:23:00 [employer], Duration: 30 day, Stop date: 03/11/18 12:22:00 [employer] Notes: Do not exceed 4 gm/day. (Same as: Tylenol) Start Date: 02/09/18 Stop Date: 02/25/18 Status: Discontinued Tylenol PO, PRN, 0 Refill(s) Start Date: 02/08/18 Stop Date: 02/25/18 Status: Discontinued vancomycin 1 gm, Route: IV, Drug form: INJ, [id number], Dosing Weight 75, kg, Start date: 01/17 07/03 20:00:00 [employer], Duration: 30 day, Stop date: 03/09/18 20:00:00 [employer], ABX Indic ation: Pneumonia Notes: TIME CRITICAL MEDICATION(Same As: Vancocin)Infusion rate< 1000 mg: infuse over 1 [id number] - 1500 mg: infuse over 1.5 [id number] - 2000 mg: infuse over 2 hours> 2001 mg: infuse over 2.5 hoursFor adult patients only: Round to nearest 250 mg per Medical Staff approval MEDICATION WASTE Product Size: 1000 mgProduct Wasted: 0 mg Start Date: 02/08/18 Stop Date: 02/09/18 Status: Discontinued vancomycin 1,000 mg, Route: IVPB, Drug form: INJ, ONCE, Dosing Weight 75, kg, Priority: STA T, Start date: 02/08/18 8:34:00 [employer], Stop date: 02/08/18 8:34:00 [employer], ABX Indica tion: Pneumonia Notes: TIME CRITICAL MEDICATION(Same As: Vancocin)Infusion rate< 1000 mg: infuse over 1 [id number] - 1500 mg: infuse over 1.5 [id number] - 2000 mg: infuse over 2 hours> 2001 mg: infuse over 2.5 hoursFor adult patients only: Round to nearest 250 mg per Medical Staff approval MEDICATION WASTE Product Size: 1000 mgProduct Wasted: ___ mg Start Date: 02/08/18 Stop Date: 02/08/18 Status: Completed vancomycin 1,000 mg, Route: IVPB, Drug form: INJ, [id number], Dosing Weight 74.6, kg, Start da te: 02/09/18 19:00:00 [employer], Duration: 7 day, Stop date: 02/15/18 19:00:00 [employer], AB X Indication: Pneumonia Notes: TIME CRITICAL MEDICATION(Same As: Vancocin)Infusion rate< 1000 mg: infuse over 1 [id number] - 1500 mg: infuse over 1.5 [id number] - 2000 mg: infuse over 2 hours> 2001 mg: infuse over 2.5 hoursFor adult patients only: Round to nearest 250 mg per Medical Staff approval MEDICATION WASTE Product Size: 1000 mgProduct Wasted: 0 mg Start Date: 02/09/18 Stop Date: 02/10/18 Status: Discontinued vecuronium 50 mg in NS 50 mL (Titrate.) IV 50 mg + Sodium Chloride 0.9% IV 50 mL 50 mg, Rate: Titrate, Start Dose: 1 mg/hr, Titration: 0.5 mg/hr every 15 minutes , Goal(s): TOF=2 twitches, Max Dose: 5 mg/hr, Route: IV, Dosing Weight 75 kg, To siva Volume: 50, Start date: 02/08/18 15:55:00 [employer], Duration: 30 day, Stop date: 03/10/18... Notes: (Same As: Norcuron) Start Date: 02/08/18 Stop Date: 02/09/18 Status: Discontinued Versed 1 mg, 1 mL, Route: IV, Drug form: INJ, ONCE, Dosing Weight 74.6, kg, Start date: 02/09/18 0:13:00 [employer], Stop date: 02/09/18 0:13:00 [employer] Notes: (Same as: Versed) MEDICATION WASTE Product Size: 2 mgProduct Was pipe: ___ mg Start Date: 02/09/18 Stop Date: 02/09/18 Status: Completed Visipaque 320mg/ml 79 mL, Route: IVP, Drug Form: SOLN, Dosing Weight 75, kg, ONCALL, STAT, Start da te: 02/08/18 8:26:00 [employer], Duration: 1 doses or times, Dose=2.2ml/kg, Max dose=1 00ml -- "To be infused by Radiology Staff ONLY" Start Date: 02/08/18 Stop Date: 02/08/18 Status: Completed Results 1 2 3 Most recent to oldest [Reference Range]: 0.98 ng/mL *HI* (02/08/18 7:04 PM) 0.86 ng/mL *HI* (02/08/18 5:08 AM) Procalcitonin Lvl [0.00-0.10 ng/mL] 10.1 K/CMM *HI* (02/25/18 1:50 AM) 12.1 K/CMM *HI* (02/24/18 3:11 AM) 10.7 K/CMM *HI* (02/23/18 1:11 AM) Neutrophils # [1.5-8.1 K/CMM] 1.3 K/CMM (02/25/18 1:50 AM) 1.0 K/CMM (02/24/18 3:11 AM) 1.4 K/CMM (02/23/18 1:11 AM) Lymphocytes # [1.0-5.5 K/CMM] 1.1 K/CMM *HI* (02/25/18 1:50 AM) 1.1 K/CMM *HI* (02/24/18 3:11 AM) 1.0 K/CMM *HI* (02/23/18 1:11 AM) Monocytes # [0.0-0.8 K/CMM] 0.2 K/CMM (02/25/18 1:50 AM) 0.2 K/CMM (02/24/18 3:11 AM) 0.3 K/CMM (02/23/18 1:11 AM) Eosinophils # [0.0-0.5 K/CMM] 0.1 K/CMM (02/25/18 1:50 AM) 0.1 K/CMM (02/24/18 3:11 AM) 0.1 K/CMM (02/23/18 1:11 AM) Basophils # [0.0-0.2 K/CMM] 558 pg/mL *HI* (02/09/18 3:59 AM) BNP [<=100 pg/mL] 8089 pg/mL *HI* (02/09/18 3:59 AM) 7682 pg/mL *HI* (02/08/18 7:04 PM) proBNP [0-125 pg/mL] Urine *NA* (02/08/18 5:38 PM) Source Strep Negative (02/08/18 5:38 PM) Strep pneumoniae Ag [Negative] 2.67 *NA* (02/09/18 12:10 PM) U Prot/Creat Negative (02/08/18 7:04 PM) MRSA by PCR 28 mL/min/1.73m2 1 *NA* (02/25/18 1:50 AM) 28 mL/min/1.73m2 2 *NA* (02/24/18 3:11 AM) 27 mL/min/1.73m2 3 *NA* (02/23/18 1:11 AM) eGFR Product available (02/25/18 4:38 AM) Product available (02/23/18 6:45 AM) RBC product O POS *Unknown* (02/25/18 5:58 AM) O POS *Unknown* (02/22/18 5:08 AM) ABO/Rh See Note *NA* (02/08/18 9:48 PM) UDS Note 0.5 *LOW* (02/08/18 7:04 PM) 0.5 *LOW* (02/08/18 5:08 AM) A/G Ratio [0.7-1.6] Negative (02/25/18 5:58 AM) Negative (02/22/18 5:08 AM) Antibody Scrn 2.2 g/dL *LOW* (02/08/18 7:04 PM) 2.6 g/dL *LOW* (02/08/18 5:08 AM) Albumin Lvl [3.5-5.0 g/dL] 125 unit/L (02/08/18 7:04 PM) 140 unit/L *HI* (02/08/18 5:08 AM) Alk Phos [39-136 unit/L] 16 unit/L (02/08/18 7:04 PM) 20 unit/L (02/08/18 5:08 AM) ALT [0-65 unit/L] Negative *NA* (02/08/18 9:48 PM) U Amph Scr [Negative] 10.9 mEq/L (02/25/18 1:50 AM) 10.6 mEq/L (02/24/18 3:11 AM) 11.2 mEq/L (02/23/18 1:11 AM) AGAP [10.0-20.0 mEq/L] 21 unit/L (02/08/18 7:04 PM) 17 unit/L (02/08/18 5:08 AM) AST [0-37 unit/L] 16 (02/08/18 7:04 PM) 16 (02/08/18 5:08 AM) B/C Ratio [6-25] Negative *NA* (02/08/18 9:48 PM) U Gricel Scr [Negative] 0.7 % (02/25/18 1:50 AM) 0.4 % (02/24/18 3:11 AM) 0.7 % (02/23/18 1:11 AM) Basophils [0.0-1.0 %] Negative *NA* (02/08/18 9:48 PM) U Benzodiaz Scr [Negative] 100 mg/dL *HI* (02/25/18 1:50 AM) 102 mg/dL *HI* (02/24/18 3:11 AM) 102 mg/dL *HI* (02/23/18 1:11 AM) BUN [7-22 mg/dL] 8.2 mg/dL *LOW* (02/25/18 1:50 AM) 8.1 mg/dL *LOW* (02/24/18 3:11 AM) 8.1 mg/dL *LOW* (02/23/18 1:11 AM) Calcium Lvl [8.5-10.5 mg/dL] 86 unit/L (02/08/18 5:08 AM) Total CK [12-191 unit/L] 111 mEq/L *HI* (02/25/18 1:50 AM) 110 mEq/L *HI* (02/24/18 3:11 AM) 107 mEq/L (02/23/18 1:11 AM) Chloride Lvl [95-109 mEq/L] 30 mEq/L (02/25/18 1:50 AM) 32 mEq/L (02/24/18 3:11 AM) 31 mEq/L (02/23/18 1:11 AM) CO2 [24-32 mEq/L] Negative *NA* (02/08/18 9:48 PM) U Cocaine Scr [Negative] 2.43 mg/dL *HI* (02/25/18 1:50 AM) 2.41 mg/dL *HI* (02/24/18 3:11 AM) 2.50 mg/dL *HI* (02/23/18 1:11 AM) Creatinine Lvl [0.50-1.40 mg/dL] 0.1 mg/dL (02/08/18 7:04 PM) Bili Direct [0.0-0.3 mg/dL] 1.5 % (02/25/18 1:50 AM) 1.6 % (02/24/18 3:11 AM) 2.4 % (02/23/18 1:11 AM) Eosinophils [0.0-4.0 %] 4.2 g/dL (02/08/18 7:04 PM) 5.2 g/dL *HI* (02/08/18 5:08 AM) Globulin [2.7-4.2 g/dL] 236 mg/dL *HI* (02/25/18 1:50 AM) 95 mg/dL (02/24/18 3:11 AM) 89 mg/dL (02/23/18 1:11 AM) Glucose Lvl [70-99 mg/dL] 20.5 % *LOW* (02/25/18 1:50 AM) 20.9 % *LOW* (02/24/18 3:11 AM) 20.6 % *LOW* (02/23/18 1:11 AM) Hct [42.0-54.0 %] 6.8 g/dL 4 *CRIT* (02/25/18 1:50 AM) 7.0 g/dL 5 *CRIT* (02/24/18 3:11 AM) 6.8 g/dL 6 *CRIT* (02/23/18 1:11 AM) Hgb [14.0-18.0 g/dL] 6.6 % *HI* (02/08/18 7:04 PM) Hgb A1C [<=5.6 %] 1.12 (02/23/18 1:11 AM) 1.38 *HI* (02/10/18 5:50 PM) 1.29 *HI* (02/08/18 7:04 PM) INR [0.85-1.17] 3.9 mEq/L (02/25/18 1:50 AM) 3.6 mEq/L (02/24/18 3:11 AM) 3.2 mEq/L *LOW* (02/23/18 1:11 AM) Potassium Lvl [3.5-5.1 mEq/L] 1.7 mMol/L (02/08/18 7:04 PM) 1.8 mMol/L (02/08/18 5:08 AM) Lactic Acid Lvl [0.5-2.2 mMol/L] 74 unit/L (02/08/18 7:04 PM) Lipase Lvl [73-393 unit/L] 9.9 % *LOW* (02/25/18 1:50 AM) 6.8 % *LOW* (02/24/18 3:11 AM) 10.2 % *LOW* (02/23/18 1:11 AM) Lymphocytes [20.0-40.0 %] 31.7 pg *HI* (02/25/18 1:50 AM) 31.3 pg *HI* (02/24/18 3:11 AM) 31.0 pg (02/23/18 1:11 AM) MCH [27.0-31.0 pg] 33.3 g/dL (02/25/18 1:50 AM) 33.3 g/dL (02/24/18 3:11 AM) 33.3 g/dL (02/23/18 1:11 AM) MCHC [32.0-36.0 g/dL] 95.2 fL *HI* (02/25/18 1:50 AM) 93.9 fL (02/24/18 3:11 AM) 93.2 fL (02/23/18 1:11 AM) MCV [80.0-94.0 fL] 3.0 mg/dL *HI* (02/25/18 1:50 AM) 2.9 mg/dL *HI* (02/24/18 3:11 AM) 2.6 mg/dL *HI* (02/23/18 1:11 AM) Magnesium Lvl [1.8-2.4 mg/dL] 8.4 % (02/25/18 1:50 AM) 7.8 % (02/24/18 3:11 AM) 7.2 % (02/23/18 1:11 AM) Monocytes [2.0-12.0 %] 11.0 fL *HI* (02/25/18 1:50 AM) 10.4 fL (02/24/18 3:11 AM) 10.2 fL (02/23/18 1:11 AM) MPV [7.4-10.4 fL] 148 mEq/L *HI* (02/25/18 1:50 AM) 149 mEq/L *HI* (02/24/18 3:11 AM) 146 mEq/L *HI* (02/23/18 1:11 AM) Sodium Lvl [135-145 mEq/L] Negative *NA* (02/08/18 9:48 PM) U Opiate Scr [Negative] Negative *NA* (02/08/18 9:48 PM) U Phencyclidine Scr [Negative] 3.7 mg/dL (02/25/18 1:50 AM) 4.2 mg/dL (02/24/18 3:11 AM) 3.7 mg/dL (02/23/18 1:11 AM) Phosphorus [2.5-4.5 mg/dL] 220 K/CMM (02/25/18 1:50 AM) 218 K/CMM (02/24/18 3:11 AM) 233 K/CMM (02/23/18 1:11 AM) Platelet [133-450 K/CMM] 79.5 % *HI* (02/25/18 1:50 AM) 83.4 % *HI* (02/24/18 3:11 AM) 79.5 % *HI* (02/23/18 1:11 AM) Segs [45.0-75.0 %] 6.4 g/dL (02/08/18 7:04 PM) 7.8 g/dL (02/08/18 5:08 AM) Total Protein [6.4-8.4 g/dL] 14.2 seconds (02/23/18 1:11 AM) 17.0 seconds *HI* (02/10/18 5:50 PM) 16.2 seconds *HI* (02/08/18 7:04 PM) PT [12.0-14.7 seconds] 30.6 seconds (02/23/18 1:11 AM) 55.8 seconds *HI* (02/12/18 1:06 PM) 64.3 seconds *HI* (02/12/18 7:33 AM) PTT [22.9-35.8 seconds] 2.15 M/CMM *LOW* (02/25/18 1:50 AM) 2.22 M/CMM *LOW* (02/24/18 3:11 AM) 2.21 M/CMM *LOW* (02/23/18 1:11 AM) RBC [4.70-6.10 M/CMM] 13.3 % (02/25/18 1:50 AM) 13.0 % (02/24/18 3:11 AM) 12.8 % (02/23/18 1:11 AM) RDW [11.5-14.5 %] 0.4 mg/dL (02/08/18 7:04 PM) 0.6 mg/dL (02/08/18 5:08 AM) Bili Total [0.2-1.3 mg/dL] Negative *NA* (02/08/18 9:48 PM) U Cannab Scr [Negative] 0.11 ng/mL (02/19/18 5:32 AM) 0.19 ng/mL (02/18/18 12:05 AM) 0.22 ng/mL (02/17/18 4:57 AM) Troponin-I [0.00-0.40 ng/mL] Moderate /HPF *ABN* (02/08/18 12:16 PM) UA Amorph Jesenia [None Seen /HPF] Few /HPF (02/08/18 12:16 PM) UA Bacteria [None Seen /HPF] Negative *NA* (02/08/18 12:16 PM) UA Bili [Negative] Small *ABN* (02/08/18 12:16 PM) UA Blood [Negative] 40 mEq/L *NA* (02/13/18 8:44 AM) U Chloride Yellow *NA* (02/08/18 12:16 PM) UA Color [Yellow] 40.30 mg/dL *NA* (02/09/18 12:10 PM) U Creatinine Negative (02/08/18 12:16 PM) UA Glucose [Negative] Negative *NA* (02/08/18 12:16 PM) UA Ketones [Negative] Negative (02/08/18 12:16 PM) UA Leuk Est [Negative] None Seen (02/08/18 12:16 PM) UA Mucus [None Seen] Negative (02/08/18 12:16 PM) UA Nitrite [Negative] 5.5 (02/08/18 12:16 PM) UA pH [5.0-8.0] 107.4 mg/dL *NA* (02/09/18 12:10 PM) U Protein 100 mg/dL *ABN* (02/08/18 12:16 PM) UA Protein [Negative mg/dL] 0-2 /HPF (02/08/18 12:16 PM) UA RBC [0-2 /HPF] 32 mEq/L *NA* (02/13/18 8:44 AM) U Sodium 1.015 (02/08/18 12:16 PM) UA Spec Grav [<=1.030] None Seen (02/08/18 12:16 PM) UA Sq Epi [Few] Cloudy *ABN* (02/08/18 12:16 PM) UA Turbidity [Clear] 0.2 EU/dL (02/08/18 12:16 PM) UA Urobilinogen [0.1-1.0 EU/dL] 0-2 /HPF (02/08/18 12:16 PM) UA WBC [None Seen /HPF] 371 mOsm/kg (02/13/18 8:44 AM) U Osmolality [300-800 mOsm/kg] 24.9 mEq/L *NA* (02/13/18 8:44 AM) U Potassium 25.2 ug/ml *NA* (02/11/18 12:36 PM) 31.7 ug/ml *NA* (02/10/18 11:05 AM) 21.7 ug/ml *NA* (02/09/18 3:09 PM) Vanco Lvl 12.6 K/CMM *HI* (02/25/18 1:50 AM) 14.5 K/CMM *HI* (02/24/18 3:11 AM) 13.5 K/CMM *HI* (02/23/18 1:11 AM) WBC [3.7-10.4 K/CMM] 1.08 mMol/L (02/25/18 1:50 AM) 1.08 mMol/L (02/24/18 3:11 AM) 1.10 mMol/L (02/23/18 1:11 AM) Ca Ion WB [1.05-1.25 mMol/L] 1.08 mMol/L (02/25/18 1:50 AM) 1.14 mMol/L (02/24/18 3:11 AM) 1.12 mMol/L (02/23/18 1:11 AM) Ca Norm WB [1.05-1.25 mMol/L] Negative (02/08/18 4:30 PM) Influenza A PCR [Negative] Negative (02/08/18 4:30 PM) Influenza B PCR [Negative] Negative (02/08/18 4:30 PM) RSV PCR [Negative] Bronchial Washing (02/08/18 4:30 PM) Source Respiratory Panel PCR 1Result Comment: The eGFR is calculated using the [...] from the National Kidney Disease Education Program ( NKDEP) which additionally recommends that when the eGFR is used in patients with extremes of body mass index for purposes of drug dosing, the eGFR should be mul tiplied by the estimated BMI. 2Result Comment: The eGFR is calculated using the [...] from the National Kidney Disease Education Program ( NKDEP) which additionally recommends that when the eGFR is used in patients with extremes of body mass index for purposes of drug dosing, the eGFR should be mul tiplied by the estimated BMI. 3Result Comment: The eGFR is calculated using the [...] from the National Kidney Disease Education Program ( NKDEP) which additionally recommends that when the eGFR is used in patients with extremes of body mass index for purposes of drug dosing, the eGFR should be mul tiplied by the estimated BMI. 4Result Comment: Critical Result(s) called to Iraj Magallon_ at 02/25/2018 04:11 by RM. Read back OK. 5Result Comment: Critical Result(s) called to Mable Juarez_ at 02/24/2018 04:41 by RM. Read back OK. 6Result Comment: Critical Result(s) called to Mable Juarez_ at 02/23/2018 03:25 by RM. Read back OK. Microbiology Reports TEST: Culture: Respiratory w/Gram Stain STATUS: Auth (Verified) BODY SITE: SOURCE: Tracheal Aspirate COLLECTED DATE/TIME: 02/09/18 8:19 AM FINAL REPORT Few Staphylococcus aureus Normal Respiratory Kailyn Isolated STAIN REPORT Gram Stain Performed By: [facility] ORGANISM:Staphylococcus aureus TEST: Culture: Respiratory w/Gram Stain STATUS: Auth (Verified) BODY SITE: SOURCE: Tracheal Aspirate COLLECTED DATE/TIME: 02/08/18 4:30 PM FINAL REPORT No Growth STAIN REPORT Testing Performed At: [facility] Immunizations Not Given Vaccine Date Status Refusal Reason pneumococcal 23-valent vaccine 03/22/18 Not Given Patient Refuses Procedures No data available for this section Social History Social History Type Response Alcohol Current, Type Beer. Frequency: 3-5 times per week. Smoking Status Never smoker; Exposure to Tobacco Smoke None; Cigarette Smoking Last 365 Days No; Reg Smoking Cessation Counseling No entered on: 03/20/18 Assessment and Plan Extracted from: Title: Team B Progress Note Author: Lorenzo Gonzalez [...] until 02/24. After significant dysphagia therapy with LEASE PURCHASE [employer]IVER and managing secretions with RT and glycopyrrolate, he successfully passedtheswallow evaluation with FEES on 02/24 and was started on pureed diet with honey thick liquids. His insulin requirements were significantly higher than home during this admission because of continuous tube feeding, so we will finalize his insulin needs prior to discharge with PO diet. Dysphagia Respiratory Secretions - Passed FEES on 02/24, LEASE PURCHASE DRIVER recommends pureed diet with honey thick liquids [...] Cardiology recommended outpatient follow-up and consider outpatient LHC - Patient is already established with Cardiology [...] Rainey. Lorenzo Gonzalez MD PGY-1, Neurology MSO# [id number] [employer] [facility] [employer] Addendum by Redd, I saw and evaluated Kei Arvizu. I reviewed resident's note, relevant laboratory [place] results and imaging. I agree with the findings and plan MD on 02/24/2018 Nicole Rainey MD 20:02 [employer] Attending Physician Extracted from: Title: Cardiology Consult Note Author: Amber De La Paz Date: 02/11/18 Bo GREGORY 62YO male with PMH of HTN, HLD,NIDDM, CKD admitted with acute hypoxic respiratory failure 2/2 multifocal pneumonia and is intubated and on ventilator. He had troponin leak on the 1st 2 days. Cardiology consulted for troponinemia and new wall motion abnormality on the ECHO. ##Troponinemia /NSTEMI vs Type II VA - 0.02 --> 1.10-->1.97-->1.76-->1.6- Currently trended down - EKG - showed some PVCs and old Q waves in II, III, aVF, V5,V6( present in 2015 EKG ). - ECHO done yesterday showed EF - 55-60%and new onset mild hypokinesis of basal to mid inferoseptum( Last ECHO in 01/2018 was normal ). - His last nuclear stress test was in december 2015 which was normal. - Probably due to Type II VA but given his risk factors cannot r/o [...] Amber De La Paz MD IM PGY2 [facility] Cardiology attending attestation: I have seen and [...] nuclear stress test Makenzie Osorio MD ,FACP,FACC [employer] Department of Internal Medicine Extracted from: Title: MICU History and Physical Author: Hermilo Banda [...] Prelim Neurology SCDs Pending improvement Addendum by Raheem MICU Attending Gisell GREGORY on I have seen examined and discussed patient with MICU team at bedside and agree with 02/09/2018 findings and plan as documented in Dr. Mixonident 16:16 [employer] s note of 02/[address] Menjivar [...] but patchy infiltrates bilaterally c/w multifocal pneumonia [facility] Vent: AC 16 360 16 50 ABG [...]
--- OUTSIDE RECORDS SUMMARY | 2018-09-21 15:00 | XMS REPORT | Summary of Care ---
Author Author [facility] Organization [facility] Address Unknown Phone Unavailable Encounter HQ Chelly(DION) [id number] Date(s): 11/22/15 - 11/25/15 [facility] [address] [employer] provided by [employer] [facility] [employer] [place] [address]- Discharge Disposition: Home or Self Care Attending Physician: Logan Reyez MD Admitting Physician: Logan Reyez MD Vital Signs Most recent to 1 2 3 4 oldest [Reference Range]: Height 165.1 cm (11/23/15 4:21 AM) Current Weight 70.818 kg (11/25/15 4:51 AM) Temperature Oral 97.6 DegF 98.0 DegF 97.3 DegF [96.4-99.1 DegF] (11/25/15 12:00 PM) (11/25/15 8:37 AM) (11/25/15 4:51 AM) Blood Pressure 137/84 mmHg 119/71 mmHg 127/68 mmHg [90-140/60-90 mmHg] (11/25/15 2:00 PM) (11/25/15 1:00 PM) (11/25/15 12:00 PM) Respiratory Rate 17 BRMIN 18 BRMIN 21 BRMIN [14-20 BRMIN] (11/24/15 9:00 PM) (11/24/15 8:00 PM) *HI* (11/24/15 7:00 PM) Peripheral Pulse 68 bpm 38 bpm Rate [60-100 bpm] (11/22/15 10:43 PM) *LOW* (11/22/15 10:26 PM) Weight 75 kg 75 kg 75 kg 75 kg (11/23/15 4:21 AM) (11/23/15 4:21 AM) (11/23/15 4:20 AM) (11/23/15 4:20 AM) Body Mass Index 27.51 m2 (11/23/15 4:21 AM) Problem List Condition Effective Dates Status Health Status Informant Diabetes(Confirmed) Active Hyperlipemia(Confirm Resolved ed) Hypertension(Confirm Resolved ed) Allergies, Adverse Reactions, Alerts Substance Reaction Severity Status NKDA Active Medications albuterol 0.083% inhalation solution 10 mg, Route: INHALATION, ONCE, Dosing Weight 68.182, kg, Start date: 11/23/15 0 :38:00 CDT, Stop date: 11/23/15 0:38:00 CDT Start Date: 11/23/15 Stop Date: 11/23/15 Status: Completed albuterol-ipratropium 2.5-0.5 mg inhalation solution 3 mL, Route: NEB, Drug Form: SOLN, Dosing Weight 75, kg, ONCE, Start date: 11/23 13:39:00 CDT, Stop date: 11/24/15 13:39:00 CDT Notes: (Same as: Amber) Start Date: 11/24/15 Stop Date: 11/24/15 Status: Completed amLODIPine 10 mg, 1 tab, Route: PO, Drug form: TAB, Daily, Dosing Weight 75, kg, Start date : 11/24/15 9:00:00 CDT, Duration: 30 day, Stop date: 12/23/15 9:00:00 CDT Notes: (Same as: Kaylee) Start Date: 11/24/15 Stop Date: 11/24/15 Status: Discontinued amLODIPine 10 mg oral tablet 10 mg=1 tab, PO, Daily, # 30 tab, 0 Refill(s) Start Date: 11/23/15 Stop Date: 11/25/15 Status: Discontinued aspirin 325 mg tablet, enteric coated 325 mg, 1 tab, Route: PO, Drug form: ECTAB, Daily, Dosing Weight 68.182, kg, Sta rt date: 11/23/15 9:00:00 CDT, Duration: 30 day, Stop date: 12/22/15 9:00:00 CDT Notes: (Do Not Crush) Do not crush or chew. Start Date: 11/23/15 Stop Date: 11/25/15 Status: Discontinued aspirin 81 mg tablet, enteric coated 81 mg=1 tab, PO, Daily, # 60 tab, 3 Refill(s) Start Date: 11/25/15 Status: Ordered aspirin 81 mg tablet, enteric coated 81 mg, 1 tab, Route: PO, Drug form: ECTAB, Daily, Dosing Weight 75, kg, Start da te: 11/25/15 9:00:00 CDT, Duration: 30 day, Stop date: 12/24/15 9:00:00 CDT Notes: Do not crush or chew.(Same As: Ecotrin) Start Date: 11/25/15 Stop Date: 11/25/15 Status: Discontinued atorvastatin 40 mg, 1 tab, Route: PO, Drug form: TAB, Daily, Dosing Weight 68.182, kg, Start date: 11/23/15 9:00:00 CDT, Duration: 30 day, Stop date: 12/22/15 21:00:00 CDT Notes: (Same as: Lipitor) Start Date: 11/23/15 Stop Date: 11/25/15 Status: Discontinued atorvastatin 40 mg oral tablet 40 mg=1 tab, PO, Bedtime, # 30 tab, 0 Refill(s) Start Date: 11/23/15 Stop Date: 11/25/15 Status: Discontinued atorvastatin 40 mg oral tablet 40 mg=1 tab, PO, Bedtime, # 60 tab, 3 Refill(s) Start Date: 11/25/15 Status: Ordered calcium gluconate 2,000 mg, Route: IVPB, Drug form: INJ, ONCE, Dosing Weight 68.182, kg, Start loan e: 11/23/15 0:40:00 CDT, Stop date: 11/23/15 0:40:00 CDT Start Date: 11/23/15 Stop Date: 11/23/15 Status: Completed calcium gluconate + sodium chloride 0.9% INJ 100 mL 3 gm, 30 mL, Route: IVPB, PRN, Dosing Weight 75, kg, PRN Abnormal Lab Result, Fo r NON-ICU Patients Only., Start date: 11/25/15 5:25:00 CDT, Duration: 30 day, St op date: 12/25/15 5:24:00 CDT Notes: WASTE: F/P - Sink; E - Municipal Trash Bin Start Date: 11/25/15 Stop Date: 11/25/15 Status: Discontinued calcium gluconate + sodium chloride 0.9% INJ 80 mL 2 gm, 20 mL, Route: IVPB, PRN, Dosing Weight 75, kg, PRN Abnormal Lab Result, Fo r NON-ICU Patients Only., Start date: 11/25/15 5:25:00 CDT, Duration: 30 day, St op date: 12/25/15 5:24:00 CDT Notes: WASTE: F/P - Sink; E - Municipal Trash Bin Start Date: 11/25/15 Stop Date: 11/25/15 Status: Discontinued Dextrose 50% Syringe 25 gm, 50 mL, Route: IVP, Drug Form: INJ, Dosing Weight 75, kg, PRN, PRN Blood G lucose Results, Start date: 11/24/15 11:53:00 CDT, Duration: 30 day, Stop date: 12/24/15 11:52:00 CDT Start Date: 11/24/15 Stop Date: 11/25/15 Status: Discontinued Dextrose 50% Syringe 12.5 gm, 25 mL, Route: IVP, Drug Form: INJ, Dosing Weight 75, kg, PRN, PRN Blood Glucose Results, Start date: 11/24/15 11:53:00 CDT, Duration: 30 day, Stop date: 12/24/15 11:52:00 CDT Start Date: 11/24/15 Stop Date: 11/25/15 Status: Discontinued Dextrose 50% Syringe 25 gm, 50 mL, Route: IVP, Drug Form: INJ, Dosing Weight 75, kg, PRN, PRN Blood G lucose Results, Start date: 11/23/15 12:13:00 CDT, Duration: 30 day, Stop date: 12/23/15 12:12:00 CDT Start Date: 11/23/15 Stop Date: 11/24/15 Status: Discontinued Dextrose 50% Syringe 12.5 gm, 25 mL, Route: IVP, Drug Form: INJ, Dosing Weight 75, kg, PRN, PRN Blood Glucose Results, Start date: 11/23/15 12:13:00 CDT, Duration: 30 day, Stop date: 12/23/15 12:12:00 CDT Start Date: 11/23/15 Stop Date: 11/24/15 Status: Discontinued Dextrose 50% Syringe 25 gm, Route: IVP, Dosing Weight 68.182, kg, ONCE, STAT, Start date: 11/23/15 0: 37:00 CDT, Stop date: 11/23/15 0:37:00 CDT Start Date: 11/23/15 Stop Date: 11/23/15 Status: Completed DOPamine 400 mg/250ml D5W premix 400 mg 400 mg, 250 mL, Rate: Titrate, Start Dose: 5 microgram/kg/min, Titration: 2.5 mi crogram/kg/min every 15 minutes, Goal(s): MAP >=65 mmHg, Max Dose: 20 microgram/kg/min, Route: IV, Dosing Weight 75 kg, Total Volume: 250, Start date: 11/23/15 4:20:00 CD... Notes: (Same as: Intropin) Administer by either central venous catheter or grey pherally-inserted central catheter (PICC) line. Final conc=1.6 mg/ml. Premix so lution. Start Date: 11/23/15 Stop Date: 11/23/15 Status: Discontinued DOPamine 800 mg/250ml D5W premix 800 mg 800 mg, 250 mL, Rate: Titrate, Start Dose: 5 microgram/kg/min, Titration: 2.5 mi crogram/kg/min every 15 minutes, Goal(s): MAP >=65 mmHg, Max Dose: 20 microgram/kg/min, Route: IV, Dosing Weight 75 kg, Total Volume: 250, Start date: 11/23/15 5:37:00 CD... Notes: (Same as: Intropin) Administer by either central venous catheter or perip herally-inserted central catheter (PICC) line. Final conc=3.2 mg/ml. Premix taisha ution. Start Date: 11/23/15 Stop Date: 11/24/15 Status: Discontinued fenofibrate 48 mg oral tablet =1 cap, PO, Daily, # 30 cap, 0 Refill(s) Start Date: 11/23/15 Stop Date: 11/25/15 Status: Discontinued fenofibrate 48 mg oral tablet 48 mg, 1 tab, Route: PO, Drug form: TAB, Daily, Dosing Weight 68.182, kg, Start date: 11/23/15 9:00:00 CDT, Duration: 30 day, Stop date: 12/22/15 9:00:00 CDT Notes: (Same as: Tricor) Start Date: 11/23/15 Stop Date: 11/24/15 Status: Discontinued furosemide 20 mg oral tablet 20 mg=1 tab, PO, Daily, # 30 tab, 0 Refill(s) Start Date: 11/23/15 Stop Date: 11/25/15 Status: Discontinued glucagon 1 mg, Route: IM, Drug form: PDR/INJ, PRN, Dosing Weight 75, kg, PRN Blood Glucos e Results, Start date: 11/24/15 11:53:00 CDT, Duration: 30 day, Stop date: 12/23 11:52:00 CDT Start Date: 11/24/15 Stop Date: 11/25/15 Status: Discontinued glucagon 1 mg, Route: IM, Drug form: PDR/INJ, PRN, Dosing Weight 75, kg, PRN Blood Glucos e Results, Start date: 11/23/15 12:13:00 CDT, Duration: 30 day, Stop date: 12/22 12:12:00 CDT Start Date: 11/23/15 Stop Date: 11/24/15 Status: Discontinued glyBURIDE 5 mg, 1 tab, Route: PO, Drug form: TAB, Breakfast, Dosing Weight 68.182, kg, Sta rt date: 11/23/15 8:00:00 CDT, Duration: 30 day, Stop date: 12/22/15 8:00:00 CDT Notes: (Same as: Dwaine Diabeta) Take with meals. Start Date: 11/23/15 Stop Date: 11/23/15 Status: Canceled glyBURIDE micronized 3 mg oral tablet 3 mg=1 tab, PO, Daily, # 30 tab, 0 Refill(s) Start Date: 11/23/15 Status: Ordered heparin 5,000 unit, 1 mL, Route: SUB-Q, Drug form: INJ, Q8H, Dosing Weight 75, kg, Start date: 11/24/15 0:00:00 CDT, Duration: 30 day, Stop date: 12/23/15 16:00:00 CDT Notes: porcine heparin Start Date: 11/24/15 Stop Date: 11/25/15 Status: Discontinued Insulin regular 8 unit, 0.08 mL, Route: SUB-Q, Drug form: SOLN, TID-Before Meals, Dosing Weight 75, kg, PRN Blood Glucose Results, Start date: 11/24/15 11:53:00 CDT, Duration: 30 day, Stop date: 12/24/15 11:52:00 CDT Notes: (Same as: Humulin R) Roll in palms of hands gently; Do not shake vigorou sly. "single patient use only"(Restricted to patients requiring a dose > 60 units)WASTE: F/P - Black; E - Municipal Trash Bin Stable for 28 days at room temperatureExpires in days from Date Start Date: 11/24/15 Stop Date: 11/25/15 Status: Discontinued Insulin regular 10 unit, 0.1 mL, Route: SUB-Q, Drug form: SOLN, TID-Before Meals, Dosing Weight 75, kg, PRN Blood Glucose Results, Start date: 11/24/15 11:53:00 CDT, Duration: 30 day, Stop date: 12/24/15 11:52:00 CDT Notes: (Same as: Humulin R) Roll in palms of hands gently; Do not shake vigorou sly. "single patient use only"(Restricted to patients requiring a dose > 60 units)WASTE: F/P - Black; E - Municipal Trash Bin Stable for 28 days at room temperatureExpires in days from Date Start Date: 11/24/15 Stop Date: 11/25/15 Status: Discontinued Insulin regular 2 unit, 0.02 mL, Route: SUB-Q, Drug form: SOLN, TID-Before Meals, Dosing Weight 75, kg, PRN Blood Glucose Results, Start date: 11/24/15 11:53:00 CDT, Duration: 30 day, Stop date: 12/24/15 11:52:00 CDT Notes: (Same as: Humulin R) Roll in palms of hands gently; Do not shake vigorou sly. "single patient use only"(Restricted to patients requiring a dose > 60 units)WASTE: F/P - Black; E - Municipal Trash Bin Stable for 28 days at room temperatureExpires in days from Date Start Date: 11/24/15 Stop Date: 11/25/15 Status: Discontinued Insulin regular 4 unit, 0.04 mL, Route: SUB-Q, Drug form: SOLN, TID-Before Meals, Dosing Weight 75, kg, PRN Blood Glucose Results, Start date: 11/24/15 11:53:00 CDT, Duration: 30 day, Stop date: 12/24/15 11:52:00 CDT Notes: (Same as: Humulin R) Roll in palms of hands gently; Do not shake vigorou sly. "single patient use only"(Restricted to patients requiring a dose > 60 units)WASTE: F/P - Black; E - Municipal Trash Bin Stable for 28 days at room temperatureExpires in days from Date Start Date: 11/24/15 Stop Date: 11/25/15 Status: Discontinued Insulin regular 6 unit, 0.06 mL, Route: SUB-Q, Drug form: SOLN, TID-Before Meals, Dosing Weight 75, kg, PRN Blood Glucose Results, Start date: 11/24/15 11:53:00 CDT, Duration: 30 day, Stop date: 12/24/15 11:52:00 CDT Notes: (Same as: Humulin R) Roll in palms of hands gently; Do not shake vigorou sly. "single patient use only"(Restricted to patients requiring a dose > 60 units)WASTE: F/P - Black; E - Municipal Trash Bin Stable for 28 days at room temperatureExpires in days from Date Start Date: 11/24/15 Stop Date: 11/25/15 Status: Discontinued Insulin regular 5 unit, Route: IV, ONCE, Dosing Weight 68.182, kg, Start date: 11/23/15 0:38:00 CDT, Stop date: 11/23/15 0:38:00 CDT Start Date: 11/23/15 Stop Date: 11/23/15 Status: Completed Insulin regular 4 unit, 0.04 mL, Route: SUB-Q, Drug form: SOLN, TID-Before Meals, Dosing Weight 75, kg, PRN Blood Glucose Results, Start date: 11/23/15 12:13:00 CDT, Duration: 30 day, Stop date: 12/23/15 12:12:00 CDT Notes: (Same as: Humulin R) Roll in palms of hands gently; Do not shake vigorou sly. "single patient use only"(Restricted to patients requiring a dose > 60 units)WASTE: F/P - Black; E - Municipal Trash Bin Stable for 28 days at room temperatureExpires in days from Date Start Date: 11/23/15 Stop Date: 11/24/15 Status: Discontinued Insulin regular 5 unit, 0.05 mL, Route: SUB-Q, Drug form: SOLN, TID-Before Meals, Dosing Weight 75, kg, PRN Blood Glucose Results, Start date: 11/23/15 12:13:00 CDT, Duration: 30 day, Stop date: 12/23/15 12:12:00 CDT Notes: (Same as: Humulin R) Roll in palms of hands gently; Do not shake vigorou sly. "single patient use only"(Restricted to patients requiring a dose > 60 units)WASTE: F/P - Black; E - Municipal Trash Bin Stable for 28 days at room temperatureExpires in days from Date Start Date: 11/23/15 Stop Date: 11/24/15 Status: Discontinued Insulin regular 1 unit, 0.01 mL, Route: SUB-Q, Drug form: SOLN, TID-Before Meals, Dosing Weight 75, kg, PRN Blood Glucose Results, Start date: 11/23/15 12:13:00 CDT, Duration: 30 day, Stop date: 12/23/15 12:12:00 CDT Notes: (Same as: Humulin R) Roll in palms of hands gently; Do not shake vigorou sly. "single patient use only"(Restricted to patients requiring a dose > 60 units)WASTE: F/P - Black; E - Municipal Trash Bin Stable for 28 days at room temperatureExpires in days from Date Start Date: 11/23/15 Stop Date: 11/24/15 Status: Discontinued Insulin regular 2 unit, 0.02 mL, Route: SUB-Q, Drug form: SOLN, TID-Before Meals, Dosing Weight 75, kg, PRN Blood Glucose Results, Start date: 11/23/15 12:13:00 CDT, Duration: 30 day, Stop date: 12/23/15 12:12:00 CDT Notes: (Same as: Humulin R) Roll in palms of hands gently; Do not shake vigorou sly. "single patient use only"(Restricted to patients requiring a dose > 60 units)WASTE: F/P - Black; E - Municipal Trash Bin Stable for 28 days at room temperatureExpires in days from Date Start Date: 11/23/15 Stop Date: 11/24/15 Status: Discontinued Insulin regular 3 unit, 0.03 mL, Route: SUB-Q, Drug form: SOLN, TID-Before Meals, Dosing Weight 75, kg, PRN Blood Glucose Results, Start date: 11/23/15 12:13:00 CDT, Duration: 30 day, Stop date: 12/23/15 12:12:00 CDT Notes: (Same as: Humulin R) Roll in palms of hands gently; Do not shake vigorou sly. "single patient use only"(Restricted to patients requiring a dose > 60 units)WASTE: F/P - Black; E - Municipal Trash Bin Stable for 28 days at room temperatureExpires in days from Date Start Date: 11/23/15 Stop Date: 11/24/15 Status: Discontinued Kayexalate 15 gm, 60 mL, Route: PO, Drug form: SUSP, ONCE, Dosing Weight 68.182, kg, Priori ty: STAT, Start date: 11/23/15 0:46:00 CDT, Stop date: 11/23/15 0:46:00 CDT Notes: (sodium polystyrene sulfonate 15 gm/60 ml RAZA) Shake well before use. (Same as: Kayexalate, SPS) Start Date: 11/23/15 Stop Date: 11/23/15 Status: Completed Lasix 60 mg, Route: IVP, Drug form: INJ, ONCE, Dosing Weight 75, kg, Start date: 11/22 6:21:00 CDT, Stop date: 11/23/15 6:21:00 CDT Start Date: 11/23/15 Stop Date: 11/23/15 Status: Completed lisinopril 40 mg oral tablet 40 mg=1 tab, PO, Daily, # 30 tab, 0 Refill(s) Start Date: 11/23/15 Stop Date: 11/25/15 Status: Discontinued magnesium oxide 800 mg, 2 tab, Route: PO, Drug form: TAB, PRN, Dosing Weight 75, kg, PRN Abnorma l Lab Result, For NON-ICU Patients Only., Start date: 11/25/15 5:25:00 CDT, Dura tion: 30 day, Stop date: 12/25/15 5:24:00 CDT Notes: (Same as: Mag-Ox 400)Magnesium oxide [id number] elemental magnesiumDose= ____mg magnesium oxide (___mg elemental magnesium) Start Date: 11/25/15 Stop Date: 11/25/15 Status: Discontinued magnesium oxide 800 mg, 2 tab, Route: PO, Drug form: TAB, ONCE, Dosing Weight 75, kg, Start date : 11/24/15 5:51:00 CDT, Stop date: 11/24/15 5:51:00 CDT Notes: (Same as: Mag-Ox 400)Magnesium oxide [id number] elemental magnesiumDose= ____mg magnesium oxide (___mg elemental magnesium) Start Date: 11/24/15 Stop Date: 11/24/15 Status: Completed magnesium sulfate 2 gm, 50 mL, Route: IVPB, Drug form: INJ, PRN, Dosing Weight 75, kg, PRN Abnorma l Lab Result, For NON-ICU Patients Only., Start date: 11/25/15 5:25:00 CDT, Dura tion: 30 day, Stop date: 12/25/15 5:24:00 CDT Notes: WASTE: F/P - Sink; E - Municipal Trash Bin Start Date: 11/25/15 Stop Date: 11/25/15 Status: Discontinued magnesium sulfate 1 gm, 100 mL, Route: IVPB, Drug form: INJ, PRN, Dosing Weight 75, kg, PRN Abnorm al Lab Result, For NON-ICU Patients Only., Start date: 11/25/15 5:25:00 CDT, Dur ation: 30 day, Stop date: 12/25/15 5:24:00 CDT Notes: WASTE: F/P - Sink; E - Municipal Trash Bin Start Date: 11/25/15 Stop Date: 11/25/15 Status: Discontinued magnesium sulfate 2 gm, 50 mL, Route: IV, Drug form: INJ, ONCE, Dosing Weight 68.182, kg, Priority : STAT, Start date: 11/23/15 0:46:00 CDT, Stop date: 11/23/15 0:46:00 CDT Notes: WASTE: F/P - Sink; E - Municipal Trash Bin Start Date: 11/23/15 Stop Date: 11/23/15 Status: Completed metFORMIN 1,000 mg, Route: PO, BID, Dosing Weight 68.182, kg, Start date: 11/23/15 9:00:00 CDT, Duration: 30 day, Stop date: 12/22/15 17:00:00 CDT Start Date: 11/23/15 Stop Date: 11/23/15 Status: Canceled metFORMIN 1000 mg oral tablet 1,000 mg=1 tab, PO, BID-Meals, # 180 tab, 1 Refill(s) Start Date: 11/23/15 Status: Ordered metoprolol 100 mg oral tablet, extended release 100 mg=1 tab, PO, Daily, # 30 tab, 0 Refill(s) Start Date: 11/23/15 Stop Date: 11/25/15 Status: Discontinued NIFEdipine 30 mg oral tablet, extended release 30 mg, 1 tab, Route: PO, Drug form: ERTAB, Daily, Dosing Weight 75, kg, SBP goal s 140-150, Start date: 11/23/15 17:15:00 CDT, Duration: 30 day, Stop date: 12/22 9:00:00 CDT Notes: (Same as: Adalat CC, Procardia XL) Give on empty stomach. Take 1 hour be fore or 2 hours after meal; "Avoid grapefruit and grapefruit juice". Do not cru sh Start Date: 11/23/15 Stop Date: 11/25/15 Status: Discontinued NIFEdipine 60 mg oral tablet, extended release 60 mg=1 tab, PO, Daily, # 90 tab, 3 Refill(s) Start Date: 11/25/15 Status: Ordered Pepcid 20 mg oral tablet 20 mg, 1 tab, Route: PO, ONCE, Dosing Weight 68.182, kg, Start date: 11/23/15 0: 41:00 CDT, Stop date: 11/23/15 0:41:00 CDT Start Date: 11/23/15 Stop Date: 11/23/15 Status: Completed potassium chloride 20 mEq, 1 tab, Route: PO, Drug form: ERTAB, PRN, Dosing Weight 75, kg, PRN Abnor mal Lab Result, For NON-ICU Patients Only, Start date: 11/25/15 5:25:00 CDT, Dur ation: 30 day, Stop date: 12/25/15 5:24:00 CDT Notes: (Same as: K-Dur 20)"Do Not Crush" With food and full glass of water Start Date: 11/25/15 Stop Date: 11/25/15 Status: Discontinued potassium chloride 20 mEq, 15 mL, Route: NJ, Drug form: LIQ, PRN, Dosing Weight 75, kg, PRN Abnorma l Lab Result, For NON-ICU Patients Only, Start date: 11/25/15 5:25:00 CDT, Durat ion: 30 day, Stop date: 12/25/15 5:24:00 CDT Notes: (Same as: Potassium Chloride) Start Date: 11/25/15 Stop Date: 11/25/15 Status: Discontinued potassium chloride 10 mEq, 50 mL, Route: IVPB, Drug form: INJ, PRN, Dosing Weight 75, kg, PRN Abnor mal Lab Result, For NON-ICU Patients Only, Start date: 11/25/15 5:25:00 CDT, Dur ation: 30 day, Stop date: 12/25/15 5:24:00 CDT Notes: (Same as: KCL) Infuse over 2 hours. Start Date: 11/25/15 Stop Date: 11/25/15 Status: Discontinued potassium phosphate + sodium chloride 0.9% INJ 250 mL 30 mmol, 10 mL, Route: IVPB, PRN, Dosing Weight 75, kg, PRN Abnormal Lab Result, For NON-ICU Patients Only., Start date: 11/25/15 5:25:00 CDT, Duration: 30 day, Stop date: 12/25/15 5:24:00 CDT Notes: (Same as: K Phosphate.) 1 mMol phoshate has 1.47 mEq potassium Infuse o [place] 4 hours Start Date: 11/25/15 Stop Date: 11/25/15 Status: Discontinued potassium phosphate + sodium chloride 0.9% INJ 250 mL 15 mmol, 5 mL, Route: IVPB, PRN, Dosing Weight 75, kg, PRN Abnormal Lab Result, For NON-ICU Patients Only., Start date: 11/25/15 5:25:00 CDT, Duration: 30 day, Stop date: 12/25/15 5:24:00 CDT Notes: (Same as: K Phosphate.) 1 mMol phoshate has 1.47 mEq potassium Infuse o [place] 4 hours Start Date: 11/25/15 Stop Date: 11/25/15 Status: Discontinued potassium phosphate + sodium chloride 0.9% INJ 250 mL 30 mmol, 10 mL, Route: IVPB, Drug form: INJ, ONCE, Dosing Weight 75, kg, Start d ate: 11/24/15 5:52:00 CDT, Stop date: 11/24/15 5:52:00 CDT Notes: (Same as: K Phosphate.) 1 mMol phoshate has 1.47 mEq potassium Infuse o [place] 4 hours Start Date: 11/24/15 Stop Date: 11/24/15 Status: Deleted potassium phosphate-sodium phosphate 250 mg-278 mg-164 mg oral powder 2 pkt, Route: PO, Drug Form: PDR/REC, Dosing Weight 75, kg, PRN, PRN Abnormal La b Result, For NON-ICU Patients Only, Start date: 11/25/15 5:25:00 CDT, Duration: 30 day, Stop date: 12/25/15 5:24:00 CDT Notes: (Same as: Neutra-Phos) Each 1.25 gm pkt has 250mg phosphorous. Mix w/2.5 oz water and stir. Start Date: 11/25/15 Stop Date: 11/25/15 Status: Discontinued Robitussin 100 mg, 5 mL, Route: PO, Drug Form: LIQ, Dosing Weight 75, kg, Q4H, Start date: 11/24/15 20:00:00 CDT, Duration: 30 day, Stop date: 12/24/15 16:00:00 CDT Notes: (Same as: Robitussin) Start Date: 11/24/15 Stop Date: 11/25/15 Status: Discontinued Saline Flush 0.9% 10 mL, Route: IVP, Drug Form: INJ, Dosing Weight 68.182, kg, PRN, PRN Line Flush , Start date: 11/22/15 22:56:00 CDT, Duration: 30 day, Stop date: 12/22/15 22:55 :00 CDT Notes: Same as: BD Posiflush Sterile Start Date: 11/22/15 Stop Date: 11/25/15 Status: Discontinued Saline Flush 0.9% 10 ml, Route: IVP, Drug Form: INJ, Dosing Weight 68.182, kg, PRN, PRN Line Flush , Start date: 11/23/15 2:37:00 CDT, Duration: 30 day, Stop date: 12/23/15 2:36:0 0 CDT Notes: (Same as: BD Posiflush) Start Date: 11/23/15 Stop Date: 11/25/15 Status: Discontinued Saline Flush 0.9% 10 ml, Route: IVP, Drug Form: INJ, Dosing Weight 68.182, kg, Q12H, Start date: 0 11/23/15 9:00:00 CDT, Duration: 30 day, Stop date: 12/22/15 21:00:00 CDT Notes: (Same as: BD Posiflush) Start Date: 11/23/15 Stop Date: 11/25/15 Status: Discontinued Sodium Chloride 0.9% (Bolus) IV 1,000 mL, 2,000 ml/hr, Infuse Over: 30 minutes, Route: IV, 1,000, Drug form: INJ , ONCE, Priority: STAT, Dosing Weight 68.182 kg, Start date: 11/23/15 1:18:00 CD T, Duration: 1 doses or times, Stop date: 11/23/15 1:18:00 CDT Start Date: 11/23/15 Stop Date: 11/23/15 Status: Completed sodium phosphate + sodium chloride 0.9% INJ 250 mL 30 mmol, 10 mL, Route: IVPB, PRN, Dosing Weight 75, kg, PRN Abnormal Lab Result, For NON-ICU Patients Only., Start date: 11/25/15 5:25:00 CDT, Duration: 30 day, Stop date: 12/25/15 5:24:00 CDT Start Date: 11/25/15 Stop Date: 11/25/15 Status: Discontinued sodium phosphate + sodium chloride 0.9% INJ 250 mL 15 mmol, 5 mL, Route: IVPB, PRN, Dosing Weight 75, kg, PRN Abnormal Lab Result, For NON-ICU Patients Only., Start date: 11/25/15 5:25:00 CDT, Duration: 30 day, Stop date: 12/25/15 5:24:00 CDT Start Date: 11/25/15 Stop Date: 11/25/15 Status: Discontinued sodium phosphate + sodium chloride 0.9% INJ 250 mL 30 mmol, 10 mL, Route: IVPB, ONCE, Dosing Weight 75, kg, Start date: 11/24/15 7: 48:00 CDT, Stop date: 11/24/15 7:48:00 CDT Start Date: 11/24/15 Stop Date: 11/24/15 Status: Completed Tessalon Perles 100 mg, 1 cap, Route: PO, Drug form: CAP, TID, Dosing Weight 75, kg, PRN Cough, Start date: 11/24/15 3:15:00 CDT, Duration: 30 day, Stop date: 12/24/15 3:14:00 CDT Notes: (Same As: Griseldasalon Edenilson)"Do Not Crush" Start Date: 11/24/15 Stop Date: 11/25/15 Status: Discontinued vancomycin 500 mg, Route: IV, Drug form: PDR/INJ, ONCE, Dosing Weight 75, kg, Start date: 0 11/23/15 13:36:00 CDT, Stop date: 11/23/15 13:36:00 CDT Notes: TIME CRITICAL MEDICATION(Same As: Vancocin) Start Date: 11/23/15 Stop Date: 11/23/15 Status: Completed Results ELECTROLYTES 1 2 3 Most recent to oldest [Reference Range]: 135 mEq/L (11/25/15 4:10 AM) 136 mEq/L (11/24/15 4:06 AM) 136 mEq/L (11/23/15 8:09 AM) Sodium Lvl [135-145 mEq/L] 4.2 mEq/L (11/25/15 4:10 AM) 4.3 mEq/L (11/24/15 4:06 AM) 5.0 mEq/L (11/23/15 8:09 AM) Potassium Lvl [3.5-5.1 mEq/L] 101 mEq/L (11/25/15 4:10 AM) 101 mEq/L (11/24/15 4:06 AM) 101 mEq/L (11/23/15 8:09 AM) Chloride Lvl [95-109 mEq/L] 26 mEq/L (11/25/15 4:10 AM) 28 mEq/L (11/24/15 4:06 AM) 22 mEq/L *LOW* (11/23/15 8:09 AM) CO2 [24-32 mEq/L] 12.2 mEq/L (11/25/15 4:10 AM) 11.3 mEq/L (11/24/15 4:06 AM) 18.0 mEq/L (11/23/15 8:09 AM) AGAP [10.0-20.0 mEq/L] CHEM PANEL 1 2 3 Most recent to oldest [Reference Range]: 1.45 mg/dL *HI* (11/25/15 4:10 AM) 1.67 mg/dL *HI* (11/24/15 4:06 AM) 2.90 mg/dL *HI* (11/23/15 8:09 AM) Creatinine Lvl [0.50-1.40 mg/dL] 53 mL/min/1.73m2 1 *NA* (11/25/15 4:10 AM) 44 mL/min/1.73m2 2 *NA* (11/24/15 4:06 AM) 23 mL/min/1.73m2 3 *NA* (11/23/15 8:09 AM) eGFR 21 mg/dL (11/25/15 4:10 AM) 28 mg/dL *HI* (11/24/15 4:06 AM) 43 mg/dL *HI* (11/23/15 8:09 AM) BUN [7-22 mg/dL] 14 (11/23/15 4:41 AM) B/C Ratio [6-25] 139 mg/dL *HI* (11/25/15 4:10 AM) 187 mg/dL *HI* (11/24/15 4:06 AM) 182 mg/dL *HI* (11/23/15 8:09 AM) Glucose Lvl [70-99 mg/dL] 6.4 g/dL (11/23/15 4:41 AM) Total Protein [6.4-8.4 g/dL] 3.3 g/dL *LOW* (11/23/15 4:41 AM) Albumin Lvl [3.5-5.0 g/dL] 3.1 g/dL (11/23/15 4:41 AM) Globulin [2.7-4.2 g/dL] 1.1 (11/23/15 4:41 AM) A/G Ratio [0.7-1.6] 8.9 mg/dL (11/25/15 4:10 AM) 8.7 mg/dL (11/24/15 4:06 AM) 8.4 mg/dL *LOW* (11/23/15 8:09 AM) Calcium Lvl [8.5-10.5 mg/dL] 3.2 mg/dL (11/25/15 4:10 AM) 2.0 mg/dL *LOW* (11/24/15 4:06 AM) 2.5 mg/dL (11/23/15 8:11 AM) Phosphorus [2.5-4.5 mg/dL] 1.7 mg/dL *LOW* (11/25/15 4:10 AM) 1.6 mg/dL *LOW* (11/24/15 4:06 AM) 2.0 mg/dL (11/23/15 8:11 AM) Magnesium Lvl [1.8-2.4 mg/dL] 25 unit/L (11/23/15 4:41 AM) ALT [0-65 unit/L] 25 unit/L (11/23/15 4:41 AM) AST [0-37 unit/L] 62 unit/L (11/23/15 4:41 AM) Alk Phos [39-136 unit/L] 0.2 mg/dL (11/23/15 4:41 AM) Bili Total [0.2-1.3 mg/dL] 2.0 mMol/L (11/23/15 5:25 PM) 3.0 mMol/L *HI* (11/23/15 4:41 AM) 2.7 mMol/L *HI* (11/23/15 3:22 AM) Lactic Acid Lvl [0.5-2.2 mMol/L] 2.7 mmol/L *HI* (11/22/15 11:01 PM) Lactic Acid WB [0.5-2.2 mmol/L] 56 pg/mL *NA* (11/23/15 5:25 PM) Vitamin D 1,25 (OH)2 Total [18-72 pg/mL] <8 pg/mL 4 *NA* (11/23/15 5:25 PM) Vitamin D2 1,25 (OH)2 56 pg/mL *NA* (11/23/15 5:25 PM) Vitamin D3 1,25 (OH)2 1Result Comment: The eGFR is calculated using [...] tiplied by the estimated BMI. 4Result Comment: Vitamin D2, 1,25 (OH)2: Reference ranges are established for total 1,25-dihydroxy vitamin D. Values for subcomponents D2 (derived from plant or fungal sources) and D3 (derived from human or animal sources) are provided for informational purposes only. This test(s) was developed and its performance characteristics have been determined by [facility], [place], [place]. Performance characteristics refer to the analytical performance of the test. Test Performed at: [facility], [address] [place] [id number] Cindi Urbina MD, FCAP CARDIAC ENZYMES 1 2 3 Most recent to oldest [Reference Range]: 90 unit/L (11/24/15 4:06 AM) 99 unit/L (11/23/15 5:25 PM) 118 unit/L (11/23/15 8:09 AM) Total CK [12-191 unit/L] 1.2 ng/mL (11/24/15 4:06 AM) 2.4 ng/mL (11/23/15 5:25 PM) 3.8 ng/mL *HI* (11/23/15 8:09 AM) CK MB [0.5-3.6 ng/mL] 1.3 (11/24/15 4:06 AM) 2.4 (11/23/15 5:25 PM) 3.2 *HI* (11/23/15 8:09 AM) CK MB Index [0.0-2.5] 0.120 ng/mL 1 *CRIT* (11/24/15 4:06 AM) 0.135 ng/mL 2 *CRIT* (11/23/15 5:25 PM) 0.125 ng/mL 3 *CRIT* (11/23/15 8:09 AM) Troponin-T [0.000-0.100 ng/mL] 0.54 ng/mL 4 *CRIT* (11/24/15 4:06 AM) 0.74 ng/mL 5 *CRIT* (11/23/15 5:25 PM) 0.86 ng/mL 6 *CRIT* (11/23/15 8:09 AM) Troponin-I [0.00-0.40 ng/mL] 667 pg/mL *HI* (11/23/15 4:41 AM) BNP [<=100 pg/mL] 4293 pg/mL *HI* (11/23/15 4:41 AM) proBNP [0-125 pg/mL] 1Result Comment: Critical Result(s) called to Neptali Shaw at 11/24/2015 05:42 by DH. Read back OK. 2Result Comment: Critical Result(s) called to Aubrey Gill at 11/23/2015 19:21 by DH. Read back OK. 3Result Comment: Critical Result(s) called to Melanie Hunter at 11/23/2015 09:55 by RG. Read back OK. 4Result Comment: Critical Result(s) called to Yanira Izaguirre at 11/24/2015 05:41 by ET. Read back OK. 5Result Comment: Critical Result(s) called to Aubrey Gill at 11/23/2015 19:22 by DH. Read back OK. 6Result Comment: Critical Result(s) called to Coral Zafar at 11/23/2015 09:59 by ET. Read back OK. LIPIDS 1 2 3 Most recent to oldest [Reference Range]: 3.02 *LOW* (11/24/15 4:06 AM) 2.96 *LOW* (11/23/15 9:33 AM) CHD Risk [4.00-7.30] 139 mg/dL (11/24/15 4:06 AM) 139 mg/dL (11/23/15 9:33 AM) Chol [<=199 mg/dL] 178 mg/dL *HI* (11/24/15 4:06 AM) 242 mg/dL *HI* (11/23/15 9:33 AM) Trig [<=149 mg/dL] 46 mg/dL *LOW* (11/24/15 4:06 AM) 47 mg/dL *LOW* (11/23/15 9:33 AM) HDL [>=61 mg/dL] 57 mg/dL (11/24/15 4:06 AM) 44 mg/dL (11/23/15 9:33 AM) LDL (Calculated) [<=99 mg/dL] 36 *NA* (11/24/15 4:06 AM) 48 *NA* (11/23/15 9:33 AM) VLDL SPECIAL CHEMISTRY 1 2 3 Most recent to oldest [Reference Range]: 8.1 % *HI* (11/23/15 4:41 AM) Hgb A1C [<=5.6 %] PARATHYROID PROFILE 1 2 3 Most recent to oldest [Reference Range]: 1.03 mMol/L *LOW* (11/25/15 4:10 AM) 1.12 mMol/L (11/24/15 4:06 AM) 1.17 mMol/L (11/23/15 4:41 AM) Ca Ion WB [1.05-1.25 mMol/L] 1.06 mMol/L (11/25/15 4:10 AM) 1.13 mMol/L (11/24/15 4:06 AM) 1.13 mMol/L (11/23/15 4:41 AM) Ca Norm WB [1.05-1.25 mMol/L] 144.3 pg/mL *HI* (11/23/15 5:25 PM) PTH Intact [11.1-79.5 pg/mL] DRUG SCREEN 1 2 3 Most recent to oldest [Reference Range]: Negative *NA* (11/23/15 4:48 AM) U Amph Scr [Negative] Negative *NA* (11/23/15 4:48 AM) U Gricel Scr [Negative] Negative *NA* (11/23/15 4:48 AM) U Benzodia Scr [Negative] Negative *NA* (11/23/15 4:48 AM) U Cocaine Scr [Negative] Negative *NA* (11/23/15 4:48 AM) U Opiate Scr [Negative] Negative *NA* (11/23/15 4:48 AM) U Phencyc Scr [Negative] Negative *NA* (11/23/15 4:48 AM) U Cannab Scr [Negative] See Note *NA* (11/23/15 4:48 AM) UDS Note URINE CHEM 1 2 3 Most recent to oldest [Reference Range]: 42.60 mg/dL *NA* (11/23/15 5:25 PM) U Creatinine 25.7 mg/dL *NA* (11/23/15 5:25 PM) U Protein 0.6 *NA* (11/23/15 5:25 PM) U Prot/Creat 69 mEq/L *NA* (11/23/15 5:25 PM) U Sodium 15.4 mEq/L *NA* (11/23/15 5:25 PM) U Potassium 76 mEq/L *NA* (11/23/15 5:25 PM) U Chloride URINE AND STOOL 1 2 3 Most recent to oldest [Reference Range]: Clear (11/23/15 5:25 PM) Clear (11/22/15 11:06 PM) UA Turbidity [Clear] Light Yellow *NA* (11/23/15 5:25 PM) Yellow *NA* (11/22/15 11:06 PM) UA Color [Yellow] 5.5 (11/23/15 5:25 PM) UA pH [5.0-8.0] 5.5 (11/22/15 11:06 PM) UA pH [5.0-8.0] 1.006 (11/23/15 5:25 PM) UA Spec Grav [<=1.030] 1.020 (11/22/15 11:06 PM) UA Spec Grav [<=1.030] Negative mg/dL *NA* (11/23/15 5:25 PM) UA Glucose [Negative mg/dL] Negative (11/22/15 11:06 PM) UA Glucose [Negative] Trace *ABN* (11/23/15 5:25 PM) Trace *ABN* (11/22/15 11:06 PM) UA Blood [Negative] Negative mg/dL *NA* (11/23/15 5:25 PM) UA Ketones [Negative mg/dL] Negative *NA* (11/22/15 11:06 PM) UA Ketones [Negative] 20 mg/dL *ABN* (11/23/15 5:25 PM) 30 mg/dL *ABN* (11/22/15 11:06 PM) UA Protein [Negative mg/dL] <=1.0 mg/dL *NA* (11/23/15 5:25 PM) UA Urobilinogen [0.1-1.0 mg/dL] 0.2 EU/dL (11/22/15 11:06 PM) UA Urobilinogen [0.1-1.0 EU/dL] Negative *NA* (11/23/15 5:25 PM) Negative *NA* (11/22/15 11:06 PM) UA Bili [Negative] Negative (11/23/15 5:25 PM) Negative (11/22/15 11:06 PM) UA Leuk Est [Negative] Negative (11/23/15 5:25 PM) Negative (11/22/15 11:06 PM) UA Nitrite [Negative] 1 /HPF (11/23/15 5:25 PM) UA WBC [0-5 /HPF] 0-2 /HPF (11/22/15 11:06 PM) UA WBC [None Seen /HPF] <1 /HPF (11/23/15 5:25 PM) 0-2 /HPF (11/22/15 11:06 PM) UA RBC [0-2 /HPF] Occasional /HPF *NA* (11/23/15 5:25 PM) UA Bacteria [None Seen /HPF] None Seen *NA* (11/23/15 5:25 PM) UA Sq Epi None Seen (11/22/15 11:06 PM) UA Sq Epi [Few] 11-20 (11/22/15 11:06 PM) UA Hyal Cast [0-2] Few /HPF *ABN* (11/22/15 11:06 PM) UA Amorph Jesenia [None Seen /HPF] HEMATOLOGY 1 2 3 Most recent to oldest [Reference Range]: 8.3 K/CMM (11/25/15 4:10 AM) 10.3 K/CMM (11/24/15 4:06 AM) 11.7 K/CMM *HI* (11/23/15 4:41 AM) WBC [3.7-10.4 K/CMM] 3.78 M/CMM *LOW* (11/25/15 4:10 AM) 3.89 M/CMM *LOW* (11/24/15 4:06 AM) 3.30 M/CMM *LOW* (11/23/15 4:41 AM) RBC [4.70-6.10 M/CMM] 11.8 g/dL *LOW* (11/25/15 4:10 AM) 12.4 g/dL *LOW* (11/24/15 4:06 AM) 10.1 g/dL *LOW* (11/23/15 4:41 AM) Hgb [14.0-18.0 g/dL] 34.6 % *LOW* (11/25/15 4:10 AM) 35.0 % *LOW* (11/24/15 4:06 AM) 30.4 % *LOW* (11/23/15 4:41 AM) Hct [42.0-54.0 %] 91.7 fL (11/25/15 4:10 AM) 89.8 fL (11/24/15 4:06 AM) 92.1 fL (11/23/15 4:41 AM) MCV [80.0-94.0 fL] 31.3 pg *HI* (11/25/15 4:10 AM) 32.0 pg *HI* (11/24/15 4:06 AM) 30.5 pg (11/23/15 4:41 AM) MCH [27.0-31.0 pg] 34.2 g/dL (11/25/15 4:10 AM) 35.6 g/dL (11/24/15 4:06 AM) 33.2 g/dL (11/23/15 4:41 AM) MCHC [32.0-36.0 g/dL] 12.7 % (11/25/15 4:10 AM) 12.9 % (11/24/15 4:06 AM) 13.0 % (11/23/15 4:41 AM) RDW [11.5-14.5 %] 184 K/CMM (11/25/15 4:10 AM) 177 K/CMM (11/24/15 4:06 AM) 181 K/CMM (11/23/15 4:41 AM) Platelet [133-450 K/CMM] 9.3 fL (11/25/15 4:10 AM) 9.5 fL (11/24/15 4:06 AM) 9.9 fL (11/23/15 4:41 AM) MPV [7.4-10.4 fL] 70.6 % (11/25/15 4:10 AM) 81.9 % *HI* (11/24/15 4:06 AM) 74.8 % (11/23/15 4:41 AM) Segs [45.0-75.0 %] 16.5 % *LOW* (11/25/15 4:10 AM) 8.5 % *LOW* (11/24/15 4:06 AM) 14.3 % *LOW* (11/23/15 4:41 AM) Lymphocytes [20.0-40.0 %] 9.3 % (11/25/15 4:10 AM) 8.1 % (11/24/15 4:06 AM) 9.9 % (11/23/15 4:41 AM) Monocytes [2.0-12.0 %] 2.6 % (11/25/15 4:10 AM) 1.2 % (11/24/15 4:06 AM) 0.5 % (11/23/15 4:41 AM) Eosinophils [0.0-4.0 %] 1.0 % (11/25/15 4:10 AM) 0.3 % (11/24/15 4:06 AM) 0.5 % (11/23/15 4:41 AM) Basophils [0.0-1.0 %] 5.9 K/CMM (11/25/15 4:10 AM) 8.4 K/CMM *HI* (11/24/15 4:06 AM) 8.8 K/CMM *HI* (11/23/15 4:41 AM) Segs-Bands # [1.5-8.1 K/CMM] 1.4 K/CMM (11/25/15 4:10 AM) 0.9 K/CMM *LOW* (11/24/15 4:06 AM) 1.7 K/CMM (11/23/15 4:41 AM) Lymphocytes # [1.0-5.5 K/CMM] 0.8 K/CMM (11/25/15 4:10 AM) 0.8 K/CMM (11/24/15 4:06 AM) 1.2 K/CMM *HI* (11/23/15 4:41 AM) Monocytes # [0.0-0.8 K/CMM] 0.2 K/CMM (11/25/15 4:10 AM) 0.1 K/CMM (11/24/15 4:06 AM) 0.1 K/CMM (11/23/15 4:41 AM) Eosinophils # [0.0-0.5 K/CMM] 0.1 K/CMM (11/25/15 4:10 AM) 0.1 K/CMM (11/23/15 4:41 AM) 0.1 K/CMM (11/22/15 11:01 PM) Basophils # [0.0-0.2 K/CMM] 14.5 seconds (11/23/15 4:41 AM) PT [12.0-14.7 seconds] 1.10 (11/23/15 4:41 AM) INR [0.85-1.17] 28.6 seconds (11/23/15 4:41 AM) PTT [22.9-35.8 seconds] BACTERIAL - SEROLOGY 1 2 3 Most recent to oldest [Reference Range]: Negative (11/23/15 4:41 AM) MRSA by PCR Immunizations No data available for this section Procedures No data available for this section Social History Social History Type Response Alcohol Current, Type Beer. Frequency: 3-5 times per week. Smoking Status Never smoker; Exposure to Tobacco Smoke None; Cigarette Smoking Last 365 Days No; Reg Smoking Cessation Counseling No Assessment and Plan Extracted from: Title: CCU discharge summary Author: Rashaun Arriaga MD [...] The patient was urgenty sent to the labor relations analyst for transvenous pacer. On day 1, he [...] as directed. Rashaun Arriaga MD PGY-2 Resident [place] Internal Medicine Extracted from: [facility] Author: Aravind Herrera Date: 11/24/15 [...] Refill(s) Problem list: All Problems Diabetes / [id number] / Confirmed Physical Examination VS/Measurements Vital Signs (last 24 hrs) Last Charted Temp Oral98.2 DegF (NOV 23 07:00) Heart Rate Ghanoc85 bpm (NOV 23 10:00) Resp Rate 15 BRMIN (NOV 23 10:00) XMP644 mmHg (NOV 23 10:00) DBP73 mmHg (NOV 23 10:00) PrJ200 % (NOV 23 10:52) , Measurements from [...] No tenderness. No swelling. Integumentary: Warm, Dry, [place]. Neurologic: Alert, Oriented, Normal sensory, Normal motor function, No focal deficits. Psychiatric: Cooperative, Appropriate mood & affect, Normal judgment. Lines, Tubes, and Drains: 11/23/2015 20:00 Central Lines: Internal jugular, right Non-tunneled (most common) Single 11/23/2015 03:34 Peripheral Lines: Hand Left 20 gauge Over the needle catheter Review / Management Results review: Labs (Last four charted values) WBC 10.3(SEP 08)H 11.7(NOV 22)H 14.4(NOV 21) Hgb L 12.4(NOV 08)L 10.1(NOV 07)L 11.6(NOV 21) Hct L 35.0(NOV 08)L 30.4(NOV 07)L 33.9(NOV 06) Plt 177(NOV 08)181(NOV 07)188(NOV 06) Na 136(NOV 08)136(NOV 07)135(NOV 07)L 131(NOV 22) K 4.3(NOV 23)5.0(NOV 22)4.8(NOV 22)4.8(NOV 22) CO2 28(NOV 08)L 22(NOV 22)L 20(NOV 22)L 20(NOV 22) Cl 101(NOV 23)101(NOV 22)101(NOV 22)101(NOV 22) Cr H 1.67(NOV 08)H 2.90(NOV 22)H 3.27(NOV 22)H 3.34(NOV 22) BUN H 28(NOV 23)H 43(NOV 22)H 45(NOV 22)H 45(NOV 22) Glucose Random H 187(NOV 23)H 182(NOV 22)H 191(NOV 22)H 206(NOV 22) Mg L 1.6(NOV 08)2.0(NOV 22)2.3(NOV 22)L 1.4(NOV 21) Phos L 2.0(NOV 23)2.5(NOV 22)3.1(NOV 22)2.6(NOV 06) Ca 8.7(NOV 23)L 8.4(NOV 22)8.8(NOV 22)8.6(NOV 22) PT 14.5(NOV 22) INR 1.10(NOV 22) PTT 28.6(NOV 22) Troponin C 0.54(NOV 08)C 0.74(NOV 22)C 0.86(NOV 22)C 0.75(NOV 22) CK MB 1.2(NOV 23)2.4(NOV 22)H 3.8(NOV 22)2.9(NOV 22) Total CK 90(NOV 08)99(NOV 22)118(NOV 22)116(NOV 22). Impression and Plan 1. Symptomatic bradycardia 2. [...] A1C 8.1, consider starting basal insulin. Consult informatics educator and funnel setter. Disposition - okay to transfer out of ICU if hemodynamically stable post TVPM removal. Addendum [facility] Pulmonary & Critical Care Medicine Attending by Veena, Teaching Attestation & Critical Care Progress Note Hans GREGORY I saw, evaluated, and participated in the care of the patient with the BORIS Zuora FILER METAL PATTERNS on the date of this note. I concur with the assessment and plan in their note 11/24/2015 dated 11/24/2015. I have extensively reviewed the patient's available history, information, 18:24 labs and imaging. My appropriate corrections, additions, [...] MSK: Moves upper extr 5/5 with appropriate fixture relamper strength bilaterally Problem List / Plan 1. [...] 8.2 6. Electrolye distubance 7. Hyperlipidemia Extracted from: Title: EP consultation note Author: Neftlai Stern MD Date: 11/23/15 Patient: KEI ARVIZU [...] NKDA- No reactions were documented., Allergies (1) ActiveReaction NKDANone Documented Current medications: Home Medications (8) Active [...] PRN Histories Past Medical History: Active Diabetes (976234431) Resolved Hypertension (1255261221): Resolved. Hyperlipemia (59332223): Resolved. Family History: History is unknown. Procedure [...] Signs (last 24 hrs) Last Charted Temp Oral98 DegF (NOV 22 03:15) Heart Rate Hwlgoe48 bpm (NOV 22 13:00) Resp Rate 18 BRMIN (NOV 22:) SBPH 141mmHg (NOV 22:) DBP71 mmHg (NOV 22:) OwT6583 % (NOV 22:) Iruhzz42 kg (NOV 22 04:21) Gzofjn547.1 cm (NOV 22 04:21) BMI27.51 (NOV 22 04:21) , VitalsTmp(F)AiydcYCMUZmC1MEK7 11/22 13:00----96369/4517418--- 11/22 12:30----26991/492841--- 11/22 12:29 9512.0L/m 11/22 12:00----31445/4313053--- 11/22 11:30----63937/0201159--- 24 Hr Tmax: 98.3F (36.83c) at 11/21 22:26Vital Signs are the last 5 in the past 48 hours. Intake and Output I/O Intake OutputBalance 11/23/20157a-3p 267.03 3165.00 -2897.97 3p-11p 0.00 0.00 0.00As of 16:03 11p-7a 0.00 0.00 0.00 Totals 267.03 3165.00 -2897.97 11/22/20157a-3p 0.00 0.00 0.00 3p-11p 0.00 0.00 0.00 11p-7a 1624.61 650.00 974.61 Totals 1624.61 650.00 974.61 11/21/20157a-3p 0.00 0.00 0.00 3p-11p 0.00 0.00 0.00 [...] Signs (last 24 hrs) Last Charted Temp Oral98 DegF (NOV 22 03:15) Heart Rate Apvcuo12 bpm (NOV 22 13:00) Resp Rate 18 BRMIN (NOV 22 13:00) SBPH 141mmHg (NOV 22 13:00) DBP71 mmHg (NOV 22 13:00) CqU6379 % (NOV 22 13:00) Xunpbp64 kg (NOV 22 04:21) Lnklax566.1 cm (NOV 22 04:21) BMI27.51 (NOV 22 04:21) Review / Management Results review: Labs (Last four charted values) WBC H 11.7(NOV 22)H 14.4(NOV 21) Hgb L 10.1(NOV 22)L 11.6(NOV 21) Hct L 30.4(NOV 22)L 33.9(NOV 21) Plt 181(NOV 22)188(NOV 21) Na 136(NOV 22)135(NOV 22)L 131(NOV 22)L 131(NOV 21) K 5.0(NOV 22)4.8(NOV 22)4.8(NOV 22)H 6.1(NOV 21) CO2 L 22(NOV 22)L 20(NOV 22)L 20(NOV 07)L 21(NOV 21) Cl 101(NOV 22)101(NOV 22)101(NOV 22)99(NOV 21) Cr H 2.90(NOV 22)H 3.27(NOV 22)H 3.34(NOV 22)H 3.57(NOV 21) BUN H 43(NOV 22)H 45(NOV 22)H 45(NOV 22)H 47(NOV 21) Glucose Random H 182(NOV 22)H 191(NOV 22)H 206(NOV 22)H 242(NOV 21) Mg 2.0(NOV 22)2.3(NOV 22)L 1.4(NOV 21) Phos 2.5(NOV 22)3.1(NOV 22)2.6(NOV 21) Ca L 8.4(NOV 22)8.8(NOV 22)8.6(NOV 22)8.5(NOV 21) PT 14.5(NOV 22) INR 1.10(NOV 22) PTT 28.6(NOV 22) Troponin C 0.86(NOV 22)C 0.75(NOV 22)C 0.83(NOV 21) CK MB H 3.8(NOV 22)2.9(NOV 22)H 3.8(NOV 21) Total CK 118(NOV 22)116(NOV 22)156(NOV 21). Laboratory Results Radiology results Discussed with radiologist Cardiology Results Left ventricular ejection fraction: 11/23/2015 13:00 SpO2 bewpent463 11/23/2015 12:29 Oxygen Therapy ModeHigh flow nasal cannula 11/23/2015 08:37 FIO2 (%)80 11/23/2015 05:50 Non-Invasive Vent ModeCPAP PEEP/CPAP12 Ambu Bag Mask to O2Yes Lines and Tubes: Lines, Tubes, and Drains: 11/23/2015 06:00 Indwelling Urinary Catheter: Urethral 16 [place] Indwelling/Continuous 11/23/2015 03:34 Peripheral Lines: Hand Left [...] you for this consult Neftali Stern M.D. cdl bulk driver, PGY 5 Addendum The patient was seen and examined at the bedside with Dr Stern on 11-23-2015. I have by reviewed thed note and I agree with the assessment and plan. I have also reviewed labs, Venkataram ECG tracing s and radiology findings. Dar dhillon MD on 11/27/2015 18:47 Extracted from: Title: temperature transvenous Author: Giuliano Pitt MD PHD Date: 11/23/15 pacemaker insertion DATE OF PROCEDURE: 11/23/2015 PROCEDURES PERFORMED: Temporary transvenous pacemaker placement INDICATION FOR PROCEDURE: Symptomatic junctional bradycardia OPERATORS: Interventional cardiology attending: Dr. Logan Reyez Interventional inside trucker: Giuliano Amaral ACCESS: 6 [place] right internal jugular vein Pre-Procedure Diagnosis: Symptomatic junctional bradycardia Post-Procedure Diagnosis: Successful placement of the temporary transvenous pacemaker via the right jugular vein CONCLUSIONS Successful placement of the temporary transvenous pacemaker via the right jugular vein RECOMMENDATIONS 1. IV antibiotics to cover gram-positive organism preferably IV vancomycin while temperature wire is in place (patient received Ancef 1 g IV in the labor relations analyst) 2. Electrophysiology service was already consulted and will evaluate the patient DESCRIPTION OF THE PROCEDURE Emergent procedure. Only verbal consent was obtained Lidocaine 1% was used for local anesthesia. Utilizing modified Seldinger technique, 6 [place] sheath was placed into the right internal jugular vein utilizing a micropuncture kit. 5 [place] balloontipped catheter was advanced into the RV [...] aspects of the procedure. Logan Reyez MD MSO#[id number] Extracted from: Title: CCU H&P Author: Paulette Rosa MD Date: [...] Transcutaneous pacing if necessary otherwise plan for labor relations analyst for transvenous pacing -If becomes acutely symptomatic [...]
--- OUTSIDE RECORDS SUMMARY | 2018-09-21 15:00 | XMS REPORT | Summary of Care ---
Author Author Julian Heck, [place] [employer] Unknown Address [facility] Phone Unavailable Care Team Providers Care Glass Cutting Machine Operator Name Role Phone BETTY Silva, RODRIGO Unavailable Unavailable MARIBELL Silva, YURI Unavailable Unavailable ERIC P.A., CLAY Unavailable Unavailable Antelmo GREGORY, Demetrius Unavailable Unavailable REILLY MORALES MD, CHANTAL Unavailable Unavailable JAIMIE GREGORY AL, OLEG CORDOVA Unavailable Unavailable Betty GREGORY, Rodrigo Unavailable Unavailable Maribell GREGORY, Yuri Unavailable Unavailable ANTELMO Silva, DEMETRIUS Unavailable Unavailable Unavailable Unavailable Functional Status Name Dates Details Functional status health issues are not documented Status: Name Dates Details Cognitive status health issues are not documented Status: Problems Name Dates Details Proteinuria (791.0, R80.9) Status: Active Neuropathy, diabetic (250.60, E11.40) Status: Active Mixed hyperlipidemia (272.2, E78.2) Status: Active Mild aortic stenosis (424.1, I35.0) Status: Active Microalbuminuria (791.0, R80.9) Status: Active Uncontrolled type 2 diabetes mellitus with stage 3 chronic kidney disease, without long-term current use of insulin (250.52, E11.22) Status: Active Acute streptococcal pharyngitis (034.0, J02.0) Status: Active Diabetes mellitus type 2, controlled (250.00, E11.9) Status: Active Chronic renal insufficiency (585.9, N18.9) Status: Active Essential (primary) hypertension (401.9, I10) Status: Active Pedal edema (782.3, R60.0) Status: Active Anemia (285.9, D64.9) Status: Active Screen for colon cancer (V76.51, Z12.11) Status: Active Need for hepatitis C screening test (V73.89, Z11.59) Status: Active Sore throat (462, J02.9) Status: Active ARDS survivor (V12.69, Z87.09) Status: Active Cough (786.2, R05) Status: Active Dysphagia, unspecified type (787.20, R13.10) Status: Active History of recent pneumonia (V12.61, Z87.01) Status: Active Medications Name Dates Details Aspirin Low Dose TABS Active Atorvastatin Calcium 20 MG Oral Tablet TAKE 1 TABLET AT BEDTIME * Quantity: 1 Refills: 1 YURI REYNA M.D. * Start : 19-Jun-2017 Active 90 Tablet Bottle OneTouch Verio In Vitro Strip USE TO CHECK BG THREE TIMES A DAY. * Quantity: 3 Refills: 0 RODRIGO HERNÁNDEZ M.D. * Start : 26-Apr-2016 Active 100 Strip Box NIFEdipine ER Osmotic Release 60 MG Oral Tablet Extended Release 24 Hour Take 1 tablet by mouth twice a day * Quantity: 180 Refills: 1 YURI REYNA M.D. * Start : 17-Sep-2016 Active OneTouch Delica Lancets 33G Use to check blood glucose 3 times daily * Quantity: 300 Refills: 0 RODRIGO HERNÁNDEZ M.D. * Start : 28-Sep-2016 Active Benzonatate 100 MG Oral Capsule TAKE 1 CAPSULE 3 times daily as needed for cough * Quantity: 30 Refills: 1 CLAY STEWART * Start : 27-May-2018 Active Furosemide 20 MG Oral Tablet take 2 tabs PO BID * Refills: 0 Active glipiZIDE 5 MG Oral Tablet take 1 tab w/breakfast and 1-2 tabs w/dinner PO * Quantity: 90 Refills: 2 BETTY Silva, RODRIGO * Start : 18-Jul-2018 Active Allergies and Adverse Reactions Name Dates Details Tradjenta TABS (Allergy) Reaction: Edema Status: Active Past Medical History Name Dates Details History of NANCY (acute kidney injury) (584.9, N17.9) Status: Resolved History of Bradycardia (427.89, R00.1) Status: Resolved Procedures Procedure Dates Details History of Prior Surgical Procedure Not Done Completed Immunization Name Dates Details Influenza on: 24-Jan-2016 Social History Name Dates Details - Status: Name Dates Details Never smoker Vital Signs Date Test Result Details No Known Vitals to report Results Date Description Value Details Results not documented Plan of Care Name Dates Details Planned Observations Planned Goals not documented Planned Encounters Appointment; RODRIGO HERNÁNDEZ M.D. On: 24-Oct-2018 16:00 Appointment; YURI REYNA M.D. On: 24-Dec-2018 16:40 Interventions Provided Medication Changes* Suhail Thomas 33G - Renew Instructions Name Dates Details Instructions not documented Encounters Appointment; RODRIGO HERNÁNDEZ M.D. Encounter Diagnosis: Problem not documented On: 28-Sep-2016 16:00 Appointment; JOSEALEJANDRAMS, ECHO Encounter Diagnosis: Problem not documented On: 07-Dec-2016 11:00 Appointment; YURI REYNA M.D. Encounter Diagnosis: Problem not documented On: 14-Dec-2016 13:20 Appointment; RODRIGO HERNÁNDEZ M.D. Encounter Diagnosis: Problem not documented On: 12-Apr-2017 14:00 Appointment; SANTY PRATT M.D. Encounter Diagnosis: Problem not documented On: 28-May-2017 10:00 Appointment; YURI REYNA M.D. Encounter Diagnosis: Problem not documented On: 21-Jun-2017 13:20 Appointment; RODRIGO HERNÁNDEZ M.D. Encounter Diagnosis: Problem not documented On: 11-Jul-2017 16:00 Appointment; SANTY PRATT M.D. Encounter Diagnosis: Problem not documented On: 02-Aug-2017 11:30 Appointment; DEMETRIUS RODRIGES M.D. Encounter Diagnosis: Problem not documented On: 13-Sep-2017 14:30 Appointment; RODRIGO HERNÁNDEZ M.D. Encounter Diagnosis: Problem not documented On: 14-Oct-2017 16:00 [facility] Encounter Diagnosis: Problem not documented On: 17-Jan-2018 11:00 Appointment; YURI REYNA M.D. Encounter Diagnosis: Problem not documented On: 17-Jan-2018 12:20 Appointment; RODRIGO HERNÁNDEZ M.D. Encounter Diagnosis: Problem not documented On: 17-Jan-2018 15:30 Appointment; CHANTAL MENSAH M.D. Encounter Diagnosis: Problem not documented On: 07-Mar-2018 13:45 Appointment; CHARITAKIS, YURI, M.D. Encounter Diagnosis: Problem not documented On: 19-Mar-2018 15:00 Appointment; YURI REYNA M.D. Encounter Diagnosis: Problem not documented On: 23-Apr-2018 18:20 Appointment; CLAY REYES P.A. Encounter Diagnosis: Problem not documented On: 27-May-2018 10:15 Appointment; RODRIGO HERNÁNDEZ M.D. Encounter Diagnosis: Problem not documented On: 18-Jul-2018 14:00
[2018-09-21] MEDS ORDERED: FUROSEMIDE INJ 10 MG/ML 4 ML VIAL IV ONE (16:00)
[2018-09-21 16:07] LABS: BASOPHILS # (AUTO) 0.1 (0.0-0.1); BASOPHILS % 0.5 % (0.0-1.0); EOSINOPHILS # (AUTO) 0.2 (0.0-0.4); EOSINOPHILS % 1.3 % (0.0-6.0); HEMATOCRIT 27.9 % (38.2-49.6); HEMOGLOBIN 9.6 g/dL (14.0-18.0); LYMPHOCYTES # (AUTO) 1.2 (1.0-3.2); LYMPHOCYTES % 10.4 % (18.0-39.1); MEAN CORPUSCULAR HEMOGLOBIN 31.5 pg (28-32); MEAN CORPUSCULAR HGB CONC 34.4 g/dL (31-35); MEAN CORPUSCULAR VOLUME 91.5 fL (81-99); MONOCYTES # (AUTO) 0.9 (0.2-0.8); MONOCYTES % 7.4 % (4.4-11.3); NEUTROPHILS # (AUTO) 9.5 (2.1-6.9); NEUTROPHILS % 80.1 % (38.7-80.0); PLATELET COUNT 243 x10e3/uL (140-360); RED BLOOD COUNT 3.05 x10e6/uL (4.3-5.7); RED CELL DISTRIBUTION WIDTH 12.4 % (11.7-14.4)
[2018-09-21 16:21] LABS: INR 0.87; PROTHROMBIN TIME 12.3 seconds (11.9-14.5)
[2018-09-21 16:22] LABS: PARTIAL THROMBOPLASTIN TIME 33.5 seconds (23.8-35.5)
[2018-09-21 16:29] LABS: ALBUMIN 2.4 g/dL (3.5-5.0); ALBUMIN/GLOBULIN RATIO 0.5 (0.8-2.0); ANION GAP 16.6 mmol/L (8-16); CALCIUM 8.3 mg/dL (8.4-10.2); CREATININE, SERUM 6.39 mg/dL (0.72-1.25); POTASSIUM 3.6 mmol/L (3.5-5.1)
[2018-09-21 16:35] LABS: CREATINE KINASE MB 15.7 ng/mL (0-5.0)
--- NOTE | 2018-09-21 16:38 | NUR ---
NOTIFIED DR BENAVIDES TROP I 8.9 NO NEW ORDERS NOTED AT THIS TIME.
[2018-09-21] MEDS ORDERED: HEPARIN SOD (PORCINE) 5,000 UNIT/ML VIAL IV ONE ×2 (17:00→17:30)
[2018-09-21] MEDS ORDERED: HEPARIN 25,000 UNIT 700 UNIT in DEXTROSE 5% 250ML 250 ML IV SCH ×2 (17:00→17:45)
--- NOTE | 2018-09-21 17:15 | Diagnostic Imaging Report ---
EXAMINATION: CHEST SINGLE (PORTABLE) INDICATION: ^SOB ^[id number] ^1530 ^Y COMPARISON: None FINDINGS: AP view TUBES and LINES: None. LUNGS: Lungs are well inflated. Bilateral pulmonary edema. More confluent airspace opacity in the right lower lobe. PLEURA: No pleural effusion or pneumothorax. HEART AND MEDIASTINUM: The cardiac silhouette is mildly enlarged. BONES AND SOFT TISSUES: No acute osseous lesion. Soft tissues are unremarkable. UPPER ABDOMEN: No free air under the diaphragm. IMPRESSION: Bilateral pulmonary edema. More confluent airspace opacity in the right lower lobe may represent asymmetric edema or superimposed infection. Continue to follow-up. Signed by: Dr. Jayde Oliva M.D. on 09/21/2018 5:12 PM
[2018-09-21] MEDS ORDERED: HEPARIN SOD (PORCINE) 5,000 UNIT/ML VIAL SC ONE (17:30)
[2018-09-21] MEDS ORDERED: SODIUM CHLORIDE FLUSH 10 ML SYR INJ PRN (18:30)
[2018-09-21] MEDS ORDERED: ONDANSETRON HCL INJ 2MG/ML 2ML 2 MG/ML VIAL IV PRN (18:30)
[2018-09-21] MEDS ORDERED: DEXTROSE 50% SYRINGE 50 ML IV PRN (18:30)
--- OUTSIDE RECORDS SUMMARY | 2018-09-21 19:03 | XMS REPORT | Clinical Summary ---
Author Author YOLANDA [facility] Organization [facility] Address Unknown Phone Unavailable Care Team Providers Care Clin Tech Name Role Phone Yuri Olvera Unavailable Unavailable Magnus Devorah Unavailable ShwethaEdwin PCP Allergies Not on File Medications Not on file Active Problems Not on file Encounters Care Team Description Date Type Specialty Khushbu Perez Appointment (Called patient's to leave message regarding scheduling 's day one renal txp eval appt. Gave her available [place] days in September and October. She stated she will talk to her and call back tomorrow to schedule.) 09/03/2018 Telephone Transplant Khushbu Perez Appointment (Called patient ot schedule day one renal txp eval appt. No answer. Left detailed voicemail message and call back number in Afghan. ) 09/03/2018 Telephone Transplant Khushbu Perez 09/03/2018 [...] ID Type Phone Address Plan / Group [facility] H[facility]/POS CARE POS SELECT CHOICE
--- OUTSIDE RECORDS SUMMARY | 2018-09-21 19:05 | XMS REPORT | Continuity of Care Document ---
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 Name Role Phone indidebt Information [facility] Unavailable Unavailable Problems Problem Status Onset Date Classification Date Reported Comments Source Sepsis, unspecified organism 03/22/2018 09/14/2018 [facility] Acute dyspnea 02/08/2018 09/14/2018 [facility] COUGH AND CHEST PAIN Active 02/08/2018 [facility] ACUTE DYSPNEA Active 02/08/2018 [facility] CHEST PAIN Active 03/20/2017 [facility] SYNCOPE Active 11/22/2015 [facility] SYNCOPE, BRADYCARDIA, CHF Active 11/22/2015 [facility] Diabetes Active Problem 09/14/2018 [facility] Hyperlipemia Resolved Problem 09/14/2018 [facility] Hypertension Resolved Problem 09/14/2018 [facility] Acute respiratory failure with hypoxia 09/14/2018 [facility] Acute kidney failure with tubular necrosis 09/14/2018 [facility] Acute respiratory failure with hypercapnia 09/14/2018 [facility] Pneumonia due to Methicillin susceptible Staphylococcus aureus 09/14/2018 [facility] Myocardial infarction type 2 09/14/2018 [facility] Chronic kidney disease, stage 4 09/14/2018 [facility] Hyperosmolality and hypernatremia 09/14/2018 [facility] Chronic obstructive pulmonary disease with exacerbation 09/14/2018 [facility] Chronic obstructive pulmonary disease with acute lower respiratory infection 09/14/2018 [facility] Hypo-osmolality and hyponatremia 09/14/2018 [facility] Chronic pulmonary edema 09/14/2018 [facility] Shock, unspecified 09/14/2018 [facility] Hyperkalemia 09/14/2018 [facility] Hypertensive chronic kidney disease with stage 1 through stage 4 chronic kidney disease, or unspecified chronic kidney disease 09/14/2018 [facility] Atherosclerotic heart disease of [place] coronary artery without angina pectoris 09/14/2018 [facility] Hyperlipidemia, unspecified 09/14/2018 [facility] Type 2 diabetes mellitus with diabetic chronic kidney disease 09/14/2018 [facility] Nutritional anemia, unspecified 09/14/2018 [facility] use of insulin 09/14/2018 [facility] Type 2 diabetes mellitus with hyperglycemia 09/14/2018 [facility] Hypermagnesemia 09/14/2018 [facility] Obesity, unspecified 09/14/2018 [facility] Body mass index 27.0-27.9, adult 09/14/2018 [facility] Ventricular premature depolarization 09/14/2018 [facility] Cyst of kidney, acquired 09/14/2018 [facility] Dysphagia, unspecified 09/14/2018 [facility] Procedure and treatment not carried out, unspecified reason 09/14/2018 [facility] 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 09/14/2018 [facility] use of aspirin 09/14/2018 [facility] SYNCOPE AND COLLAPSE Active [facility] DYSPNEA, UNSPECIFIED Active [facility] CHEST PAIN, UNSPECIFIED Active [facility] Medications Medication Details Route Status Patient Instructions Ordering Provider Order Date Source Blood Glucose Test Strips 1 box, TOP, Before Breakfast, # 60 box, 0 Refill(s) Inactive 02/25/2018 [facility] Blood Glucose Test Strips 1 box, TOP, Before Breakfast, # 60 box, 0 Refill(s) Inactive 02/25/2018 [facility] [employer] Blood Glucose Meter 1 ea, MISC, ONCE, Last HBA1c: Insulin Dep:Y High freq tests for: Poor control Certified Medically Necessary:, # 1 ea, Insulin dependent, Does not use insulin pump, Last DM eval date 02/25/18, 0 Refill(s) Inactive 02/25/2018 [facility] [employer] Blood Glucose Meter 1 ea, MISC, ONCE, Last HBA1c: Insulin Dep:Y High freq tests for: Poor control Certified Medically Necessary:, # 1 ea, Insulin dependent, Does not use insulin pump, Last DM eval date 02/25/18, 0 Refill(s) Inactive 02/25/2018 [facility] Insulin Syringes U 30 31 ga (ultra fine) 1 syr, INJ, Daily, # 60 syr, 1 Refill(s) No Longer Active 02/25/2018 [facility] [employer] Blood Glucose Meter 1 ea, MISC, ONCE, Last HBA1c: Insulin Dep:Y High freq tests for: Poor control Certified Medically Necessary:, # 1 ea, Insulin dependent, Does not use insulin pump, Last DM eval date 02/25/18, 0 Refill(s) Inactive 02/25/2018 [facility] [employer] Blood Glucose Meter 1 ea, MISC, ONCE, Last HBA1c: Insulin Dep:Y High freq tests for: Poor control Certified Medically Necessary:, # 1 ea, Insulin dependent, Does not use insulin pump, Last DM eval date 02/25/18, 0 Refill(s) Inactive 02/25/2018 [facility] Insulin Syringes U 30 31 ga (ultra fine) 1 syr, INJ, Daily, # 60 syr, 1 Refill(s) Inactive 02/25/2018 [facility] [employer] Blood Glucose Meter 1 ea, MISC, ONCE, Last HBA1c: Insulin Dep:Y High freq tests for: Poor control Certified Medically Necessary:, # 1 ea, Insulin dependent, Does not use insulin pump, Last DM eval date 02/25/18, 0 Refill(s), other Inactive 02/25/2018 [facility] Insulin Syringes U 30 31 ga (ultra fine) 1 syr, INJ, Daily, # 60 syr, 1 Refill(s), other Inactive 02/25/2018 [facility] atorvastatin 40 mg oral tablet 20 mg=0.5 tab, PO, Bedtime, # 60 tab, 3 Refill(s) No Longer Active 02/25/2018 [facility] Aspirin 81 MG Enteric Coated Tablet 81 mg=1 tab, PO, Daily, # 60 tab, 3 Refill(s) No Longer Active 02/25/2018 [facility] NIFEdipine 60 mg oral tablet, extended release 60 mg=1 tab, PO, Daily, # 90 tab, 3 Refill(s) No Longer Active 02/25/2018 [facility] Insulin Glargine 100 UNT/ML Injectable Solution 26 unit, SUB-Q, Daily, # 10 mL, 0 Refill(s) No Longer Active 02/25/2018 [facility] melatonin 3 mg oral tablet 6 mg=2 tab, PO, Bedtime, X 14 day, # 28 tab, 0 Refill(s) No Longer Active 02/25/2018 [facility] clopidogrel 75 mg oral tablet 75 mg=1 tab, PO, Daily, # 30 tab, 0 Refill(s) No Longer Active 02/25/2018 [facility] carvedilol 6.25 mg oral tablet 6.25 mg=1 tab, PO, Q12H, # 60 tab, 0 Refill(s) No Longer Active 02/25/2018 [facility] Sodium Chloride 0.9% (titrate) 250 mL 250 mL, Rate: To prime line and flush remaining blood products., Dosing Weight 74.6, kg, Route: IV, Total Volume: 250, Priority: Routine, Start Date: 02/25/18 4:38:00 FINANCIAL MANAGEMENT CONSULTANT, Duration: 30 day, Stop date: 03/27/18 4:37:00 FINANCIAL MANAGEMENT CONSULTANT, Replace Every: 24 hr Inactive 02/25/2018 [facility] Insulin Lispro 6 unit, 0.06 mL, Route: SUB-Q, Drug form: SOLN, TID-Before Meals, Dosing Weight 74.6, kg, PRN Blood Glucose Results, Start date: 02/25/18 2:10:00 FINANCIAL MANAGEMENT CONSULTANT, Duration: 30 day, Stop date: 03/27/18 2:09:00 CSTNotes: (Same as: Humalog ) Roll in palms of hands gently; Do not shake `vigorously. "Single Patient Use Only " WASTE: F/P - Black; E - Municipal Trash Bin Stable for 28 days at room temperature. Expires in days from Date Inactive 02/25/2018 [facility] Glucagon 1 mg, Route: IM, Drug form: PDR/INJ, PRN, Dosing Weight 74.6, kg, PRN Blood Glucose Results, Start date: 02/25/18 2:10:00 FINANCIAL MANAGEMENT CONSULTANT, Duration: 30 day, Stop date: 03/27/18 2:09:00 FINANCIAL MANAGEMENT CONSULTANT Inactive 02/25/2018 [facility] Dextrose 50% Syringe 12.5 gm, 25 mL, Route: IVP, Drug Form: INJ, Dosing Weight 74.6, kg, PRN, PRN Blood Glucose Results, Start date: 02/25/18 2:10:00 FINANCIAL MANAGEMENT CONSULTANT, Duration: 30 day, Stop date: 03/27/18 2:09:00 FINANCIAL MANAGEMENT CONSULTANT Inactive 02/25/2018 [facility] insulin glargine 26 unit, 0.26 mL, Route: SUB-Q, Drug form: SOLN, Daily, Start date: 02/24/18 8:00:00 FINANCIAL MANAGEMENT CONSULTANT, Duration: 30 day, Stop date: 03/25/18 8:00:00 CSTNotes: Same as: Lantus) Do not hold insulin without contacti ng prescriber WASTE: F/P - Black; E - Municipal Trash Bin No Longer Active 02/24/2018 [facility] Potassium Chloride 1.33 MEQ/ML Oral Solution 40 mEq, 30 mL, Route: PO, Drug form: LIQ, ONCE, Dosing Weight 74.6, kg, Start date: 02/23/18 15:16:00 FINANCIAL MANAGEMENT CONSULTANT, Stop date: 02/23/18 15:16:00 CSTNotes: (Same as: Potassium Chloride) Inactive 02/23/2018 [facility] Amlodipine 5 mg, Route: PO, Drug form: TAB, Daily, Dosing Weight 74.6, kg, Start date: 02/23/18 9:00:00 FINANCIAL MANAGEMENT CONSULTANT, Duration: 30 day, Stop date: 03/24/18 9:00:00 FINANCIAL MANAGEMENT CONSULTANT No Longer Active 02/23/2018 [facility] insulin glargine 26 unit, 0.26 mL, Route: SUB-Q, Drug form: SOLN, Q12H, Start date: 02/23/18 0:00:00 FINANCIAL MANAGEMENT CONSULTANT, Duration: 30 day, Stop date: 03/24/18 12:00:00 CSTNotes: Same as: Lantus) Do not hold insulin without contacting prescriber WASTE: F/P - Black; E - Municipal Trash Bin Inactive 02/23/2018 [facility] Insulin Glargine 100 UNT/ML Injectable Solution 10 unit, Route: SUB-Q, Bedtime, Dosing Weight 74.6, kg, Start date: 02/22/18 21:00:00 FINANCIAL MANAGEMENT CONSULTANT, Duration: 30 day, Stop date: 03/23/18 21:00:00 FINANCIAL MANAGEMENT CONSULTANT Inactive 02/23/2018 [facility] Glycopyrrolate 1 mg, 5 mL, Route: NG, Drug form: SOLN, BID, Dosing Weight 74.6, kg, Start date: 02/22/18 13:00:00 FINANCIAL MANAGEMENT CONSULTANT, Duration: 30 day, Stop date: 03/24/18 9:00:00 CSTNotes: (Same as: Cuvposa) No Longer Active 02/22/2018 [facility] Amlodipine 10 mg, 1 tab, Route: NG, Drug form: TAB, Daily, Dosing Weight 74.6, kg, Start date: 02/22/18 10:50:00 FINANCIAL MANAGEMENT CONSULTANT, Duration: 30 day, Stop date: 03/24/18 9:00:00 CSTNotes: (Same as: Norvasc) No Longer Active 02/22/2018 [facility] Glycopyrrolate 1 mg, 5 mL, Route: NG, Drug form: SOLN, BID, Dosing Weight 74.6, kg, Start date: 02/22/18 10:48:00 FINANCIAL MANAGEMENT CONSULTANT, Duration: 30 day, Stop date: 03/24/18 9:00:00 CSTNotes: (Same as: Cuvposa) Inactive 02/22/2018 [facility] Lasix 20 mg, 1 tab, Route: PO, Drug form: TAB, Daily, Dosing Weight 74.6, kg, Start date: 02/22/18 9:00:00 FINANCIAL MANAGEMENT CONSULTANT, Duration: 30 day, Stop date: 03/23/18 9:00:00 CSTNotes: (Same as: Lasix) May cause GI upset. Give with food or milk. No Longer Active 02/22/2018 [facility] heparin sodium, porcine 2500 UNT/ML Injectable Solution 5,000 unit, 1 mL, Route: SUB-Q, Drug form: INJ, Q8H, Dosing Weight 74.6, kg, Start date: 02/21/18 16:00:00 FINANCIAL MANAGEMENT CONSULTANT, Duration: 30 day, Stop date: 03/23/18 8:00:00 CSTNotes: porcine heparin No Longer Active 02/21/2018 [facility] Reglan 10 mg, 2 mL, Route: IVP, Drug form: INJ, ONCE, Dosing Weight 74.6, kg, Start date: 02/21/18 11:43:00 FINANCIAL MANAGEMENT CONSULTANT, Stop date: 02/21/18 11:43:00 CSTNotes: (Same as: Reglan) Inactive 02/21/2018 [facility] NIFEdipine 60 mg oral tablet, extended release 60 mg, 1 tab, Route: PO, Drug form: ERTAB, Daily, Dosing Weight 74.6, kg, Start date: 02/21/18 9:00:00 FINANCIAL MANAGEMENT CONSULTANT, Duration: 30 day, Stop date: 03/22/18 9:00:00 FINANCIAL MANAGEMENT CONSULTANT, ..Notes: (Same as: Adalat CC, Procardia XL) Give on empty stomach. Take 1 hour before or 2 hours after meal; "Avoid grapefruit and grapefruit juice". Do not crush No Longer Active 02/21/2018 [facility] Coreg 6.25 mg, 1 tab, Route: PO, Drug form: TAB, Q12H, Dosing Weight 74.6, kg, Start date: 02/20/18 9:00:00 FINANCIAL MANAGEMENT CONSULTANT, Duration: 30 day, Stop date: 03/21/18 21:00:00 CSTNotes: Give with food. (Same As: Coreg) No Longer Active 02/20/2018 [facility] Melatonin 6 mg, 2 tab, Route: PO, Drug form: TAB, Bedtime, Dosing Weight 74.6, kg, Start date: 02/19/18 21:00:00 FINANCIAL MANAGEMENT CONSULTANT, Duration: 30 day, Stop date: 03/20/18 21:00:00 CSTNotes: (Same as: Melatonin) No Longer Active 02/20/2018 [facility] insulin, isophane 22 unit, 0.22 mL, Route: SUB-Q, Drug form: INJ, Q8H, Dosing Weight 74.6, kg, Start date: 02/19/18 16:00:00 FINANCIAL MANAGEMENT CONSULTANT, Stop date: 02/22/18 18:00:00 CSTNotes: Roll in palms of hands gently; Do not shake vigorously. (Same as: Humulin N) Do not hold insulin without contacting prescriber WASTE: F/P - Black; E - Municipal Trash Bin Stable for 28 days at room temperature Expires in days from Date No Longer Active 02/19/2018 [facility] Reglan 10 mg, Route: IV, ONCE, Dosing Weight 74.6, kg, Start date: 02/19/18 13:39:00 FINANCIAL MANAGEMENT CONSULTANT, Stop date: 02/19/18 13:39:00 FINANCIAL MANAGEMENT CONSULTANT Inactive 02/19/2018 [facility] Furosemide 40 MG Oral Tablet [Lasix] 40 mg, 1 tab, Route: PO, Drug form: TAB, BID Diuretic, Dosing Weight 74.6, kg, Start date: 02/19/18 9:00:00 FINANCIAL MANAGEMENT CONSULTANT, Duration: 30 day, Stop date: 03/21/18 6:00:00 FINANCIAL MANAGEMENT CONSULTANT No Longer Active 02/19/2018 [facility] Potassium Chloride 1.33 MEQ/ML Oral Solution 20 mEq, 15 mL, Route: NG, Drug form: LIQ, ONCE, Dosing Weight 74.6, kg, Start date: 02/18/18 18:00:00 FINANCIAL MANAGEMENT CONSULTANT, Stop date: 02/18/18 18:00:00 CSTNotes: (Same as: Potassium Chloride) Inactive 02/19/2018 [facility] Potassium Chloride 1.33 MEQ/ML Oral Solution 40 mEq, 30 mL, Route: PO, Drug form: LIQ, ONCE, Dosing Weight 74.6, kg, Start date: 02/18/18 11:02:00 FINANCIAL MANAGEMENT CONSULTANT, Stop date: 02/18/18 11:02:00 CSTNotes: (Same as: Potassium Chloride) Inactive 02/18/2018 [facility] Lasix 40 mg, Route: IV, Daily, Dosing Weight 74.6, kg, Start date: 02/18/18 9:00:00 FINANCIAL MANAGEMENT CONSULTANT, Duration: 30 day, Stop date: 03/19/18 9:00:00 FINANCIAL MANAGEMENT CONSULTANT Inactive 02/18/2018 [facility] Lasix 40 mg, 4 mL, Route: IV, Drug form: INJ, ONCE, Dosing Weight 74.6, kg, Start date: 02/18/18 8:53:00 FINANCIAL MANAGEMENT CONSULTANT, Stop date: 02/18/18 8:53:00 CSTNotes: (Same as: Lasix) MEDICATION WASTE Product Size: 40 mg Product Wasted: _0__ mg Inactive 02/18/2018 [facility] Potassium Chloride 40 mEq, 30 mL, Route: NJ, Drug form: LIQ, ONCE, Dosing Weight 74.6, kg, PRN Abnormal Lab Result, Electrolyte replacement, Start date: 02/18/18 1:20:00 CSTNotes: (Same as: Potassium Chloride) Inactive 02/18/2018 [facility] pantoprazole 40 mg, 1 pkt, Route: PO, Drug form: GRAN/REC, Daily, Dosing Weight 74.6, kg, PRN Hiccups, Start date: 02/17/18 21:35:00 FINANCIAL MANAGEMENT CONSULTANT, Duration: 30 day, Stop date: 03/19/18 21:34:00 CSTNotes: Same as: Protonix Mix in 5 mL apple juice or applesauce for oral & 10mL apple juice for NG tube No Longer Active 02/18/2018 [facility] insulin, isophane 20 unit, 0.2 mL, Route: SUB-Q, Drug form: INJ, Q12H, Dosing Weight 74.6, kg, Start date: 02/17/18 21:00:00 FINANCIAL MANAGEMENT CONSULTANT, Duration: 30 day, Stop date: 03/19/18 9:00:00 CSTNotes: Roll in palms of hands gently; Do not shake vigorously. (Same as: Humulin N) Do not hold insulin without contacting prescriber WASTE: F/P - Black; E - Municipal Trash Bin Stable for 28 days at room temperature Expires in days from Date No Longer Active 02/18/2018 [facility] Lasix 20 mg, 2 mL, Route: IVP, Drug form: INJ, ONCE, Dosing Weight 74.6, kg, Start date: 02/17/18 18:30:00 FINANCIAL MANAGEMENT CONSULTANT, Stop date: 02/17/18 18:30:00 FINANCIAL MANAGEMENT CONSULTANT Inactive 02/18/2018 [facility] Lasix 40 mg, 4 mL, Route: IVP, Drug form: INJ, ONCE, Dosing Weight 74.6, kg, Start date: 02/17/18 9:07:00 FINANCIAL MANAGEMENT CONSULTANT, Stop date: 02/17/18 9:07:00 CSTNotes: (Same as: Lasix) MEDICATION WASTE Product Size: 40 mg Product Wasted: ___ mg Inactive 02/17/2018 [facility] Lasix 40 mg, 4 mL, Route: IVP, Drug form: INJ, ONCE, Dosing Weight 74.6, kg, Start date: 02/16/18 12:15:00 FINANCIAL MANAGEMENT CONSULTANT, Stop date: 02/16/18 12:15:00 CSTNotes: (Same as: Lasix) MEDICATION WASTE Product Size: 40 mg Product Wasted: ___ mg Inactive 02/16/2018 [facility] D5W 1,000 mL 1,000 mL, Rate: 125 ml/hr, Infuse over: 8 hr, Route: IV, Dosing Weight 74.6 kg, Total Volume: 1,000, Start date: 02/15/18 15:24:00 FINANCIAL MANAGEMENT CONSULTANT, Duration: 30 day, Stop date: 03/17/18 15:23:00 FINANCIAL MANAGEMENT CONSULTANT, 1.87, m2 No Longer Active 02/15/2018 [facility] Calcium Carbonate 500 MG Chewable Tablet 1,000 mg, Route: PO, PRN, Dosing Weight 74.6, kg, PRN Abnormal Lab Result, FOR ICU USE ONLY, Start date: 02/15/18 5:24:00 FINANCIAL MANAGEMENT CONSULTANT, Duration: 30 day, Stop date: 03/17/18 5:23:00 FINANCIAL MANAGEMENT CONSULTANT Inactive 02/15/2018 [facility] potassium phosphate-sodium phosphate 250 mg-280 mg-160 mg oral powder for reconstitution 2 pkt, Route: PO, Dosing Weight 74.6, kg, PRN, PRN Abnormal Lab Result, FOR ICU USE ONLY, Start date: 02/15/18 5:24:00 FINANCIAL MANAGEMENT CONSULTANT, Duration: 30 day, Stop date: 03/17/18 5:23:00 FINANCIAL MANAGEMENT CONSULTANT Inactive 02/15/2018 [facility] Magnesium Oxide 800 mg, Route: PO, PRN, Dosing Weight 74.6, kg, PRN Abnormal Lab Result, FOR ICU USE ONLY, Start date: 02/15/18 5:24:00 FINANCIAL MANAGEMENT CONSULTANT, Duration: 30 day, Stop date: 03/17/18 5:23:00 FINANCIAL MANAGEMENT CONSULTANT Inactive 02/15/2018 [facility] Magnesium Sulfate 2 gm, Route: IVPB, PRN, Dosing Weight 74.6, kg, PRN Abnormal Lab Result, Start date: 02/15/18 5:24:00 FINANCIAL MANAGEMENT CONSULTANT, Duration: 30 day, Stop date: 03/17/18 5:23:00 FINANCIAL MANAGEMENT CONSULTANT, FOR ICU USE ONLY Inactive 02/15/2018 [facility] Calcium Gluconate 1 gm, Route: IVPB, PRN, Dosing Weight 74.6, kg, PRN Abnormal Lab Result, Start date: 02/15/18 5:24:00 FINANCIAL MANAGEMENT CONSULTANT, Duration: 30 day, Stop date: 03/17/18 5:23:00 FINANCIAL MANAGEMENT CONSULTANT, FOR ICU USE ONLY Inactive 02/15/2018 [facility] Potassium Chloride 20 mEq, Route: IVPB, PRN, Dosing Weight 74.6, kg, PRN Abnormal Lab Result, Via central line, Start date: 02/15/18 5:24:00 FINANCIAL MANAGEMENT CONSULTANT, Duration: 30 day, Stop date: 03/17/18 5:23:00 FINANCIAL MANAGEMENT CONSULTANT, FOR ICU USE ONLY Inactive 02/15/2018 [facility] sodium phosphate 15 mmol, Route: IVPB, PRN, Dosing Weight 74.6, kg, PRN Abnormal Lab Result, Start date: 02/15/18 5:24:00 FINANCIAL MANAGEMENT CONSULTANT, Duration: 30 day, Stop date: 03/17/18 5:23:00 FINANCIAL MANAGEMENT CONSULTANT, FOR ICU USE ONLY Inactive 02/15/2018 [facility] potassium phosphate 15 mmol, Route: IVPB, PRN, Dosing Weight 74.6, kg, PRN Abnormal Lab Result, Start date: 02/15/18 5:24:00 FINANCIAL MANAGEMENT CONSULTANT, Duration: 30 day, Stop date: 03/17/18 5:23:00 FINANCIAL MANAGEMENT CONSULTANT, FOR ICU USE ONLY Inactive 02/15/2018 [facility] Potassium Chloride 40 mEq, 30 mL, Route: NG, Drug form: LIQ, ONCE, Dosing Weight 74.6, kg, Start date: 02/14/18 22:52:00 FINANCIAL MANAGEMENT CONSULTANT, Stop date: 02/14/18 22:52:00 CSTNotes: (Same as: Potassium Chloride) No Longer Active 02/15/2018 [facility] insulin, isophane 10 unit, 0.1 mL, Route: SUB-Q, Drug form: INJ, Q12H, Dosing Weight 74.6, kg, Start date: 02/14/18 21:00:00 FINANCIAL MANAGEMENT CONSULTANT, Duration: 30 day, Stop date: 03/16/18 9:00:00 CSTNotes: Roll in palms of hands gently; Do not shake vigorously. (Same as: Humulin N) Do not hold insulin without contacting prescriber WASTE: F/P - Black; E - Municipal Trash Bin Stable for 28 days at room temperature Expires in days from Date No Longer Active 02/15/2018 [facility] Atropine 0.5 mg, Route: IVP, ONCE, Dosing Weight 74.6, kg, Start date: 02/14/18 15:00:00 FINANCIAL MANAGEMENT CONSULTANT, Stop date: 02/14/18 15:00:00 FINANCIAL MANAGEMENT CONSULTANT Inactive 02/14/2018 [facility] Aminophylline 75 mg, Route: IV, ONCE, Dosing Weight 74.6, kg, Start date: 02/14/18 15:00:00 FINANCIAL MANAGEMENT CONSULTANT, Stop date: 02/14/18 15:00:00 FINANCIAL MANAGEMENT CONSULTANT Inactive 02/14/2018 [facility] Lasix 40 mg, 4 mL, Route: IV, Drug form: INJ, ONCE, Dosing Weight 74.6, kg, Priority: NOW, Start date: 02/14/18 10:06:00 FINANCIAL MANAGEMENT CONSULTANT, Stop date: 02/14/18 10:06:00 CSTNotes: (Same as: Lasix) MEDICATION WASTE Product Size: 40 mg Product Wasted: __0_ mg Inactive 02/14/2018 [facility] insulin, isophane 10 unit, 0.1 mL, Route: SUB-Q, Drug form: INJ, BID, Dosing Weight 74.6, kg, Start date: 02/14/18 9:00:00 FINANCIAL MANAGEMENT CONSULTANT, Duration: 30 day, Stop date: 03/15/18 17:00:00 CSTNotes: Roll in palms of hands gently; Do not shake vigorously. (Same as: Humulin N) Do not hold insulin without contacting prescriber WASTE: F/P - Black; E - Municipal Trash Bin Stable for 28 days at room temperature Expires in days from Date Inactive 02/14/2018 [facility] Insulin regular 6 unit, 0.06 mL, Route: SUB-Q, Drug form: SOLN, Sliding Scale, Dosing Weight 74.6, kg, PRN Blood Glucose Results, Start date: 02/14/18 6:38:00 FINANCIAL MANAGEMENT CONSULTANT, Duration: 30 day, Stop date: 03/16/18 6:37:00 CSTNo alex: (Same as: Humulin R) Roll in palms of hands gently; Do not shake vigorously. "single patient use only" (Restricted to patients requiring a dose > 60 units) WASTE: F/P - Black; E - Municipal Trash Bin Stable for 28 days at room temperature Expires in days from Date No Longer Active 02/14/2018 [facility] Glucagon 1 mg, Route: IM, Drug form: PDR/INJ, PRN, Dosing Weight 74.6, kg, PRN Blood Glucose Results, Start date: 02/14/18 6:38:00 FINANCIAL MANAGEMENT CONSULTANT, Duration: 30 day, Stop date: 03/16/18 6:37:00 FINANCIAL MANAGEMENT CONSULTANT No Longer Active 02/14/2018 [facility] Dextrose 50% Syringe 25 gm, 50 mL, Route: IVP, Drug Form: INJ, Dosing Weight 74.6, kg, PRN, PRN Blood Glucose Results, Start date: 02/14/18 6:38:00 FINANCIAL MANAGEMENT CONSULTANT, Duration: 30 day, Stop date: 03/16/18 6:37:00 FINANCIAL MANAGEMENT CONSULTANT No Longer Active 02/14/2018 [facility] Dextrose 5% in Water IV 500 mL 500 mL, Rate: 250 ml/hr, Infuse over: 2 hr, Route: IV, Dosing Weight 74.6 kg, Total Volume: 500, Start date: 02/14/18 6:34:00 FINANCIAL MANAGEMENT CONSULTANT, Duration: 1 doses or times, Stop date: 02/14/18 8:33:00 FINANCIAL MANAGEMENT CONSULTANT, 1.87, m2 Inactive 02/14/2018 [facility] Potassium Chloride 1.33 MEQ/ML Oral Solution 40 mEq, 30 mL, Route: PO, Drug form: LIQ, ONCE, Dosing Weight 74.6, kg, Start date: 02/14/18 6:33:00 FINANCIAL MANAGEMENT CONSULTANT, Stop date: 02/14/18 6:33:00 CSTNotes: (Same as: Potassium Chloride) Inactive 02/14/2018 [facility] carvedilol 12.5 mg, 1 tab, Route: PO, Drug form: TAB, ONCE, Dosing Weight 74.6, kg, Start date: 02/13/18 21:44:00 FINANCIAL MANAGEMENT CONSULTANT, Stop date: 02/13/18 21:44:00 CSTNotes: Give with food. (Same As: Coreg) Inactive 02/14/2018 [facility] Coreg 25 mg, 1 tab, Route: PO, Drug form: TAB, Q12H, Dosing Weight 74.6, kg, Start date: 02/13/18 21:00:00 FINANCIAL MANAGEMENT CONSULTANT, Stop date: 03/13/18 9:00:00 CSTNotes: Give with food. (Same As: Coreg) No Longer Active 02/14/2018 [facility] insulin, isophane 20 unit, 0.2 mL, Route: SUB-Q, Drug form: INJ, Q8H, Dosing Weight 74.6, kg, Start date: 02/13/18 16:00:00 FINANCIAL MANAGEMENT CONSULTANT, Duration: 30 day, Stop date: 03/15/18 8:00:00 CSTNotes: Roll in palms of hands gently; Do not shake vigorously. (Same as: Humulin N) Do not hold insulin without contacting prescriber WASTE: F/P - Black; E - Municipal Trash Bin Stable for 28 days at room temperature Expires in days from Date No Longer Active 02/13/2018 [facility] heparin 5,000 unit, 1 mL, Route: SUB-Q, Drug form: INJ, Q8H, Dosing Weight 74.6, kg, Start date: 02/13/18 16:00:00 FINANCIAL MANAGEMENT CONSULTANT, Duration: 7 day, Stop date: 02/20/18 8:00:00 CSTNotes: porcine heparin No Longer Active 02/13/2018 [facility] Insulin regular 3 unit, 0.03 mL, Route: SUB-Q, Drug form: SOLN, Sliding Scale, Dosing Weight 74.6, kg, PRN Blood Glucose Results, Start date: 02/13/18 15:16:00 FINANCIAL MANAGEMENT CONSULTANT, Duration: 30 day, Stop date: 03/15/18 15:15:00 FINANCIAL MANAGEMENT CONSULTANT Notes: (Same as: Humulin R) Roll in palms of hands gently; Do not shake vigorously. "single patient use only" (Restricted to patients requiring a dose > 60 units) WASTE: F/P - Black; E - Municipal Trash Bin Stable for 28 days at room temperature Expires in days from Date No Longer Active 02/13/2018 [facility] Dextrose 50% Syringe 12.5 gm, 25 mL, Route: IVP, Drug Form: INJ, Dosing Weight 74.6, kg, PRN, PRN Blood Glucose Results, Start date: 02/13/18 15:16:00 FINANCIAL MANAGEMENT CONSULTANT, Duration: 30 day, Stop date: 03/15/18 15:15:00 FINANCIAL MANAGEMENT CONSULTANT No Longer Active 02/13/2018 [facility] Glucagon 1 mg, Route: IM, Drug form: PDR/INJ, PRN, Dosing Weight 74.6, kg, PRN Blood Glucose Results, Start date: 02/13/18 15:16:00 FINANCIAL MANAGEMENT CONSULTANT, Duration: 30 day, Stop date: 03/15/18 15:15:00 FINANCIAL MANAGEMENT CONSULTANT No Longer Active 02/13/2018 [facility] Insulin regular 2 unit, Route: SUB-Q, Sliding Scale, Dosing Weight 74.6, kg, PRN Blood Glucose Results, Start date: 02/13/18 15:15:00 FINANCIAL MANAGEMENT CONSULTANT, Duration: 30 day, Stop date: 03/15/18 15:14:00 FINANCIAL MANAGEMENT CONSULTANT Inactive 02/13/2018 [facility] Dextrose 50% Syringe 25 mL, Route: IVP, Dosing Weight 74.6, kg, PRN, PRN Blood Glucose Results, Start date: 02/13/18 15:15:00 FINANCIAL MANAGEMENT CONSULTANT, Duration: 30 day, Stop date: 03/15/18 15:14:00 FINANCIAL MANAGEMENT CONSULTANT Inactive 02/13/2018 [facility] Glucagon 1 mg, Route: IM, PRN, Dosing Weight 74.6, kg, PRN Blood Glucose Results, Start date: 02/13/18 15:15:00 FINANCIAL MANAGEMENT CONSULTANT, Duration: 30 day, Stop date: 03/15/18 15:14:00 FINANCIAL MANAGEMENT CONSULTANT Inactive 02/13/2018 [facility] Insulin regular 4 unit, 0.04 mL, Route: SUB-Q, Drug form: SOLN, TID-Before Meals, Dosing Weight 74.6, kg, PRN Blood Glucose Results, Start date: 02/13/18 14:01:00 FINANCIAL MANAGEMENT CONSULTANT, Duration: 30 day, Stop date: 03/15/18 14:00:00 CSTNotes: (Same as: Humulin R) Roll in palms of hands gently; Do not shake vigorously. "single patient use only" (Restricted to patients requiring a dose > 60 units) WASTE: F/P - Black; E - Municipal Trash Bin Stable for 28 days at room temperature Expires in days from Date Inactive 02/13/2018 [facility] Glucagon 1 mg, Route: IM, Drug form: PDR/INJ, PRN, Dosing Weight 74.6, kg, PRN Blood Glucose Results, Start date: 02/13/18 14:01:00 FINANCIAL MANAGEMENT CONSULTANT, Duration: 30 day, Stop date: 03/15/18 14:00:00 FINANCIAL MANAGEMENT CONSULTANT Inactive 02/13/2018 [facility] Dextrose 50% Syringe 25 gm, 50 mL, Route: IVP, Drug Form: INJ, Dosing Weight 74.6, kg, PRN, PRN Blood Glucose Results, Start date: 02/13/18 14:01:00 FINANCIAL MANAGEMENT CONSULTANT, Duration: 30 day, Stop date: 03/15/18 14:00:00 FINANCIAL MANAGEMENT CONSULTANT Inactive 02/13/2018 [facility] ceFAZolin 1 gm, Route: IVP, Drug form: PDR/INJ, [id number], Dosing Weight 74.6, kg, Start date: 02/13/18 13:24:00 FINANCIAL MANAGEMENT CONSULTANT, Duration: 3 doses or times, Stop date: 02/14/18 13:24:00 FINANCIAL MANAGEMENT CONSULTANT, ABX Indication: PneumoniaNotes: (Same As: Jordi Perry) MEDICATION WASTE Product Size: 1000 mg Product Wasted: _0__ mg No Longer Active 02/13/2018 [facility] Coreg 12.5 mg, 1 tab, Route: PO, Drug form: TAB, ONCE, Dosing Weight 74.6, kg, Start date: 02/13/18 9:44:00 FINANCIAL MANAGEMENT CONSULTANT, Stop date: 02/13/18 9:44:00 FINANCIAL MANAGEMENT CONSULTANT Inactive 02/13/2018 [facility] Coreg 12.5 mg, Route: PO, Drug form: TAB, ONCE, Dosing Weight 74.6, kg, Start date: 02/13/18 9:42:00 FINANCIAL MANAGEMENT CONSULTANT, Stop date: 02/13/18 9:42:00 FINANCIAL MANAGEMENT CONSULTANT Inactive 02/13/2018 [facility] Coreg 25 mg, Route: PO, Drug form: TAB, Q12H, Dosing Weight 74.6, kg, Start date: 02/13/18 9:00:00 FINANCIAL MANAGEMENT CONSULTANT, Stop date: 03/13/18 9:00:00 FINANCIAL MANAGEMENT CONSULTANT Inactive 02/13/2018 [facility] Potassium Chloride 1.33 MEQ/ML Oral Solution 10 mEq, 7.5 mL, Route: PO, Drug form: LIQ, ONCE, Dosing Weight 74.6, kg, Start date: 02/13/18 6:27:00 FINANCIAL MANAGEMENT CONSULTANT, Stop date: 02/13/18 6:27:00 CSTNotes: (Same as: Potassium Chloride) Inactive 02/13/2018 [facility] Potassium Chloride 20 mEq, 1 tab, Route: PO, Drug form: ERTAB, ONCE, Dosing Weight 74.6, kg, Start date: 02/13/18 6:16:00 FINANCIAL MANAGEMENT CONSULTANT, Stop date: 02/13/18 6:16:00 CSTNotes: (Same as: K-Dur 20) "Do Not Crush" For patients unable to swallow tablet, dissolve in one half glass of water. Allow about 2 minutes for the tablets to disintegrate. Stir before giving to prepare slurry and administer. Please exclude Patients with feeding tube less than 14 [place] (Dobhoff, J-tube etc) and pediatric and patients. With food and full glass of water Inactive 02/13/2018 [facility] insulin, isophane 30 unit, 0.3 mL, Route: SUB-Q, Drug form: INJ, Q8H, Dosing Weight 74.6, kg, Start date: 02/12/18 16:00:00 FINANCIAL MANAGEMENT CONSULTANT, Duration: 30 day, Stop date: 03/14/18 8:00:00 CSTNotes: Roll in palms of hands gently; Do not shake vigorously. (Same as: Humulin N) Do not hold insulin without contacting prescriber WASTE: F/P - Black; E - Municipal Trash Bin Stable for 28 days at room temperature Expires in days from Date No Longer Active 02/12/2018 [facility] Bisacodyl 10 mg, 1 supp, Route: IL, Drug form: SUPP, Daily, Dosing Weight 74.6, kg, PRN Constipation, Start date: 02/12/18 15:28:00 FINANCIAL MANAGEMENT CONSULTANT, Duration: 30 day, Stop date: 03/14/18 15:27:00 CSTNotes: (Same As: Dulcolax, Bisco-Lax) No Longer Active 02/12/2018 [facility] clopidogrel 75 mg, 1 tab, Route: PO, Drug form: TAB, Daily, Dosing Weight 74.6, kg, Start date: 02/12/18 12:00:00 FINANCIAL MANAGEMENT CONSULTANT, Duration: 30 day, Stop date: 03/14/18 9:00:00 CSTNotes: (Same As: Plavix) No Longer Active 02/12/2018 [facility] Bisacodyl 10 mg, 1 supp, Route: IL, Drug form: SUPP, ONCE, Dosing Weight 74.6, kg, Start date: 02/12/18 11:35:00 FINANCIAL MANAGEMENT CONSULTANT, Stop date: 02/12/18 11:35:00 CSTNotes: (Same As: Dulcolax, Bisco-Lax) Inactive 02/12/2018 [facility] Coreg 6.25 mg, 1 tab, Route: PO, Drug form: TAB, Q12H, Dosing Weight 74.6, kg, Start date: 02/12/18 10:59:00 FINANCIAL MANAGEMENT CONSULTANT, Stop date: 03/13/18 10:49:00 CSTNotes: Give with food. (Same As: Coreg) No Longer Active 02/12/2018 [facility] Amlodipine 10 mg, 1 tab, Route: PO, Drug form: TAB, Daily, Dosing Weight 74.6, kg, Start date: 02/12/18 9:00:00 FINANCIAL MANAGEMENT CONSULTANT, Duration: 30 day, Stop date: 03/13/18 9:00:00 CSTNotes: (Same as: Norvasc) No Longer Active 02/12/2018 [facility] Hydralazine Hydrochloride 50 MG Oral Tablet 100 mg, 2 tab, Route: PO, Drug form: TAB, Q8H, Dosing Weight 74.6, kg, Priority: Routine, Start date: 02/12/18 8:00:00 FINANCIAL MANAGEMENT CONSULTANT, Duration: 30 day, Stop date: 03/14/18 0:00:00 CSTNotes: (Same as: Apresoline) May interfere w/enteral feedings Take With Food No Longer Active 02/12/2018 [facility] Hydralazine Hydrochloride 50 MG Oral Tablet 50 mg, 1 tab, Route: PO, Drug form: TAB, Q6H, Dosing Weight 74.6, kg, Priority: Routine, Start date: 02/12/18 0:00:00 FINANCIAL MANAGEMENT CONSULTANT, Duration: 30 day, Stop date: 03/13/18 18:00:00 CSTNotes: (Same as: Apresoline) May interfere with enteral feedings. Take with food. Inactive 02/12/2018 [facility] Hydralazine 10 mg, 0.5 mL, Route: IV, Drug form: INJ, ONCE, Dosing Weight 74.6, kg, PRN Elevated BP, Start date: 02/11/18 23:51:00 FINANCIAL MANAGEMENT CONSULTANT, If systolic BP >180 or diastolic blood pressure >110Notes: (Same as: Apresoline) Push over 5 minutes No Longer Active 02/12/2018 [facility] Labetalol 10 mg, 2 mL, Route: IV, Drug form: INJ, ONCE, Dosing Weight 74.6, kg, Start date: 02/11/18 23:47:00 FINANCIAL MANAGEMENT CONSULTANT, Stop date: 02/11/18 23:47:00 FINANCIAL MANAGEMENT CONSULTANT No Longer Active 02/12/2018 [facility] Hydralazine 10 mg, 0.5 mL, Route: IV, Drug form: INJ, ONCE, Dosing Weight 74.6, kg, Start date: 02/11/18 21:09:00 FINANCIAL MANAGEMENT CONSULTANT, Stop date: 02/11/18 21:09:00 CSTNotes: (Same as: Apresoline) Push over 5 minutes. Inactive 02/12/2018 [facility] Amlodipine 5 mg, 1 tab, Route: PO, Drug form: TAB, ONCE, Dosing Weight 74.6, kg, Priority: STAT, Start date: 02/11/18 20:53:00 FINANCIAL MANAGEMENT CONSULTANT, Stop date: 02/11/18 20:53:00 CSTNotes: (Same as: Norvasc) Inactive 02/12/2018 [facility] Hydralazine 50 mg, Route: IV, ONCE, Dosing Weight 74.6, kg, Start date: 02/11/18 20:48:00 FINANCIAL MANAGEMENT CONSULTANT, Stop date: 02/11/18 20:48:00 FINANCIAL MANAGEMENT CONSULTANT Inactive 02/12/2018 [facility] Hydralazine 25 mg, 1 tab, Route: PO, Drug form: TAB, ONCE, Dosing Weight 74.6, kg, Start date: 02/11/18 17:00:00 FINANCIAL MANAGEMENT CONSULTANT, Stop date: 02/11/18 17:00:00 FINANCIAL MANAGEMENT CONSULTANT Inactive 02/11/2018 [facility] Cefazolin 1 gm, Route: IVP, Drug form: PDR/INJ, [id number], Dosing Weight 74.6, kg, Start date: 02/11/18 13:00:00 FINANCIAL MANAGEMENT CONSULTANT, Duration: 3 doses or times, Stop date: 02/14/18 13:00:00 FINANCIAL MANAGEMENT CONSULTANT, ABX Indication: PneumoniaNotes: (Same As: Jordi Perry) MEDICATION WASTE Product Size: 1000 mg Product Wasted: _0__ mg No Longer Active 02/11/2018 [facility] insulin, isophane 24 unit, 0.24 mL, Route: SUB-Q, Drug form: INJ, Q8Hnow, Dosing Weight 74.6, kg, Start date: 02/11/18 5:00:00 FINANCIAL MANAGEMENT CONSULTANT, Duration: 30 day, Stop date: 03/12/18 21:00:00 CSTNotes: Roll in palms of hands gently; Do not shake vigorously. (Same as: Humulin N) Do not hold insulin without contacting prescriber WASTE: F/P - Black; E - Municipal Trash Bin Stable for 28 days at room temperature Expires in days from Date No Longer Active 02/11/2018 [facility] Insulin Glargine 100 UNT/ML Injectable Solution 7 unit, Route: SUB-Q, Bedtime, Dosing Weight 74.6, kg, Start date: 02/10/18 21:00:00 FINANCIAL MANAGEMENT CONSULTANT, Duration: 30 day, Stop date: 03/11/18 21:00:00 FINANCIAL MANAGEMENT CONSULTANT No Longer Active 02/11/2018 [facility] Tamiflu 75 mg, 1 cap, Route: PO, Drug form: CAP, [id number], Dosing Weight 75, kg, CrCl > 60 ml/min, Start date: 02/10/18 21:00:00 FINANCIAL MANAGEMENT CONSULTANT, Duration: 5 day, Stop date: 02/14/18 21:00:00 CSTNotes: Take with food. Same as: Tamiflu) Inactive 02/11/2018 [facility] Famotidine 20 MG Oral Tablet [Pepcid] 20 mg, 1 tab, Route: PO, Drug form: TAB, Q12H, Dosing Weight 74.6, kg, Start date: 02/10/18 21:00:00 FINANCIAL MANAGEMENT CONSULTANT, Duration: 30 day, Stop date: 03/12/18 9:00:00 CSTNotes: (Same as: Pepcid) No Longer Active 02/11/2018 [facility] sennosides, SENIOR CARE 17.6 mg, 10 mL, Route: NG, Drug Form: SYRP, Dosing Weight 74.6, kg, Q12H, Start date: 02/10/18 21:00:00 FINANCIAL MANAGEMENT CONSULTANT, Duration: 30 day, Stop date: 03/12/18 9:00:00 CSTNotes: (Same as: Senokot) No Longer Active 02/11/2018 [facility] Docusate 100 mg, 10 mL, Route: NG, Drug form: LIQ, Q12H, Dosing Weight 74.6, kg, Start date: 02/10/18 21:00:00 FINANCIAL MANAGEMENT CONSULTANT, Duration: 30 day, Stop date: 03/12/18 9:00:00 CSTNotes: (Same as: Colace) No Longer Active 02/11/2018 [facility] heparin additive 25,000 unit [12 unit/kg/hr] + Premix Diluent Sodium Chloride 0.45% 500 mL 500 mL, Rate: 16.02 ml/hr, Infuse over: 31.2 hr, Route: IV, Dosing Weight 66.74 kg, Total Volume: 500 mL, Start date: 02/10/18 16:57:00 FINANCIAL MANAGEMENT CONSULTANT, Duration: 30 day, Stop date: 03/12/18 16:56:00 FINANCIAL MANAGEMENT CONSULTANT, 1.76, [id number]: Total Concentration=50 unit/ ml Total wcsnjt=988 ml Send Med Request 2 hours prior to next bag No Longer Active 02/10/2018 [facility] Heparin 60 unit/kg Bolus (Heparin Dosing Weight) Route: IVP, PRN, 4,000 unit, 4 mL, Drug form: INJ, PRN, Heparin Protocol, Start date: 02/10/18 16:57:00 FINANCIAL MANAGEMENT CONSULTANT Stop date: 03/12/18 16:56:00 FINANCIAL MANAGEMENT CONSULTANT, 30 day No Longer Active 02/10/2018 [facility] Heparin 30 unit/kg Bolus (Heparin Dosing Weight) Route: IVP, PRN, 2,000 unit, 2 mL, Drug form: INJ, PRN, Heparin Protocol, Start date: 02/10/18 16:57:00 FINANCIAL MANAGEMENT CONSULTANT Stop date: 03/12/18 16:56:00 FINANCIAL MANAGEMENT CONSULTANT, 30 day No Longer Active 02/10/2018 [facility] Heparin - one time bolus for ACS 4,000 unit, 4 mL, Route: IVP, Drug form: INJ, ONCE, Dosing Weight 74.6, kg, Priority: STAT, Start date: 02/10/18 16:56:00 FINANCIAL MANAGEMENT CONSULTANT, Stop date: 02/10/18 16:56:00 FINANCIAL MANAGEMENT CONSULTANT Inactive 02/10/2018 [facility] insulin, isophane 20 unit, 0.2 mL, Route: SUB-Q, Drug form: INJ, Q8Hnow, Dosing Weight 74.6, kg, Start date: 02/10/18 13:00:00 FINANCIAL MANAGEMENT CONSULTANT, Duration: 30 day, Stop date: 03/12/18 5:00:00 CSTNotes: Roll in palms of hands gently; Do not shake vigorously. (Same as: Humulin N) Do not hold insulin without contacting prescriber WASTE: F/P - Black; E - Municipal Trash Bin Stable for 28 days at room temperature Expires in days from Date No Longer Active 02/10/2018 [facility] Insulin regular 12 unit, 0.12 mL, Route: SUB-Q, Drug form: SOLN, PRN, Dosing Weight 74.6, kg, PRN Abnormal Lab Result, Start date: 02/10/18 12:52:00 FINANCIAL MANAGEMENT CONSULTANT, Duration: 30 day, Stop date: 03/12/18 12:51:00 FINANCIAL MANAGEMENT CONSULTANT, For FSBG >=200 mg/dLNotes: (Same as: Humulin R) Roll in palms of hands gently; Do not shake vigorously. "single patient use only" (Restricted to patients requiring a dose > 60 units) WASTE: F/P - Black; E - Municipal Trash Bin Stable for 28 days at room temperature Expires in days from Date No Longer Active 02/10/2018 [facility] Dextrose 50% Syringe 12.5 gm, 25 mL, Route: IVP, Drug Form: INJ, Dosing Weight 74.6, kg, PRN, PRN Abnormal Lab Result, Start date: 02/10/18 12:52:00 FINANCIAL MANAGEMENT CONSULTANT, Duration: 30 day, Stop date: 03/12/18 12:51:00 FINANCIAL MANAGEMENT CONSULTANT, For FSBG 40 mg /dL - 60 mg/dL No Longer Active 02/10/2018 [facility] Dexmedetomidine 400 microgram, Rate: Titrate, Start Dose: 0.2 microgram/kg/hr, Titration: 0.1 microgram/kg/hr every 30 min, Goal(s): RASS -1, Max Dose: 1.5 microgram/kg/hr, Route: IV, Dosing Weight 74.6 kg, Total Volum e: 100, Start date: 02/10/18 5:39:00 FINANCIAL MANAGEMENT CONSULTANT, Duratio...Notes: Use the following cdm for [id number]. No Longer Active 02/10/2018 [facility] propofol 10 mg/mL (Titrate.) IV 1,000 mg 1,000 mg, 100 mL, Rate: Titrate, Start Dose: 5 microgram/kg/min, Titration: 5 microgram/kg/min every 15 min, Goal(s): RASS -2, Max Dose: 50 microgram/kg/min, Route: IV, Dosing Weight 74.6 kg, Total Volume: 100, Start date: 02/10/18 5:34:00 FINANCIAL MANAGEMENT CONSULTANT, Durati...Notes: If Diprivan - change bottle & tubing every 12 hr Per state nursing law propofol can only be given by a nurse if patient is intubated or pam ng intubated (unless the nurse is a [employer] HELPER). Same as: Dawsonriankit Inactive 02/10/2018 [facility] Insulin regular 100 unit + 99 mL, Rate: Start Insulin Drip, Dosing Weight 74.6, kg, Route: IVPB, Total Volume: 100, Start Date: 02/10/18 4:34:00 FINANCIAL MANAGEMENT CONSULTANT, Duration: 30 day, Stop date: 03/12/18 4:33:00 FINANCIAL MANAGEMENT CONSULTANT, Replace Every: 24 hrNotes: Final Concentration 1unit/1ml WASTE: F/P - Black; E - Municipal Trash Bin Inactive 02/10/2018 [facility] Dextrose 50% Syringe 12.5 gm, 25 mL, Route: IVP, Drug Form: INJ, Dosing Weight 74.6, kg, PRN, PRN Blood Glucose Results, Start date: 02/10/18 4:34:00 FINANCIAL MANAGEMENT CONSULTANT, Duration: 30 day, Stop date: 03/12/18 4:33:00 FINANCIAL MANAGEMENT CONSULTANT Inactive 02/10/2018 [facility] Insulin Glargine 100 UNT/ML Injectable Solution 7 unit, 0.07 mL, Route: SUB-Q, Drug form: SOLN, Bedtime, Dosing Weight 74.6, kg, Priority: NOW, Start date: 02/10/18 3:15:00 FINANCIAL MANAGEMENT CONSULTANT, Duration: 30 day, Stop date: 03/11/18 21:00:00 CSTNotes: (Same as: Lantus) Do not hold insulin without contacting prescriber WASTE: F/P - Black; E - Municipal Trash Bin "single patient use only" Inactive 02/10/2018 [facility] Insulin regular 4 unit, 0.04 mL, Route: SUB-Q, Drug form: SOLN, ONCE, Dosing Weight 74.6, kg, Start date: 02/10/18 1:57:00 FINANCIAL MANAGEMENT CONSULTANT, Stop date: 02/10/18 1:57:00 CSTNotes: (Same as: Humulin R) Roll in palms of hands gently; Do not shake vigorously. "single patient use only" (Restricted to patients requiring a dose > 60 units) WASTE: F/P - Black; E - Municipal Trash Bin Stable for 28 days at room temperature Expires in days from Date Inactive 02/10/2018 [facility] Insulin regular 6 unit, 0.06 mL, Route: SUB-Q, Drug form: SOLN, Sliding Scale, Dosing Weight 74.6, kg, PRN Blood Glucose Results, Start date: 02/10/18 1:49:00 FINANCIAL MANAGEMENT CONSULTANT, Duration: 30 day, Stop date: 03/12/18 1:48:00 CSTNo alex: (Same as: Humulin R) Roll in palms of hands gently; Do not shake vigorously. "single patient use only" (Restricted to patients requiring a dose > 60 units) WASTE: F/P - Black; E - Municipal Trash Bin Stable for 28 days at room temperature Expires in days from Date Inactive 02/10/2018 [facility] Dextrose 50% Syringe 12.5 gm, 25 mL, Route: IVP, Drug Form: INJ, Dosing Weight 74.6, kg, PRN, PRN Blood Glucose Results, Start date: 02/10/18 1:49:00 FINANCIAL MANAGEMENT CONSULTANT, Duration: 30 day, Stop date: 03/12/18 1:48:00 FINANCIAL MANAGEMENT CONSULTANT Inactive 02/10/2018 [facility] Glucagon 1 mg, Route: IM, Drug form: PDR/INJ, PRN, Dosing Weight 74.6, kg, PRN Blood Glucose Results, Start date: 02/10/18 1:49:00 FINANCIAL MANAGEMENT CONSULTANT, Duration: 30 day, Stop date: 03/12/18 1:48:00 FINANCIAL MANAGEMENT CONSULTANT Inactive 02/10/2018 [facility] Melatonin 6 mg, 2 tab, Route: PO, Drug form: TAB, Bedtime, Dosing Weight 74.6, kg, Start date: 02/09/18 21:00:00 FINANCIAL MANAGEMENT CONSULTANT, Duration: 30 day, Stop date: 03/10/18 21:00:00 CSTNotes: (Same as: Melatonin) No Longer Active 02/10/2018 [facility] Hydralazine 20 mg, 1 mL, Route: IVP, Drug form: INJ, Q48H, Dosing Weight 74.6, kg, Start date: 02/09/18 19:00:00 FINANCIAL MANAGEMENT CONSULTANT, Duration: 1 day, Stop date: 02/09/18 19:00:00 CSTNotes: (Same as: Apresoline) Push over 5 minutes Inactive 02/10/2018 [facility] Vancomycin 1,000 mg, Route: IVPB, Drug form: INJ, [id number], Dosing Weight 74.6, kg, Start date: 02/09/18 19:00:00 FINANCIAL MANAGEMENT CONSULTANT, Duration: 7 day, Stop date: 02/15/18 19:00:00 FINANCIAL MANAGEMENT CONSULTANT, ABX Indication: PneumoniaNotes: TIME CRITICAL MEDICATION (Same As: Vancocin) Infusion rate 2001 mg: infuse over 2.5 hours For adult patients only: Round to nearest 250 mg per Medical Staff approval MEDICATION WASTE Product Size: 1000 mg Product Wasted: 0 mg No Longer Active 02/10/2018 [facility] Hydralazine 75 mg, 3 tab, Route: PO, Drug form: TAB, Q6H, Dosing Weight 74.6, kg, Start date: 02/09/18 18:00:00 FINANCIAL MANAGEMENT CONSULTANT, Duration: 30 day, Stop date: 03/11/18 12:00:00 FINANCIAL MANAGEMENT CONSULTANT No Longer Active 02/10/2018 [facility] Insulin regular 10 unit, 0.1 mL, Route: SUB-Q, Drug form: SOLN, Sliding Scale, Dosing Weight 74.6, kg, PRN Blood Glucose Results, Start date: 02/09/18 16:01:00 FINANCIAL MANAGEMENT CONSULTANT, Duration: 30 day, Stop date: 03/11/18 16:00:00 FINANCIAL MANAGEMENT CONSULTANT Notes: (Same as: Humulin R) Roll in palms of hands gently; Do not shake vigorously. "single patient use only" (Restricted to patients requiring a dose > 60 units) WASTE: F/P - Black; E - Municipal Trash Bin Stable for 28 days at room temperature Expires in days from Date No Longer Active 02/09/2018 [facility] Dextrose 50% Syringe 25 gm, 50 mL, Route: IVP, Drug Form: INJ, Dosing Weight 74.6, kg, PRN, PRN Blood Glucose Results, Start date: 02/09/18 16:01:00 FINANCIAL MANAGEMENT CONSULTANT, Duration: 30 day, Stop date: 03/11/18 16:00:00 FINANCIAL MANAGEMENT CONSULTANT No Longer Active 02/09/2018 [facility] Glucagon 1 mg, Route: IM, Drug form: PDR/INJ, PRN, Dosing Weight 74.6, kg, PRN Blood Glucose Results, Start date: 02/09/18 16:01:00 FINANCIAL MANAGEMENT CONSULTANT, Duration: 30 day, Stop date: 03/11/18 16:00:00 FINANCIAL MANAGEMENT CONSULTANT No Longer Active 02/09/2018 [facility] heparin sodium, porcine 2500 UNT/ML Injectable Solution 5,000 unit, 1 mL, Route: SUB-Q, Drug form: INJ, Q8H, Dosing Weight 74.6, kg, Start date: 02/09/18 16:00:00 FINANCIAL MANAGEMENT CONSULTANT, Duration: 30 day, Stop date: 03/11/18 8:00:00 CSTNotes: porcine heparin No Longer Active 02/09/2018 [facility] Amlodipine 5 mg, 1 tab, Route: PO, Drug form: TAB, Daily, Dosing Weight 74.6, kg, Priority: NOW, Start date: 02/09/18 13:49:00 FINANCIAL MANAGEMENT CONSULTANT, Duration: 30 day, Stop date: 03/11/18 9:00:00 CSTNotes: (Same as: Norvasc) No Longer Active 02/09/2018 [facility] Tylenol 650 mg, 2 tab, Route: PO, Drug form: TAB, Q6H, Dosing Weight 74.6, kg, PRN For Temp > 100.4 F, Start date: 02/09/18 12:23:00 FINANCIAL MANAGEMENT CONSULTANT, Duration: 30 day, Stop date: 03/11/18 12:22:00 CSTNotes: Do not exceed 4 gm/day. (Same as: Tylenol) No Longer Active 02/09/2018 [facility] pantoprazole 40 mg, Route: IVP, Drug form: INJ, Daily, Dosing Weight 75, kg, Start date: 02/09/18 9:00:00 FINANCIAL MANAGEMENT CONSULTANT, Duration: 30 day, Stop date: 03/10/18 9:00:00 CSTNotes: For IV push reconstitute with 10 ml 0.9% sodium chloride and push over 2 minutes. (Same as: Protonix) No Longer Active 02/09/2018 [facility] Docusate Sodium 50 MG / sennosides, SENIOR CARE 8.6 MG Oral Tablet 1 tab, Route: PO, Drug Form: TAB, Dosing Weight 74.6, kg, BID, Start date: 02/09/18 9:00:00 FINANCIAL MANAGEMENT CONSULTANT, Duration: 30 day, Stop date: 03/10/18 17:00:00 CSTNotes: (Same as Senokot-S) Equiv. to Lisa-Colace. No Longer Active 02/09/2018 [facility] Aspirin 81 mg, 1 tab, Route: NG, Drug form: CHEWTAB, Daily, Dosing Weight 74.6, kg, Start date: 02/09/18 9:00:00 FIN[employer]CIAL MANAGEMENT CONSULTANT, Duration: 30 day, Stop date: 03/10/18 9:00:00 CSTNotes: Take with food. No Longer Active 02/09/2018 [facility] Aspirin 81 MG Enteric Coated Tablet 81 mg, 1 tab, Route: PO, Drug form: ECTAB, Daily, Dosing Weight 74.6, kg, Start date: 02/09/18 9:00:00 FIN[employer]CIAL MANAGEMENT CONSULTANT, Duration: 30 day, Stop date: 03/10/18 9:00:00 CSTNotes: Do not crush or chew. (Same As: Ecotrin) Inactive 02/09/2018 [facility] Calcium Chloride 0.0014 MEQ/ML / Potassium Chloride 0.004 MEQ/ML / Sodium Chloride 0.103 MEQ/ML / Sodium Lactate 0.028 MEQ/ML Injectable Solution 2,000 mL, 1,000 ml/hr, Infuse Over: 2 hr, Route: IV, 2,000, Drug form: INJ, ONCE, Priority: STAT, Dosing Weight 74.6 kg, Start date: 02/09/18 8:00:00 FINANCIAL MANAGEMENT CONSULTANT, Stop date: 02/09/18 8:00:00 FINANCIAL MANAGEMENT CONSULTANT Inactive 02/09/2018 [facility] Calcium Gluconate 1,000 mg, 10 mL, Route: IVPB, ONCE, Dosing Weight 74.6, kg, Start date: 02/09/18 1:57:00 FINANCIAL MANAGEMENT CONSULTANT, Stop date: 02/09/18 1:57:00 CSTNotes: WASTE: F/P - Sink; E - Municipal Trash Bin Inactive 02/09/2018 [facility] Dextrose 50% Syringe 25 gm, 50 mL, Route: IVP, Drug Form: INJ, Dosing Weight 74.6, kg, ONCE, Start date: 02/09/18 1:51:00 FINANCIAL MANAGEMENT CONSULTANT, Stop date: 02/09/18 1:51:00 FINANCIAL MANAGEMENT CONSULTANT Inactive 02/09/2018 [facility] Insulin regular 10 unit, 0.1 mL, Route: IV, Drug form: SOLN, ONCE, Dosing Weight 74.6, kg, Start date: 02/09/18 1:51:00 FINANCIAL MANAGEMENT CONSULTANT, Stop date: 02/09/18 1:51:00 CSTNotes: (Same as: Humulin R) Roll in palms of hands gently; Do not shake vigorously. "single patient use only" (Restricted to patients requiring a dose > 60 units) WASTE: F/P - Black; E - Municipal Trash Bin Stable for 28 days at room temperature Expires in days from Date Inactive 02/09/2018 [facility] Lasix 60 mg, 6 mL, Route: IV, Drug form: INJ, ONCE, Dosing Weight 74.6, kg, Start date: 02/09/18 1:24:00 FINANCIAL MANAGEMENT CONSULTANT, Stop date: 02/09/18 1:24:00 CSTNotes: (Same as: Lasix) MEDICATION WASTE Product Size: 40 mg Product Wasted: ___ mg Inactive 02/09/2018 [facility] Lasix 20 mg, 2 mL, Route: IVP, Drug form: INJ, ONCE, Dosing Weight 74.6, kg, Start date: 02/09/18 0:15:00 FINANCIAL MANAGEMENT CONSULTANT, Stop date: 02/09/18 0:15:00 CSTNotes: (Same as: Lasix) Inactive 02/09/2018 [facility] Versed 1 mg, 1 mL, Route: IV, Drug form: INJ, ONCE, Dosing Weight 74.6, kg, Start date: 02/09/18 0:13:00 FINANCIAL MANAGEMENT CONSULTANT, Stop date: 02/09/18 0:13:00 CSTNotes: (Same as: Versed) MEDICATION WASTE Product Size: 2 mg Product Wasted: ___ mg Inactive 02/09/2018 [facility] ocular lubricant 1 appl, Route: BOTH EYES, Q6H, Drug form: OINT, Start date: 02/09/18 0:00:00 FINANCIAL MANAGEMENT CONSULTANT, Duration: 30 day, Stop date: 03/10/18 18:00:00 CSTNotes: (Same as: Lacri-Lube, Puralube, Duratears Naturale, Artifici al Tears, and Tears Again ) No Longer Active 02/09/2018 [facility] Ketamine 100 mg, 100 mL, Rate: Titrate, Start Dose: 0.2 mg/kg/hr, Titration: DO NOT TITRATE, Goal(s): Rass -1, Max Dose: 0.25 mg/kg/hr, Route: IV, Dosing Weight 74.6 kg, Total Volume: 100 For Analgesia, Start date: 02/08/18 23:38:00 FINANCIAL MANAGEMENT CONSULTANT, Duration: 30 day, Stop...Notes: Total Concentration=1mg/ml Total [id number] Infusion Rate=Begin Infusion at an initial rate of 0.1mg/kg/hr to a Maximum Rate of 0.25mg/kg/hr Please place a Med Request 2 hours before the next dose is needed. No Longer Active 02/09/2018 [facility] Insulin regular 1 unit, 0.01 mL, Route: SUB-Q, Drug form: SOLN, Sliding Scale, Dosing Weight 74.6, kg, PRN Blood Glucose Results, Start date: 02/08/18 21:34:00 FINANCIAL MANAGEMENT CONSULTANT, Duration: 30 day, Stop date: 03/10/18 21:33:00 FINANCIAL MANAGEMENT CONSULTANT Notes: (Same as: Humulin R) Roll in palms of hands gently; Do not shake vigorously. "single patient use only" (Restricted to patients requiring a dose > 60 units) WASTE: F/P - Black; E - Municipal Trash Bin Stable for 28 days at room temperature Expires in days from Date No Longer Active 02/09/2018 [facility] Glucagon 1 mg, Route: IM, Drug form: PDR/INJ, PRN, Dosing Weight 74.6, kg, PRN Blood Glucose Results, Start date: 02/08/18 21:34:00 FINANCIAL MANAGEMENT CONSULTANT, Duration: 30 day, Stop date: 03/10/18 21:33:00 FINANCIAL MANAGEMENT CONSULTANT No Longer Active 02/09/2018 [facility] Dextrose 50% Syringe 25 gm, 50 mL, Route: IVP, Drug Form: INJ, Dosing Weight 74.6, kg, PRN, PRN Blood Glucose Results, Start date: 02/08/18 21:34:00 FINANCIAL MANAGEMENT CONSULTANT, Duration: 30 day, Stop date: 03/10/18 21:33:00 FINANCIAL MANAGEMENT CONSULTANT No Longer Active 02/09/2018 [facility] Saline Flush 0.9% 10 ml, Route: IVP, Drug Form: INJ, Dosing Weight 75, kg, Q12H, Start date: 02/08/18 21:00:00 FINANCIAL MANAGEMENT CONSULTANT, Duration: 30 day, Stop date: 03/10/18 9:00:00 CSTNotes: (Same as: BD Posiflush) No Longer Active 02/09/2018 [facility] chlorhexidine gluconate 1.2 MG/ML Mouthwash 15 mL, Route: Swab Mouth, Q12H, Drug form: LIQ, Start date: 02/08/18 21:00:00 FINANCIAL MANAGEMENT CONSULTANT, Duration: 30 day, Stop date: 03/10/18 9:00:00 CSTNotes: (Same As: Peridex) No Longer Active 02/09/2018 [facility] atorvastatin 20 mg, 1 tab, Route: PO, Drug form: TAB, Bedtime, Dosing Weight 74.6, kg, Start date: 02/08/18 21:00:00 FINANCIAL MANAGEMENT CONSULTANT, Duration: 30 day, Stop date: 03/09/18 21:00:00 CSTNotes: (Same As: Lipitor) No Longer Active 02/09/2018 [facility] Glipizide 5 MG Oral Tablet 5 mg=1 tab, PO, Daily, 0 Refill(s) No Longer Active 02/09/2018 [facility] Tylenol PO, PRN, 0 Refill(s) No Longer Active 02/09/2018 [facility] Naproxen PO, PRN, 0 Refill(s) No Longer Active 02/09/2018 [facility] Insulin Glargine 100 UNT/ML Injectable Solution SUB-Q, PRN, 0 Refill(s) No Longer Active 02/09/2018 [facility] losartan 25 mg oral tablet 25 mg=1 tab, PO, Daily, 0 Refill(s) No Longer Active 02/09/2018 [facility] propofol 10 mg/mL (Titrate.) IV 1,000 mg 1,000 mg, 100 mL, Rate: Titrate, Start Dose: 5 microgram/kg/min, Titration: 5 microgram/kg/min every 15 min, Goal(s): RASS -1, Max Dose: 50 microgram/kg/min, Route: IV, Dosing Weight 75 kg, Total Volume: 100, Start date: 02/08/18 20:25:00 FINANCIAL MANAGEMENT CONSULTANT, Duratio...Notes: If Diprivan - change bottle & tubing every 12 hr Per state nursing law propofol can only be given by a nurse if patient is intubated or pam ng intubated (unless the nurse is a [employer] HELPER). Same as: Diprivan No Longer Active 02/09/2018 [facility] Vancomycin 1 gm, Route: IV, Drug form: INJ, [id number], Dosing Weight 75, kg, Start date: 02/08/18 20:00:00 FINANCIAL MANAGEMENT CONSULTANT, Duration: 30 day, Stop date: 03/09/18 20:00:00 FINANCIAL MANAGEMENT CONSULTANT, ABX Indication: PneumoniaNotes: TIME CRITICAL MEDICATION (Same As: Vancocin) Infusion rate 2001 mg: infuse over 2.5 hours For adult patients only: Round to nearest 250 mg per Medical Staff approval MEDICATION WASTE Product Size: 1000 mg Product Wasted: 0 mg No Longer Active 02/09/2018 [facility] Azithromycin 500 mg, Route: IVPB, [id number], Dosing Weight 75, kg, Start date: 02/08/18 19:00:00 FINANCIAL MANAGEMENT CONSULTANT, Duration: 5 day, Stop date: 02/12/18 5:00:00 FINANCIAL MANAGEMENT CONSULTANT, ABX Indication: PneumoniaNotes: (Same As: Zithromax IV) No Longer Active 02/09/2018 [facility] cefepime 1 gm, Route: IVPB, [id number], Dosing Weight 75, kg, (CrCl 10 - 29 ml/min), Start date: 02/08/18 19:00:00 FINANCIAL MANAGEMENT CONSULTANT, Duration: 5 day, Stop date: 02/12/18 22:00:00 FINANCIAL MANAGEMENT CONSULTANT, ABX Indication: PneumoniaNotes: (Same As: M axipime) MEDICATION WASTE Product Size: 1000 mg Product Wasted: 0 mg No Longer Active 02/09/2018 [facility] chlorhexidine gluconate 1.2 MG/ML Mouthwash 15 mL, Route: Swab Mouth, PRN, Drug form: LIQ, PRN Other -See Comment, Start date: 02/08/18 18:41:00 FINANCIAL MANAGEMENT CONSULTANT, Duration: 30 day, Stop date: 03/10/18 18:40:00 CSTNotes: (Same As: Peridex) No Longer Active 02/09/2018 [facility] Saline Flush 0.9% 10 ml, Route: IVP, Drug Form: INJ, Dosing Weight 75, kg, PRN, PRN Line Flush, Start date: 02/08/18 18:39:00 FINANCIAL MANAGEMENT CONSULTANT, Duration: 30 day, Stop date: 03/10/18 18:38:00 CSTNotes: (Same as: BD Posiflush) No Longer Active 02/09/2018 [facility] Albuterol 0.833 MG/ML / Ipratropium Leroy 0.167 MG/ML Inhalant Solution 3 ml, Route: NEB, Drug Form: SOLN, Dosing Weight 75, kg, PRN, PRN Respiratory Pathway, Start date: 02/08/18 18:39:00 FINANCIAL MANAGEMENT CONSULTANT, Duration: 30 day, Stop date: 03/10/18 18:38:00 CSTNotes: (Same as: Duoneb) No Longer Active 02/09/2018 [facility] Nystatin 100 UNT/MG Topical Powder 1 appl, Route: TOP, PRN, Drug form: PWDR, PRN For Fungal Prophylaxis, Start date: 02/08/18 18:39:00 FINANCIAL MANAGEMENT CONSULTANT, Duration: 30 day, Stop date: 03/10/18 18:38:00 CSTNotes: (Same as:Mycostatin, Nilstat) For external use only. No Longer Active 02/09/2018 [facility] Tamiflu 75 mg, 1 cap, Route: PO, Drug form: CAP, [id number], Dosing Weight 75, kg, CrCl > 60 ml/min, Start date: 02/08/18 16:00:00 FINANCIAL MANAGEMENT CONSULTANT, Duration: 5 day, Stop date: 02/12/18 21:00:00 CSTNotes: Take with food. Same as: Tamiflu) No Longer Active 02/08/2018 [facility] Vecuronium 50 mg, Rate: Titrate, Start Dose: 1 mg/hr, Titration: 0.5 mg/hr every 15 minutes, Goal(s): TOF=2 twitches, Max Dose: 5 mg/hr, Route: IV, Dosing Weight 75 kg, Total Volume: 50, Start date: 02/08/18 15:55:00 FINANCIAL MANAGEMENT CONSULTANT, Duration: 30 day, Stop date: 03/10/18...Notes: (Same As: Norcuron) No Longer Active 02/08/2018 [facility] Rocuronium 100 mg, Route: IV, ONCE, Dosing Weight 75, kg, Priority: STAT, Start date: 02/08/18 14:57:00 FINANCIAL MANAGEMENT CONSULTANT, Stop date: 02/08/18 14:57:00 FINANCIAL MANAGEMENT CONSULTANT Inactive 02/08/2018 [facility] Fentanyl 1,000 microgram, 20 mL, Rate: Titrate, Start Dose: 50 microgram/hr, Titration: 25 microgram/hour every 15 minutes, Goal(s): sbp 130, Max Dose: 300 microgram/hr, Route: IV, Dosing Weight 75 kg, Total Volume: 20, Start date: 02/08/18 11:20:00 FINANCIAL MANAGEMENT CONSULTANT, Durat... No Longer Active 02/08/2018 [facility] Etomidate 20 mg, Route: IVP, ONCE, Dosing Weight 75, kg, Priority: STAT, Start date: 02/08/18 11:19:00 FINANCIAL MANAGEMENT CONSULTANT, Stop date: 02/08/18 11:19:00 FINANCIAL MANAGEMENT CONSULTANT Inactive 02/08/2018 [facility] Rocuronium 100 mg, Route: IV, ONCE, Dosing Weight 75, kg, Start date: 02/08/18 11:19:00 FINANCIAL MANAGEMENT CONSULTANT, Stop date: 02/08/18 11:19:00 FINANCIAL MANAGEMENT CONSULTANT Inactive 02/08/2018 [facility] propofol 10 mg/mL (Titrate.) IV 500 mg 500 mg, 50 mL, Rate: Titrate, Start Dose: 5 microgram/kg/min, Titration: 5 microgram/kg/min every 15 min, Goal(s): 130 sbp, Max Dose: 50 microgram/kg/min, Route: IV, Dosing Weight 75 kg, Total Volume: 50, Start date: 02/08/18 11:18:00 FINANCIAL MANAGEMENT CONSULTANT, Duration: 3...Notes: If Diprivan - change bottle & tubing every 12 hr Per state nursing law propofol can only be given by a nurse if patient is intubated or being intubated (unless the nurse is a [employer] HELPER). Same as: Diprivan Inactive 02/08/2018 [facility] Vancomycin 1,000 mg, Route: IVPB, Drug form: INJ, ONCE, Dosing Weight 75, kg, Priority: STAT, Start date: 02/08/18 8:34:00 FINANCIAL MANAGEMENT CONSULTANT, Stop date: 02/08/18 8:34:00 FINANCIAL MANAGEMENT CONSULTANT, ABX Indication: PneumoniaNotes: TIME CRITICAL MEDICA TION (Same As: Vancocin) Infusion rate 2001 mg: infuse over 2.5 hours For adult patients only: Round to nearest 250 mg per Medical Staff approval MEDICATION WASTE Product Size: 1000 mg Product Wasted: ___ mg Inactive 02/08/2018 [facility] cefepime 1 gm, Route: IVP, Drug form: INJ, ONCE, Dosing Weight 75, kg, Priority: STAT, Start date: 02/08/18 8:34:00 FINANCIAL MANAGEMENT CONSULTANT, Stop date: 02/08/18 8:34:00 FINANCIAL MANAGEMENT CONSULTANT, ABX Indication: PneumoniaNotes: (Same As: Maxipime) MEDICATION WASTE Product Size: 1000 mg Product Wasted: ___ mg Inactive 02/08/2018 [facility] iodixanol 79 mL, Route: IVP, Drug Form: SOLN, Dosing Weight 75, kg, ONCALL, STAT, Start date: 02/08/18 8:26:00 FINANCIAL MANAGEMENT CONSULTANT, Duration: 1 doses or times, Dose=2.2ml/kg, Max [id number] -- "To be infused by Radiology Staff ONLY" Inactive 02/08/2018 [facility] Azithromycin 500 mg, Route: IV, Drug form: PDR/INJ, ONCE, Dosing Weight 75, kg, Start date: 02/08/18 5:15:00 FINANCIAL MANAGEMENT CONSULTANT, Stop date: 02/08/18 5:15:00 FINANCIAL MANAGEMENT CONSULTANT, ABX Indication: PneumoniaNotes: (Same As: Zithromax IV) Inactive 02/08/2018 [facility] Ceftriaxone 1 gm, Route: IVP, Drug form: PDR/INJ, ONCE, Dosing Weight 75, kg, Priority: STAT, Start date: 02/08/18 5:15:00 FINANCIAL MANAGEMENT CONSULTANT, Stop date: 02/08/18 5:15:00 FINANCIAL MANAGEMENT CONSULTANT, ABX Indication: PneumoniaNotes: (Same As: Rocephin). Use with 100 mL NS and infuse over 30 min MEDICATION WASTE Product Size: 1000 mg Product Wasted: ___ mg Inactive 02/08/2018 [facility] Saline Flush 0.9% 10 mL, Route: IVP, Drug Form: INJ, Dosing Weight 75, kg, PRN, PRN Line Flush, Start date: 02/08/18 5:04:00 FINANCIAL MANAGEMENT CONSULTANT, Duration: 30 day, Stop date: 03/10/18 5:03:00 CSTNotes: (Same as: BD Posiflush) No Longer Active 02/08/2018 [facility] Calcium Chloride 0.0014 MEQ/ML / Potassium Chloride 0.004 MEQ/ML / Sodium Chloride 0.103 MEQ/ML / Sodium Lactate 0.028 MEQ/ML Injectable Solution 2,200 mL, 2200 ml/hr, Infuse Over: 1 hr, Route: IV, 2,200, Drug form: INJ, ONCE, Priority: STAT, Dosing Weight 75 kg, Start date: 02/08/18 5:04:00 FINANCIAL MANAGEMENT CONSULTANT, Stop date: 02/08/18 5:04:00 FINANCIAL MANAGEMENT CONSULTANT Inactive 02/08/2018 [facility] Aspirin 81 MG Enteric Coated Tablet 81 mg=1 tab, PO, Daily, # 60 tab, 3 Refill(s) Active 11/25/2015 [facility] atorvastatin 40 mg oral tablet 40 mg=1 tab, PO, Bedtime, # 60 tab, 3 Refill(s) Active 11/25/2015 [facility] 24 HR Nifedipine 60 MG Extended Release Tablet 60 mg=1 tab, PO, Daily, # 90 tab, 3 Refill(s) Active 11/25/2015 [facility] Aspirin 81 MG Enteric Coated Tablet 81 mg, 1 tab, Route: PO, Drug form: ECTAB, Daily, Dosing Weight 75, kg, Start date: 11/25/15 9:00:00 CDT, Duration: 30 day, Stop date: 12/24/15 9:00:00 CDTNotes: Do not crush or chew. (Same As: Ecotrin) Inactive 11/25/2015 [facility] Calcium Gluconate 3 gm, 30 mL, Route: IVPB, PRN, Dosing Weight 75, kg, PRN Abnormal Lab Result, For NON-ICU Patients Only., Start date: 11/25/15 5:25:00 CDT, Duration: 30 day, Stop date: 12/25/15 5:24:00 CDTNotes: WASTE: F/P - Sink; E - Municipal Trash Bin Inactive 11/25/2015 [facility] potassium phosphate + sodium chloride 0.9% INJ 250 mL 30 mmol, 10 mL, Route: IVPB, PRN, Dosing Weight 75, kg, PRN Abnormal Lab Result, For NON-ICU Patients Only., Start date: 11/25/15 5:25:00 CDT, Duration: 30 day, Stop date: 12/25/15 5:24:00 CDTNotes: (Same as: K Phosphate.) 1 mMol phoshate has 1.47 mEq potassium Infuse over 4 hours Inactive 11/25/2015 [facility] sodium phosphate + sodium chloride 0.9% INJ 250 mL 30 mmol, 10 mL, Route: IVPB, PRN, Dosing Weight 75, kg, PRN Abnormal Lab Result, For NON-ICU Patients Only., Start date: 11/25/15 5:25:00 CDT, Duration: 30 day, Stop date: 12/25/15 5:24:00 CDT Inactive 11/25/2015 [facility] Magnesium Sulfate 2 gm, 50 mL, Route: IVPB, Drug form: INJ, PRN, Dosing Weight 75, kg, PRN Abnormal Lab Result, For NON-ICU Patients Only., Start date: 11/25/15 5:25:00 CDT, Duration: 30 day, Stop date: 12/25/15 5:24:00 CDTNotes: WASTE: F/P - Sink; E - Municipal Trash Bin Inactive 11/25/2015 [facility] Magnesium Oxide 800 mg, 2 tab, Route: PO, Drug form: TAB, PRN, Dosing Weight 75, kg, PRN Abnormal Lab Result, For NON-ICU Patients Only., Start date: 11/25/15 5:25:00 CDT, Duration: 30 day, Stop date: 12/25/15 5:24:00 CDTNotes: (Same as: Mag-Ox 400) Magnesium oxide [id number] elemental magnesium Dose=____mg magnesium oxide (___mg elemental magnesium) Inactive 11/25/2015 [facility] potassium chloride 20 mEq, 1 tab, Route: PO, Drug form: ERTAB, PRN, Dosing Weight 75, kg, PRN Abnormal Lab Result, For NON-ICU Patients Only, Start date: 11/25/15 5:25:00 CDT, Duration: 30 day, Stop date: 12/25/15 5:24:00 CDTNotes: (Same as: K-Dur 20) "Do Not Crush" With food and full glass of water Inactive 11/25/2015 [facility] potassium phosphate-sodium phosphate 250 mg-278 mg-164 mg oral powder 2 pkt, Route: PO, Drug Form: PDR/REC, Dosing Weight 75, kg, PRN, PRN Abnormal Lab Result, For NON-ICU Patients Only, Start date: 11/25/15 5:25:00 CDT, Duration: 30 day, Stop date: 12/25/15 5:24:00 CDTNotes: (Same as: Neutra- Phos) Each 1.25 gm pkt has 250mg phosphorous. Mix w/2.5oz water and stir. Inactive 11/25/2015 [facility] Robitussin 100 mg, 5 mL, Route: PO, Drug Form: LIQ, Dosing Weight 75, kg, Q4H, Start date: 11/24/15 20:00:00 CDT, Duration: 30 day, Stop date: 12/24/15 16:00:00 CDTNotes: (Same as: Robitussin) No Longer Active 11/25/2015 [facility] Albuterol 0.833 MG/ML / Ipratropium Leroy 0.167 MG/ML Inhalant Solution 3 mL, Route: NEB, Drug Form: SOLN, Dosing Weight 75, kg, ONCE, Start date: 11/24/15 13:39:00 CDT, Stop date: 11/24/15 13:39:00 CDTNotes: (Same as: Duoneb) Inactive 11/24/2015 [facility] Insulin regular 8 unit, 0.08 mL, Route: [...] days from Date No Longer Active 11/24/2015 [facility] Dextrose 50% Syringe 25 gm, 50 mL, Route: IVP, Drug Form: INJ, Dosing Weight 75, kg, PRN, PRN Blood Glucose Results, Start date: 11/24/15 11:53:00 CDT, Duration: 30 day, Stop date: 12/24/15 11:52:00 CDT No Longer Active 11/24/2015 [facility] Glucagon 1 mg, Route: IM, Drug form: PDR/INJ, PRN, Dosing Weight 75, kg, PRN Blood Glucose Results, Start date: 11/24/15 11:53:00 CDT, Duration: 30 day, Stop date: 12/24/15 11:52:00 CDT No Longer Active 11/24/2015 [facility] Amlodipine 10 mg, 1 tab, Route: PO, Drug form: TAB, Daily, Dosing Weight 75, kg, Start date: 11/24/15 9:00:00 CDT, Duration: 30 day, Stop date: 12/23/15 9:00:00 CDTNotes: (Same as: Norvasc) Inactive 11/24/2015 [facility] sodium phosphate + sodium chloride 0.9% INJ 250 mL 30 mmol, 10 mL, Route: IVPB, ONCE, Dosing Weight 75, kg, Start date: 11/24/15 7:48:00 CDT, Stop date: 11/24/15 7:48:00 CDT Inactive 11/24/2015 [facility] potassium phosphate + sodium chloride 0.9% INJ 250 mL 30 mmol, 10 mL, Route: IVPB, Drug form: INJ, ONCE, Dosing Weight 75, kg, Start date: 11/24/15 5:52:00 CDT, Stop date: 11/24/15 5:52:00 CDTNotes: (Same as: K Phosphate.) 1 mMol phoshate has 1.47 mEq potassium Infuse over 4 hours Inactive 11/24/2015 [facility] Magnesium Oxide 800 mg, 2 tab, Route: PO, Drug form: TAB, ONCE, Dosing Weight 75, kg, Start date: 11/24/15 5:51:00 CDT, Stop date: 11/24/15 5:51:00 CDTNotes: (Same as: Mag-Ox 400) Magnesium oxide [id number] elemental magnesium Dose=____mg magnesium oxide (___mg elemental magnesium) Inactive 11/24/2015 [facility] Tessalon Perles 100 mg, 1 cap, Route: PO, Drug form: CAP, TID, Dosing Weight 75, kg, PRN Cough, Start date: 11/24/15 3:15:00 CDT, Duration: 30 day, Stop date: 12/24/15 3:14:00 CDTNotes: (Same As: Tessalon Perles) "Do Not Crush" No Longer Active 11/24/2015 [facility] heparin 5,000 unit, 1 mL, Route: SUB-Q, Drug form: INJ, Q8H, Dosing Weight 75, kg, Start date: 11/24/15 0:00:00 CDT, Duration: 30 day, Stop date: 12/23/15 16:00:00 CDTNotes: porcine heparin No Longer Active 11/24/2015 [facility] 24 HR Nifedipine 30 MG Extended Release [...] Do not crush No Longer Active 11/23/2015 [facility] Vancomycin 500 mg, Route: IV, Drug form: PDR/INJ, ONCE, Dosing Weight 75, kg, Start date: 11/23/15 13:36:00 CDT, Stop date: 11/23/15 13:36:00 CDTNotes: TIME CRITICAL MEDICATION (Same As: Vancocin) Inactive 11/23/2015 [facility] Insulin regular 4 unit, 0.04 mL, Route: [...] days from Date No Longer Active 11/23/2015 [facility] Dextrose 50% Syringe 25 gm, 50 mL, Route: IVP, Drug Form: INJ, Dosing Weight 75, kg, PRN, PRN Blood Glucose Results, Start date: 11/23/15 12:13:00 CDT, Duration: 30 day, Stop date: 12/23/15 12:12:00 CDT No Longer Active 11/23/2015 [facility] Glucagon 1 mg, Route: IM, Drug form: PDR/INJ, PRN, Dosing Weight 75, kg, PRN Blood Glucose Results, Start date: 11/23/15 12:13:00 CDT, Duration: 30 day, Stop date: 12/23/15 12:12:00 CDT No Longer Active 11/23/2015 [facility] Saline Flush 0.9% 10 ml, Route: IVP, Drug Form: INJ, Dosing Weight 68.182, kg, Q12H, Start date: 11/23/15 9:00:00 CDT, Duration: 30 day, Stop date: 12/22/15 21:00:00 CDTNotes: (Same as: BD Posiflush) No Longer Active 11/23/2015 [facility] Aspirin 325 MG Enteric Coated Tablet 325 mg, 1 tab, Route: PO, Drug form: ECTAB, Daily, Dosing Weight 68.182, kg, Start date: 11/23/15 9:00:00 CDT, Duration: 30 day, Stop date: 12/22/15 9:00:00 CDTNotes: (Do Not Crush) Do not crush or chew. No Longer Active 11/23/2015 [facility] atorvastatin 40 mg, 1 tab, Route: PO, Drug form: TAB, Daily, Dosing Weight 68.182, kg, Start date: 11/23/15 9:00:00 CDT, Duration: 30 day, Stop date: 12/22/15 21:00:00 CDTNotes: (Same as: Lipitor) No Longer Active 11/23/2015 [facility] Fenofibrate 48 MG Oral Tablet 48 mg, 1 tab, Route: PO, Drug form: TAB, Daily, Dosing Weight 68.182, kg, Start date: 11/23/15 9:00:00 CDT, Duration: 30 day, Stop date: 12/22/15 9:00:00 CDTNotes: (Same as: Tricor) No Longer Active 11/23/2015 [facility] Metformin 1,000 mg, Route: PO, BID, Dosing Weight 68.182, kg, Start date: 11/23/15 9:00:00 CDT, Duration: 30 day, Stop date: 12/22/15 17:00:00 CDT Inactive 11/23/2015 [facility] amLODIPine 10 mg oral tablet 10 mg=1 tab, PO, Daily, # 30 tab, 0 Refill(s) No Longer Active 11/23/2015 [facility] Furosemide 20 MG Oral Tablet 20 mg=1 tab, PO, Daily, # 30 tab, 0 Refill(s) No Longer Active 11/23/2015 [facility] lisinopril 40 mg oral tablet 40 mg=1 tab, PO, Daily, # 30 tab, 0 Refill(s) No Longer Active 11/23/2015 [facility] atorvastatin 40 mg oral tablet 40 mg=1 tab, PO, Bedtime, # 30 tab, 0 Refill(s) No Longer Active 11/23/2015 [facility] Fenofibrate 48 MG Oral Tablet =1 cap, PO, Daily, # 30 cap, 0 Refill(s) No Longer Active 11/23/2015 [facility] metoprolol 100 mg oral tablet, extended release 100 mg=1 tab, PO, Daily, # 30 tab, 0 Refill(s) No Longer Active 11/23/2015 [facility] glyBURIDE micronized 3 mg oral tablet 3 mg=1 tab, PO, Daily, # 30 tab, 0 Refill(s) Active 11/23/2015 [facility] Metformin hydrochloride 1000 MG Oral Tablet 1,000 mg=1 tab, PO, BID-Meals, # 180 tab, 1 Refill(s) Active 11/23/2015 [facility] Glyburide 5 mg, 1 tab, Route: PO, Drug form: TAB, Breakfast, Dosing Weight 68.182, kg, Start date: 11/23/15 8:00:00 CDT, Duration: 30 day, Stop date: 12/22/15 8:00:00 CDTNotes: (Same as: Micronase, Diabeta) Take with meals. Inactive 11/23/2015 [facility] Lasix 60 mg, Route: IVP, Drug form: INJ, ONCE, Dosing Weight 75, kg, Start date: 11/23/15 6:21:00 CDT, Stop date: 11/23/15 6:21:00 CDT Inactive 11/23/2015 [facility] Dopamine 800 mg, 250 mL, Rate: Titrate, Start Dose: 5 microgram/kg/min, Titration: 2.5 microgram/kg/min every 15 minutes, Goal(s): MAP >=65 mmHg, Max Dose: 20 microgram/kg/min, Route: IV, Dosing Weight 75 kg, Total Volume: 250, Start date: 11/23/15 5:37:00 CD...Notes: (Same as: Intropin) Administer by either central venous catheter or peripherally-inserted central catheter (PICC) line. Final conc=3.2 mg/ml. Premix solution. No Longer Active 11/23/2015 [facility] Dopamine 400 mg, 250 mL, Rate: Titrate, Start Dose: 5 microgram/kg/min, Titration: 2.5 microgram/kg/min every 15 minutes, Goal(s): MAP >=65 mmHg, Max Dose: 20 microgram/kg/min, Route: IV, Dosing Weight 75 kg, Total Volume: 250, Start date: 11/23/15 4:20:00 CD...Notes: (Same as: Intropin) Administer by either central venous catheter or peripherally-inserted central catheter (PICC) line. Final conc=1.6 mg/ml. Premix solution. Inactive 11/23/2015 [facility] Saline Flush 0.9% 10 ml, Route: IVP, Drug Form: INJ, Dosing Weight 68.182, kg, PRN, PRN Line Flush, Start date: 11/23/15 2:37:00 CDT, Duration: 30 day, Stop date: 12/23/15 2:36:00 CDTNotes: (Same as: BD Posiflush) No Longer Active 11/23/2015 [facility] Sodium Chloride 0.154 MEQ/ML Injectable Solution 1,000 mL, 2,000 ml/hr, Infuse Over: 30 minutes, Route: IV, 1,000, Drug form: INJ, ONCE, Priority: STAT, Dosing Weight 68.182 kg, Start date: 11/23/15 1:18:00 CDT, Duration: 1 doses or times, Stop date: 11/23/15 1:18:00 CDT Inactive 11/23/2015 [facility] Kayexalate 15 gm, 60 mL, Route: PO, Drug form: SUSP, ONCE, Dosing Weight 68.182, kg, Priority: STAT, Start date: 11/23/15 0:46:00 CDT, Stop date: 11/23/15 0:46:00 CDTNotes: (sodium polystyrene sulfonate 15 gm/60 ml RAZA) Shake well before use. (Same as: Kayexalate, SPS) Inactive 11/23/2015 [facility] Magnesium Sulfate 2 gm, 50 mL, Route: IV, Drug form: INJ, ONCE, Dosing Weight 68.182, kg, Priority: STAT, Start date: 11/23/15 0:46:00 CDT, Stop date: 11/23/15 0:46:00 CDTNotes: WASTE: F/P - Sink; E - [facility] Trash Bin Inactive 11/23/2015 [facility] Famotidine 20 MG Oral Tablet [Pepcid] 20 mg, 1 tab, Route: PO, ONCE, Dosing Weight 68.182, kg, Start date: 11/23/15 0:41:00 CDT, Stop date: 11/23/15 0:41:00 CDT Inactive 11/23/2015 [facility] Calcium Gluconate 2,000 mg, Route: IVPB, Drug form: INJ, ONCE, Dosing Weight 68.182, kg, Start date: 11/23/15 0:40:00 CDT, Stop date: 11/23/15 0:40:00 CDT Inactive 11/23/2015 [facility] Insulin regular 5 unit, Route: IV, ONCE, Dosing Weight 68.182, kg, Start date: 11/23/15 0:38:00 CDT, Stop date: 11/23/15 0:38:00 CDT Inactive 11/23/2015 [facility] Albuterol 0.83 MG/ML Inhalant Solution 10 mg, Route: INHALATION, ONCE, Dosing Weight 68.182, kg, Start date: 11/23/15 0:38:00 CDT, Stop date: 11/23/15 0:38:00 CDT Inactive 11/23/2015 [facility] Dextrose 50% Syringe 25 gm, Route: IVP, Dosing Weight 68.182, kg, ONCE, STAT, Start date: 11/23/15 0:37:00 CDT, Stop date: 11/23/15 0:37:00 CDT Inactive 11/23/2015 [facility] Saline Flush 0.9% 10 mL, Route: IVP, Drug Form: INJ, Dosing Weight 68.182, kg, PRN, PRN Line Flush, Start date: 11/22/15 22:56:00 CDT, Duration: 30 day, Stop date: 12/22/15 22:55:00 CDTNotes: Same as: BD Posiflush Sterile No Longer Active 11/23/2015 [facility] Allergies, Adverse Reactions, Alerts Substance Category Reaction Severity Reaction type Status Date Reported Comments Source No Known Medication Allergies Assertion Drug allergy [facility] Immunizations Immunization Date Given Site Status Last Updated Comments Source pneumococcal 23-valent vaccine 03/22/2018 Not Given [facility] Results Order Name Results Value Reference Range Date Interpretation Comments Source BLOOD BANK RESULTS Antibody Scrn Negative (02/25/18 5:58 AM) 02/25/2018 [facility] BLOOD BANK RESULTS ABO/Rh O POS 02/25/2018 [facility] BLOOD BANK RESULTS RBC product Product available (02/25/18 4:38 AM) 02/25/2018 [facility] CHEM PANEL eGFR 28 02/25/2018 Result Comment: [...] should be multiplied by the estimated BMI. [facility] CHEM PANEL Sodium Lvl 148 135 - 145 02/25/2018 [facility] CHEM PANEL Potassium Lvl 3.9 3.5 - 5.1 02/25/2018 [facility] CHEM PANEL Calcium Lvl 8.2 8.5 - 10.5 02/25/2018 [facility] CHEM PANEL Chloride Lvl 111 95 - 109 02/25/2018 [facility] CHEM PANEL CO2 30 24 - 32 02/25/2018 [facility] CHEM PANEL AGAP 10.9 10.0 - 20.0 02/25/2018 [facility] CHEM PANEL Creatinine Lvl 2.43 0.50 - 1.40 02/25/2018 [facility] CHEM PANEL Glucose Lvl 236 70 - 99 02/25/2018 [facility] CHEM PANEL BUN 100 7 - 22 02/25/2018 [facility] CHEM PANEL Magnesium Lvl 3.0 1.8 - 2.4 02/25/2018 [facility] CHEM PANEL Phosphorus 3.7 2.5 - 4.5 02/25/2018 [facility] HEMATOLOGY Lymphocytes # 1.3 1.0 - 5.5 02/25/2018 [facility] HEMATOLOGY Neutrophils # 10.1 1.5 - 8.1 02/25/2018 [facility] HEMATOLOGY Monocytes 8.4 2.0 - 12.0 02/25/2018 [facility] HEMATOLOGY Eosinophils 1.5 0.0 - 4.0 02/25/2018 [facility] HEMATOLOGY Basophils 0.7 0.0 - 1.0 02/25/2018 [facility] HEMATOLOGY Segs 79.5 45.0 - 75.0 02/25/2018 [facility] HEMATOLOGY Basophils # 0.1 0.0 - 0.2 02/25/2018 [facility] HEMATOLOGY Monocytes # 1.1 0.0 - 0.8 02/25/2018 [facility] HEMATOLOGY Eosinophils # 0.2 0.0 - 0.5 02/25/2018 [facility] HEMATOLOGY Lymphocytes 9.9 20.0 - 40.0 02/25/2018 [facility] HEMATOLOGY Hct 20.5 42.0 - 54.0 02/25/2018 [facility] HEMATOLOGY MCV 95.2 80.0 - 94.0 02/25/2018 [facility] HEMATOLOGY RBC 2.15 4.70 - 6.10 02/25/2018 [facility] HEMATOLOGY MCH 31.7 27.0 - 31.0 02/25/2018 [facility] HEMATOLOGY Hgb 6.8 14.0 - 18.0 02/25/2018 Result Comment: Critical Result(s) called to Iraj bobo 02/25/2018 04:11 by RM. Read back OK. [facility] HEMATOLOGY WBC 12.6 3.7 - 10.4 02/25/2018 [facility] HEMATOLOGY MPV 11.0 7.4 - 10.4 02/25/2018 [facility] HEMATOLOGY RDW 13.3 11.5 - 14.5 02/25/2018 [facility] HEMATOLOGY Platelet 220 133 - 450 02/25/2018 [facility] HEMATOLOGY MCHC 33.3 32.0 - 36.0 02/25/2018 [facility] PARATHYROID PROFILE Ca Norm WB 1.08 1.05 - 1.25 02/25/2018 [facility] PARATHYROID PROFILE Ca Ion WB 1.08 1.05 - 1.25 02/25/2018 [facility] CHEM PANEL Magnesium Lvl 2.9 1.8 - 2.4 02/24/2018 [facility] CHEM PANEL Phosphorus 4.2 2.5 - 4.5 02/24/2018 [facility] CHEM PANEL eGFR 28 02/24/2018 Result Comment: [...] should be multiplied by the estimated BMI. [facility] CHEM PANEL Glucose Lvl 95 70 - 99 02/24/2018 [facility] CHEM PANEL Creatinine Lvl 2.41 0.50 - 1.40 02/24/2018 [facility] CHEM PANEL BUN 102 7 - 22 02/24/2018 [facility] CHEM PANEL Sodium Lvl 149 135 - 145 02/24/2018 [facility] CHEM PANEL Chloride Lvl 110 95 - 109 02/24/2018 [facility] CHEM PANEL Potassium Lvl 3.6 3.5 - 5.1 02/24/2018 [facility] CHEM PANEL CO2 32 24 - 32 02/24/2018 [facility] CHEM PANEL Calcium Lvl 8.1 8.5 - 10.5 02/24/2018 [facility] CHEM PANEL AGAP 10.6 10.0 - 20.0 02/24/2018 [facility] HEMATOLOGY WBC 14.5 3.7 - 10.4 02/24/2018 [facility] HEMATOLOGY RBC 2.22 4.70 - 6.10 02/24/2018 [facility] HEMATOLOGY MCH 31.3 27.0 - 31.0 02/24/2018 [facility] HEMATOLOGY MCV 93.9 80.0 - 94.0 02/24/2018 [facility] HEMATOLOGY Hct 20.9 42.0 - 54.0 02/24/2018 [facility] HEMATOLOGY Hgb 7.0 14.0 - 18.0 02/24/2018 Result Comment: Critical Result(s) called to Mable Juarez_ at 02/24/2018 04:41 by RM. Read back OK. [facility] HEMATOLOGY RDW 13.0 11.5 - 14.5 02/24/2018 [facility] HEMATOLOGY MCHC 33.3 32.0 - 36.0 02/24/2018 [facility] HEMATOLOGY MPV 10.4 7.4 - 10.4 02/24/2018 [facility] HEMATOLOGY Platelet 218 133 - 450 02/24/2018 [facility] HEMATOLOGY Lymphocytes # 1.0 1.0 - 5.5 02/24/2018 [facility] HEMATOLOGY Basophils # 0.1 0.0 - 0.2 02/24/2018 [facility] HEMATOLOGY Eosinophils # 0.2 0.0 - 0.5 02/24/2018 [facility] HEMATOLOGY Monocytes # 1.1 0.0 - 0.8 02/24/2018 [facility] HEMATOLOGY Segs 83.4 45.0 - 75.0 02/24/2018 [facility] HEMATOLOGY Lymphocytes 6.8 20.0 - 40.0 02/24/2018 [facility] HEMATOLOGY Monocytes 7.8 2.0 - 12.0 02/24/2018 [facility] HEMATOLOGY Basophils 0.4 0.0 - 1.0 02/24/2018 [facility] HEMATOLOGY Eosinophils 1.6 0.0 - 4.0 02/24/2018 [facility] HEMATOLOGY Neutrophils # 12.1 1.5 - 8.1 02/24/2018 [facility] PARATHYROID PROFILE Ca Norm WB 1.14 1.05 - 1.25 02/24/2018 [facility] PARATHYROID PROFILE Ca Ion WB 1.08 1.05 - 1.25 02/24/2018 [facility] BLOOD BANK RESULTS RBC product Product available (02/23/18 6:45 AM) 02/23/2018 [facility] CHEM PANEL eGFR 27 02/23/2018 Result Comment: [...] should be multiplied by the estimated BMI. [facility] CHEM PANEL Chloride Lvl 107 95 - 109 02/23/2018 [facility] CHEM PANEL Potassium Lvl 3.2 3.5 - 5.1 02/23/2018 [facility] CHEM PANEL Glucose Lvl 89 70 - 99 02/23/2018 [facility] CHEM PANEL BUN 102 7 - 22 02/23/2018 [facility] CHEM PANEL Creatinine Lvl 2.50 0.50 - 1.40 02/23/2018 [facility] CHEM PANEL CO2 31 24 - 32 02/23/2018 [facility] CHEM PANEL Sodium Lvl 146 135 - 145 02/23/2018 [facility] CHEM PANEL AGAP 11.2 10.0 - 20.0 02/23/2018 [facility] CHEM PANEL Calcium Lvl 8.1 8.5 - 10.5 02/23/2018 [facility] CHEM PANEL Magnesium Lvl 2.6 1.8 - 2.4 02/23/2018 [facility] CHEM PANEL Phosphorus 3.7 2.5 - 4.5 02/23/2018 [facility] HEMATOLOGY Eosinophils # 0.3 0.0 - 0.5 02/23/2018 [facility] HEMATOLOGY Basophils # 0.1 0.0 - 0.2 02/23/2018 [facility] HEMATOLOGY Neutrophils # 10.7 1.5 - 8.1 02/23/2018 [facility] HEMATOLOGY Eosinophils 2.4 0.0 - 4.0 02/23/2018 [facility] HEMATOLOGY Basophils 0.7 0.0 - 1.0 02/23/2018 [facility] HEMATOLOGY Lymphocytes # 1.4 1.0 - 5.5 02/23/2018 [facility] HEMATOLOGY Monocytes # 1.0 0.0 - 0.8 02/23/2018 [facility] HEMATOLOGY Lymphocytes 10.2 20.0 - 40.0 02/23/2018 [facility] HEMATOLOGY Monocytes 7.2 2.0 - 12.0 02/23/2018 [facility] HEMATOLOGY Segs 79.5 45.0 - 75.0 02/23/2018 [facility] HEMATOLOGY MPV 10.2 7.4 - 10.4 02/23/2018 [facility] HEMATOLOGY MCHC 33.3 32.0 - 36.0 02/23/2018 [facility] HEMATOLOGY MCH 31.0 27.0 - 31.0 02/23/2018 [facility] HEMATOLOGY Platelet 233 133 - 450 02/23/2018 [facility] HEMATOLOGY RDW 12.8 11.5 - 14.5 02/23/2018 [facility] HEMATOLOGY WBC 13.5 3.7 - 10.4 02/23/2018 [facility] HEMATOLOGY Hgb 6.8 14.0 - 18.0 02/23/2018 Result Comment: Critical Result(s) called to Mable Juarez_ jihan 02/23/2018 03:25 by RM. Read back OK. [facility] HEMATOLOGY RBC 2.21 4.70 - 6.10 02/23/2018 [facility] HEMATOLOGY Hct 20.6 42.0 - 54.0 02/23/2018 [facility] HEMATOLOGY MCV 93.2 80.0 - 94.0 02/23/2018 [facility] HEMATOLOGY INR 1.12 0.85 - 1.17 02/23/2018 [facility] HEMATOLOGY PT 14.2 12.0 - 14.7 02/23/2018 [facility] HEMATOLOGY PTT 30.6 22.9 - 35.8 02/23/2018 [facility] PARATHYROID PROFILE Ca Norm WB 1.12 1.05 - 1.25 02/23/2018 [facility] PARATHYROID PROFILE Ca Ion WB 1.10 1.05 - 1.25 02/23/2018 [facility] BLOOD BANK RESULTS ABO/Rh O POS 02/22/2018 [facility] BLOOD BANK RESULTS Antibody Scrn Negative (02/22/18 5:08 AM) 02/22/2018 [facility] CARDIAC ENZYMES Troponin-I 0.11 0.00 - 0.40 02/19/2018 [facility] CARDIAC ENZYMES Troponin-I 0.19 0.00 - 0.40 02/18/2018 [facility] CARDIAC ENZYMES Troponin-I 0.22 0.00 - 0.40 02/17/2018 [facility] URINE CHEM U Chloride 40 02/13/2018 [facility] URINE CHEM U Potassium 24.9 02/13/2018 [facility] URINE CHEM U Osmolality 371 300 - 800 02/13/2018 [facility] URINE CHEM U Sodium 32 02/13/2018 [facility] HEMATOLOGY PTT 55.8 22.9 - 35.8 02/12/2018 [facility] HEMATOLOGY PTT 64.3 22.9 - 35.8 02/12/2018 [facility] TOXICOLOGY Vanco Lvl 25.2 02/11/2018 [facility] HEMATOLOGY PT 17.0 12.0 - 14.7 02/10/2018 [facility] HEMATOLOGY INR 1.38 0.85 - 1.17 02/10/2018 [facility] TOXICOLOGY Vanco Lvl 31.7 02/10/2018 [facility] TOXICOLOGY Vanco Lvl 21.7 02/09/2018 [facility] URINE CHEM U Protein 107.4 02/09/2018 [facility] URINE CHEM U Prot/Creat 2.67 02/09/2018 [facility] URINE CHEM U Creatinine 40.30 02/09/2018 [facility] OXACILLIN:SUSC:PT:ISOLATE:ORDQN:ROXY Gram Stain Report Gram Stain Performed By: [facility] 02/09/2018 [facility] OXACILLIN:SUSC:PT:ISOLATE:ORDQN:ROXY Culture: Respiratory w/Gram Stain Few Staphylococcus aureus Normal Respiratory Kailyn Isolated 02/09/2018 [facility] OXACILLIN:SUSC:PT:ISOLATE:ORDQN:ROXY Staphylococcus aureus Staphylococcus aureus 02/09/2018 [facility] CARDIAC ENZYMES proBNP 8089 0 - 125 02/09/2018 [facility] CARDIAC ENZYMES BNP 558 <=100 pg/mL 02/09/2018 [facility] DRUG SCREEN U Amph Scr Negative *NA* (02/08/18 9:48 PM) Negative 02/09/2018 [facility] DRUG SCREEN U Cannab Scr Negative *NA* (02/08/18 9:48 PM) Negative 02/09/2018 [facility] DRUG SCREEN U Cocaine Scr Negative *NA* (02/08/18 9:48 PM) Negative 02/09/2018 [facility] DRUG SCREEN U Benzodiaz Scr Negative *NA* (02/08/18 9:48 PM) Negative 02/09/2018 [facility] DRUG SCREEN U Gricel Scr Negative *NA* (02/08/18 9:48 PM) Negative 02/09/2018 [facility] DRUG SCREEN U Opiate Scr Negative *NA* (02/08/18 9:48 PM) Negative 02/09/2018 [facility] DRUG SCREEN U Phencyclidine Scr Negative *NA* (02/08/18 9:48 PM) Negative 02/09/2018 [facility] DRUG SCREEN UDS Note See Note *NA* (02/08/18 9:48 PM) 02/09/2018 [facility] BACTERIAL - SEROLOGY MRSA by PCR Negative (02/08/18 7:04 PM) 02/09/2018 [facility] CARDIAC ENZYMES proBNP 7682 0 - 125 02/09/2018 [facility] CHEM PANEL Bili Direct 0.1 0.0 - 0.3 02/09/2018 [facility] CHEM PANEL Lipase Lvl 74 73 - 393 02/09/2018 [facility] CHEM PANEL Procalcitonin Lvl 0.98 0.00 - 0.10 02/09/2018 [facility] CHEM PANEL Lactic Acid Lvl 1.7 0.5 - 2.2 02/09/2018 [facility] CHEM PANEL Albumin Lvl 2.2 3.5 - 5.0 02/09/2018 [facility] CHEM PANEL Total Protein 6.4 6.4 - 8.4 02/09/2018 [facility] CHEM PANEL ALT 16 0 - 65 02/09/2018 [facility] CHEM PANEL Bili Total 0.4 0.2 - 1.3 02/09/2018 [facility] CHEM PANEL Alk Phos 125 39 - 136 02/09/2018 [facility] CHEM PANEL AST 21 0 - 37 02/09/2018 [facility] CHEM PANEL A/G Ratio 0.5 0.7 - 1.6 02/09/2018 [facility] CHEM PANEL Globulin 4.2 2.7 - 4.2 02/09/2018 [facility] CHEM PANEL B/C Ratio 16 6 - 25 02/09/2018 [facility] HEMATOLOGY INR 1.29 0.85 - 1.17 02/09/2018 [facility] HEMATOLOGY PT 16.2 12.0 - 14.7 02/09/2018 [facility] SPECIAL CHEMISTRY Hgb A1C 6.6 <=5.6 % 02/09/2018 [facility] BACTERIAL - SEROLOGY Source Strep Urine *NA* (02/08/18 5:38 PM) 02/08/2018 [facility] BACTERIAL - SEROLOGY Strep pneumoniae Ag Negative (02/08/18 5:38 PM) Negative 02/08/2018 [facility] MOLECULAR DIAGNOSTIC Influenza A PCR Negative (02/08/18 4:30 PM) Negative 02/08/2018 [facility] MOLECULAR DIAGNOSTIC Influenza B PCR Negative (02/08/18 4:30 PM) Negative 02/08/2018 [facility] MOLECULAR DIAGNOSTIC RSV PCR Negative (02/08/18 4:30 PM) Negative 02/08/2018 [facility] MOLECULAR DIAGNOSTIC Source Respiratory Panel PCR Bronchial Washing (02/08/18 4:30 PM) 02/08/2018 [facility] Gram Stain Report Testing Performed At: [facility] 02/08/2018 [facility] Culture: Respiratory w/Gram Stain No Growth 02/08/2018 [facility] URINE AND STOOL UA RBC 0-2 /HPF 0 - 2 02/08/2018 [facility] URINE AND STOOL UA Bacteria Few /HPF None Seen /HPF 02/08/2018 [facility] URINE AND STOOL UA WBC 0-2 /HPF None Seen /HPF 02/08/2018 [facility] URINE AND STOOL UA Sq Epi None Seen (02/08/18 12:16 PM) Few 02/08/2018 [facility] URINE AND STOOL UA Amorph Jesenia Moderate /HPF None Seen /HPF 02/08/2018 [facility] URINE AND STOOL UA Mucus None Seen (02/08/18 12:16 PM) None Seen 02/08/2018 [facility] URINE AND STOOL UA Bili Negative *NA* (02/08/18 12:16 PM) Negative 02/08/2018 [facility] URINE AND STOOL UA Blood Small *ABN* (02/08/18 12:16 PM) Negative 02/08/2018 [facility] URINE AND STOOL UA Turbidity Cloudy *ABN* (02/08/18 12:16 PM) Clear 02/08/2018 [facility] URINE AND STOOL UA Color Yellow *NA* (02/08/18 12:16 PM) Yellow 02/08/2018 [facility] URINE AND STOOL UA Glucose Negative (02/08/18 12:16 PM) Negative 02/08/2018 [facility] URINE AND STOOL UA Ketones Negative *NA* (02/08/18 12:16 PM) Negative 02/08/2018 [facility] URINE AND STOOL UA pH 5.5 5.0 - 8.0 02/08/2018 [facility] URINE AND STOOL UA Protein 100 mg/dL Negative mg/dL 02/08/2018 [facility] URINE AND STOOL UA Spec Grav 1.015 <=1.030 02/08/2018 [facility] URINE AND STOOL UA Nitrite Negative (02/08/18 12:16 PM) Negative 02/08/2018 [facility] URINE AND STOOL UA Leuk Est Negative (02/08/18 12:16 PM) Negative 02/08/2018 [facility] URINE AND STOOL UA Urobilinogen 0.2 0.1 - 1.0 02/08/2018 [facility] CARDIAC ENZYMES Total CK 86 12 - 191 02/08/2018 [facility] CHEM PANEL Procalcitonin Lvl 0.86 0.00 - 0.10 02/08/2018 [facility] CHEM PANEL Lactic Acid Lvl 1.8 0.5 - 2.2 02/08/2018 [facility] CHEM PANEL Globulin 5.2 2.7 - 4.2 02/08/2018 [facility] CHEM PANEL A/G Ratio 0.5 0.7 - 1.6 02/08/2018 [facility] CHEM PANEL B/C Ratio 16 6 - 25 02/08/2018 [facility] CHEM PANEL Albumin Lvl 2.6 3.5 - 5.0 02/08/2018 [facility] CHEM PANEL Alk Phos 140 39 - 136 02/08/2018 [facility] CHEM PANEL AST 17 0 - 37 02/08/2018 [facility] CHEM PANEL Bili Total 0.6 0.2 - 1.3 02/08/2018 [facility] CHEM PANEL ALT 20 0 - 65 02/08/2018 [facility] CHEM PANEL Total Protein 7.8 6.4 - 8.4 02/08/2018 [facility] CHEM PANEL Phosphorus 3.2 2.5 - 4.5 11/25/2015 [facility] CHEM PANEL Magnesium Lvl 1.7 1.8 - 2.4 11/25/2015 [facility] ELECTROLYTES AGAP 12.2 10.0 - 20.0 11/25/2015 [facility] ELECTROLYTES eGFR 53 11/25/2015 Result Comment: The [...] should be multiplied by the estimated BMI. [facility] ELECTROLYTES CO2 26 24 - 32 11/25/2015 [facility] ELECTROLYTES Calcium Lvl 8.9 8.5 - 10.5 11/25/2015 [facility] ELECTROLYTES Chloride Lvl 101 95 - 109 11/25/2015 [facility] ELECTROLYTES Potassium Lvl 4.2 3.5 - 5.1 11/25/2015 [facility] ELECTROLYTES Sodium Lvl 135 135 - 145 11/25/2015 [facility] ELECTROLYTES Creatinine Lvl 1.45 0.50 - 1.40 11/25/2015 [facility] ELECTROLYTES BUN 21 7 - 22 11/25/2015 [facility] ELECTROLYTES Glucose Lvl 139 70 - 99 11/25/2015 [facility] HEMATOLOGY Monocytes # 0.8 0.0 - 0.8 11/25/2015 [facility] HEMATOLOGY Basophils # 0.1 0.0 - 0.2 11/25/2015 [facility] HEMATOLOGY Eosinophils # 0.2 0.0 - 0.5 11/25/2015 [facility] HEMATOLOGY Lymphocytes 16.5 20.0 - 40.0 11/25/2015 [facility] HEMATOLOGY Segs 70.6 45.0 - 75.0 11/25/2015 [facility] HEMATOLOGY Monocytes 9.3 2.0 - 12.0 11/25/2015 [facility] HEMATOLOGY Lymphocytes # 1.4 1.0 - 5.5 11/25/2015 [facility] HEMATOLOGY Segs-Bands # 5.9 1.5 - 8.1 11/25/2015 [facility] HEMATOLOGY Basophils 1.0 0.0 - 1.0 11/25/2015 [facility] HEMATOLOGY Eosinophils 2.6 0.0 - 4.0 11/25/2015 [facility] HEMATOLOGY RBC 3.78 4.70 - 6.10 11/25/2015 [facility] HEMATOLOGY WBC 8.3 3.7 - 10.4 11/25/2015 [facility] HEMATOLOGY Hct 34.6 42.0 - 54.0 11/25/2015 [facility] HEMATOLOGY Hgb 11.8 14.0 - 18.0 11/25/2015 [facility] HEMATOLOGY MCH 31.3 27.0 - 31.0 11/25/2015 [facility] HEMATOLOGY MCV 91.7 80.0 - 94.0 11/25/2015 [facility] HEMATOLOGY Platelet 184 133 - 450 11/25/2015 [facility] HEMATOLOGY RDW 12.7 11.5 - 14.5 11/25/2015 [facility] HEMATOLOGY MCHC 34.2 32.0 - 36.0 11/25/2015 [facility] HEMATOLOGY MPV 9.3 7.4 - 10.4 11/25/2015 [facility] PARATHYROID PROFILE Ca Norm WB 1.06 1.05 - 1.25 11/25/2015 [facility] PARATHYROID PROFILE Ca Ion WB 1.03 1.05 - 1.25 11/25/2015 [facility] CARDIAC ENZYMES Troponin-T 0.120 0.000 - 0.100 11/24/2015 Result Comment: Critical Result(s) called to Neptali Shaw at 11/24/2015 05:42 by DH. Read back OK. [facility] CARDIAC ENZYMES Troponin-I 0.54 0.00 - 0.40 11/24/2015 Result Comment: Critical Result(s) called to Yanira Izaguirre at 11/24/2015 05:41 by ET. Read back OK. [facility] CARDIAC ENZYMES Total CK 90 12 - 191 11/24/2015 [facility] CARDIAC ENZYMES CK MB 1.2 0.5 - 3.6 11/24/2015 [facility] CARDIAC ENZYMES CK-MB INDEX 1.3 0.0 - 2.5 11/24/2015 [facility] CHEM PANEL Phosphorus 2.0 2.5 - 4.5 11/24/2015 [facility] CHEM PANEL Magnesium Lvl 1.6 1.8 - 2.4 11/24/2015 [facility] CHEM PANEL BUN 28 7 - 22 11/24/2015 [facility] CHEM PANEL Sodium Lvl 136 135 - 145 11/24/2015 [facility] CHEM PANEL Creatinine Lvl 1.67 0.50 - 1.40 11/24/2015 [facility] CHEM PANEL Potassium Lvl 4.3 3.5 - 5.1 11/24/2015 [facility] CHEM PANEL CO2 28 24 - 32 11/24/2015 [facility] CHEM PANEL Chloride Lvl 101 95 - 109 11/24/2015 [facility] CHEM PANEL Glucose Lvl 187 70 - 99 11/24/2015 [facility] CHEM PANEL AGAP 11.3 10.0 - 20.0 11/24/2015 [facility] CHEM PANEL Calcium Lvl 8.7 8.5 - 10.5 11/24/2015 [facility] CHEM PANEL eGFR 44 11/24/2015 Result Comment: [...] should be multiplied by the estimated BMI. [facility] HEMATOLOGY Lymphocytes # 0.9 1.0 - 5.5 11/24/2015 [facility] HEMATOLOGY Monocytes # 0.8 0.0 - 0.8 11/24/2015 [facility] HEMATOLOGY Eosinophils # 0.1 0.0 - 0.5 11/24/2015 [facility] HEMATOLOGY Basophils 0.3 0.0 - 1.0 11/24/2015 [facility] HEMATOLOGY Segs-Bands # 8.4 1.5 - 8.1 11/24/2015 [facility] HEMATOLOGY Monocytes 8.1 2.0 - 12.0 11/24/2015 [facility] HEMATOLOGY Eosinophils 1.2 0.0 - 4.0 11/24/2015 [facility] HEMATOLOGY Lymphocytes 8.5 20.0 - 40.0 11/24/2015 [facility] HEMATOLOGY Segs 81.9 45.0 - 75.0 11/24/2015 [facility] HEMATOLOGY MPV 9.5 7.4 - 10.4 11/24/2015 [facility] HEMATOLOGY Platelet 177 133 - 450 11/24/2015 [facility] HEMATOLOGY RDW 12.9 11.5 - 14.5 11/24/2015 [facility] HEMATOLOGY MCH 32.0 27.0 - 31.0 11/24/2015 [facility] HEMATOLOGY MCHC 35.6 32.0 - 36.0 11/24/2015 [facility] HEMATOLOGY Hct 35.0 42.0 - 54.0 11/24/2015 [facility] HEMATOLOGY Hgb 12.4 14.0 - 18.0 11/24/2015 [facility] HEMATOLOGY RBC 3.89 4.70 - 6.10 11/24/2015 [facility] HEMATOLOGY MCV 89.8 80.0 - 94.0 11/24/2015 [facility] HEMATOLOGY WBC 10.3 3.7 - 10.4 11/24/2015 [facility] LIPIDS CHD Risk 3.02 4.00 - 7.30 11/24/2015 [facility] LIPIDS VLDL 36 11/24/2015 [facility] LIPIDS Trig 178 <=149 mg/dL 11/24/2015 [facility] LIPIDS Chol 139 <=199 mg/dL 11/24/2015 [facility] LIPIDS LDL (Calculated) 57 <=99 mg/dL 11/24/2015 [facility] LIPIDS HDL 46 >=61 mg/dL 11/24/2015 [facility] PARATHYROID PROFILE Ca Norm WB 1.13 1.05 - 1.25 11/24/2015 [facility] PARATHYROID PROFILE Ca Ion WB 1.12 1.05 - 1.25 11/24/2015 [facility] CARDIAC ENZYMES Troponin-T 0.135 0.000 - 0.100 11/23/2015 Result Comment: Critical Result(s) called to Aubrey Gill at 11/23/2015 19:21 by . Read back OK. [facility] CARDIAC ENZYMES Troponin-I 0.74 0.00 - 0.40 11/23/2015 Result Comment: Critical Result(s) called to Aubrey Gill at 11/23/2015 19:22 by . Read back OK. [facility] CARDIAC ENZYMES Total CK 99 12 - 191 11/23/2015 [facility] CARDIAC ENZYMES CK MB Index 2.4 0.0 - 2.5 11/23/2015 [facility] CARDIAC ENZYMES CK MB 2.4 0.5 - 3.6 11/23/2015 [facility] CHEM PANEL Lactic Acid Lvl 2.0 0.5 - 2.2 11/23/2015 [facility] CHEM PANEL Vitamin D 1,25 (OH)2 Total 56 18 - 72 11/23/2015 [facility] CHEM PANEL Vitamin D2 1,25 (OH)2 <8 11/23/2015 Result Comment:
Vitamin D2, 1,25 (OH)2: Reference ranges are
established for total 1,25-dihydroxy vitamin D.
Values for subcomponents D2 (derived from plant or
fungal sources) and D3 (derived from human or
animal sources) are provided for informational
purposes only. This test(s) was developed and its
performance characteristics have been determined
by [employer] [place], [place],
[place]. Performance characteristics refer to the
analytical performance of the test.
Test Performed at:
[facility], [address] [place] [address]
[place] [address] Cindi Urbina MD, FCAP [facility] CHEM PANEL Vitamin D3 1,25 (OH)2 56 11/23/2015 [facility] PARATHYROID PROFILE PTH Intact 144.3 11.1 - 79.5 11/23/2015 [facility] URINE AND STOOL UA Turbidity Clear (11/23/15 5:25 PM) Clear 11/23/2015 [facility] URINE AND STOOL UA Color Light Yellow *NA* (11/23/15 5:25 PM) Yellow 11/23/2015 [facility] URINE AND STOOL UA Spec Grav 1.006 <=1.030 11/23/2015 [facility] URINE AND STOOL UA Urobilinogen <=1.0 mg/dL 0.1 - 1.0 11/23/2015 [facility] URINE AND STOOL UA WBC 1 0 - 5 11/23/2015 [facility] URINE AND STOOL UA Blood Trace *ABN* (11/23/15 5:25 PM) Negative 11/23/2015 [facility] URINE AND STOOL UA RBC <1 0 - 2 11/23/2015 [facility] URINE AND STOOL UA Bacteria Occasional /HPF None Seen /HPF 11/23/2015 [facility] URINE AND STOOL UA Leuk Est Negative (11/23/15 5:25 PM) Negative 11/23/2015 [facility] URINE AND STOOL UA Nitrite Negative (11/23/15 5:25 PM) Negative 11/23/2015 [facility] URINE AND STOOL UA Glucose Negative mg/dL Negative mg/dL 11/23/2015 [facility] URINE AND STOOL UA Ketones Negative mg/dL Negative mg/dL 11/23/2015 [facility] URINE AND STOOL UA Bili Negative *NA* (11/23/15 5:25 PM) Negative 11/23/2015 [facility] URINE AND STOOL UA pH 5.5 5.0 - 8.0 11/23/2015 [facility] URINE AND STOOL UA Protein 20 mg/dL Negative mg/dL 11/23/2015 [facility] URINE AND STOOL UA Sq Epi None Seen 11/23/2015 [facility] URINE CHEM U Potassium 15.4 11/23/2015 [facility] URINE CHEM U Sodium 69 11/23/2015 [facility] URINE CHEM U Chloride 76 11/23/2015 [facility] URINE CHEM U Protein 25.7 11/23/2015 [facility] URINE CHEM U Prot/Creat 0.6 11/23/2015 [facility] URINE CHEM U Creatinine 42.60 11/23/2015 [facility] LIPIDS CHD Risk 2.96 4.00 - 7.30 11/23/2015 [facility] LIPIDS VLDL 48 11/23/2015 [facility] LIPIDS LDL (Calculated) 44 <=99 mg/dL 11/23/2015 [facility] LIPIDS HDL 47 >=61 mg/dL 11/23/2015 [facility] LIPIDS Trig 242 <=149 mg/dL 11/23/2015 [facility] LIPIDS Chol 139 <=199 mg/dL 11/23/2015 [facility] CHEM PANEL Phosphorus 2.5 2.5 - 4.5 11/23/2015 [facility] CHEM PANEL Magnesium Lvl 2.0 1.8 - 2.4 11/23/2015 [facility] CARDIAC ENZYMES CK MB Index 3.2 0.0 - 2.5 11/23/2015 [facility] CARDIAC ENZYMES CK MB 3.8 0.5 - 3.6 11/23/2015 [facility] CARDIAC ENZYMES Troponin-T 0.125 0.000 - 0.100 11/23/2015 Result Comment: Critical Result(s) called to Melanie Hunter at 11/23/2015 09:55 by RG. Read back OK. [facility] CARDIAC ENZYMES Troponin-I 0.86 0.00 - 0.40 11/23/2015 Result Comment: Critical Result(s) called to Coral Zafar at 11/23/2015 09:59 by ET. Read back OK. [facility] CARDIAC ENZYMES Total CK 118 12 - 191 11/23/2015 [facility] CHEM PANEL eGFR 23 11/23/2015 Result Comment: [...] should be multiplied by the estimated BMI. [facility] CHEM PANEL BUN 43 7 - 22 11/23/2015 [facility] CHEM PANEL Glucose Lvl 182 70 - 99 11/23/2015 [facility] CHEM PANEL Sodium Lvl 136 135 - 145 11/23/2015 [facility] CHEM PANEL Creatinine Lvl 2.90 0.50 - 1.40 11/23/2015 [facility] CHEM PANEL Chloride Lvl 101 95 - 109 11/23/2015 [facility] CHEM PANEL Potassium Lvl 5.0 3.5 - 5.1 11/23/2015 [facility] CHEM PANEL CO2 22 24 - 32 11/23/2015 [facility] CHEM PANEL AGAP 18.0 10.0 - 20.0 11/23/2015 [facility] CHEM PANEL Calcium Lvl 8.4 8.5 - 10.5 11/23/2015 [facility] DRUG SCREEN U Phencyc Scr Negative *NA* (11/23/15 4:48 AM) Negative 11/23/2015 [facility] DRUG SCREEN U Opiate Scr Negative *NA* (11/23/15 4:48 AM) Negative 11/23/2015 [facility] DRUG SCREEN U Cannab Scr Negative *NA* (11/23/15 4:48 AM) Negative 11/23/2015 [facility] DRUG SCREEN U Cocaine Scr Negative *NA* (11/23/15 4:48 AM) Negative 11/23/2015 [facility] DRUG SCREEN U Benzodia Scr Negative *NA* (11/23/15 4:48 AM) Negative 11/23/2015 [facility] DRUG SCREEN U Gricel Scr Negative *NA* (11/23/15 4:48 AM) Negative 11/23/2015 [facility] DRUG SCREEN U Amph Scr Negative *NA* (11/23/15 4:48 AM) Negative 11/23/2015 [facility] DRUG SCREEN UDS Note See Note *NA* (11/23/15 4:48 AM) 11/23/2015 [facility] BACTERIAL - SEROLOGY MRSA by PCR Negative (11/23/15 4:41 AM) 11/23/2015 [facility] CARDIAC ENZYMES BNP 667 <=100 pg/mL 11/23/2015 [facility] CARDIAC ENZYMES proBNP 4293 0 - 125 11/23/2015 [facility] CHEM PANEL B/C Ratio 14 6 - 25 11/23/2015 [facility] CHEM PANEL Globulin 3.1 2.7 - 4.2 11/23/2015 [facility] CHEM PANEL AST 25 0 - 37 11/23/2015 [facility] CHEM PANEL Total Protein 6.4 6.4 - 8.4 11/23/2015 [facility] CHEM PANEL Bili Total 0.2 0.2 - 1.3 11/23/2015 [facility] CHEM PANEL A/G Ratio 1.1 0.7 - 1.6 11/23/2015 [facility] CHEM PANEL Alk Phos 62 39 - 136 11/23/2015 [facility] CHEM PANEL Albumin Lvl 3.3 3.5 - 5.0 11/23/2015 [facility] CHEM PANEL ALT 25 0 - 65 11/23/2015 [facility] CHEM PANEL Lactic Acid Lvl 3.0 0.5 - 2.2 11/23/2015 [facility] HEMATOLOGY Basophils # 0.1 0.0 - 0.2 11/23/2015 [facility] HEMATOLOGY Eosinophils # 0.1 0.0 - 0.5 11/23/2015 [facility] HEMATOLOGY Monocytes # 1.2 0.0 - 0.8 11/23/2015 [facility] HEMATOLOGY Segs 74.8 45.0 - 75.0 11/23/2015 [facility] HEMATOLOGY Lymphocytes 14.3 20.0 - 40.0 11/23/2015 [facility] HEMATOLOGY Monocytes 9.9 2.0 - 12.0 11/23/2015 [facility] HEMATOLOGY Basophils 0.5 0.0 - 1.0 11/23/2015 [facility] HEMATOLOGY Eosinophils 0.5 0.0 - 4.0 11/23/2015 [facility] HEMATOLOGY Lymphocytes # 1.7 1.0 - 5.5 11/23/2015 [facility] HEMATOLOGY Segs-Bands # 8.8 1.5 - 8.1 11/23/2015 [facility] HEMATOLOGY INR 1.10 0.85 - 1.17 11/23/2015 [facility] HEMATOLOGY PT 14.5 12.0 - 14.7 11/23/2015 [facility] HEMATOLOGY PTT 28.6 22.9 - 35.8 11/23/2015 [facility] HEMATOLOGY RDW 13.0 11.5 - 14.5 11/23/2015 [facility] HEMATOLOGY Platelet 181 133 - 450 11/23/2015 [facility] HEMATOLOGY MPV 9.9 7.4 - 10.4 11/23/2015 [facility] HEMATOLOGY RBC 3.30 4.70 - 6.10 11/23/2015 [facility] HEMATOLOGY WBC 11.7 3.7 - 10.4 11/23/2015 [facility] HEMATOLOGY MCV 92.1 80.0 - 94.0 11/23/2015 [facility] HEMATOLOGY Hct 30.4 42.0 - 54.0 11/23/2015 [facility] HEMATOLOGY MCHC 33.2 32.0 - 36.0 11/23/2015 [facility] HEMATOLOGY MCH 30.5 27.0 - 31.0 11/23/2015 [facility] HEMATOLOGY Hgb 10.1 14.0 - 18.0 11/23/2015 [facility] PARATHYROID PROFILE Ca Ion WB 1.17 1.05 - 1.25 11/23/2015 [facility] PARATHYROID PROFILE Ca Norm WB 1.13 1.05 - 1.25 11/23/2015 [facility] SPECIAL CHEMISTRY Hgb A1C 8.1 <=5.6 % 11/23/2015 [facility] CHEM PANEL Lactic Acid Lvl 2.7 0.5 - 2.2 11/23/2015 [facility] URINE AND STOOL UA Hyal Cast 11-20 (11/22/15 11:06 PM) 0 - 2 11/23/2015 [facility] URINE AND STOOL UA Amorph Jesenia Few /HPF None Seen /HPF 11/23/2015 [facility] URINE AND STOOL UA RBC 0-2 /HPF 0 - 2 11/23/2015 [facility] URINE AND STOOL UA WBC 0-2 /HPF None Seen /HPF 11/23/2015 [facility] URINE AND STOOL UA Sq Epi None Seen (11/22/15 11:06 PM) Few 11/23/2015 [facility] URINE AND STOOL UA Leuk Est Negative (11/22/15 11:06 PM) Negative 11/23/2015 [facility] URINE AND STOOL UA Bili Negative *NA* (11/22/15 11:06 PM) Negative 11/23/2015 [facility] URINE AND STOOL UA Blood Trace *ABN* (11/22/15 11:06 PM) Negative 11/23/2015 [facility] URINE AND STOOL UA Urobilinogen 0.2 0.1 - 1.0 11/23/2015 [facility] URINE AND STOOL UA Nitrite Negative (11/22/15 11:06 PM) Negative 11/23/2015 [facility] URINE AND STOOL UA Ketones Negative *NA* (11/22/15 11:06 PM) Negative 11/23/2015 [facility] URINE AND STOOL UA Spec Grav 1.020 <=1.030 11/23/2015 [facility] URINE AND STOOL UA pH 5.5 5.0 - 8.0 11/23/2015 [facility] URINE AND STOOL UA Protein 30 mg/dL Negative mg/dL 11/23/2015 [facility] URINE AND STOOL UA Glucose Negative (11/22/15 11:06 PM) Negative 11/23/2015 [facility] URINE AND STOOL UA Turbidity Clear (11/22/15 11:06 PM) Clear 11/23/2015 [facility] URINE AND STOOL UA Color Yellow *NA* (11/22/15 11:06 PM) Yellow 11/23/2015 [facility] CHEM PANEL Lactic Acid WB 2.7 0.5 - 2.2 11/23/2015 [facility] HEMATOLOGY Basophils # 0.1 0.0 - 0.2 11/23/2015 [facility] Pathology Reports No Data Provided for This Section Diagnostic Reports Report Value Date Source Chest 2 views DX EXAM: XR CHEST 2 VIEWS DATE: 03/20/2018 19:05 FINANCIAL MANAGEMENT CONSULTANT INDICATION: Chest pain COMPARISON: Chest x-ray 02/16/2018 [...] 2. Otherwise, no acute cardiopulmonary abnormality. 03/20/2018 [facility] Retroperitoneal Complete US EXAM: US RETROPERITONEAL COMPLETE DATE: 02/20/2018 7:10 AM FINANCIAL MANAGEMENT CONSULTANT INDICATION: - Evaluation of Cystic lesions in [...] kidney not visualized on today's study. 02/20/2018 [facility] Abdomen AP DX EXAM: XR ABDOMEN 1 VIEW DATE: 02/16/2018 1308 hours FINANCIAL MANAGEMENT CONSULTANT INDICATION: - confirm NG tube placement ADDITIONAL [...] Enteric tube in the proximal stomach. 02/16/2018 [facility] Chest 1view DX EXAM: XR CHEST 1 VIEW DATE: 02/16/2018 5:43 AM FINANCIAL MANAGEMENT CONSULTANT INDICATION: - Concern for aspiration COMPARISON: 02/14/2018 [...] No pneumothorax. 7. Stable osseous structures. 02/16/2018 [facility] Chest 1view DX EXAM: XR CHEST 1 VIEW DATE: 02/14/2018 3:00 AM FINANCIAL MANAGEMENT CONSULTANT INDICATION: - hypoxia COMPARISON: 02/13/2018 TECHNIQUE: AP chest. IMPRESSION: 1. ET tube has been removed. Gastric tube remains in position. 2. Stable cardiomediastinal silhouette and atherosclerotic changes in the aorta. 3. Patchy opacities bilaterally are without unchanged and may represent edema or multifocal infection. 4. Stable trace bilateral pleural effusions. 5. No pneumothorax. 6. Stable osseous structures. 02/14/2018 [facility] Abdomen AP DX EXAM: XR ABDOMEN 1 VIEW DATE: 02/13/2018 3:13 PM FINANCIAL MANAGEMENT CONSULTANT INDICATION: NG placement ADDITIONAL INFORMATION: None. COMPARISON: [...] sidehole in the mid gastric body. 02/13/2018 [facility] Chest 1view DX EXAM: XR CHEST 1 VIEW DATE: 02/13/2018 3:00 AM FINANCIAL MANAGEMENT CONSULTANT INDICATION: - interval eval COMPARISON: 02/12/2018 TECHNIQUE: [...] effusions. 5. Osseous structures are stable. 02/13/2018 [facility] Chest 1view DX EXAM: XR CHEST 1 VIEW DATE: 02/12/2018 3:00 AM FINANCIAL MANAGEMENT CONSULTANT INDICATION: - hypoxia. FINDINGS: Comparison is made [...] decreased. 2. Small left pleural effusion. 02/12/2018 [facility] Chest 1view DX EXAM: XR CHEST 1 VIEW DATE: 02/11/2018 3:00 AM FINANCIAL MANAGEMENT CONSULTANT INDICATION: - hypoxia COMPARISON: 02/10/2018 TECHNIQUE: AP chest. IMPRESSION: 1. Stable cardiomediastinal silhouette. 2. Stable life support lines and tubes. 3. There is no significant change of patchy bilateral airspace opacities through the lungs that may represent edema including ARDS or pneumonia. 4. Stable small bilateral pleural effusions are noted again. 5. Stable osseous structures. 02/11/2018 [facility] Chest 1view DX EXAM: XR CHEST 1 VIEW DATE: 02/10/2018 3:00 AM FINANCIAL MANAGEMENT CONSULTANT INDICATION: - hypoxia. FINDINGS: Comparison is made [...] pleural effusions, greater on the left. 02/10/2018 [facility] Chest 1view DX EXAM: XR CHEST 1 VIEW DATE: 02/09/2018 3:00 AM FINANCIAL MANAGEMENT CONSULTANT INDICATION: - intubated pt COMPARISON: 02/08/2018 TECHNIQUE: AP chest FINDINGS: Stable ET and gastric tubes. Stable cardiomediastinal silhouette. Persistent diffuse lung disease which could represent pulmonary edema, ARDS or disseminated infection. Small bilateral pleural effusions. No pneumothorax given the limitation of a semiupright exam. Unchanged skeletal structures. IMPRESSION: No significant changes compared to CTA chest performed yesterday. 02/09/2018 [facility] Abdomen AP DX EXAM: XR ABDOMEN 1 VIEW DATE: 02/08/2018 8:53 PM FINANCIAL MANAGEMENT CONSULTANT INDICATION: - Before proning; intubated pt COMPARISON: None. TECHNIQUE: Limited AP view of the abdomen for tube placement assessment. Number of images: 1 FINDINGS: Transesophageal feeding tube: None. Transesophageal suction tube sidehole in the body region of the stomach. Other tubes and lines: None. No other changes. IMPRESSION: Tube positions as above. 02/08/2018 [facility] Chest 1view DX EXAM: XR CHEST 1 VIEW DATE: 02/08/2018 8:53 PM FINANCIAL MANAGEMENT CONSULTANT INDICATION: - Shortness of breath COMPARISON: 02/08/2018 TECHNIQUE: AP chest IMPRESSION: Stable ET and gastric tubes. Stable cardiomediastinal silhouette. Persistent diffuse lung disease which could represent pulmonary edema, ARDS or disseminated infection. Small bilateral pleural effusions. No pneumothorax given the limitation of a semiupright exam. Unchanged skeletal structures. 02/08/2018 [facility] Chest 1 v for Placement DX EXAM: XR CHEST 1 VIEW DATE: 02/08/2018 2:57 PM FINANCIAL MANAGEMENT CONSULTANT INDICATION: - Line Placement; pulmonary edema COMPARISON: [...] and nasogastric tubes appear appropriately positioned. 02/08/2018 [facility] Chest 1 v for Placement DX EXAM: XR CHEST AP 1 VIEW DATE: 02/08/2018 1058 hours FINANCIAL MANAGEMENT CONSULTANT INDICATION: - Line Placement COMPARISON: 02/08/2018, 0502 [...] tube. Satisfactory position of ET tube. 02/08/2018 [facility] Chest Pulmonary Embolism CTA EXAM: CTA CHEST WITH CONTRAST DATE: 02/08/2018 at 8:05 AM FINANCIAL MANAGEMENT CONSULTANT INDICATION: - sustained tachypnea and poor oxygenation [...] Santana at 0837 hrs on 02/08/2018. 02/08/2018 [facility] Chest 1view DX EXAM: XR CHEST 1 [...] bilateral platelike atelectasis. UT SECTION: ER 02/08/2018 [facility] Chest 1view DX EXAM: XR CHEST 1 VIEW DATE: 11/25/2015 3:00 AM CDT INDICATION: Shortness of Breath COMPARISON: 11/24/2015 TECHNIQUE: AP chest IMPRESSION: 1. Interval removal of the right IJV pacing lead. 2. Cardiomediastinal silhouette is enlarged, unchanged. Aortic atherosclerotic disease 2. Scattered platelike atelectasis in both lungs. Otherwise, lungs are clear. No significant pleural effusions. 2. No acute osseous abnormalities. 11/25/2015 [facility] Chest 1view DX EXAM: XR CHEST 1 [...] change when compared to prior radiograph. 11/24/2015 [facility] Chest 1view DX EXAM: XR CHEST 1 VIEW DATE: 11/23/2015 11:31 AM CDT INDICATION: Tube placement/removal/reposition COMPARISON: 11/23/2015 at 10:51 AM TECHNIQUE: AP chest IMPRESSION: 1. Again seen is right IJV pacing lead with tip terminates in the right ventricle. 2. Lungs are clear. No significant pleural effusions. 3. Cardiomediastinal silhouette is enlarged, unchanged. 4. No acute osseous abnormalities. 11/23/2015 [facility] Chest 1view DX EXAM: XR CHEST 1 [...] unchanged. 4. No acute osseous abnormalities. 11/23/2015 [facility] Chest 1view DX EXAM: XR CHEST 1 VIEW DATE: 11/23/2015 4:27 AM CDT INDICATION: Chest pain. FINDINGS: Comparison is made to yesterday. The cardiomediastinal silhouette is stable. The lungs are clear. The costophrenic sulci are sharp, without effusions. IMPRESSION: No significant change. 11/23/2015 [facility] Chest 1view DX EXAM: Chest 1view DX [...] acute cardiopulmonary abnormality. 2. Mild cardiomegaly. 11/22/2015 [facility] Consultation Notes No Data Provided for This Section Discharge Summaries No Data Provided for This Section History and Physicals No Data Provided for This Section Vital Signs Vital Sign Value Date Comments Source Systolic (mm Hg) 134 02/25/2018 [facility] Diastolic (mm Hg) 68 02/25/2018 [facility] Respitory Rate 18 02/25/2018 [facility] Heart Rate 60 02/25/2018 [facility] Temperature Oral (F) 97.9 F 02/25/2018 [facility] Temperature Oral (F) 98.3 F 02/25/2018 [facility] Respitory Rate 18 02/25/2018 [facility] Systolic (mm Hg) 146 02/25/2018 [facility] Diastolic (mm Hg) 72 02/25/2018 [facility] Heart Rate 64 02/25/2018 [facility] Systolic (mm Hg) 128 02/25/2018 [facility] Diastolic (mm Hg) 63 02/25/2018 [facility] Heart Rate 65 02/25/2018 [facility] Respitory Rate 20 02/25/2018 [facility] Temperature Oral (F) 98.2 F 02/25/2018 [facility] Height 165.1 cm 02/13/2018 [facility] Height 165.1 cm 02/13/2018 [facility] Height 165.1 cm 02/13/2018 [facility] Weight 74.6 02/09/2018 [facility] BMI Calculated 27.37 02/09/2018 [facility] Systolic (mm Hg) 137 11/25/2015 [facility] Diastolic (mm Hg) 84 11/25/2015 [facility] Systolic (mm Hg) 119 11/25/2015 [facility] Diastolic (mm Hg) 71 11/25/2015 [facility] Systolic (mm Hg) 127 11/25/2015 [facility] Diastolic (mm Hg) 68 11/25/2015 [facility] Temperature Oral (F) 97.6 F 11/25/2015 [facility] Temperature Oral (F) 98.0 F 11/25/2015 [facility] Temperature Oral (F) 97.3 F 11/25/2015 [facility] Respitory Rate 17 11/25/2015 [facility] Respitory Rate 18 11/25/2015 [facility] Respitory Rate 21 11/25/2015 [facility] Weight 75 11/23/2015 [facility] Height 165.1 cm 11/23/2015 [facility] BMI Calculated 27.51 11/23/2015 [facility] Weight 75 11/23/2015 [facility] Heart Rate 68 11/23/2015 [facility] Heart Rate 38 11/23/2015 [facility] Encounters Location Location Details Encounter Type Encounter Number Reason For Visit Attending Provider ADM Date DC Date Status Source [facility] Inpatient [id number] Logan Reyez 11/23/2015 11/25/2015 [facility] Inpatient [id number] Bitashelli Vásquezyan 02/08/2018 02/26/2018 [facility] Procedures No Data Provided for This Section Assessment and Plan Assessment and Plan Date Source Extracted from:Title: Team B Progress Note Author: Lorezno Gonzalez MD Date: 02/24/18 Mr. Kei Arvizu [...] until 02/24. After significant dysphagia therapy with COST MANAGER and managing secretions with RT and glycopyrrolate, he successfully passedtheswallow evaluation with FEES on 02/24 and was started on pureed diet with honey thick liquids. His insulin requirements were significantly higher than home during this admission because of continuous tube feeding, so we will finalize his insulin needs prior to discharge with PO diet. Dysphagia Respiratory Secretions - Passed FEES on 02/24, COST MANAGER recommends pureed diet with honey thick liquids [...] Cardiology recommended outpatient follow-up and consider outpatient [facility] - Patient is already established with Cardiology [...] Rainey. Lorenzo Gonzalez MD PGY-1, Neurology MSO# [id number] [facility] [employer] Addendum by Nicole Rainey MD on 02/24/2018 20:02 FINANCIAL MANAGEMENT CONSULTANT I saw and evaluated Kei Arvizu. I [...] the ECHO. ##Troponinemia /NSTEMI vs Type II NM - 0.02 --> 1.10-->1.97-->1.76-->1.6- Currently trended down [...] normal. - Probably due to Type II NM but given his risk factors cannot r/o [...] Amber De La Paz MD IM PGY2 [facility] Cardiology attending attestation: I have seen and [...] nuclear stress test Makenzie Osorio MD ,FACP,FACC [employer] Department of Internal Medicine Extracted from:Title: MICU [...] by Gisell Maciel MD on 02/09/2018 16:16 FINANCIAL MANAGEMENT CONSULTANT MICU Attending I have seen examined and [...] but patchy infiltrates bilaterally c/w multifocal pneumonia [facility] Vent: AC 16 [phone] 50 [...] titrating at bedside Gisell Maciel MD 02/26/2018 [facility] Extracted from:Title: CCU discharge summary Author: Rashaun [...] The patient was urgenty sent to the landscape and yardwork laborer for transvenous pacer. On day 1, he [...] as directed. Rashaun Arriaga MD PGY-2 Resident [place] Internal Medicine Extracted from:Title: [facility] [place] Progress Note Author: Aravind Herrera Date: 11/24/15 [...] Refill(s) Problem list: All Problems Diabetes / [id number] / Confirmed Physical Examination VS/Measurements Vital Signs [...] No tenderness. No swelling. Integumentary: Warm, Dry, [place]. Neurologic: Alert, Oriented, Normal sensory, Normal motor [...] A1C 8.1, consider starting basal insulin. Consult staff educator and cnc wood lathe operator. Disposition - okay to transfer out of ICU if hemodynamically stable post TVPM removal. Addendum by Hans Curiel MD on 11/24/2015 18:24 [facility] Pulmonary and Critical Care Medicine Attending [...] MSK: Moves upper extr 5/5 with appropriate vineyard supervisor strength bilaterally Problem List / Plan 1. [...] PRN Histories Past Medical History: Active Diabetes ([id number]) Resolved Hypertension ([id number]): Resolved. Hyperlipemia ([id number]): Resolved. Family History: History is unknown. Procedure [...] 11/23/2015 06:00 Indwelling Urinary Catheter: Urethral 16 [place] Indwelling/Continuous 11/23/2015 03:34 Peripheral Lines: Hand Left [...] you for this consult Neftali Stern M.D. skiving machine operator, PGY 5 Addendum by Dar Marie MD [...] Interventional cardiology attending: Dr. Logan Reyez Interventional foil operator: Giuliano Amaral ACCESS: 6 [place] right internal jugular vein Pre-Procedure Diagnosis: Symptomatic junctional bradycardia Post-Procedure Diagnosis: Successful placement of the temporary transvenous pacemaker via the right jugular vein CONCLUSIONS Successful placement of the temporary transvenous pacemaker via the right jugular vein RECOMMENDATIONS 1. IV antibiotics to cover gram-positive organism preferably IV vancomycin while temperature wire is in place (patient received Ancef 1 g IV in the landscape and yardwork laborer) 2. Electrophysiology service was already consulted and will evaluate the patient DESCRIPTION OF THE PROCEDURE Emergent procedure. Only verbal consent was obtained Lidocaine 1% was used for local anesthesia. Utilizing modified Seldinger technique, 6 [place] sheath was placed into the right internal jugular vein utilizing a micropuncture kit. 5 [place] balloontipped catheter was advanced into the RV [...] aspects of the procedure. Logan Reyez MD MSO#[id number] Extracted from:Title: CCU H&P Author: Paulette Rosa [...] Transcutaneous pacing if necessary otherwise plan for landscape and yardwork laborer for transvenous pacing -If becomes acutely symptomatic [...] s/sx infection Code status: FULL CODE 11/25/2015 [facility] Plan of Care No Data Provided for This Section Social History Social History Date Source Social History TypeResponse Alcohol Current, Type Beer. Frequency: 3-5 times per week. Smoking Status Never smoker; Exposure to Tobacco Smoke None; Cigarette Smoking Last 365 Days No; Reg Smoking Cessation Counseling No entered on: 03/20/18 11/23/2015 [facility] Family History No Data Provided for This Section Advance Directives No Data Provided for This Section Functional Status No Data Provided for This Section
--- OUTSIDE RECORDS SUMMARY | 2018-09-21 19:07 | XMS REPORT | Summary of Care ---
Author Author Frederick Heck, Mary Alice Organization Unknown Address Unknown Phone Unavailable Care Team Providers Care Smog Technician Name Role Phone BETTY Silva, RODRIGO Unavailable Unavailable MARIBELL Silva, YURI Unavailable Unavailable ERIC P.A., CLAY Unavailable Unavailable Frederick Heck, Mary Alice Unavailable Unavailable Antelmo GREGORY, Demetrius Unavailable Unavailable REILLY MORALES MD, CHANTAL Unavailable Unavailable JAIMIE GREGORY ID, OLEG CORDOVA Unavailable Unavailable Betty GREGORY, Rodrigo [...] A DAY. * Quantity: 3 Refills: 0 BETTY Silva, RODRIGO * Start : 26-Apr-2016 Active 100 Strip Box NIFEdipine ER Osmotic Release 60 MG Oral Tablet Extended Release 24 Hour Take 1 tablet by mouth twice a day * Quantity: 180 Refills: 1 YURI REYNA M.D. * Start : 17-Sep-2016 Active OneTouch Delica Lancets 33G Use to check blood glucose 3 times daily * Quantity: 300 Refills: 0 BETTY Silva, RODRIGO * Start : 28-Sep-2016 Active Benzonatate 100 [...] REYNA M.D. On: 24-Dec-2018 16:40 Interventions Provided Discussion/Summary* Guideline Used: * [facility] * Dr. Martinez calling to speak with Dr. Camacho regarding patient presenting to ER with NTEMI. [place] Text sent to Dr. Camacho. Dr. Martinez infomed that provider will be informed and will contact shortly. Verbalized understanding. * Intended Caller Action: * Other: Speak with clinic staff * Additional Information: * [place] Text sent to Edenilson Camacho, verified read / received at 1847. Instructions Name Dates Details Instructions not documented Encounters Appointment; RODRIGO HERNÁNDEZ M.D. Encounter Diagnosis: Problem not documented On: 28-Sep-2016 16[facility] Encounter Diagnosis: Problem not documented On: [...] not documented On: 11-Jul-2017 16:00 Appointment; SANTY PRTAT M.D. Encounter Diagnosis: Problem not documented On: 02-Aug-2017 11:30 Appointment; DEMETRIUS RODRIGES M.D. Encounter Diagnosis: Problem not documented On: 13-Sep-2017 14:30 Appointment; RODRIGO HERNÁNDEZ M.D. Encounter Diagnosis: Problem not documented On: 14-Oct-2017 16:00 Appointment; [facility], [facility] Encounter Diagnosis: Problem not documented On: 17-Jan-2018 11:00 Appointment; YURI REYNA M.D. Encounter Diagnosis: Problem not documented On: 17-Jan-2018 12:20 Appointment; RODRIGO HERNÁNDEZ M.D. Encounter Diagnosis: Problem not documented On: 17-Jan-2018 15:30 Appointment; CHANTAL MENSAH M.D. Encounter Diagnosis: Problem not documented On: 07-Mar-2018 13:45 Appointment; YURI REYNA M.D. Encounter Diagnosis: Problem not documented On: 19-Mar-2018 15:00 Appointment; YURI REYNA M.D. Encounter Diagnosis: Problem not documented On: 23-Apr-2018 18:20 Appointment; CALY REYES P.A. Encounter Diagnosis: Problem not documented On: 27-May-2018 10:15 Appointment; RODRIGO HERNÁNDEZ M.D. Encounter Diagnosis: Problem not documented On: 18-Jul-2018 14:00
--- OUTSIDE RECORDS SUMMARY | 2018-09-21 19:07 | XMS REPORT ---
Author [facility] Address Unknown Phone Unavailable Care Team Providers Care Contract Negotiator Name Role Phone Haydee BENAVIDES Unavailable Unavailable Problems This patient has no known problems. Allergies, Adverse Reactions, Alerts This patient has no known allergies or adverse reactions. Medications This patient has no known medications. Results Test Description Test Time Test Comments Text Results Atomic Results Result Comments CHEST SINGLE (PORTABLE) 2018-09-21 17:11:00 [place] [id number] Patient Name: ETTA MORALES MR #: [id number] : 1955 Age/Sex: 62/M Req #: [id number] Adm Physician: Ordered by: MIRNA BENAVIDES MD Report #: [id number] Location: ER Room/Bed: Procedure: [id number] DX/CHEST SINGLE (PORTABLE) Exam Date: 09/21/18 Exam Time: 1530 REPORT STATUS: Signed EXAMINATION: CHEST SINGLE (PORTABLE) INDIC ATION: SOB [id number] 1530 Y COMPARISON: None FINDINGS: AP view TUBES and LINES: None. LUNGS: Lungs are well inflated. Bilateral pulmonary edema. More confluent airspace opacity in the right lower lobe. PLEURA: No pleural effusion or pneumothorax. HEART AND MEDIASTINUM: The cardiac silhouette is mildly enlarged. BONES AND S OFT TISSUES: No acute osseous lesion. Soft tissues are unremarkable. UPPER ABDOMEN: No free air under the diaphragm. IMPRESSION: Bilateral pulmonary edema. More confluent airspace opacity in the right lower lobe may represent asymmetric edema or superimposed infection. Continue to follow-up. Signed by: Dr. Ni Petit M.D. on 09/21/2018 5:12 PM Dictated By: NI PETIT MD 11 Transcribed By: LYDIA on 09/21/181711 COPY TO: MIRNA BENAVIDES MD
--- NOTE | 2018-09-21 19:40 | NUR ---
ORDER CLARIFICATION: SPOKE TO MARIELENA YOUNGER IS TO BE DC'D, PATIENT IS TO ONLY BE ON SQ HEPARIN.
[2018-09-21 20:00] VITALS: BP 145/80
--- NOTE | 2018-09-21 20:00 | NUR ---
Pt received from ER. Patient alert and oriented on 100% NRB, O2 sat 100%. Pt switched to 15L 50% Venti mask. Pt sat 96%. Pt resting in bed with no further needs at this time. Family at bedside
[2018-09-21] MEDS ORDERED: ASPIRIN81 MG PO (20:38)
[2018-09-21] MEDS ORDERED: ATORVASTATIN CA20 MG PO (20:38)
[2018-09-21] MEDS ORDERED: GLIPIZIDE5 MG PO (20:38)
[2018-09-21] MEDS ORDERED: TORSEMIDE10 MG PO (20:38)
[2018-09-21] MEDS ORDERED: NIFEDIPINE ER60 MG PO (20:38)
[2018-09-21 21:00] VITALS: BP_SYST 142; BP_SYST 147; BP_DIAS 80
[2018-09-21] MEDS: INSULIN REGULAR, HUMAN 100 UNIT/1 ML 3ML VIAL SQ SCH (21:00)
[2018-09-21] MEDS: HEPARIN SOD (PORCINE) 5,000 UNIT/ML VIAL SC SCH (21:08)
[2018-09-21] MEDS: FAMOTIDINE 20 MG TAB PO SCH (21:08)
[2018-09-21 22:00] VITALS: BP 148/89
[2018-09-21 23:00] VITALS: BP 136/75
[2018-09-21] MEDS: NITROGLYCERIN 2% OINT 1 GM PKT TOP SCH (23:29)
[2018-09-22] VITALS (25 sets, daily range): BP systolic 123–159; BP diastolic 57–103
[2018-09-22 02:50] LABS: ANION GAP 14.4 mmol/L (8-16); CALCIUM 8.1 mg/dL (8.4-10.2); CREATININE, SERUM 6.2 mg/dL (0.72-1.25); PHOSPHORUS 4.4 MG/DL (2.3-4.7); POTASSIUM 3.4 mmol/L (3.5-5.1)
[2018-09-22 03:11] LABS: CREATINE KINASE MB 8.9 ng/mL (0-5.0)
--- NOTE | 2018-09-22 03:54 | NUR ---
Dr. Shaw notified of pt's increased troponin, no new orders noted.
[2018-09-22] MEDS: NITROGLYCERIN 2% OINT 1 GM PKT TOP SCH ×3 (05:10→17:25)
[2018-09-22] MEDS: FAMOTIDINE 20 MG TAB PO SCH ×2 (05:53→17:28)
--- NOTE | 2018-09-22 06:31 | NUR ---
Dr. White paged for renal consult.
[2018-09-22 07:22] LABS: CHOL/HDL RATIO 2.9 (3.9-4.7)
[2018-09-22] MEDS: INSULIN REGULAR, HUMAN 100 UNIT/1 ML 3ML VIAL SQ SCH ×4 (07:30→20:58)
[2018-09-22] MEDS: ASPIRIN 81 MG CHEW TAB PO SCH (08:11)
[2018-09-22] MEDS: HEPARIN SOD (PORCINE) 5,000 UNIT/ML VIAL SC SCH ×2 (08:12→20:58)
[2018-09-22 10:26] LABS: CREATINE KINASE MB 5.1 ng/mL (0-5.0)
[2018-09-22] MEDS: METOPROLOL TARTRATE 25 MG TAB PO SCH ×2 (11:58→16:46)
--- NOTE | 2018-09-22 12:25 | NUR ---
CALLED OFFICE OF DR CRANDALL, LEFT MESSAGE WITH MAYELA FOR AM CONSULT ON THIS PT.
[2018-09-22] MEDS ORDERED: POTASSIUM CHLORIDE 20MEQ/100ML 200 ML IV ONE (14:15)
--- NOTE | 2018-09-22 15:11 | Consultation ---
DATE OF CONSULTATION: 09/22/2018 HISTORY OF PRESENT ILLNESS: This is a 62-year-old gentleman, who is known to our Nephrology Service, has underlying history of chronic kidney disease secondary to diabetic nephropathy, followed up in our office, admitted with chest pain and congestive heart failure. Seen by Cardiology. Currently sitting up on oxygen, in no apparent distress. Family by bedside. The patient denies any trouble passing urine, abdominal pain, fever, chills. He denies any cough. At the moment, he is chest pain free. Admits to dyspnea on exertion. Denies PND. ALLERGIES: NO APPARENT DRUG ALLERGIES. CURRENT MEDICATIONS: Please see MAR for details. He is on: 1. Heparin. 2. Aspirin 81 mg daily. 3. Atorvastatin 20 mg b.i.d. 4. Pepcid 20 mg p.o. q.12. 5. Metoprolol 25 mg p.o. b.i.d. 6. Nitroglycerin ointment to chest wall. 7. Regular insulin sliding scale. 8. Ondansetron p.r.n. SOCIAL HISTORY: He does not smoke or drink. FAMILY HISTORY: Significant for diabetes. PAST MEDICAL HISTORY: As above. Also history of hypertension, diabetic retinopathy, neuropathy, and diabetic kidney disease. LABORATORY DATA: White count 11.8, hemoglobin 9.6, sodium 136, potassium 3.4, bicarbonate 24, creatinine 6.2. He has a phosphorus level 4.4, magnesium 2. His troponin I is 11.2. Chest x-ray shows evidence of pulmonary edema. PHYSICAL EXAMINATION: GENERAL: Awake, alert, sitting up, in no apparent distress. VITAL SIGNS: Blood pressure 139/64, pulse rate 86, afebrile, on 4 L nasal cannula he is saturating 95%. HEAD AND NECK: Cornea clear. Oral mucosa moist. Neck veins not distended. LUNGS: Bibasilar rales. HEART: 2 to 3/6 holosystolic murmur of left sternal border. No gallop. ABDOMEN: Otherwise soft, nontender. No apparent visceromegaly. EXTREMITIES: Lower extremity, no edema. IMPRESSION AND PLAN: Most likely end-stage renal disease, mildly hypokalemic, congestive heart failure, non ST-segment elevated OR. The patient needs to initiate dialysis. We will obtain clinic records and subsequently will need cardiac cath. Renal replacement therapy discussed with the patient. He will let me know once he speaks to his family whether he wants to proceed with dialysis or not. In the meantime, we will diurese with Reid. Awaiting echocardiogram report. Replace potassium. Please see orders. MD GERALD Velázquez/UBALDO /[id number]
[2018-09-22] MEDS ORDERED: HEPARIN SOD (PORCINE) 1000 UNIT/ML 30ML ONE (15:12)
[2018-09-22] MEDS ORDERED: SODIUM CHLORIDE 0.9% 500ML 500 ML ONE (15:12)
[2018-09-22] MEDS ORDERED: SODIUM CHLORIDE 0.9% 1000ML 1,000 ML ONE ×2 (15:12→21:18)
[2018-09-22] MEDS ORDERED: LIDOCAINE 1% W/EPINEPHRINE 20 ML VIAL ONE (15:12)
[2018-09-22] MEDS ORDERED: MIDAZOLAM HCL 2 MG/2 ML VIAL ONE (15:56)
[2018-09-22] MEDS ORDERED: FENTANYL CITRATE/PF 100MCG/2 ML INJ ONE (15:56)
[2018-09-22] MEDS: POTASSIUM CHLORIDE 20MEQ/100ML 100 ML IV SCH ×2 (16:45→16:53)
[2018-09-22] MEDS: ATORVASTATIN 20 MG TAB PO SCH (16:46)
--- NOTE | 2018-09-22 16:50 | Diagnostic Imaging Report ---
PROCEDURE: Tunneled dialysis catheter placement Procedural Personnel Attending physician(s): Nahomy Monique MD Fellow physician(s): None Resident physician(s): None Advanced practice provider(s): None Pre-procedure diagnosis: Acute kidney injury Post-procedure diagnosis: Same Indication (QCDR): Performance of hemodialysis Additional clinical history: None Complications: No immediate complications. IMPRESSION: Insertion of right-sided tunneled dialysis catheter, with tip in the expected location of the right atrium. Plan: The catheter may be used immediately. PROCEDURE SUMMARY: - Venous access with ultrasound guidance - Tunneled dialysis catheter insertion with fluoroscopic guidance - Additional procedure(s): None PROCEDURE DETAILS: Pre-procedure Consent: Informed consent for the procedure including risks, benefits and alternatives was obtained and time-out was performed prior to the procedure. Preparation (MIPS): The site was prepared and draped using all elements of maximal sterile barrier technique including sterile gloves, sterile gown, cap, mask, large sterile sheet, sterile ultrasound probe cover, hand hygiene and cutaneous antisepsis with 2% chlorhexidine. Medical reason for site preparation exception (MIPS): Not applicable Anesthesia/sedation Level of anesthesia/sedation: Moderate sedation (conscious sedation) Anesthesia/sedation administered by: Independent trained observer under attending supervision with continuous monitoring of the patient?s level of consciousness and physiologic status Total intra-service sedation time (minutes): 15 Access Local anesthesia was administered. The vessel was sonographically evaluated and determined to be patent. Real time ultrasound was used to visualize needle entry into the vessel and a permanent image was stored. Vein accessed (QCDR): Internal jugular vein Internal jugular vein patency (QCDR): Patent or otherwise accessible on at least one side Access technique: Micropuncture set with 21 gauge needle Catheter placement An incision was made near the venous access site and the catheter was tunneled subcutaneously to the venous access site. The catheter was advanced via a peel-away sheath into the vein under fluoroscopic guidance. Catheter tip location was fluoroscopically verified and a permanent image was stored. Catheter placed: 19cm tip to cuff HemoSplit catheter Catheter cuff-to-tip length (cm): 19 Catheter flush: Heparin (1000 units/mL) Closure A sterile dressing was applied. Access site closure technique: Tissue adhesive Catheter securement technique: Non-absorbable suture Contrast Contrast agent: None Contrast volume (mL): N/A Radiation Dose Fluoroscopy time (1.4): minutes Kerma area product (657.1): cGycm2 Additional Details Additional description of procedure: None Equipment details: None Specimens removed: None Estimated blood loss (mL): Less than 10 Standardized report: [email or web address] Attestation Signer name: Nahomy Monique MD I attest that I was present for the entire procedure. I reviewed the stored images and agree with the report as written. Signed by: Nahomy Monique MD on 09/22/2018 4:47 PM
--- NOTE | 2018-09-22 17:10 | NUR ---
called fresenious with orders for dyalisis.
[2018-09-22] MEDS: FUROSEMIDE INJ 10 MG/ML 4 ML VIAL IV SCH (17:24)
[2018-09-22] MEDS ORDERED: ACETAMINOPHEN 325 MG TAB PO PRN (21:15)
[2018-09-22] MEDS ORDERED: HEPARIN SOD (PORCINE) 1000 UNIT/ML SDV ONE (22:17)
[2018-09-23] VITALS (26 sets, daily range): BP systolic 81–184; BP diastolic 50–94
[2018-09-23] MEDS: NITROGLYCERIN 2% OINT 1 GM PKT TOP SCH ×4 (00:40→17:03)
[2018-09-23] MEDS: FUROSEMIDE INJ 10 MG/ML 4 ML VIAL IV SCH ×4 (00:40→17:03)
--- NOTE | 2018-09-23 01:33 | Consultation ---
DATE OF CONSULTATION: 09/22/2018 Pulmonary Consultation REASON FOR THE CONSULT: Shortness of breath. HISTORY OF PRESENT ILLNESS: Mr. Arvizu is a 62-year-old male, who presented to the emergency room with complaints of shortness of breath. The patient has chronic kidney disease and Nephrology evaluated the patient and recommended that the patient need to be started on dialysis, catheter has been placed, and dialysis has been planned. The patient is denying any complaints of chest pain. Shortness of breath is better. Denies any fever or chills. Chest x-ray films reviewed showing bilateral alveolar infiltrate. White count was 11,000 when he came in. REVIEW OF SYSTEMS: GENERAL: Denies any fever or chills. HEAD: Denies any head trauma. ENT: Denies any earaches. CVS: Denies any chest pain. RESPIRATORY: Shortness of breath. The rest of the review of systems are negative except as in HPI. PAST MEDICAL HISTORY: Hypertension and diabetes. PAST SURGICAL HISTORY: None. FAMILY AND SOCIAL HISTORY: He does not smoke. Does not drink. PHYSICAL EXAMINATION: VITAL SIGNS: Temperature 99.6, pulse of 80, blood pressure 141/70, respiratory rate of 18, O2 saturation 97%. HEENT: Head is atraumatic and normocephalic. NECK: Supple. CHEST: Bilateral crackles. HEART: S1, S2 audible. ABDOMEN: Soft. EXTREMITIES: No pedal edema. NEUROLOGIC: Awake and alert. LABORATORY DATA: White count of 11,000, hemoglobin 9.6. Sodium 136, potassium 3.4, BUN 61, creatinine 6.2, CK-MB 5.1, creatine kinase 205, troponin 9.99. IMAGING: Chest x-ray film was reviewed, bilateral alveolar infiltrate. ASSESSMENT AND PLAN: Mr. Arvizu is a 62-year-old male admitted for shortness of breath. Chest x-ray and labs are suggestive of pulmonary edema. The patient's BNP was 2192 with increased troponin, palpations, and also had acute on chronic kidney disease. Current problem, 1. Acute on chronic kidney disease, now requiring hemodialysis. 2. Acute pulmonary edema. 3. Possible NSTEMI versus high troponin secondary to fluid overload. PLAN: 1. Continue the patient on hemodialysis per Nephrology recommendation. 2. Oxygen as needed. 3. No need for IV antibiotics. I doubt the patient has any pneumonia. However, we will follow closely. If deteriorates, consider doing antibiotics. Thank you for this consult. MD WILBERT Burnette/UBALDO /[id number]
[2018-09-23 05:23] LABS: ALBUMIN 1.9 g/dL (3.5-5.0); ALBUMIN/GLOBULIN RATIO 0.5 (0.8-2.0); ANION GAP 12.1 mmol/L (8-16); CALCIUM 8.2 mg/dL (8.4-10.2); CREATININE, SERUM 5.24 mg/dL (0.72-1.25)
[2018-09-23 05:24] LABS: POTASSIUM 4.1 mmol/L (3.5-5.1)
[2018-09-23] MEDS: FAMOTIDINE 20 MG TAB PO SCH ×2 (06:17→17:03)
[2018-09-23] MEDS ORDERED: SODIUM CHLORIDE 0.9% 1000ML 2,000 ML ONE (07:29)
[2018-09-23] MEDS: INSULIN REGULAR, HUMAN 100 UNIT/1 ML 3ML VIAL SQ SCH (07:30)
[2018-09-23] MEDS: METOPROLOL TARTRATE 25 MG TAB PO SCH ×2 (08:03→17:03)
[2018-09-23] MEDS: ASPIRIN 81 MG CHEW TAB PO SCH (08:03)
[2018-09-23] MEDS: ATORVASTATIN 20 MG TAB PO SCH ×2 (08:03→17:02)
[2018-09-23] MEDS ORDERED: DEXTROSE 50% SYRINGE 50 ML IV PRN (08:45)
[2018-09-23] MEDS: INSULIN LISPRO 100 UNIT/1 ML 3ML VIAL SQ SCH ×2 (11:30→16:54)
--- NOTE | 2018-09-23 11:30 | Consultation ---
DATE OF CONSULTATION: 09/22/2018 Cardiology Consultation Thank you so much for asking me to see this nice man in consultation. 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 CHIEF COMPLAINT: He presented to the emergency room with chest discomfort without significant EKG changes, was found to have advanced renal failure. HISTORY OF PRESENT ILLNESS: The patient is a poor historian. Evidently, these discomforts were new. PAST MEDICAL HISTORY: Evidently, previous records indicate that he was hospitalized in [facility] within the last year with probably pneumonia requiring ventilator support and apparently had worsening of kidney failure perhaps at that time. He has longstanding diabetes and has been known to have some renal insufficiency for a year or more. HOME MEDICATIONS: Please see the chart. PERSONAL AND SOCIAL HISTORY: He does not smoke or drink. PHYSICAL EXAMINATION: GENERAL: At this time shows a pleasant man, who speaks only [place]. He tells me he has been in the [place] for the past 40 years. VITAL SIGNS: Blood pressure 129/64, pulse 86 and regular. HEAD, EYES, EARS, NOSE, AND THROAT: Unremarkable. NECK: No jugular venous distention. THORAX: Heart sounds S1, S2 are equal. No murmurs. Lungs are clear. ABDOMEN: Protuberant. Normal bowel sounds. EXTREMITIES: No cyanosis, clubbing, or edema. PERTINENT LABORATORY STUDIES: Show elevated troponins of 8.9, 11.2, and 9.9. His BUN is 61, creatinine 6.2, potassium 3.4. White count 11.8, hemoglobin 9.6. EKG shows sinus rhythm without ST or T-wave changes. ASSESSMENT: 1. Myocardial infarction, subendocardial, location and timing not entirely clear. 2. Advanced renal insufficiency. 3. Type 2 adult-onset diabetes, previously taking oral hypoglycemics. PLAN: The patient will be given aspirin and heparin and recommend holding glipizide. We will monitor his blood pressure and discuss need for dialysis and future planning. Prognosis is guarded. Thank you for asking me to see him in consultation. MD BLAS Nogueira/UBALDO /[id number] cc: MD Bonnie Bhatia MD
[2018-09-23] MEDS: HEPARIN SOD (PORCINE) 5,000 UNIT/ML VIAL SC SCH ×2 (12:41→20:37)
--- NOTE | 2018-09-23 16:05 | Diagnostic Imaging Report ---
EXAM: Renal Ultrasound INDICATION: ^NANCY ^[id number] ^1521 COMPARISON: None TECHNIQUE: Transverse and longitudinal images of the kidneys and bladder were obtained. FINDINGS: Right Kidney: Length: 9.8 cm Appearance: Increased echogenicity. Collecting system: No hydronephrosis Stones: None Cyst/Mass: Upper pole simple cyst measuring 2.5 x 2.2 x 2.8 cm. Left Kidney: Length: 9.5 cm Appearance: Increased echogenicity. Collecting system: No hydronephrosis Stones: None Cyst/Mass: None Bladder: Not well visualized due to decompressed bladder and overlying bowel gas. IMPRESSION: Echogenic kidneys, which can be seen in medical renal disease. Right kidney upper pole simple cyst. Signed by: Nahomy Monique MD on 09/23/2018 4:01 PM
[2018-09-24] VITALS (26 sets, daily range): BP systolic 95–209; BP diastolic 52–90
[2018-09-24] MEDS: NITROGLYCERIN 2% OINT 1 GM PKT TOP SCH ×4 (00:17→18:00)
[2018-09-24] MEDS: FUROSEMIDE INJ 10 MG/ML 4 ML VIAL IV SCH ×3 (00:18→11:45)
[2018-09-24] MEDS: FAMOTIDINE 20 MG TAB PO SCH ×2 (05:32→18:30)
[2018-09-24 05:37] LABS: ALBUMIN 1.9 g/dL (3.5-5.0); ALBUMIN/GLOBULIN RATIO 0.5 (0.8-2.0); CALCIUM 8.2 mg/dL (8.4-10.2); CREATININE, SERUM 5.07 mg/dL (0.72-1.25)
--- NOTE | 2018-09-24 06:21 | NUR ---
Notified Dr. Shaw of hypertension, BP 195/85. aware that HD will be done later this morning. Orders received.
[2018-09-24] MEDS ORDERED: CLONIDINE HCL 0.1 MG TAB PO ONE (06:30)
--- NOTE | 2018-09-24 07:06 | Diagnostic Imaging Report ---
EXAMINATION: CHEST SINGLE (PORTABLE) INDICATION: Follow-up pulmonary congestion COMPARISON: Chest radiograph 09/21/2018 FINDINGS: AP view TUBES and LINES: The right IJ dual-lumen catheter tip terminates at the cavoatrial junction. LUNGS: Lungs are well inflated. Near complete resolution of airspace opacity seen on chest radiograph 09/21/2018. Persistent mild pulmonary vascular congestion.. There is no evidence of pneumonia or pulmonary edema. PLEURA: No pleural effusion or pneumothorax. HEART AND MEDIASTINUM: Cardiac size is mildly enlarged. BONES AND SOFT TISSUES: No acute osseous lesion. Soft tissues are unremarkable. UPPER ABDOMEN: No free air under the diaphragm. IMPRESSION: Mild cardiomegaly and pulmonary vascular congestion. Near-complete resolution of pulmonary edema seen on chest radiograph 09/21/2018 Signed by: Noe Alston DO on 09/24/2018 7:03 AM
--- NOTE | 2018-09-24 07:11 | NUR ---
Binu Washburn RN to bedside for HD after conveying a.m. labs to and receiving orders via telephone from Dr Fontenot.
[2018-09-24] MEDS ORDERED: HEPARIN SOD (PORCINE) 1000 UNIT/ML SDV ONE (07:13)
[2018-09-24] MEDS ORDERED: SODIUM CHLORIDE 0.9% 1000ML 2,000 ML ONE (07:13)
[2018-09-24] MEDS: METOPROLOL TARTRATE 25 MG TAB PO SCH ×2 (09:00→17:00)
[2018-09-24] MEDS: ATORVASTATIN 20 MG TAB PO SCH ×2 (09:17→17:00)
[2018-09-24] MEDS: ASPIRIN 81 MG CHEW TAB PO SCH (09:17)
[2018-09-24] MEDS: INSULIN LISPRO 100 UNIT/1 ML 3ML VIAL SQ SCH ×3 (09:17→17:09)
[2018-09-24] MEDS: HEPARIN SOD (PORCINE) 5,000 UNIT/ML VIAL SC SCH (09:18)
[2018-09-24] MEDS ORDERED: SODIUM CHLORIDE FLUSH 10 ML SYR INJ PRN (12:45)
--- NOTE | 2018-09-24 12:59 | NUR ---
Dr Shaw to bedside. Plan is for heart cath tomorrow.
--- NOTE | 2018-09-24 13:00 | NUR ---
Dr Fontenot to bedside. Orders rec'd.
[2018-09-24 14:52] LABS: ALBUMIN 2.1 g/dL (3.5-5.0); ALBUMIN/GLOBULIN RATIO 0.4 (0.8-2.0); ANION GAP 13.9 mmol/L (8-16); CALCIUM 8.6 mg/dL (8.4-10.2); CREATININE, SERUM 2.47 mg/dL (0.72-1.25); POTASSIUM 3.9 mmol/L (3.5-5.1)
[2018-09-24] MEDS: CLONIDINE HCL 0.1 MG TAB PO PRN (22:05)
[2018-09-25] VITALS (26 sets, daily range): BP systolic 114–212; BP diastolic 64–93
[2018-09-25] MEDS: NITROGLYCERIN 2% OINT 1 GM PKT TOP SCH ×4 (01:09→17:11)
[2018-09-25 05:17] LABS: BASOPHILS # (AUTO) 0.1 (0.0-0.1); BASOPHILS % 0.8 % (0.0-1.0); EOSINOPHILS # (AUTO) 0.3 (0.0-0.4); HEMATOCRIT 25.8 % (38.2-49.6); HEMOGLOBIN 8.7 g/dL (14.0-18.0); LYMPHOCYTES # (AUTO) 1.4 (1.0-3.2); LYMPHOCYTES % 17.4 % (18.0-39.1); MEAN CORPUSCULAR HEMOGLOBIN 31.5 pg (28-32); MEAN CORPUSCULAR HGB CONC 33.7 g/dL (31-35); MEAN CORPUSCULAR VOLUME 93.5 fL (81-99); MONOCYTES # (AUTO) 0.9 (0.2-0.8); MONOCYTES % 11.6 % (4.4-11.3); NEUTROPHILS # (AUTO) 5.1 (2.1-6.9); NEUTROPHILS % 65.8 % (38.7-80.0); PLATELET COUNT 183 x10e3/uL (140-360); RED BLOOD COUNT 2.76 x10e6/uL (4.3-5.7); RED CELL DISTRIBUTION WIDTH 12.4 % (11.7-14.4)
[2018-09-25 05:20] LABS: INR 0.95; PROTHROMBIN TIME 13.2 seconds (11.9-14.5)
[2018-09-25 05:45] LABS: ALBUMIN/GLOBULIN RATIO 0.5 (0.8-2.0); ANION GAP 13.2 mmol/L (8-16); CALCIUM 8.6 mg/dL (8.4-10.2); CREATININE, SERUM 4.24 mg/dL (0.72-1.25); MAGNESIUM 1.9 MG/DL (1.3-2.1); PHOSPHORUS 3.8 MG/DL (2.3-4.7); POTASSIUM 4.2 mmol/L (3.5-5.1)
[2018-09-25] MEDS: FAMOTIDINE 20 MG TAB PO SCH ×2 (06:36→17:30)
[2018-09-25] MEDS: INSULIN LISPRO 100 UNIT/1 ML 3ML VIAL SQ SCH ×3 (07:30→17:11)
[2018-09-25] MEDS: METOPROLOL TARTRATE 25 MG TAB PO SCH ×2 (08:16→16:10)
[2018-09-25] MEDS: ATORVASTATIN 20 MG TAB PO SCH ×2 (09:51→17:11)
[2018-09-25] MEDS: ASPIRIN 81 MG CHEW TAB PO SCH (09:51)
[2018-09-25] MEDS: FUROSEMIDE 40 MG TAB PO SCH (09:52)
[2018-09-25] MEDS: CLONIDINE HCL 0.1 MG TAB PO PRN (09:53)
[2018-09-25] MEDS ORDERED: MIDAZOLAM HCL 2 MG/2 ML VIAL ONE (10:05)
[2018-09-25] MEDS ORDERED: FENTANYL CITRATE/PF 100MCG/2 ML INJ ONE (10:05)
[2018-09-25] MEDS ORDERED: LIDOCAINE HCL 2% LOCAL 20 ML VIAL ONE (10:05)
[2018-09-25] MEDS ORDERED: HEPARIN SOD/SOD CHLORIDE 2,000 ML ONE (10:05)
[2018-09-25] MEDS ORDERED: SODIUM CHLORIDE 0.9% 1000ML 1,000 ML ONE (10:06)
[2018-09-25] MEDS ORDERED: IOPAMIDOL 370 MG/ML 200 ML INFUS..BTL INJ ONE ×2 (10:06→10:53)
[2018-09-25] MEDS ORDERED: HYDRALAZINE HCL 20 MG/ML VIAL ONE (10:35)
--- NOTE | 2018-09-25 11:26 | NUR ---
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 right groin with dry sterile dressing clean dry and intact. no s/s bleeding or hematoma at this time.
[2018-09-25] MEDS ORDERED: ENALAPRIL MALEATE 10 MG TAB ONE (14:36)
[2018-09-25] MEDS: ENALAPRIL MALEATE 10 MG TAB PO SCH (14:38)
[2018-09-25] MEDS ORDERED: HYDRALAZINE HCL 20 MG/ML VIAL IV STA (15:50)
--- NOTE | 2018-09-25 15:54 | NUR ---
dr. enriquez rounded earlier, instructed to give enalopril now and to call him if now change in bp. I called dr. enriquez as bp192/79 with hr 53bpm. new orders to hold metoprolol po for hr <55 and new orders for hydralazine ivp prn. torb to dr. enriquez. plan for hemodialysis tomorrow per dr. enriquez. Reji is aware.
[2018-09-25] MEDS ORDERED: HYDRALAZINE HCL 20 MG/ML VIAL IV PRN (16:00)
[2018-09-26] VITALS (20 sets, daily range): BP systolic 99–175; BP diastolic 60–81
[2018-09-26] MEDS: NITROGLYCERIN 2% OINT 1 GM PKT TOP SCH ×4 (00:16→20:36)
--- NOTE | 2018-09-26 04:07 | NUR ---
Pt R groin dressing clean, dry & intact. Denies pain through night, mild weakness while ambulating to toilet. No s/s of bleeding or hematoma noted.
[2018-09-26 05:18] LABS: BASOPHILS # (AUTO) 0.1 (0.0-0.1); BASOPHILS % 1.1 % (0.0-1.0); EOSINOPHILS # (AUTO) 0.2 (0.0-0.4); EOSINOPHILS % 3.5 % (0.0-6.0); HEMATOCRIT 24.2 % (38.2-49.6); HEMOGLOBIN 8.3 g/dL (14.0-18.0); LYMPHOCYTES # (AUTO) 1.3 (1.0-3.2); LYMPHOCYTES % 21.1 % (18.0-39.1); MEAN CORPUSCULAR HEMOGLOBIN 31.9 pg (28-32); MEAN CORPUSCULAR HGB CONC 34.3 g/dL (31-35); MEAN CORPUSCULAR VOLUME 93.1 fL (81-99); MONOCYTES # (AUTO) 0.6 (0.2-0.8); PLATELET COUNT 189 x10e3/uL (140-360); RED CELL DISTRIBUTION WIDTH 12.5 % (11.7-14.4)
[2018-09-26 05:34] LABS: ANION GAP 16.5 mmol/L (8-16); CALCIUM 8.4 mg/dL (8.4-10.2); CREATININE, SERUM 5.52 mg/dL (0.72-1.25); POTASSIUM 4.5 mmol/L (3.5-5.1)
[2018-09-26] MEDS: FAMOTIDINE 20 MG TAB PO SCH ×2 (06:25→17:37)
[2018-09-26] MEDS: INSULIN LISPRO 100 UNIT/1 ML 3ML VIAL SQ SCH ×3 (07:54→17:35)
[2018-09-26] MEDS: METOPROLOL TARTRATE 25 MG TAB PO SCH ×2 (09:00→16:50)
[2018-09-26] MEDS: ENALAPRIL MALEATE 10 MG TAB PO SCH (09:00)
[2018-09-26] MEDS: ATORVASTATIN 20 MG TAB PO SCH ×2 (09:11→16:50)
[2018-09-26] MEDS: ASPIRIN 81 MG CHEW TAB PO SCH (09:11)
[2018-09-26] MEDS ORDERED: HEPARIN SOD (PORCINE) 1000 UNIT/ML SDV ONE (10:10)
[2018-09-26] MEDS ORDERED: SODIUM CHLORIDE 0.9% 1000ML 2,000 ML ONE (10:11)
--- NOTE | 2018-09-26 10:22 | NUR ---
SPOKE WITH DR COCHRAN RE DC PLAN PT WILL NEED CABG BUT CAN PROBABLY BE DONE AFTER PT IS DISCHARGED TRANSFERED OUT OF ICU TODAY DR COCHRAN STATES PT WILL NEED OP HEMODIALYSIS ARRANGED CALL PLACED TO DR LIU FOR ORDERS AWAIT CALL BACK
[2018-09-26] MEDS ORDERED: HEPARIN SOD (PORCINE) 1000 UNIT/ML SDV IV PRN (10:45)
[2018-09-26] MEDS ORDERED: MANNITOL 25% 12.5GM/50 ML VIAL IV PRN (10:45)
[2018-09-26] MEDS ORDERED: ALBUMIN 25% 12.5GM 0.25 GM/ML BTL IV PRN (10:45)
[2018-09-26] MEDS ORDERED: SODIUM CHLORIDE 0.9% 250ML 500 ML IV PRN (10:45)
--- NOTE | 2018-09-26 11:53 | Operative Report ---
DATE OF PROCEDURE: 09/25/2018 SURGEON: Tyler Shaw MD PROCEDURE: Cardiac catheterization. INDICATION: Abnormal troponins and renal failure. PROCEDURE IN DETAIL: The patient was brought to the metallurgical laboratory assistant in a fasting and partially sedated state and initial blood pressure was 230/100. He was given hydralazine 5 mg and followed by a second dose of 10 mg 5 minutes later. He was premedicated with 1 mg of Versed, right groin was prepped with scrub and 2% Xylocaine and 4-Fijian sheath placed in the right common femoral artery. Cardiac catheterization performed with 4-Fijian pigtail and 4-Fijian right and left Pascual catheters. Inspection of films demonstrates that the left ventricular function appears to be abnormal with mild inferobasal hypokinesis and there may be calcification of the myocardium in this location. Estimated ejection fraction about 60%. The right coronary artery is the dominant vessel, but diffusely diseased with proximally about 70% stenosis followed by 50% stenosis in the midportion. The posterior descending is relatively small vessel with about a 50% stenosis in its proximal portion and the more distal right has 60% stenosis before two small posterolateral vessels. The left main is good caliber without any significant stenosis. Proximal LAD has minimal disease, but there is about 80% stenosis in the LAD after the first diagonal and 80% stenosis in the midportion after the second diagonal. Each diagonal is diseased with about 90% stenosis in both of those two vessels, the first diagonal being about 2 mm in size and the second diagonal being about 1.5 mm. The proximal circumflex is unremarkable. The large obtuse marginal has significant disease about 80% stenosis in its proximal portion and more distally 30% stenosis. FINAL IMPRESSION: 1. Complex three-vessel coronary artery disease as above. 2. Inferobasal hypokinesis. Estimated ejection fraction 60%. 3. Recommendation is for coronary artery bypass graft surgery with grafts to the LAD, OM, and posterior descending. Catheters were removed, pressure held, ending blood pressure is 140/70. No complication. No blood loss. He has returned to his room in stable condition. MD BLAS Nogueira/UBALDO /[id number] cc: MD Jayant Velázquez MD
--- NOTE | 2018-09-26 14:54 | NUR ---
PT SIGNED CHOICE FOR [facility] REQUESTING , AND SATURDAY IN AFTERNOON TIME FAXING CLINICALS TO ADMISSION LINE.
[2018-09-26] MEDS: FUROSEMIDE 40 MG TAB PO SCH (16:50)
--- NOTE | 2018-09-26 17:24 | NUR ---
Nutrition Screen Note RD Recommendation for Physician: -Continue current diet as ordered Plan of Care: RD following, monitoring for tolerance and adequacy Nutrition reason for involvement: LOS Primary Diagnose(s): end-stage renal disease, non ST-segment elevated GA, anemia PMH: hypertension, diabetic retinopathy, neuropathy, and diabetic kidney disease Ht: 64in Wt: 143lb BMI: 24.5kg/m2 IBW: 130lb +/- 10% RD Assessment: (09/26) Chart reviewed. Labs and meds reviewed. 63yo M, who was admitted for chest pain. Pt was discussed during AM rounds. Pt had heart cath yesterday and HD today. Visited pt in the room. Pt reported good appetite without any GI complains. Normal BM. Pt denied any chewing or swallowing difficulty. Weight has been stable. Will continue to monitor and follow. Current Diet: ADA diet Malnutrition Evaluation (09/26/2018) The patient does not meet criteria for a specified degree of malnutrition at this time. Will re-evaluate at follow-up as appropriate. Diet Education Needs Assessment: Diet education not indicated. Pako WNL, Newly diagnosed with ESRD, rec f/u with outpatient RD Nutrition Care Level: low Signed: Yovana Wright, MS, RD, LD
--- NOTE | 2018-09-26 17:42 | NUR ---
removed zoll life patric pads: left upper back has outline of adhesive pad(skin tear). area cleansed and applied lotion. patient reports minor irritation. will continue to monitor skin.
[2018-09-27] VITALS (12 sets, daily range): BP systolic 89–167; BP diastolic 48–81
[2018-09-27] MEDS: NITROGLYCERIN 2% OINT 1 GM PKT TOP SCH
[2018-09-27] MEDS: FAMOTIDINE 20 MG TAB PO SCH ×2 (05:28→18:05)
[2018-09-27] MEDS: INSULIN LISPRO 100 UNIT/1 ML 3ML VIAL SQ SCH ×3 (07:45→16:27)
[2018-09-27] MEDS: ISOSORBIDE MONONITRATE 30 MG TAB CR PO SCH (08:25)
[2018-09-27] MEDS: ASPIRIN 81 MG CHEW TAB PO SCH (08:25)
[2018-09-27] MEDS: ATORVASTATIN 20 MG TAB PO SCH ×2 (08:26→18:05)
[2018-09-27] MEDS: METOPROLOL TARTRATE 25 MG TAB PO SCH ×2 (08:26→18:06)
[2018-09-27] MEDS: FUROSEMIDE 40 MG TAB PO SCH (08:26)
[2018-09-27] MEDS: ENALAPRIL MALEATE 10 MG TAB PO SCH (10:30)
--- NOTE | 2018-09-27 16:14 | Progress Note ---
DATE: 09/27/2018 SUBJECTIVE: Feels okay. Denies any trouble breathing. Has minimal swelling. Blood pressures have for the most part been controlled this morning. OBJECTIVE: VITAL SIGNS: Temperature 98.1, pulse 69, and blood pressure 138/75. CHEST: Clear. VASCULAR: Right IJ catheter. EXTREMITIES: Trace edema. ABDOMEN: Benign. NEURO: Appears to be alert and appropriate. LABORATORY DATA: Labs show hemoglobin of 8.3. Last creatinine was 5.5. Serum CO2 of 24. Last phosphorus was 3.8. ASSESSMENT: 1. New end-stage renal disease. Fluid overload is now controlled. 2. Hypertension. 3. Non-ST myocardial infarction. 4. Coronary artery disease, presumably needing coronary artery bypass grafting. 5. Diabetic and hypertensive end-organ damage. PLAN: 1. Hemodialysis on Saturday, Saturday, and Saturday schedule. Await outpatient placement. 2. Continue BE inhibitor. 3. Blood pressure remains high, we can titrate the medicines, however I want to reconfirm that. Thank you for allowing us to participate in Mr. Arvizu's care. MD CHANI BhatiaK/UBALDO /[id number]
--- NOTE | 2018-09-27 21:00 | NUR ---
Pt arrived to unit via wheelchair from ICU. Pt is in no apparent distress. Pt has no c/o pain. is present at bedside. Pt orientated to room and call light. Bed is in low locked position and pt is sitting in chair at bedside. Pt educated to call nurse for any assistance needed. Call light is in reach. Will continue to monitor.
[2018-09-28] VITALS (7 sets, daily range): BP systolic 146–192; BP diastolic 71–89
[2018-09-28] MEDS: FAMOTIDINE 20 MG TAB PO SCH ×2 (06:43→18:45)
--- NOTE | 2018-09-28 06:55 | NUR ---
Report given to LINDA Key at this time. Pt resting comfortably in bed and denies pain. Pt is present at bedside. Call light is in reach.
--- NOTE | 2018-09-28 07:15 | NUR ---
RECEIVED PATIENT RESTING IN BED NO SIGNS OF DISTRESS. BED LOW, WHEELS LOCKED, SIDE RAILS X2. AT BEDSIDE. CALL LIGHT IN REACH. WILL CONTINUE TO MONITOR PATIENT.
[2018-09-28] MEDS: ASPIRIN 81 MG CHEW TAB PO SCH (08:17)
[2018-09-28] MEDS: METOPROLOL TARTRATE 25 MG TAB PO SCH ×2 (08:17→16:39)
[2018-09-28] MEDS: ENALAPRIL MALEATE 10 MG TAB PO SCH (08:17)
[2018-09-28] MEDS: FUROSEMIDE 40 MG TAB PO SCH (08:17)
[2018-09-28] MEDS: ATORVASTATIN 20 MG TAB PO SCH ×2 (08:17→16:39)
[2018-09-28] MEDS: ISOSORBIDE MONONITRATE 30 MG TAB CR PO SCH (08:17)
[2018-09-28] MEDS: INSULIN LISPRO 100 UNIT/1 ML 3ML VIAL SQ SCH ×3 (08:38→16:21)
--- NOTE | 2018-09-28 09:15 | NUR ---
PATIENT A/O X3, EVEN RESPIRATIONS ON RA. BOWEL SOUNDS ACTIVE, NO EDEMA. RIGHT TUNNEL CATH FOR DIALYSIS USE IN PLACE. PATIENT VOIDS IN TOILET. TELEMETRY #9 SR. PATIENT AMBULATES INDEPENDENTLY. NO PAIN OR DISCOMFORT AT THIS TIME. CALL LIGHT IN REACH. WILL CONTINUE TO MONITOR PATIENT.
[2018-09-28] MEDS: HYDRALAZINE HCL 25 MG TAB PO SCH (16:39)
--- NOTE | 2018-09-28 18:55 | NUR ---
Report received from LINDA Key at this time. Pt is sitting on couch at bedside. Pt is present at this time. Pt denies pain. Pt educated to use call light for assistance.
[2018-09-29] VITALS (8 sets, daily range): BP systolic 104–180; BP diastolic 65–89
[2018-09-29] MEDS: FAMOTIDINE 20 MG TAB PO SCH ×2 (06:27→17:27)
--- NOTE | 2018-09-29 07:20 | NUR ---
Report given to LINDA Mejia at this time.
--- NOTE | 2018-09-29 07:21 | NUR ---
Rcvd patient in report this am. Patient is asleep in bed at this time. No s/s of distress noted
[2018-09-29] MEDS: INSULIN LISPRO 100 UNIT/1 ML 3ML VIAL SQ SCH ×3 (07:30→17:28)
[2018-09-29 07:48] LABS: BASOPHILS # (AUTO) 0.1 (0.0-0.1); BASOPHILS % 1.1 % (0.0-1.0); EOSINOPHILS # (AUTO) 0.3 (0.0-0.4); EOSINOPHILS % 3.7 % (0.0-6.0); HEMATOCRIT 24.8 % (38.2-49.6); HEMOGLOBIN 8.6 g/dL (14.0-18.0); LYMPHOCYTES # (AUTO) 1.7 (1.0-3.2); LYMPHOCYTES % 23.1 % (18.0-39.1); MEAN CORPUSCULAR HEMOGLOBIN 32.3 pg (28-32); MEAN CORPUSCULAR HGB CONC 34.7 g/dL (31-35); MEAN CORPUSCULAR VOLUME 93.2 fL (81-99); MONOCYTES # (AUTO) 0.6 (0.2-0.8); MONOCYTES % 8.3 % (4.4-11.3); NEUTROPHILS # (AUTO) 4.7 (2.1-6.9); NEUTROPHILS % 63.3 % (38.7-80.0); PLATELET COUNT 197 x10e3/uL (140-360); RED BLOOD COUNT 2.66 x10e6/uL (4.3-5.7); RED CELL DISTRIBUTION WIDTH 12.4 % (11.7-14.4)
[2018-09-29 08:10] LABS: ALBUMIN 2.2 g/dL (3.5-5.0); ALBUMIN/GLOBULIN RATIO 0.5 (0.8-2.0); ANION GAP 16.4 mmol/L (8-16); CALCIUM 8.4 mg/dL (8.4-10.2); CREATININE, SERUM 6.91 mg/dL (0.72-1.25); POTASSIUM 4.4 mmol/L (3.5-5.1)
[2018-09-29] MEDS: ATORVASTATIN 20 MG TAB PO SCH ×2 (08:37→17:27)
[2018-09-29] MEDS: ASPIRIN 81 MG CHEW TAB PO SCH (08:37)
[2018-09-29] MEDS: FUROSEMIDE 40 MG TAB PO SCH (08:37)
[2018-09-29] MEDS: HYDRALAZINE HCL 25 MG TAB PO SCH ×2 (08:38→17:27)
[2018-09-29] MEDS: METOPROLOL TARTRATE 25 MG TAB PO SCH ×2 (08:39→17:27)
[2018-09-29] MEDS: ISOSORBIDE MONONITRATE 30 MG TAB CR PO SCH (09:00)
[2018-09-29] MEDS: ENALAPRIL MALEATE 10 MG TAB PO SCH (09:00)
--- NOTE | 2018-09-29 09:45 | NUR ---
Patient is AAox3. patient lung prince clear to auscultation. Bowel sounds present x4. No edema noted. Right subclavian HD cath in place. Dressing clean and dry. Patient receiving dialysis at this time. Patient ambulates on his own. No c/o pain. No s/s of distress noted.
--- NOTE | 2018-09-29 11:25 | NUR ---
Dr. Shaw spoke with Dr. Menchaca regarding new consult.
[2018-09-29] MEDS ORDERED: ONDANSETRON HCL 4 MG ORAL DISINTEGRATING TAB PO PRN (12:00)
--- NOTE | 2018-09-29 14:00 | NUR ---
Patient completed dialysis and 2 liters removed. Patient sitting in chair eating at this time.
--- NOTE | 2018-09-29 16:00 | NUR ---
Patient discharged from facility to home. Patient assisted out via staff in wheelchair. Reviewed all discharge paperwork, follow up appts and RX's given. Reviewed everything with spouse as well. Discharge folder given with instructions
--- NOTE | 2018-09-29 18:45 | NUR ---
Received bedside report from day shift RN. Patient is sitting on the chair, not in distress with next to hime. Call light within reach, side rails up x2, wheels lock and bed height low.
[2018-09-29] MEDS: CLONIDINE HCL 0.1 MG TAB PO PRN (20:39)
[2018-09-30] VITALS: BP 122/56
--- NOTE | 2018-09-30 03:47 | Consultation ---
DATE OF CONSULTATION: 09/29/2018 REASON FOR CONSULT: Coronary artery disease, evaluation for coronary artery bypass surgery; requested by Dr. Tyler Shaw. CORDUROY CUTTER OPERATOR: Dr. Jayant Camacho. HISTORY: I saw and evaluate this patient on September 29, 2018. He is a very nice 63-year-old man, who recently started dialysis, but was admitted via the emergency room with chest discomfort. There were no significant EKG changes and troponins were normal. He had elevated creatinine. He had been followed for chronic renal insufficiency for many years and has been initially on dialysis via a tunneled dialysis catheter. His first several hemodialysis went well. He had chest pain on admission. A cardiac catheterization was performed today and document severe CAD. Images are not available for review this evening. Coronary artery surgery has been recommended. The patient has a history of noninsulin-dependant diabetes. He has been taking oral hypoglycemics for several years. He also has a history of chronic renal insufficiency for which he has been followed and now has started dialysis. He took some unclear medication for high blood pressure. No PND or orthopnea. 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 No fevers or chills. MEDICATIONS: Medications at home: A pill for blood pressure, a pill for diabetes, a pill for high cholesterol. ALLERGIES: NONE KNOWN. SOCIAL HISTORY: Negative for smoking, alcohol, or IV drugs. FAMILY HISTORY: Negative for early coronary artery disease. No body in his family has endstage renal failure. PAST MEDICAL HISTORY: Positive for hypercholesterolemia, chronic renal insufficiency, and noninsulin-dependent diabetes. REVIEW OF SYSTEMS: GENERAL: Negative for fatigue and malaise. NEUROLOGIC: Negative for focal weakness in extremities or dysarthria. HEENT: Negative for decreased vision or decreased hearing. CARDIAC: Positive for chest pain as above. Negative for palpitations. PULMONARY: Negative for shortness of breath or wheezing. GI: No constipation or diarrhea. : Negative for hematuria or dysuria. ENDOCRINE: Negative for polyuria or polydipsia. VASCULAR: Negative for claudication. SKIN: Negative for rashes or angioedema. HEMATOLOGIC: Negative for clotting or bleeding. INFECTIOUS: Negative for fevers or sweating. PSYCHIATRIC: Negative for depression or anxiety. PHYSICAL EXAMINATION: GENERAL: Well developed and well nourished man, sitting up in a chair. is in the room with him. VITAL SIGNS: Blood pressure 140/70, pulse 80 and regular, respirations 16 and unlabored. NECK: Supple and nontender. No JVD. CARDIAC: Shows a regular rate and rhythm. There is a normal S1 and S2. There is no S3, S4, rub, or murmur. LUNGS: Clear to auscultation and percussion bilaterally. ABDOMEN: Globoid, benign. Good bowel sounds. No hepatosplenomegaly. BACK: No CVA tenderness. No muscular spasm. EXTREMITIES: No cyanosis, clubbing, or edema. VASCULAR: Carotids 2+/2+ bilaterally. No carotid bruits. Radials and femorals 1+/2+ bilaterally. Brachials 1+/2+ bilaterally. SKIN: No rashes or nonhealing ulcers. MUSCULOSKELETAL: Full range of motion at all joints, but no joint swelling. NEUROLOGIC: Cranial nerves II through XII intact. Sensation intact to light touch and pinprick bilaterally. Strength 5/5 in all extremities. LYMPHATICS: Negative for cervical, clavicular, or femoral adenopathy. LABORATORY DATA: White count is 7.3, hemoglobin 8.6, hematocrit 24.8, and platelet count 197,000. INR 0.95, PT 13.2, PTT 36.0. Sodium 136, potassium 4.4, BUN 75, creatinine 6.9, albumin 2.2, total protein 6.5. Chest x-ray shows mildly enlarged heart and some mild vascular congestion. No evidence of pneumonia. IMPRESSION: Severe CAD. Catheterization will be reviewed. Evaluation for coronary artery bypass graft initiated. Thank you very much for asking me to see this nice man. MD MADHURI Bird/MODL /[id number]
[2018-09-30 04:00] VITALS: BP 129/64
[2018-09-30] MEDS: FAMOTIDINE 20 MG TAB PO SCH ×2 (06:22→17:46)
--- NOTE | 2018-09-30 07:10 | NUR ---
Rcvd patient in report this am. Patient is asleep in bed at this time. No s/s of distress noted. Family at bedside
[2018-09-30] MEDS: HYDRALAZINE HCL 25 MG TAB PO SCH ×2 (08:12→17:46)
[2018-09-30] MEDS: FUROSEMIDE 40 MG TAB PO SCH (08:13)
[2018-09-30] MEDS: ISOSORBIDE MONONITRATE 30 MG TAB CR PO SCH (08:13)
[2018-09-30] MEDS: ASPIRIN 81 MG CHEW TAB PO SCH (08:13)
[2018-09-30] MEDS: METOPROLOL TARTRATE 25 MG TAB PO SCH ×2 (08:13→17:46)
[2018-09-30] MEDS: ENALAPRIL MALEATE 10 MG TAB PO SCH (08:13)
[2018-09-30] MEDS: ATORVASTATIN 20 MG TAB PO SCH ×2 (08:13→17:46)
[2018-09-30] MEDS: INSULIN LISPRO 100 UNIT/1 ML 3ML VIAL SQ SCH ×3 (08:29→16:30)
[2018-09-30 08:42] VITALS: BP 164/76
[2018-09-30 08:43] VITALS: BP 164/76
--- NOTE | 2018-09-30 09:30 | NUR ---
Patient is AAOx3. Patient lung prince clear to auscultation. Bowel sounds present x4. Patient ambulates on his own. No c/o chest pain. No s/s of distress noted. Right subclavian HD cath in place. No edema noted.
[2018-09-30 12:14] VITALS: BP 129/70
--- NOTE | 2018-09-30 14:01 | NUR ---
HAVE DIALYSIS CHAIR FOR , AND SATURDAY AT PM, GAVE LETTER TO PT FILED ONE ON CHART AND LET NURSE KNOW PT CAN BEGIN DIALYSIS TOMORROW.
--- NOTE | 2018-09-30 14:31 | NUR ---
Call placed to Dr. Camacho for discharge orders. Dr. Camacho informed this nurse that Dr. sadler initiated transfer downtown. Call placed to Dr. sadler office and awaiting call back
--- NOTE | 2018-09-30 14:48 | NUR ---
PT NOT GOING FOR DIALYSIS, BEING TRANSFERRED TO [facility], UPDATED DIALYSIS CLINIC AND REFERRAL LINE
--- NOTE | 2018-09-30 15:32 | NUR ---
CM SPOKE TO PATIENT AND PATIENT FAMILY AT BEDSIDE REGARDING PLAN OF CARE. PATIENT AWARE AND SPOKE TO MD REGARDING TRANSFER TO [facility]. PATIENT REQUEST TRANSFER TO [facility] AND SIGNED CHOICE LETTER. LETTER PLACED IN CHART. LANA SPOKE TO LORAINE AT [facility] TRANSFER [place] AND SENT FACESHEET AND H&P REQUESTED. PENDING BED FOR TRANSFER. MOT INITIATED AND GIVEN TO SUPERVISOR TUNNEL HEADING. [facility] [address] [place] [address] (P) [phone] (F) [phone]
[2018-09-30 17:05] VITALS: BP 168/77
--- NOTE | 2018-09-30 18:45 | NUR ---
Received bedside report from day shift RN. Patient is sitting on the chair, not in distress. Call light within reach, side rails up x2, wheels lock and bed height low. Patient was informed the patient will be discharged to [facility] once the room is cleaned. Verbalized understanding.
--- NOTE | 2018-09-30 20:00 | NUR ---
Telemetry D/C. Received D/C & transfer order from Dr. Camacho for patient to go to [facility] to have heart bypass surgery. Spouse will transport with patient via EMS. Patient verbalized understanding to transfer to [facility].
--- NOTE | 2018-11-12 06:33 | Discharge Summary ---
DISCHARGE DIAGNOSES: 1. Three-vessel coronary artery disease. 2. Type 2 diabetes mellitus, controlled. 3. Hypertension. 4. Chronic kidney disease, on dialysis. 5. [id number] myocardial infarction. HOSPITAL COURSE: Mr. Arvizu is a pleasant 63-year-old gentleman. He presented to the emergency department at [facility] with a history of 2 to 3 days including dyspnea, which had been progressive, nonproductive cough, and epigastric discomfort. He denied any fever. There was no diaphoresis or fainting sensation. Evaluation in the emergency department showed an elevated troponin level, elevated B type natriuretic peptide as well as increased creatinine and pulmonary condition. He was admitted to the hospital to the intensive care unit. Consultations were requested with Cardiology, Dr. Shaw; Pulmonary, Dr. Rankin; and Renal, Dr. Fontenot. The patient was scheduled for cardiac catheterization once his condition was stabilized and he was found to have a 3-vessel coronary artery disease. His dialysis treatments were continued and with these, the patient's significant fluid overload was resolved and he felt better. From the pulmonary standpoint, there was no need to proceed with invasive procedures and he was treated prophylactically for possible pneumonia. The patient's condition steadily improved and the career development consultant recommended cardiovascular evaluation for possible coronary artery bypass graft. He was seen in consultation by Dr. Menchaca, who agreed with the need for coronary artery bypass graft, and the patient was then transferred to a facility in the [facility] for his operation. He was transferred in stable condition. MD KIRSTIE Blanchard/LUIZL /[id number]
== END 2018-09-30 20:40 | DRG 280 ==
LOC: ER 14:53 → ERHOLD 19:00 → ICU 20:00 → MED/SURG 09-27 21:05
PROVIDERS: ADMIT Internal Medicine; ATTEND Internal Medicine
PROC: 0JH63XZ Insertion of Tunneled Vascular Access Device into Chest Subcutaneous Tissue and Fascia, Percutaneous Approach (ICD-10-PCS; principal; 2018-09-22)
PROC: 02HV33Z Insertion of Infusion Device into Superior Vena Cava, Percutaneous Approach (ICD-10-PCS; 2018-09-22)
PROC: 5A1D70Z Performance of Urinary Filtration, Intermittent, Less than 6 Hours Per Day (ICD-10-PCS; 2018-09-22)
PROC: 5A1D70Z Performance of Urinary Filtration, Intermittent, Less than 6 Hours Per Day (ICD-10-PCS; 2018-09-23)
PROC: 5A1D70Z Performance of Urinary Filtration, Intermittent, Less than 6 Hours Per Day (ICD-10-PCS; 2018-09-24)
PROC: 4A023N7 Measurement of Cardiac Sampling and Pressure, Left Heart, Percutaneous Approach (ICD-10-PCS; 2018-09-25)
PROC: B2111ZZ Fluoroscopy of Multiple Coronary Arteries using Low Osmolar Contrast (ICD-10-PCS; 2018-09-25)
PROC: B2151ZZ Fluoroscopy of Left Heart using Low Osmolar Contrast (ICD-10-PCS; 2018-09-25)
PROC: 5A1D70Z Performance of Urinary Filtration, Intermittent, Less than 6 Hours Per Day (ICD-10-PCS; 2018-09-26)
PROC: 5A1D70Z Performance of Urinary Filtration, Intermittent, Less than 6 Hours Per Day (ICD-10-PCS; 2018-09-29)
DX: I21.4 Non-ST elevation (NSTEMI) myocardial infarction (principal); N18.6 End stage renal disease; J18.9 Pneumonia, unspecified organism; I50.43 Acute on chronic combined systolic (congestive) and diastolic (congestive) heart failure; J81.0 Acute pulmonary edema; I13.2 Hypertensive heart and chronic kidney disease with heart failure and with stage 5 chronic kidney disease, or end stage renal disease; N17.9 Acute kidney failure, unspecified; E11.22 Type 2 diabetes mellitus with diabetic chronic kidney disease; Z79.84 Long term (current) use of oral hypoglycemic drugs; Z79.4 Long term (current) use of insulin; D63.1 Anemia in chronic kidney disease
CPT/HCPCS: 36415; 36558; 71045; 74470; 76770; 80048; 80053; 80061; 82550; 82553; 82948; 83036; 83735; 83880; 84100; 84484; 85025; 85610; 85730; 86705; 86706; 87340; 90962; 93005; 93306; 93458; 96372; 99284; C1750; C1766; C1769; J0360; J1644; J1817; J1940; J2001; J2250; J3010; J3480; J7030; J7040; Q9967

== ENCOUNTER → 2021-10-12 | Outpatient (CLI) | payer MEDICARE ==
[~2021-10-12] MED LIST: ASPIRIN81 MG PO; ATORVASTATIN CA20 MG PO; GLIPIZIDE5 MG PO; NIFEDIPINE ER60 MG PO; TORSEMIDE10 MG PO
== END ==
LOC: RAD 08:24
PROVIDERS: ATTEND Internal Medicine Infectious Disease
DX: Z22.7 Latent tuberculosis (principal)
CPT/HCPCS: 71046